=== PATIENT | female | born 1950 | race Caucasian/White ===

== ENCOUNTER 2019-02-25 07:30 | Outpatient (RCR) | payer MEDICARE, OTHER, SELFPAY ==
--- NOTE | 2019-01-25 11:11 | PT.OIE ---
Current Diagnoses Pain in right hip (01/25/19) Pain in left hip (01/25/19) Stiffness of right hip, not elsewhere classified (01/25/19) Stiffness of left hip, not elsewhere classified (01/25/19) Other intervertebral disc degeneration, lumbar region (01/25/19) Muscle weakness (generalized) (01/25/19) Repeated falls (01/25/19) Provider Visit Care Team Role Provider Type Mila Elizabeth MD Attending Provider Non-Staff Primary Care Provider Specialty: [facility] Address: [address] [place] [address], [id number] Email: Physical Therapy Initial Evaluation PT-OP-A Visit Information Start: 01/25/19 10:39 Freq: Status: Active Protocol: Document 01/25/19 09:45 DCW (Rec: 01/25/19 11:11 DCW [id number]) Out-Patient Physical Therapy Visit Information Visit Information Visit Type Initial Evaluation Visit Start Time 09:45 Visit Stop Time 10:30 Total Visit Minutes 45 Visit Number 1 Number of GARAGE WORKER Visits 0 Evaluation Information Evaluation Date 01/25/19 PT-OP-B Current Condition Start: 01/25/19 10:39 Freq: Status: Active Protocol: Document 01/25/19 09:45 DCW (Rec: 01/25/19 11:11 DCW [id number]) Current Condition History of Current Condition Onset Date Six months Current Complaints bilateral hip and groin pain, multiple falls History of Current Condition Pt reports a long-standing history of hip pain, which was worsened by a fall in her garage in July. Pt's normal pain is a constant pain in her bilateral hips and groin, which makes it difficulty to do anything. Pt has difficulty describing if anything causes her pain to increase, and is a somewhat tangential historian. Pt also reports that 4-6 x/day, she gets terrible pain down the front of her right thigh, but this seems to happen randomly and makes her scream loudly. Pt reports she is generally able to do dishes and laundry without any difficulty, but also admits her pain is worse standing longer than one minute. Pt reports difficulty tying her shoes. Pt notes that prior falls have caused a patella fracture and broken ribs, so she is also worried about her balance Prior Treatments and Tests x-ray showed moderate DJD bilaterally, per chart notes from her 12/02/18 visit with Mila Elizabeth MD Treatment Goals Patient/Caregiver Goals Pt wants her constant pain to stop Prior Functional Status Baseline Function- ADL's Independent Baseline Function- Mobility Independent Current Functional Impairments (Reported) Functional Limitations- ADL's Difficulty/pain tying shoes, standing >1 minute causes increased pain Functional Limitations- Mobility/Gait Relies on her to assist her getting around PT-OP-C Subjective Start: 01/25/19 10:39 Freq: Status: Active Protocol: Document 01/25/19 09:45 DCW (Rec: 01/25/19 11:11 DCW [id number]) Patient Questionnaires Lower Extremity Functional Scale LEFS Score 25/80 = 31.25% OP-PT Pain Assessment Pain Assessment Grid Paper Pain Assessment Grid Completed Yes: Multiple sites, see paper chart PT-OP-D Balance Start: 01/25/19 10:39 Freq: Status: Active Protocol: Document 01/25/19 09:45 DCW (Rec: 01/25/19 11:11 DCW [id number]) Balance Tests Frank Balance Test Frank Balance Test Score 36/56 Frank Impairment Rating 20 to 39% Impaired (Score 34- 44) Frank Balance Assessment Evaluation Sitting to Standing Ability Independent w/Hands Unsupported Stance Safely- 2 minutes Sitting Unsupported, Feet on Floor Safely- 2 minutes Standing to Sitting Ability Assist, Control w/Hands Transfer Ability Supervision, Verbal Cues Unsupported Stance- Eyes Closed Supervision, 10 seconds Unsupported Stance- Eyes Open Supervision to maintain Reaching Forward Standing Safely, 2 inches Pick- Up Object From Floor Supervision Look Behind Shoulder - Standing Turns Sideways Only Turning 360 Degrees Turns slowly, but safely Unsupported Stance, Alternating Feet on 4 Steps w/Supervision Stair Unsupported Tandem Stance Small Step- 30 seconds Unilateral Leg Stance Lifts Leg/Unable to Hold Total Score Frank Total Score (out of 56 points) 36 Frank Impairment Rating 20 to 39% Impaired (Score 34- 44) PT-OP-F Manual Assessment Start: 01/25/19 10:39 Freq: Status: Active Protocol: Document 01/25/19 09:45 DCW (Rec: 01/25/19 11:11 DCW [id number]) Manual Assessments Joint Mobility Assessment Joint Mobility Assessment Pain and crepitus with passive circumduction bilaterally, causing pt protective posturing . Pt tolerates only minimal movement of bilateral hip due to pain. PT-OP-G Mobility & Gait Start: 01/25/19 10:39 Freq: Status: Active Protocol: Document 01/25/19 09:45 DCW (Rec: 01/25/19 11:11 DCW [id number]) OP Gait Assessment Gait Gait Assistance Required: Contact Guard Assist Able to Maintain Weight Bearing Status Yes During Gait Assistive Devices Assistive Device None Orthotic/Prosthetic Devices or Brace: No Gait Deviations General Gait Pattern Antalgic Flexed Trunk Lateral Trunk Lean Comments Gait Comments Pt holds onto for stability with walking further than 5 feet PT-OP-K Range of Motion Start: 01/25/19 10:39 Freq: Status: Active Protocol: Document 01/25/19 09:45 DCW (Rec: 01/25/19 11:11 DCW [id number]) Hip Goniometric Range of Motion Hip Right Passive Hip ROM WFL No Testing Position Supine Flexion w/Knee Flexed 87 Abduction 20 Internal Rotation 2 External Rotation 32 Left Passive Hip ROM WFL No Testing Position Supine Flexion w/Knee Flexed 70 Abduction 8 Internal Rotation 4 External Rotation 28 Hip ROM Limitations Hip ROM Limitations Bony Restriction Pain PT-OP-L Special Tests Start: 01/25/19 10:39 Freq: Status: Active Protocol: Document 01/25/19 09:45 DCW (Rec: 01/25/19 11:11 DCW [id number]) Special Tests Hip Special Tests Scour Test Test Results Positive bilaterally De Jesus's Compression Test Results Positive bilaterally PHILLIP Test Results Anterior hip pain bilaterally PT-OP-M Strength Start: 01/25/19 10:39 Freq: Status: Active Protocol: Document 01/25/19 09:45 DCW (Rec: 01/25/19 11:11 DCW [id number]) Hip Strength Hip Manual Muscle Testing Right Flexion (L2) 4 Good Abduction 4 Good Adduction 4+ Good+ External Rotation 4 Good Internal Rotation 4 Good Comments c/o pain with resisted R hip abduction Left Flexion (L2) 3+ Fair+ Abduction 4 Good Adduction 4+ Good+ External Rotation 4- Good- Internal Rotation 4- Good- Comments c/o pain with resisted L hip flexion Knee Strength Knee Manual Muscle Testing Right Flexion (S2) 4+ Good+ Extension (L3) 4+ Good+ Left Flexion (S2) 4+ Good+ Extension (L3) 4+ Good+ PT-OP-T Assessment and Plan Start: 01/25/19 10:39 Freq: Status: Active Protocol: Document 01/25/19 09:45 DCW (Rec: 01/25/19 11:11 DCW [id number]) Physical Therapy Assessment Rehab Potential Rehabilitation Potential Good Evaluation Complexity Number of Personal Factors/Comorbidities 1-2 Number of Body Systems Impaired 3 Clinical Presentation at Evaluation Stable Impairments Impairments Activity Tolerance Balance Gait Pain ROM Soft Tissue Mobility Strength Goals Four Impairment Limited hip ROM bilaterally Patternmaker Hand Goal (LTG) Pt to display 100? hip flexion and 15? 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 Pt's score of 36/ 56 shows increased falls risk, and pt relies on holding onto her for stability, with likely indicates she would benefit from an assistive device. Pt's LE MMT show weakness, especially right hip flexion, and pt's hip ROM measurements demonstrate limitations, particularly in flexion (87? R , 70? L), and IR ( 2? R, 4? L) . Pt should benefit from generalized LE strengthening, balance training to help prevent future falls, and TherEx to improve bilateral hip ROM. If pt does not progress with skilled PT, pt may require return to specialist for further evaluation for potential surgical intervention, however pt will likely benefit from PT either way. Physical Therapy Plan Frequency and Duration Frequency of Treatment 2x/Week Duration of Treatment 10 weeks Plan of Care Start Date 01/25/19 Plan of Care End Date 04/05/19 Therapeutic Interventions Therapeutic Interventions Aquatic Therapy Balance Training Gait Training Home Exercise Program Joint Mobilizations Manual Therapy Neuromuscular Re-education Patient/Caregiver Education Self-Care/Home Management Soft Tissue Mobilization Therapeutic Activities Therapeutic Exercises Modalities Cold Pack/Ice Massage Electric Stimulation Hot Packs Ultrasound Next Visit Focus/Plan Next Note Type Treatment Note Next Visit Plan Strengthening, ROM, Balance training
--- NOTE | 2019-01-25 11:11 | PT.OPPOC ---
Current Diagnoses Pain in right hip (01/25/19) Pain in left hip (01/25/19) Stiffness of right hip, not elsewhere classified (01/25/19) Stiffness of left hip, not elsewhere classified (01/25/19) Other intervertebral disc degeneration, lumbar region (01/25/19) Muscle weakness (generalized) (01/25/19) Repeated falls (01/25/19) Provider Visit Care Team Role Provider Type Mila Elizabeth MD Attending Provider Non-Staff Primary Care Provider Specialty: [facility] Address: [address] [place] [address], [id number] Email: Plan Of Care PT-OP-T Assessment and Plan Start: 01/25/19 10:39 Freq: Status: Active Protocol: Document 01/25/19 09:45 DCW (Rec: 01/25/19 11:11 DCW [id number]) Physical Therapy Assessment Rehab Potential Rehabilitation Potential Good Evaluation Complexity Number of Personal Factors/Comorbidities 1-2 Number of Body Systems Impaired 3 Clinical Presentation at Evaluation Stable Impairments Impairments Activity Tolerance Balance Gait Pain ROM Soft Tissue Mobility Strength Goals Four Impairment Limited hip ROM bilaterally Long-Term Goal (LTG) Pt to display 100? hip flexion and 15? hip internal rotation bilaterally LTG Duration 03/27/19 Three Impairment Pt demonstrates increased falls risk per 36/56 on Frank Long-Term Goal (LTG) Pt to score 44/56 on Frank Balance Scale to demonstrate decreased falls risk LTG Duration 03/27/19 Two Impairment Pt unable to stand more than one minute without increasing pain Long-Term Goal (LTG) Pt to stand ten minutes without increased pain to improve ability to perform sports doctor LTG Duration 03/27/19 One Impairment Pt does not have an appropriate home exercise program Short Term Goal (STG) Pt to be independent and compliant with an appropriate HEP STG Duration 02/24/19 Assessment Summary Assessment Pt presents with signs and symptoms consistent with bilateral hip DJD and declining balance/increased falls risk. Pt's score of 36/ 56 shows increased falls risk, and pt relies on holding onto her for stability, with likely indicates she would benefit from an assistive device. Pt's LE MMT show weakness, especially right hip flexion, and pt's hip ROM measurements demonstrate limitations, particularly in flexion (87? R , 70? L), and IR ( 2? R, 4? L) . Pt should benefit from generalized LE strengthening, balance training to help prevent future falls, and TherEx to improve bilateral hip ROM. If pt does not progress with skilled PT, pt may require return to specialist for further evaluation for potential surgical intervention, however pt will likely benefit from PT either way. Physical Therapy Plan Frequency and Duration Frequency of Treatment 2x/Week Duration of Treatment 10 weeks Plan of Care Start Date 01/25/19 Plan of Care End Date 04/05/19 Therapeutic Interventions Therapeutic Interventions Aquatic Therapy Balance Training Gait Training Home Exercise Program Joint Mobilizations Manual Therapy Neuromuscular Re-education Patient/Caregiver Education Self-Care/Home Management Soft Tissue Mobilization Therapeutic Activities Therapeutic Exercises Modalities Cold Pack/Ice Massage Electric Stimulation Hot Packs Ultrasound Next Visit Focus/Plan Next Note Type Treatment Note Next Visit Plan Strengthening, ROM, Balance training Plan of Care Dates Plan of Care Start Date 01/25/19 Plan of Care End Date 04/05/19 Please Sign and Return: I have reviewed this Plan of Care and certify that the skilled therapy services above are required to meet the patient?s needs. Physician Signature Date Printed Name and Credentials Clinical Instructor Signature Printed Name and Credentials
--- NOTE | 2019-01-28 10:33 | PT.OTN ---
Current Diagnoses Pain in right hip (01/28/19) Pain in left hip (01/28/19) Stiffness of right hip, not elsewhere classified (01/28/19) Stiffness of left hip, not elsewhere classified (01/28/19) Other intervertebral disc degeneration, lumbar region (01/28/19) Muscle weakness (generalized) (01/28/19) Repeated falls (01/28/19) Physical Therapy Treatment Note PT-OP-A Visit Information Start: 01/25/19 10:39 Freq: Status: Active Protocol: Document 01/28/19 09:45 DCW (Rec: 01/28/19 10:33 DCW [id number]) Out-Patient Physical Therapy Visit Information Visit Information Visit Type Treatment Note Visit Start Time 09:45 Visit Stop Time 10:30 Total Visit Minutes 45 Visit Number 2 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 Pt's normal pain is a constant pain in her bilateral hips and groin, which makes it difficulty to do anything. Pt has difficulty describing if anything causes her pain to increase, and is a somewhat tangential historian. Pt also reports that 4-6 x/day, she gets terrible pain down the front of her right thigh, but this seems to happen randomly and makes her scream loudly. Pt reports she is generally able to do dishes and laundry without any difficulty, but also admits her pain is worse standing longer than one minute. Pt reports difficulty tying her shoes. Pt notes that prior falls have caused a patella fracture and broken ribs, so she is also worried about her balance Prior Treatments and Tests x-ray showed moderate DJD bilaterally, per chart notes from her 12/02/18 visit with Mila Elizabeth MD Treatment Goals Patient/Caregiver Goals Pt wants her constant pain to stop Prior Functional Status Baseline Function- ADL's Independent Baseline Function- Mobility Independent Current Functional Impairments (Reported) Functional Limitations- ADL's Difficulty/pain tying shoes, standing >1 minute causes increased pain Functional Limitations- Mobility/Gait Relies on her to assist her getting around PT-OP-C Subjective Start: 01/25/19 10:39 Freq: Status: Active Protocol: Document 01/28/19 09:45 DCW (Rec: 01/28/19 10:33 DCW [id number]) OP-PT Subjective Patient Comments Patient Comments Pt reports she is very sore, and would like therapy to help her with her pain. PT-OP-D Balance Start: 01/25/19 10:39 Freq: Status: Active Protocol: Document 01/25/19 09:45 DCW (Rec: 01/25/19 11:11 DCW [id number]) Balance Tests Frank Balance Test Frank Balance Test Score 36/56 Frank Impairment Rating 20 to 39% Impaired (Score 34- 44) Frank Balance Assessment Evaluation Sitting to Standing Ability Independent w/Hands Unsupported Stance Safely- 2 minutes Sitting Unsupported, Feet on Floor Safely- 2 minutes Standing to Sitting Ability Assist, Control w/Hands Transfer Ability Supervision, Verbal Cues Unsupported Stance- Eyes Closed Supervision, 10 seconds Unsupported Stance- Eyes Open Supervision to maintain Reaching Forward Standing Safely, 2 inches Pick- Up Object From Floor Supervision Look Behind Shoulder - Standing Turns Sideways Only Turning 360 Degrees Turns slowly, but safely Unsupported Stance, Alternating Feet on 4 Steps w/Supervision Stair Unsupported Tandem Stance Small Step- 30 seconds Unilateral Leg Stance Lifts Leg/Unable to Hold Total Score Frank Total Score (out of 56 points) 36 Frank Impairment Rating 20 to 39% Impaired (Score 34- 44) PT-OP-F Manual Assessment Start: 01/25/19 10:39 Freq: Status: Active Protocol: Document 01/25/19 09:45 DCW (Rec: 01/25/19 11:11 DCW [id number]) Manual Assessments Joint Mobility Assessment Joint Mobility Assessment Pain and crepitus with passive circumduction bilaterally, causing pt protetive posturing . Pt tolerates only minimal movement of bilateral hip due to pain. PT-OP-G Mobility & Gait Start: 01/25/19 10:39 Freq: Status: Active Protocol: Document 01/25/19 09:45 DCW (Rec: 01/25/19 11:11 DCW [id number]) OP Gait Assessment Gait Gait Assistance Required: Contact Guard Assist Able to Maintain Weight Bearing Status Yes During Gait Assistive Devices Assistive Device None Orthotic/Prosthetic Devices or Brace: No Gait Deviations General Gait Pattern Antalgic Flexed Trunk Lateral Trunk Lean Comments Gait Comments Pt holds onto for stability with walking further than 5 feet PT-OP-K Range of Motion Start: 01/25/19 10:39 Freq: Status: Active Protocol: Document 01/25/19 09:45 DCW (Rec: 01/25/19 11:11 DCW [id number]) Hip Goniometric Range of Motion Hip Right Passive Hip ROM WFL No Testing Position Supine Flexion w/Knee Flexed 87 Abduction 20 Internal Rotation 2 External Rotation 32 Left Passive Hip ROM WFL No Testing Position Supine Flexion w/Knee Flexed 70 Abduction 8 Internal Rotation 4 External Rotation 28 Hip ROM Limitations Hip ROM Limitations Bony Restriction Pain PT-OP-L Special Tests Start: 01/25/19 10:39 Freq: Status: Active Protocol: Document 01/25/19 09:45 DCW (Rec: 01/25/19 11:11 DCW [id number]) Special Tests Hip Special Tests Scour Test Test Results Positive bilaterally De Jesus's Compression Test Results Positive bilaterally PHILLIP Test Results Anterior hip pain bilaterally PT-OP-M Strength Start: 01/25/19 10:39 Freq: Status: Active Protocol: Document 01/25/19 09:45 DCW (Rec: 01/25/19 11:11 DCW [id number]) Hip Strength Hip Manual Muscle Testing Right Flexion (L2) 4 Good Abduction 4 Good Adduction 4+ Good+ External Rotation 4 Good Internal Rotation 4 Good Comments c/o pain with resisted R hip abduction Left Flexion (L2) 3+ Fair+ Abduction 4 Good Adduction 4+ Good+ External Rotation 4- Good- Internal Rotation 4- Good- Comments c/o pain with resisted L hip flexion Knee Strength Knee Manual Muscle Testing Right Flexion (S2) 4+ Good+ Extension (L3) 4+ Good+ Left Flexion (S2) 4+ Good+ Extension (L3) 4+ Good+ PT-OP-Q Treatments Start: 01/25/19 10:39 Freq: Status: Active Protocol: Document 01/28/19 09:45 DCW (Rec: 01/28/19 10:33 DCW [id number]) Cardio Equipment Recumbent Elliptical (Biodex) Duration (Minutes) 5 Resistance 1 Seat Position 10 Gym Equipment Shuttle Recovery Unilateral Squats Resistance 37# Shuttle Recovery Platform Stable Bilateral Squats Resistance 75# Shuttle Recovery Platform Stable Therapeutic Exercises Supine Exercises Bridging Supine Exercise Name Bridging Comments stopped secondary to pain Sidelying Exercises Reverse Clamshell Sidelying Exercise Name Reverse Clamshell Side bilateral Clamshell Sidelying Exercise Name Clamshell Side bilateral Standing Exercises Hip Extension Standing Exercise Name Extension Side bilateral Resistance none Equipment Used rail Hip Abduction Standing Exercise Name Abduction Side bilateral Resistance none Equipment Used rail Gait Training Gait Activity 1 Description Gait training /c FWW Device Used FWW Level of Assistance SBA Treatment Focus Safety /c walker PT-OP-R Modalities Start: 01/25/19 10:39 Freq: Status: Active Protocol: Document 01/28/19 09:45 DCW (Rec: 01/28/19 10:33 DCW [id number]) Electric Stimulation Electric Stimulation Interferential Current (IFC) Body Location Right hip Duration (Minutes) 15 Intensity 23 Patient Position Hooklying PT-OP-T Assessment and Plan Start: 01/25/19 10:39 Freq: Status: Active Protocol: Document 01/28/19 09:45 DCW (Rec: 01/28/19 10:33 DCW [id number]) Physical Therapy Assessment Impairments Impairments Activity Tolerance Balance Gait Pain ROM Soft Tissue Mobility Strength Goals Four Impairment Limited hip ROM bilaterally Machine Lead Burner Goal (LTG) Pt to display 100? hip flexion and 15? 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 Pt reports they have a FWW available, and she is agreeable to using it. Pt reported some increased pain with TherEx, but wants to work hard at home, and is excited about her HEP. Physical Therapy Plan Frequency and Duration Frequency of Treatment 2x/Week Duration of Treatment 10 weeks Plan of Care Start Date 01/25/19 Plan of Care End Date 04/05/19 Therapeutic Interventions Therapeutic Interventions Aquatic Therapy Balance Training Gait Training Home Exercise Program Joint Mobilizations Manual Therapy Neuromuscular Re-education Patient/Caregiver Education Self-Care/Home Management Soft Tissue Mobilization Therapeutic Activities Therapeutic Exercises Modalities Cold Pack/Ice Massage Electric Stimulation Hot Packs Ultrasound Next Visit Focus/Plan Next Note Type Treatment Note Next Visit Plan Strengthening, ROM, Balance training
--- NOTE | 2019-02-02 13:48 | PT.OTN ---
Current Diagnoses Pain in right hip (02/02/19) Pain in left hip (02/02/19) Stiffness of right hip, not elsewhere classified (02/02/19) Stiffness of left hip, not elsewhere classified (02/02/19) Other intervertebral disc degeneration, lumbar region (02/02/19) Muscle weakness (generalized) (02/02/19) Repeated falls (02/02/19) Physical Therapy Treatment Note PT-OP-A Visit Information Start: 01/25/19 10:39 Freq: Status: Active Protocol: Document 02/02/19 08:21 EA (Rec: 02/02/19 08:28 EA [id number]) Out-Patient Physical Therapy Visit Information Visit Information Visit Type Treatment Note Visit Start Time 07:30 Visit Stop Time 08:25 Total Visit Minutes 55 Visit Number 3 PT-OP-B Current Condition Start: 01/25/19 10:39 Freq: Status: Active Protocol: Document 01/25/19 09:45 DCW (Rec: 01/25/19 11:11 DCW [id number]) Current Condition History of Current Condition Onset Date Six months Current Complaints bilateral hip and groin pain, multiple falls History of Current Condition Pt reports a long-standing history of hip pain, which was worsened by a fall in her garage in July. Pt's normal pain is a constant pain in her bilateral hips and groin, which makes it difficulty to do anything. Pt has difficulty describing if anything causes her pain to increase, and is a somewhat tangential historian. Pt also reports that 4-6 x/day, she gets terrible pain down the front of her right thigh, but this seems to happen randomly and makes her scream loudly. Pt reports she is generally able to do dishes and laundry without any difficulty, but also admits her pain is worse standing longer than one minute. Pt reports difficulty tying her shoes. Pt notes that prior falls have caused a patella fracture and broken ribs, so she is also worried about her balance Prior Treatments and Tests x-ray showed moderate DJD bilaterally, per chart notes from her 12/02/18 visit with Mila Elizabeth MD Treatment Goals Patient/Caregiver Goals Pt wants her constant pain to stop Prior Functional Status Baseline Function- ADL's Independent Baseline Function- Mobility Independent Current Functional Impairments (Reported) Functional Limitations- ADL's Difficulty/pain tying shoes, standing >1 minute causes increased pain Functional Limitations- Mobility/Gait Relies on her to assist her getting around PT-OP-C Subjective Start: 01/25/19 10:39 Freq: Status: Active Protocol: Document 02/02/19 08:21 EA (Rec: 02/02/19 08:28 EA [id number]) OP-PT Subjective Patient Comments Patient Comments Pt reports pain during HEP; states last session with electrical stimulation helps a bit. She reports might still looking for her mothers 4WW to use for mobility. PT-OP-D Balance Start: 01/25/19 10:39 Freq: Status: Active Protocol: Document 01/25/19 09:45 DCW (Rec: 01/25/19 11:11 DCW [id number]) Balance Tests Frank Balance Test Frank Balance Test Score 36/56 Frank Impairment Rating 20 to 39% Impaired (Score 34- 44) Frank Balance Assessment Evaluation Sitting to Standing Ability Independent w/Hands Unsupported Stance Safely- 2 minutes Sitting Unsupported, Feet on Floor Safely- 2 minutes Standing to Sitting Ability Assist, Control w/Hands Transfer Ability Supervision, Verbal Cues Unsupported Stance- Eyes Closed Supervision, 10 seconds Unsupported Stance- Eyes Open Supervision to maintain Reaching Forward Standing Safely, 2 inches Pick- Up Object From Floor Supervision Look Behind Shoulder - Standing Turns Sideways Only Turning 360 Degrees Turns slowly, but safely Unsupported Stance, Alternating Feet on 4 Steps w/Supervision Stair Unsupported Tandem Stance Small Step- 30 seconds Unilateral Leg Stance Lifts Leg/Unable to Hold Total Score Frank Total Score (out of 56 points) 36 Frank Impairment Rating 20 to 39% Impaired (Score 34- 44) PT-OP-F Manual Assessment Start: 01/25/19 10:39 Freq: Status: Active Protocol: Document 01/25/19 09:45 DCW (Rec: 01/25/19 11:11 DCW [id number]) Manual Assessments Joint Mobility Assessment Joint Mobility Assessment Pain and crepitus with passive circumduction bilaterally, causing pt protetive posturing . Pt tolerates only minimal movement of bilateral hip due to pain. PT-OP-G Mobility & Gait Start: 01/25/19 10:39 Freq: Status: Active Protocol: Document 01/25/19 09:45 DCW (Rec: 01/25/19 11:11 DCW [id number]) OP Gait Assessment Gait Gait Assistance Required: Contact Guard Assist Able to Maintain Weight Bearing Status Yes During Gait Assistive Devices Assistive Device None Orthotic/Prosthetic Devices or Brace: No Gait Deviations General Gait Pattern Antalgic Flexed Trunk Lateral Trunk Lean Comments Gait Comments Pt holds onto for stability with walking further than 5 feet PT-OP-K Range of Motion Start: 01/25/19 10:39 Freq: Status: Active Protocol: Document 01/25/19 09:45 DCW (Rec: 01/25/19 11:11 DCW [id number]) Hip Goniometric Range of Motion Hip Right Passive Hip ROM WFL No Testing Position Supine Flexion w/Knee Flexed 87 Abduction 20 Internal Rotation 2 External Rotation 32 Left Passive Hip ROM WFL No Testing Position Supine Flexion w/Knee Flexed 70 Abduction 8 Internal Rotation 4 External Rotation 28 Hip ROM Limitations Hip ROM Limitations Bony Restriction Pain PT-OP-L Special Tests Start: 01/25/19 10:39 Freq: Status: Active Protocol: Document 01/25/19 09:45 DCW (Rec: 01/25/19 11:11 DCW [id number]) Special Tests Hip Special Tests Scour Test Test Results Positive bilaterally De Jesus's Compression Test Results Positive bilaterally PHILLIP Test Results Anterior hip pain bilaterally PT-OP-M Strength Start: 01/25/19 10:39 Freq: Status: Active Protocol: Document 01/25/19 09:45 DCW (Rec: 01/25/19 11:11 DCW [id number]) Hip Strength Hip Manual Muscle Testing Right Flexion (L2) 4 Good Abduction 4 Good Adduction 4+ Good+ External Rotation 4 Good Internal Rotation 4 Good Comments c/o pain with resisted R hip abduction Left Flexion (L2) 3+ Fair+ Abduction 4 Good Adduction 4+ Good+ External Rotation 4- Good- Internal Rotation 4- Good- Comments c/o pain with resisted L hip flexion Knee Strength Knee Manual Muscle Testing Right Flexion (S2) 4+ Good+ Extension (L3) 4+ Good+ Left Flexion (S2) 4+ Good+ Extension (L3) 4+ Good+ PT-OP-Q Treatments Start: 01/25/19 10:39 Freq: Status: Active Protocol: Document 02/02/19 08:21 EA (Rec: 02/02/19 08:28 EA [id number]) Cardio Equipment Recumbent Elliptical (Biodex) Duration (Minutes) 6 Resistance 1 Seat Position 10 Gym Equipment Shuttle Recovery Unilateral Squats Resistance 37# Shuttle Recovery Platform Stable Bilateral Squats Resistance 75# Shuttle Recovery Platform Stable Therapeutic Exercises Supine Exercises Bridging Supine Exercise Name Bridging to bridging with isometric hip abduction Side bilateral Resistance BTB Sidelying Exercises Reverse Clamshell Sidelying Exercise Name Reverse Clamshell Side bilateral Resistance BTB Clamshell Sidelying Exercise Name Clamshell Side bilateral Standing Exercises Hip Extension Standing Exercise Name Extension Side bilateral Resistance none Equipment Used rail Hip Abduction Standing Exercise Name Abduction Side bilateral Resistance none Equipment Used rail Manual Therapy Treatment Soft Tissue Mobilization 1 Body Location R ant groin, upper postero lat gluetals Intensity/Depth Moderate Body Position Hooklying PT-OP-R Modalities Start: 01/25/19 10:39 Freq: Status: Active Protocol: Document 02/02/19 08:21 EA (Rec: 02/02/19 08:28 EA [id number]) Electric Stimulation Electric Stimulation Interferential Current (IFC) Body Location Right hip Duration (Minutes) 15 Intensity 23 Patient Position Hooklying PT-OP-T Assessment and Plan Start: 01/25/19 10:39 Freq: Status: Active Protocol: Document 02/02/19 08:21 EA (Rec: 02/02/19 08:28 EA [id number]) Physical Therapy Assessment Assessment Summary Assessment Pt exhibited no pain complaint with life story conversation during therEx. I recommended to cont. HEP. Physical Therapy Plan Next Visit Focus/Plan Next Note Type Treatment Note Next Visit Plan Strengthening, ROM, Balance training
--- NOTE | 2019-02-04 13:06 | PT.OTN ---
Current Diagnoses Pain in right hip (02/04/19) Pain in left hip (02/04/19) Stiffness of right hip, not elsewhere classified (02/04/19) Stiffness of left hip, not elsewhere classified (02/04/19) Other intervertebral disc degeneration, lumbar region (02/04/19) Muscle weakness (generalized) (02/04/19) Repeated falls (02/04/19) Physical Therapy Treatment Note PT-OP-A Visit Information Start: 01/25/19 10:39 Freq: Status: Active Protocol: Document 02/04/19 13:02 EA (Rec: 02/04/19 13:06 EA [id number]) Out-Patient Physical Therapy Visit Information Visit Information Visit Type Treatment Note Visit Start Time 07:30 Visit Stop Time 08:25 Total Visit Minutes 55 Visit Number 4 PT-OP-B Current Condition Start: 01/25/19 10:39 Freq: Status: Active Protocol: Document 01/25/19 09:45 DCW (Rec: 01/25/19 11:11 DCW [id number]) Current Condition History of Current Condition Onset Date Six months Current Complaints bilateral hip and groin pain, multiple falls History of Current Condition Pt reports a long-standing history of hip pain, which was worsened by a fall in her garage in July. Pt's normal pain is a constant pain in her bilateral hips and groin, which makes it difficulty to do anything. Pt has difficulty describing if anything causes her pain to increase, and is a somewhat tangential historian. Pt also reports that 4-6 x/day, she gets terrible pain down the front of her right thigh, but this seems to happen randomly and makes her scream loudly. Pt reports she is generally able to do dishes and laundry without any difficulty, but also admits her pain is worse standing longer than one minute. Pt reports difficulty tying her shoes. Pt notes that prior falls have caused a patella fracture and broken ribs, so she is also worried about her balance Prior Treatments and Tests x-ray showed moderate DJD bilaterally, per chart notes from her 12/02/18 visit with Mila Elizabeth MD Treatment Goals Patient/Caregiver Goals Pt wants her constant pain to stop Prior Functional Status Baseline Function- ADL's Independent Baseline Function- Mobility Independent Current Functional Impairments (Reported) Functional Limitations- ADL's Difficulty/pain tying shoes, standing >1 minute causes increased pain Functional Limitations- Mobility/Gait Relies on her to assist her getting around PT-OP-C Subjective Start: 01/25/19 10:39 Freq: Status: Active Protocol: Document 02/04/19 13:02 EA (Rec: 02/04/19 13:06 EA [id number]) OP-PT Subjective Patient Comments Patient Comments Pt reports right hip feels a bit better; left hip botherher much today. PT-OP-D Balance Start: 01/25/19 10:39 Freq: Status: Active Protocol: Document 01/25/19 09:45 DCW (Rec: 01/25/19 11:11 DCW [id number]) Balance Tests Frank Balance Test Frank Balance Test Score 36/56 Frank Impairment Rating 20 to 39% Impaired (Score 34- 44) Frank Balance Assessment Evaluation Sitting to Standing Ability Independent w/Hands Unsupported Stance Safely- 2 minutes Sitting Unsupported, Feet on Floor Safely- 2 minutes Standing to Sitting Ability Assist, Control w/Hands Transfer Ability Supervision, Verbal Cues Unsupported Stance- Eyes Closed Supervision, 10 seconds Unsupported Stance- Eyes Open Supervision to maintain Reaching Forward Standing Safely, 2 inches Pick- Up Object From Floor Supervision Look Behind Shoulder - Standing Turns Sideways Only Turning 360 Degrees Turns slowly, but safely Unsupported Stance, Alternating Feet on 4 Steps w/Supervision Stair Unsupported Tandem Stance Small Step- 30 seconds Unilateral Leg Stance Lifts Leg/Unable to Hold Total Score Frank Total Score (out of 56 points) 36 Frank Impairment Rating 20 to 39% Impaired (Score 34- 44) PT-OP-F Manual Assessment Start: 01/25/19 10:39 Freq: Status: Active Protocol: Document 01/25/19 09:45 DCW (Rec: 01/25/19 11:11 DCW [id number]) Manual Assessments Joint Mobility Assessment Joint Mobility Assessment Pain and crepitus with passive circumduction bilaterally, causing pt protetive posturing . Pt tolerates only minimal movement of bilateral hip due to pain. PT-OP-G Mobility & Gait Start: 01/25/19 10:39 Freq: Status: Active Protocol: Document 01/25/19 09:45 DCW (Rec: 01/25/19 11:11 DCW [id number]) OP Gait Assessment Gait Gait Assistance Required: Contact Guard Assist Able to Maintain Weight Bearing Status Yes During Gait Assistive Devices Assistive Device None Orthotic/Prosthetic Devices or Brace: No Gait Deviations General Gait Pattern Antalgic Flexed Trunk Lateral Trunk Lean Comments Gait Comments Pt holds onto for stability with walking further than 5 feet PT-OP-K Range of Motion Start: 01/25/19 10:39 Freq: Status: Active Protocol: Document 01/25/19 09:45 DCW (Rec: 01/25/19 11:11 DCW [id number]) Hip Goniometric Range of Motion Hip Right Passive Hip ROM WFL No Testing Position Supine Flexion w/Knee Flexed 87 Abduction 20 Internal Rotation 2 External Rotation 32 Left Passive Hip ROM WFL No Testing Position Supine Flexion w/Knee Flexed 70 Abduction 8 Internal Rotation 4 External Rotation 28 Hip ROM Limitations Hip ROM Limitations Bony Restriction Pain PT-OP-L Special Tests Start: 01/25/19 10:39 Freq: Status: Active Protocol: Document 01/25/19 09:45 DCW (Rec: 01/25/19 11:11 DCW [id number]) Special Tests Hip Special Tests Scour Test Test Results Positive bilaterally De Jesus's Compression Test Results Positive bilaterally PHILLIP Test Results Anterior hip pain bilaterally PT-OP-M Strength Start: 01/25/19 10:39 Freq: Status: Active Protocol: Document 01/25/19 09:45 DCW (Rec: 01/25/19 11:11 DCW [id number]) Hip Strength Hip Manual Muscle Testing Right Flexion (L2) 4 Good Abduction 4 Good Adduction 4+ Good+ External Rotation 4 Good Internal Rotation 4 Good Comments c/o pain with resisted R hip abduction Left Flexion (L2) 3+ Fair+ Abduction 4 Good Adduction 4+ Good+ External Rotation 4- Good- Internal Rotation 4- Good- Comments c/o pain with resisted L hip flexion Knee Strength Knee Manual Muscle Testing Right Flexion (S2) 4+ Good+ Extension (L3) 4+ Good+ Left Flexion (S2) 4+ Good+ Extension (L3) 4+ Good+ PT-OP-Q Treatments Start: 01/25/19 10:39 Freq: Status: Active Protocol: Document 02/04/19 13:02 EA (Rec: 02/04/19 13:06 EA [id number]) Cardio Equipment Recumbent Elliptical (Biodex) Duration (Minutes) 6 Resistance 1 Seat Position 10 Gym Equipment Shuttle Recovery Unilateral Squats Resistance 37# Shuttle Recovery Platform Stable Bilateral Squats Resistance 75# Shuttle Recovery Platform Stable Therapeutic Exercises Supine Exercises Bridging Supine Exercise Name Bridging to bridging with isometric hip abduction Side bilateral Resistance BTB Sidelying Exercises Reverse Clamshell Sidelying Exercise Name Reverse Clamshell Side bilateral Resistance BTB Clamshell Sidelying Exercise Name Clamshell Side bilateral Standing Exercises Hip Extension Standing Exercise Name Extension Side bilateral Resistance none Equipment Used rail Hip Abduction Standing Exercise Name Abduction Side bilateral Resistance none Equipment Used rail Manual Therapy Treatment Soft Tissue Mobilization 1 Body Location R/L ant groin, upper postero lat gluetals Intensity/Depth Moderate Body Position Hooklying PT-OP-R Modalities Start: 01/25/19 10:39 Freq: Status: Active Protocol: Document 02/04/19 13:02 EA (Rec: 02/04/19 13:06 EA [id number]) Electric Stimulation Electric Stimulation Interferential Current (IFC) Body Location Left hip and upper gluteal region Duration (Minutes) 15 Intensity 23 Patient Position Hooklying PT-OP-T Assessment and Plan Start: 01/25/19 10:39 Freq: Status: Active Protocol: Document 02/04/19 13:02 EA (Rec: 02/04/19 13:06 EA [id number]) Physical Therapy Assessment Assessment Summary Assessment Tolerated treatment well. Educated with the HEP and exhibited good understanding. Physical Therapy Plan Next Visit Focus/Plan Next Note Type Treatment Note Next Visit Plan Strengthening, ROM, Balance training
--- NOTE | 2019-02-09 11:18 | PT.OTN ---
Current Diagnoses Pain in right hip (02/09/19) Pain in left hip (02/09/19) Stiffness of right hip, not elsewhere classified (02/09/19) Stiffness of left hip, not elsewhere classified (02/09/19) Other intervertebral disc degeneration, lumbar region (02/09/19) Muscle weakness (generalized) (02/09/19) Repeated falls (02/09/19) Physical Therapy Treatment Note PT-OP-A Visit Information Start: 01/25/19 10:39 Freq: Status: Active Protocol: Document 02/09/19 11:11 SA (Rec: 02/09/19 11:18 SA [id number]) Out-Patient Physical Therapy Visit Information Visit Information Visit Type Treatment Note Visit Start Time 08:15 Visit Stop Time 09:10 Total Visit Minutes 55 Visit Number 5 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 Pt's normal pain is a constant pain in her bilateral hips and groin, which makes it difficulty to do anything. Pt has difficulty describing if anything causes her pain to increase, and is a somewhat tangential historian. Pt also reports that 4-6 x/day, she gets terrible pain down the front of her right thigh, but this seems to happen randomly and makes her scream loudly. Pt reports she is generally able to do dishes and laundry without any difficulty, but also admits her pain is worse standing longer than one minute. Pt reports difficulty tying her shoes. Pt notes that prior falls have caused a patella fracture and broken ribs, so she is also worried about her balance Prior Treatments and Tests x-ray showed moderate DJD bilaterally, per chart notes from her 12/02/18 visit with Mila Elizabeth MD Treatment Goals Patient/Caregiver Goals Pt wants her constant pain to stop Prior Functional Status Baseline Function- ADL's Independent Baseline Function- Mobility Independent Current Functional Impairments (Reported) Functional Limitations- ADL's Difficulty/pain tying shoes, standing >1 minute causes increased pain Functional Limitations- Mobility/Gait Relies on her to assist her getting around PT-OP-C Subjective Start: 01/25/19 10:39 Freq: Status: Active Protocol: Document 02/09/19 11:11 SA (Rec: 02/09/19 11:18 SA [id number]) OP-PT Subjective Patient Comments Patient Comments Pt states R hip is painful today, had releif after last session for about a day and a half. PT-OP-D Balance Start: 01/25/19 10:39 Freq: Status: Active Protocol: Document 01/25/19 09:45 DCW (Rec: 01/25/19 11:11 DCW [id number]) Balance Tests Frank Balance Test Frank Balance Test Score 36/56 Frank Impairment Rating 20 to 39% Impaired (Score 34- 44) Frank Balance Assessment Evaluation Sitting to Standing Ability Independent w/Hands Unsupported Stance Safely- 2 minutes Sitting Unsupported, Feet on Floor Safely- 2 minutes Standing to Sitting Ability Assist, Control w/Hands Transfer Ability Supervision, Verbal Cues Unsupported Stance- Eyes Closed Supervision, 10 seconds Unsupported Stance- Eyes Open Supervision to maintain Reaching Forward Standing Safely, 2 inches Pick- Up Object From Floor Supervision Look Behind Shoulder - Standing Turns Sideways Only Turning 360 Degrees Turns slowly, but safely Unsupported Stance, Alternating Feet on 4 Steps w/Supervision Stair Unsupported Tandem Stance Small Step- 30 seconds Unilateral Leg Stance Lifts Leg/Unable to Hold Total Score Frank Total Score (out of 56 points) 36 Frank Impairment Rating 20 to 39% Impaired (Score 34- 44) PT-OP-F Manual Assessment Start: 01/25/19 10:39 Freq: Status: Active Protocol: Document 01/25/19 09:45 DCW (Rec: 01/25/19 11:11 DCW [id number]) Manual Assessments Joint Mobility Assessment Joint Mobility Assessment Pain and crepitus with passive circumduction bilaterally, causing pt protetive posturing . Pt tolerates only minimal movement of bilateral hip due to pain. PT-OP-G Mobility & Gait Start: 01/25/19 10:39 Freq: Status: Active Protocol: Document 01/25/19 09:45 DCW (Rec: 01/25/19 11:11 DCW [id number]) OP Gait Assessment Gait Gait Assistance Required: Contact Guard Assist Able to Maintain Weight Bearing Status Yes During Gait Assistive Devices Assistive Device None Orthotic/Prosthetic Devices or Brace: No Gait Deviations General Gait Pattern Antalgic Flexed Trunk Lateral Trunk Lean Comments Gait Comments Pt holds onto for stability with walking further than 5 feet PT-OP-K Range of Motion Start: 01/25/19 10:39 Freq: Status: Active Protocol: Document 01/25/19 09:45 DCW (Rec: 01/25/19 11:11 DCW [id number]) Hip Goniometric Range of Motion Hip Right Passive Hip ROM WFL No Testing Position Supine Flexion w/Knee Flexed 87 Abduction 20 Internal Rotation 2 External Rotation 32 Left Passive Hip ROM WFL No Testing Position Supine Flexion w/Knee Flexed 70 Abduction 8 Internal Rotation 4 External Rotation 28 Hip ROM Limitations Hip ROM Limitations Bony Restriction Pain PT-OP-L Special Tests Start: 01/25/19 10:39 Freq: Status: Active Protocol: Document 01/25/19 09:45 DCW (Rec: 01/25/19 11:11 DCW [id number]) Special Tests Hip Special Tests Scour Test Test Results Positive bilaterally De Jesus's Compression Test Results Positive bilaterally PHILLIP Test Results Anterior hip pain bilaterally PT-OP-M Strength Start: 01/25/19 10:39 Freq: Status: Active Protocol: Document 01/25/19 09:45 DCW (Rec: 01/25/19 11:11 DCW [id number]) Hip Strength Hip Manual Muscle Testing Right Flexion (L2) 4 Good Abduction 4 Good Adduction 4+ Good+ External Rotation 4 Good Internal Rotation 4 Good Comments c/o pain with resisted R hip abduction Left Flexion (L2) 3+ Fair+ Abduction 4 Good Adduction 4+ Good+ External Rotation 4- Good- Internal Rotation 4- Good- Comments c/o pain with resisted L hip flexion Knee Strength Knee Manual Muscle Testing Right Flexion (S2) 4+ Good+ Extension (L3) 4+ Good+ Left Flexion (S2) 4+ Good+ Extension (L3) 4+ Good+ PT-OP-Q Treatments Start: 01/25/19 10:39 Freq: Status: Active Protocol: Document 02/09/19 11:11 SA (Rec: 02/09/19 11:18 SA [id number]) Cardio Equipment Recumbent Elliptical (Biodex) Duration (Minutes) 6 Resistance 2 Seat Position 10 Gym Equipment Shuttle Recovery Unilateral Squats Resistance 37# Shuttle Recovery Platform Stable Reps/Time 2 x 10 Bilateral Squats Resistance 75# Shuttle Recovery Platform Stable Reps/Time 2 x 10 Therapeutic Exercises Supine Exercises Knee fall out Side bilateral Reps/Minutes 10 x 5 each HS stretch Side bilateral Reps/Minutes 3 x 30 Bridging Supine Exercise Name Bridging to bridging with isometric hip abduction Side bilateral Resistance BTB Sidelying Exercises Reverse Clamshell Sidelying Exercise Name Reverse Clamshell Side bilateral Resistance BTB Clamshell Sidelying Exercise Name Clamshell Side bilateral Manual Therapy Treatment Soft Tissue Mobilization 1 Body Location R/L ant groin, upper postero lat gluetals Intensity/Depth Moderate Body Position Hooklying PT-OP-R Modalities Start: 01/25/19 10:39 Freq: Status: Active Protocol: Document 02/09/19 11:11 (Rec: 02/09/19 11:18 [id number]) Electric Stimulation Electric Stimulation Interferential Current (IFC) Body Location Left hip and upper gluteal region Duration (Minutes) 15 Intensity 24 Patient Position Hooklying Combined With Heat/Cold Hot Pack PT-OP-T Assessment and Plan Start: 01/25/19 10:39 Freq: Status: Active Protocol: Document 02/09/19 11:11 (Rec: 02/09/19 11:18 [id number]) Physical Therapy Assessment Assessment Summary Assessment Pt tolerated stretches and exercise well, added new stretches to HEP. Physical Therapy Plan Next Visit Focus/Plan Next Note Type Treatment Note Next Visit Plan Strengthening, ROM, Balance training
--- NOTE | 2019-02-16 09:39 | PT.OTN ---
Current Diagnoses Pain in right hip (02/16/19) Pain in left hip (02/16/19) Stiffness of right hip, not elsewhere classified (02/16/19) Stiffness of left hip, not elsewhere classified (02/16/19) Other intervertebral disc degeneration, lumbar region (02/16/19) Muscle weakness (generalized) (02/16/19) Repeated falls (02/16/19) Physical Therapy Treatment Note PT-OP-A Visit Information Start: 01/25/19 10:39 Freq: Status: Active Protocol: Document 02/16/19 08:57 EA (Rec: 02/16/19 09:01 EA [id number]) Out-Patient Physical Therapy Visit Information Visit Information Visit Type Treatment Note Visit Start Time 08:15 Visit Stop Time 09:07 Total Visit Minutes 53 Visit Number 6 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 Pt's normal pain is a constant pain in her bilateral hips and groin, which makes it difficulty to do anything. Pt has difficulty describing if anything causes her pain to increase, and is a somewhat tangential historian. Pt also reports that 4-6 x/day, she gets terrible pain down the front of her right thigh, but this seems to happen randomly and makes her scream loudly. Pt reports she is generally able to do dishes and laundry without any difficulty, but also admits her pain is worse standing longer than one minute. Pt reports difficulty tying her shoes. Pt notes that prior falls have caused a patella fracture and broken ribs, so she is also worried about her balance Prior Treatments and Tests x-ray showed moderate DJD bilaterally, per chart notes from her 12/02/18 visit with Mila Elizabeth MD Treatment Goals Patient/Caregiver Goals Pt wants her constant pain to stop Prior Functional Status Baseline Function- ADL's Independent Baseline Function- Mobility Independent Current Functional Impairments (Reported) Functional Limitations- ADL's Difficulty/pain tying shoes, standing >1 minute causes increased pain Functional Limitations- Mobility/Gait Relies on her to assist her getting around PT-OP-C Subjective Start: 01/25/19 10:39 Freq: Status: Active Protocol: Document 02/16/19 08:57 EA (Rec: 02/16/19 09:01 EA [id number]) OP-PT Subjective Patient Comments Patient Comments Pt reports it's not a good day today states will be having check up for pain clinic. PT-OP-D Balance Start: 01/25/19 10:39 Freq: Status: Active Protocol: Document 01/25/19 09:45 DCW (Rec: 01/25/19 11:11 DCW [id number]) Balance Tests Frank Balance Test Frank Balance Test Score 36/56 Frank Impairment Rating 20 to 39% Impaired (Score 34- 44) Frank Balance Assessment Evaluation Sitting to Standing Ability Independent w/Hands Unsupported Stance Safely- 2 minutes Sitting Unsupported, Feet on Floor Safely- 2 minutes Standing to Sitting Ability Assist, Control w/Hands Transfer Ability Supervision, Verbal Cues Unsupported Stance- Eyes Closed Supervision, 10 seconds Unsupported Stance- Eyes Open Supervision to maintain Reaching Forward Standing Safely, 2 inches Pick- Up Object From Floor Supervision Look Behind Shoulder - Standing Turns Sideways Only Turning 360 Degrees Turns slowly, but safely Unsupported Stance, Alternating Feet on 4 Steps w/Supervision Stair Unsupported Tandem Stance Small Step- 30 seconds Unilateral Leg Stance Lifts Leg/Unable to Hold Total Score Frank Total Score (out of 56 points) 36 Frank Impairment Rating 20 to 39% Impaired (Score 34- 44) PT-OP-F Manual Assessment Start: 01/25/19 10:39 Freq: Status: Active Protocol: Document 01/25/19 09:45 DCW (Rec: 01/25/19 11:11 DCW [id number]) Manual Assessments Joint Mobility Assessment Joint Mobility Assessment Pain and crepitus with passive circumduction bilaterally, causing pt protetive posturing . Pt tolerates only minimal movement of bilateral hip due to pain. PT-OP-G Mobility & Gait Start: 01/25/19 10:39 Freq: Status: Active Protocol: Document 01/25/19 09:45 DCW (Rec: 01/25/19 11:11 DCW [id number]) OP Gait Assessment Gait Gait Assistance Required: Contact Guard Assist Able to Maintain Weight Bearing Status Yes During Gait Assistive Devices Assistive Device None Orthotic/Prosthetic Devices or Brace: No Gait Deviations General Gait Pattern Antalgic Flexed Trunk Lateral Trunk Lean Comments Gait Comments Pt holds onto for stability with walking further than 5 feet PT-OP-K Range of Motion Start: 01/25/19 10:39 Freq: Status: Active Protocol: Document 01/25/19 09:45 DCW (Rec: 01/25/19 11:11 DCW [id number]) Hip Goniometric Range of Motion Hip Right Passive Hip ROM WFL No Testing Position Supine Flexion w/Knee Flexed 87 Abduction 20 Internal Rotation 2 External Rotation 32 Left Passive Hip ROM WFL No Testing Position Supine Flexion w/Knee Flexed 70 Abduction 8 Internal Rotation 4 External Rotation 28 Hip ROM Limitations Hip ROM Limitations Bony Restriction Pain PT-OP-L Special Tests Start: 01/25/19 10:39 Freq: Status: Active Protocol: Document 01/25/19 09:45 DCW (Rec: 01/25/19 11:11 DCW [id number]) Special Tests Hip Special Tests Scour Test Test Results Positive bilaterally De Jesus's Compression Test Results Positive bilaterally PHILLIP Test Results Anterior hip pain bilaterally PT-OP-M Strength Start: 01/25/19 10:39 Freq: Status: Active Protocol: Document 01/25/19 09:45 DCW (Rec: 01/25/19 11:11 DCW [id number]) Hip Strength Hip Manual Muscle Testing Right Flexion (L2) 4 Good Abduction 4 Good Adduction 4+ Good+ External Rotation 4 Good Internal Rotation 4 Good Comments c/o pain with resisted R hip abduction Left Flexion (L2) 3+ Fair+ Abduction 4 Good Adduction 4+ Good+ External Rotation 4- Good- Internal Rotation 4- Good- Comments c/o pain with resisted L hip flexion Knee Strength Knee Manual Muscle Testing Right Flexion (S2) 4+ Good+ Extension (L3) 4+ Good+ Left Flexion (S2) 4+ Good+ Extension (L3) 4+ Good+ PT-OP-Q Treatments Start: 01/25/19 10:39 Freq: Status: Active Protocol: Document 02/16/19 08:57 EA (Rec: 02/16/19 09:01 EA [id number]) Cardio Equipment Recumbent Elliptical (Biodex) Duration (Minutes) 6 Resistance 2 Seat Position 10 Gym Equipment Shuttle Recovery Unilateral Squats Resistance 37# Shuttle Recovery Platform Stable Reps/Time 2 x 10 Bilateral Squats Resistance 87# Shuttle Recovery Platform Stable Reps/Time 2 x 10 Therapeutic Exercises Supine Exercises Knee fall out Side bilateral Reps/Minutes 10 x 5 each HS stretch Side bilateral Reps/Minutes 3 x 30 Bridging Supine Exercise Name Bridging to bridging with isometric hip abduction Side bilateral Resistance BTB Sidelying Exercises Reverse Clamshell Sidelying Exercise Name Reverse Clamshell Side bilateral Resistance BTB Clamshell Sidelying Exercise Name Clamshell Side bilateral Standing Exercises Hip Extension Standing Exercise Name Extension Side bilateral Resistance none Equipment Used rail Hip Abduction Standing Exercise Name Abduction Side bilateral Resistance none Equipment Used rail Manual Therapy Treatment Soft Tissue Mobilization 1 Body Location R/L ant groin, upper postero lat gluetals Intensity/Depth Moderate Body Position Hooklying PT-OP-R Modalities Start: 01/25/19 10:39 Freq: Status: Active Protocol: Document 02/16/19 08:57 EA (Rec: 02/16/19 09:01 EA [id number]) Electric Stimulation Electric Stimulation Interferential Current (IFC) Body Location Left hip and upper gluteal region Duration (Minutes) 15 Intensity 24 Patient Position Hooklying Combined With Heat/Cold Hot Pack PT-OP-T Assessment and Plan Start: 01/25/19 10:39 Freq: Status: Active Protocol: Document 02/16/19 08:57 EA (Rec: 02/16/19 09:01 EA [id number]) Physical Therapy Assessment Assessment Summary Assessment Decreased pin symptoms after manual PT. Patient will cont to benefit with posture and hip flexors stretching. Physical Therapy Plan Next Visit Focus/Plan Next Note Type Treatment Note Next Visit Plan Strengthening, ROM, Balance training
--- NOTE | 2019-02-18 08:19 | PT.OTN ---
Current Diagnoses Pain in right hip (02/18/19) Pain in left hip (02/18/19) Stiffness of right hip, not elsewhere classified (02/18/19) Stiffness of left hip, not elsewhere classified (02/18/19) Other intervertebral disc degeneration, lumbar region (02/18/19) Muscle weakness (generalized) (02/18/19) Repeated falls (02/18/19) Physical Therapy Treatment Note PT-OP-A Visit Information Start: 01/25/19 10:39 Freq: Status: Active Protocol: Document 02/18/19 07:38 EA (Rec: 02/18/19 07:42 EA [id number]) Out-Patient Physical Therapy Visit Information Visit Information Visit Type Treatment Note Visit Start Time 07:30 Visit Stop Time 08:25 Total Visit Minutes 55 Visit Number 7 PT-OP-B Current Condition Start: 01/25/19 10:39 Freq: Status: Active Protocol: Document 01/25/19 09:45 DCW (Rec: 01/25/19 11:11 DCW [id number]) Current Condition History of Current Condition Onset Date Six months Current Complaints bilateral hip and groin pain, multiple falls History of Current Condition Pt reports a long-standing history of hip pain, which was worsened by a fall in her garage in July. Pt's normal pain is a constant pain in her bilateral hips and groin, which makes it difficulty to do anything. Pt has difficulty describing if anything causes her pain to increase, and is a somewhat tangential historian. Pt also reports that 4-6 x/day, she gets terrible pain down the front of her right thigh, but this seems to happen randomly and makes her scream loudly. Pt reports she is generally able to do dishes and laundry without any difficulty, but also admits her pain is worse standing longer than one minute. Pt reports difficulty tying her shoes. Pt notes that prior falls have caused a patella fracture and broken ribs, so she is also worried about her balance Prior Treatments and Tests x-ray showed moderate DJD bilaterally, per chart notes from her 12/02/18 visit with Mila Elizabeth MD Treatment Goals Patient/Caregiver Goals Pt wants her constant pain to stop Prior Functional Status Baseline Function- ADL's Independent Baseline Function- Mobility Independent Current Functional Impairments (Reported) Functional Limitations- ADL's Difficulty/pain tying shoes, standing >1 minute causes increased pain Functional Limitations- Mobility/Gait Relies on her to assist her getting around PT-OP-C Subjective Start: 01/25/19 10:39 Freq: Status: Active Protocol: Document 02/18/19 07:38 EA (Rec: 02/18/19 07:42 EA [id number]) OP-PT Subjective Patient Comments Patient Comments Pt reports unable to perform regular HEP due to increased hip pain; states she is now using a walker due to balance issue. PT-OP-D Balance Start: 01/25/19 10:39 Freq: Status: Active Protocol: Document 01/25/19 09:45 DCW (Rec: 01/25/19 11:11 DCW [id number]) Balance Tests Frank Balance Test Frank Balance Test Score 36/56 Frank Impairment Rating 20 to 39% Impaired (Score 34- 44) Frank Balance Assessment Evaluation Sitting to Standing Ability Independent w/Hands Unsupported Stance Safely- 2 minutes Sitting Unsupported, Feet on Floor Safely- 2 minutes Standing to Sitting Ability Assist, Control w/Hands Transfer Ability Supervision, Verbal Cues Unsupported Stance- Eyes Closed Supervision, 10 seconds Unsupported Stance- Eyes Open Supervision to maintain Reaching Forward Standing Safely, 2 inches Pick- Up Object From Floor Supervision Look Behind Shoulder - Standing Turns Sideways Only Turning 360 Degrees Turns slowly, but safely Unsupported Stance, Alternating Feet on 4 Steps w/Supervision Stair Unsupported Tandem Stance Small Step- 30 seconds Unilateral Leg Stance Lifts Leg/Unable to Hold Total Score Frank Total Score (out of 56 points) 36 Frank Impairment Rating 20 to 39% Impaired (Score 34- 44) PT-OP-F Manual Assessment Start: 01/25/19 10:39 Freq: Status: Active Protocol: Document 01/25/19 09:45 DCW (Rec: 01/25/19 11:11 DCW [id number]) Manual Assessments Joint Mobility Assessment Joint Mobility Assessment Pain and crepitus with passive circumduction bilaterally, causing pt protetive posturing . Pt tolerates only minimal movement of bilateral hip due to pain. PT-OP-G Mobility & Gait Start: 01/25/19 10:39 Freq: Status: Active Protocol: Document 01/25/19 09:45 DCW (Rec: 01/25/19 11:11 DCW [id number]) OP Gait Assessment Gait Gait Assistance Required: Contact Guard Assist Able to Maintain Weight Bearing Status Yes During Gait Assistive Devices Assistive Device None Orthotic/Prosthetic Devices or Brace: No Gait Deviations General Gait Pattern Antalgic Flexed Trunk Lateral Trunk Lean Comments Gait Comments Pt holds onto for stability with walking further than 5 feet PT-OP-K Range of Motion Start: 01/25/19 10:39 Freq: Status: Active Protocol: Document 01/25/19 09:45 DCW (Rec: 01/25/19 11:11 DCW [id number]) Hip Goniometric Range of Motion Hip Right Passive Hip ROM WFL No Testing Position Supine Flexion w/Knee Flexed 87 Abduction 20 Internal Rotation 2 External Rotation 32 Left Passive Hip ROM WFL No Testing Position Supine Flexion w/Knee Flexed 70 Abduction 8 Internal Rotation 4 External Rotation 28 Hip ROM Limitations Hip ROM Limitations Bony Restriction Pain PT-OP-L Special Tests Start: 01/25/19 10:39 Freq: Status: Active Protocol: Document 01/25/19 09:45 DCW (Rec: 01/25/19 11:11 DCW [id number]) Special Tests Hip Special Tests Scour Test Test Results Positive bilaterally De Jesus's Compression Test Results Positive bilaterally PHILLIP Test Results Anterior hip pain bilaterally PT-OP-M Strength Start: 01/25/19 10:39 Freq: Status: Active Protocol: Document 01/25/19 09:45 DCW (Rec: 01/25/19 11:11 DCW [id number]) Hip Strength Hip Manual Muscle Testing Right Flexion (L2) 4 Good Abduction 4 Good Adduction 4+ Good+ External Rotation 4 Good Internal Rotation 4 Good Comments c/o pain with resisted R hip abduction Left Flexion (L2) 3+ Fair+ Abduction 4 Good Adduction 4+ Good+ External Rotation 4- Good- Internal Rotation 4- Good- Comments c/o pain with resisted L hip flexion Knee Strength Knee Manual Muscle Testing Right Flexion (S2) 4+ Good+ Extension (L3) 4+ Good+ Left Flexion (S2) 4+ Good+ Extension (L3) 4+ Good+ PT-OP-Q Treatments Start: 01/25/19 10:39 Freq: Status: Active Protocol: Document 02/18/19 07:38 EA (Rec: 02/18/19 07:42 EA [id number]) Cardio Equipment Recumbent Elliptical (Biodex) Duration (Minutes) 9 Resistance 3 Seat Position 10 Gym Equipment Shuttle Recovery Unilateral Squats Resistance 87# Shuttle Recovery Platform Stable Reps/Time 2 x 15 Bilateral Squats Resistance 100# Shuttle Recovery Platform Stable Reps/Time 2 x 15 Therapeutic Exercises Supine Exercises HS stretch Side bilateral Reps/Minutes 3 x 30 Bridging Supine Exercise Name Bridging to bridging with isometric hip abduction Side bilateral Resistance BTB Sidelying Exercises 1 Sidelying Exercise Name hip flexot passive stretch Side bilateral Reps/Minutes x30SH Reverse Clamshell Sidelying Exercise Name ABD Side bilateral Reps/Minutes x 15 reps Clamshell Sidelying Exercise Name 15 reps Side bilateral Resistance BTB Standing Exercises Hip Extension Standing Exercise Name Extension Side bilateral Resistance none Equipment Used rail Hip Abduction Standing Exercise Name Abduction Side bilateral Resistance none Equipment Used rail Manual Therapy Treatment Soft Tissue Mobilization 1 Body Location Upper gluteals, TFL,ITB, hip fleoxrs Mobilization Type Myofascial Release Rolling Trigger Point Release Manual Techniques 1 Type Long axis bilat hip traction: caudal glide Body Position Supine PT-OP-R Modalities Start: 01/25/19 10:39 Freq: Status: Active Protocol: Document 02/16/19 08:57 EA (Rec: 02/16/19 09:01 EA [id number]) Electric Stimulation Electric Stimulation Interferential Current (IFC) Body Location Left hip and upper gluteal region Duration (Minutes) 15 Intensity 24 Patient Position Hooklying Combined With Heat/Cold Hot Pack PT-OP-T Assessment and Plan Start: 01/25/19 10:39 Freq: Status: Active Protocol: Document 02/18/19 08:17 EA (Rec: 02/18/19 08:18 EA [id number]) Physical Therapy Assessment Assessment Summary Assessment Patient response well with lying supine and SL exercises. Requires constant cues with standing posture. Physical Therapy Plan Next Visit Focus/Plan Next Note Type Treatment Note
--- NOTE | 2019-02-23 09:01 | PT.OTN ---
Current Diagnoses Pain in right hip (02/23/19) Pain in left hip (02/23/19) Stiffness of right hip, not elsewhere classified (02/23/19) Stiffness of left hip, not elsewhere classified (02/23/19) Other intervertebral disc degeneration, lumbar region (02/23/19) Muscle weakness (generalized) (02/23/19) Repeated falls (02/23/19) Physical Therapy Treatment Note PT-OP-A Visit Information Start: 01/25/19 10:39 Freq: Status: Active Protocol: Document 02/23/19 08:56 EA (Rec: 02/23/19 09:01 EA [id number]) Out-Patient Physical Therapy Visit Information Visit Information Visit Type Treatment Note Visit Start Time 08:15 Visit Stop Time 09:00 Total Visit Minutes 43 Visit Number 8 Number of LINE BUILDER Visits 1 PT-OP-B Current Condition Start: 01/25/19 10:39 Freq: Status: Active Protocol: Document 01/25/19 09:45 DCW (Rec: 01/25/19 11:11 DCW [id number]) Current Condition History of Current Condition Onset Date Six months Current Complaints bilateral hip and groin pain, multiple falls History of Current Condition Pt reports a long-standing history of hip pain, which was worsened by a fall in her garage in July. Pt's normal pain is a constant pain in her bilateral hips and groin, which makes it difficulty to do anything. Pt has difficulty describing if anything causes her pain to increase, and is a somewhat tangential historian. Pt also reports that 4-6 x/day, she gets terrible pain down the front of her right thigh, but this seems to happen randomly and makes her scream loudly. Pt reports she is generally able to do dishes and laundry without any difficulty, but also admits her pain is worse standing longer than one minute. Pt reports difficulty tying her shoes. Pt notes that prior falls have caused a patella fracture and broken ribs, so she is also worried about her balance Prior Treatments and Tests x-ray showed moderate DJD bilaterally, per chart notes from her 12/02/18 visit with Mila Elizabeth MD Treatment Goals Patient/Caregiver Goals Pt wants her constant pain to stop Prior Functional Status Baseline Function- ADL's Independent Baseline Function- Mobility Independent Current Functional Impairments (Reported) Functional Limitations- ADL's Difficulty/pain tying shoes, standing >1 minute causes increased pain Functional Limitations- Mobility/Gait Relies on her to assist her getting around PT-OP-C Subjective Start: 01/25/19 10:39 Freq: Status: Active Protocol: Document 02/23/19 08:56 EA (Rec: 02/23/19 09:01 EA [id number]) OP-PT Subjective Patient Comments Patient Comments Pt repoprts unable to comply on HEP; states she forgets it. PT-OP-D Balance Start: 01/25/19 10:39 Freq: Status: Active Protocol: Document 01/25/19 09:45 DCW (Rec: 01/25/19 11:11 DCW [id number]) Balance Tests Frank Balance Test Frank Balance Test Score 36/56 Frank Impairment Rating 20 to 39% Impaired (Score 34- 44) Frank Balance Assessment Evaluation Sitting to Standing Ability Independent w/Hands Unsupported Stance Safely- 2 minutes Sitting Unsupported, Feet on Floor Safely- 2 minutes Standing to Sitting Ability Assist, Control w/Hands Transfer Ability Supervision, Verbal Cues Unsupported Stance- Eyes Closed Supervision, 10 seconds Unsupported Stance- Eyes Open Supervision to maintain Reaching Forward Standing Safely, 2 inches Pick- Up Object From Floor Supervision Look Behind Shoulder - Standing Turns Sideways Only Turning 360 Degrees Turns slowly, but safely Unsupported Stance, Alternating Feet on 4 Steps w/Supervision Stair Unsupported Tandem Stance Small Step- 30 seconds Unilateral Leg Stance Lifts Leg/Unable to Hold Total Score Frank Total Score (out of 56 points) 36 Frank Impairment Rating 20 to 39% Impaired (Score 34- 44) PT-OP-F Manual Assessment Start: 01/25/19 10:39 Freq: Status: Active Protocol: Document 01/25/19 09:45 DCW (Rec: 01/25/19 11:11 DCW [id number]) Manual Assessments Joint Mobility Assessment Joint Mobility Assessment Pain and crepitus with passive circumduction bilaterally, causing pt protetive posturing . Pt tolerates only minimal movement of bilateral hip due to pain. PT-OP-G Mobility & Gait Start: 01/25/19 10:39 Freq: Status: Active Protocol: Document 01/25/19 09:45 DCW (Rec: 01/25/19 11:11 DCW [id number]) OP Gait Assessment Gait Gait Assistance Required: Contact Guard Assist Able to Maintain Weight Bearing Status Yes During Gait Assistive Devices Assistive Device None Orthotic/Prosthetic Devices or Brace: No Gait Deviations General Gait Pattern Antalgic Flexed Trunk Lateral Trunk Lean Comments Gait Comments Pt holds onto for stability with walking further than 5 feet PT-OP-K Range of Motion Start: 01/25/19 10:39 Freq: Status: Active Protocol: Document 01/25/19 09:45 DCW (Rec: 01/25/19 11:11 DCW [id number]) Hip Goniometric Range of Motion Hip Right Passive Hip ROM WFL No Testing Position Supine Flexion w/Knee Flexed 87 Abduction 20 Internal Rotation 2 External Rotation 32 Left Passive Hip ROM WFL No Testing Position Supine Flexion w/Knee Flexed 70 Abduction 8 Internal Rotation 4 External Rotation 28 Hip ROM Limitations Hip ROM Limitations Bony Restriction Pain PT-OP-L Special Tests Start: 01/25/19 10:39 Freq: Status: Active Protocol: Document 01/25/19 09:45 DCW (Rec: 01/25/19 11:11 DCW [id number]) Special Tests Hip Special Tests Scour Test Test Results Positive bilaterally De Jesus's Compression Test Results Positive bilaterally PHILLIP Test Results Anterior hip pain bilaterally PT-OP-M Strength Start: 01/25/19 10:39 Freq: Status: Active Protocol: Document 01/25/19 09:45 DCW (Rec: 01/25/19 11:11 DCW [id number]) Hip Strength Hip Manual Muscle Testing Right Flexion (L2) 4 Good Abduction 4 Good Adduction 4+ Good+ External Rotation 4 Good Internal Rotation 4 Good Comments c/o pain with resisted R hip abduction Left Flexion (L2) 3+ Fair+ Abduction 4 Good Adduction 4+ Good+ External Rotation 4- Good- Internal Rotation 4- Good- Comments c/o pain with resisted L hip flexion Knee Strength Knee Manual Muscle Testing Right Flexion (S2) 4+ Good+ Extension (L3) 4+ Good+ Left Flexion (S2) 4+ Good+ Extension (L3) 4+ Good+ PT-OP-Q Treatments Start: 01/25/19 10:39 Freq: Status: Active Protocol: Document 02/23/19 08:56 EA (Rec: 02/23/19 09:01 EA [id number]) Cardio Equipment Recumbent Elliptical (Biodex) Duration (Minutes) 6 Resistance 2 Seat Position 10 Gym Equipment Cable Column (Body Solid) Hip Abduction Resistance 20# Reps/Time x 12 reps Shuttle Recovery Unilateral Squats Resistance 87# Shuttle Recovery Platform Stable Reps/Time 2 x 15 Bilateral Squats Resistance 100# Shuttle Recovery Platform Stable Reps/Time 2 x 15 Therapeutic Exercises Supine Exercises 1 Supine Exercise Name Hip circles Side bilateral Reps/Minutes 10 reps x 3sets HS stretch Side bilateral Reps/Minutes 3 x 30 Bridging Supine Exercise Name Bridging to bridging with isometric hip abduction Side bilateral Resistance GTB Sidelying Exercises 1 Sidelying Exercise Name hip flexot passive stretch Side bilateral Reps/Minutes x30SH Reverse Clamshell Sidelying Exercise Name ABD Side bilateral Reps/Minutes x 15 reps Standing Exercises Hip Abduction Standing Exercise Name Abduction Side bilateral Resistance none Equipment Used rail Manual Therapy Treatment Soft Tissue Mobilization 1 Body Location Upper gluteals, TFL,ITB, hip fleoxrs Mobilization Type Myofascial Release Rolling Trigger Point Release Manual Techniques 1 Type Long axis bilat hip traction: caudal glide Body Position Supine PT-OP-R Modalities Start: 01/25/19 10:39 Freq: Status: Active Protocol: Document 02/16/19 08:57 EA (Rec: 02/16/19 09:01 EA [id number]) Electric Stimulation Electric Stimulation Interferential Current (IFC) Body Location Left hip and upper gluteal region Duration (Minutes) 15 Intensity 24 Patient Position Hooklying Combined With Heat/Cold Hot Pack PT-OP-T Assessment and Plan Start: 01/25/19 10:39 Freq: Status: Active Protocol: Document 02/23/19 08:56 EA (Rec: 02/23/19 09:01 EA [id number]) Physical Therapy Assessment Assessment Summary Assessment Pt tolerated treatment had performed hip circles with no pain complaint. Physical Therapy Plan Next Visit Focus/Plan Next Note Type Treatment Note Next Visit Plan advance as tolerated; standing exercises with cues to form
--- NOTE | 2019-02-25 08:59 | PT.OTN ---
Current Diagnoses Pain in right hip (02/25/19) Pain in left hip (02/25/19) Stiffness of right hip, not elsewhere classified (02/25/19) Stiffness of left hip, not elsewhere classified (02/25/19) Other intervertebral disc degeneration, lumbar region (02/25/19) Muscle weakness (generalized) (02/25/19) Repeated falls (02/25/19) Physical Therapy Treatment Note PT-OP-A Visit Information Start: 01/25/19 10:39 Freq: Status: Active Protocol: Document 02/25/19 08:15 EA (Rec: 02/25/19 08:59 EA [id number]) Out-Patient Physical Therapy Visit Information Visit Information Visit Type Treatment Note Visit Start Time 07:30 Visit Stop Time 08:15 Total Visit Minutes 45 Visit Number 9 PT-OP-B Current Condition Start: 01/25/19 10:39 Freq: Status: Active Protocol: Document 01/25/19 09:45 DCW (Rec: 01/25/19 11:11 DCW [id number]) Current Condition History of Current Condition Onset Date Six months Current Complaints bilateral hip and groin pain, multiple falls History of Current Condition Pt reports a long-standing history of hip pain, which was worsened by a fall in her garage in July. Pt's normal pain is a constant pain in her bilateral hips and groin, which makes it difficulty to do anything. Pt has difficulty describing if anything causes her pain to increase, and is a somewhat tangential historian. Pt also reports that 4-6 x/day, she gets terrible pain down the front of her right thigh, but this seems to happen randomly and makes her scream loudly. Pt reports she is generally able to do dishes and laundry without any difficulty, but also admits her pain is worse standing longer than one minute. Pt reports difficulty tying her shoes. Pt notes that prior falls have caused a patella fracture and broken ribs, so she is also worried about her balance Prior Treatments and Tests x-ray showed moderate DJD bilaterally, per chart notes from her 12/02/18 visit with Mila Elizabeth MD Treatment Goals Patient/Caregiver Goals Pt wants her constant pain to stop Prior Functional Status Baseline Function- ADL's Independent Baseline Function- Mobility Independent Current Functional Impairments (Reported) Functional Limitations- ADL's Difficulty/pain tying shoes, standing >1 minute causes increased pain Functional Limitations- Mobility/Gait Relies on her to assist her getting around PT-OP-C Subjective Start: 01/25/19 10:39 Freq: Status: Active Protocol: Document 02/25/19 08:15 EA (Rec: 02/25/19 08:59 EA [id number]) OP-PT Subjective Patient Comments Patient Comments Feel my hip is painful in themorning but pain is less after coming in here PT-OP-D Balance Start: 01/25/19 10:39 Freq: Status: Active Protocol: Document 01/25/19 09:45 DCW (Rec: 01/25/19 11:11 DCW [id number]) Balance Tests Frank Balance Test Frank Balance Test Score 36/56 Frank Impairment Rating 20 to 39% Impaired (Score 34- 44) Frank Balance Assessment Evaluation Sitting to Standing Ability Independent w/Hands Unsupported Stance Safely- 2 minutes Sitting Unsupported, Feet on Floor Safely- 2 minutes Standing to Sitting Ability Assist, Control w/Hands Transfer Ability Supervision, Verbal Cues Unsupported Stance- Eyes Closed Supervision, 10 seconds Unsupported Stance- Eyes Open Supervision to maintain Reaching Forward Standing Safely, 2 inches Pick- Up Object From Floor Supervision Look Behind Shoulder - Standing Turns Sideways Only Turning 360 Degrees Turns slowly, but safely Unsupported Stance, Alternating Feet on 4 Steps w/Supervision Stair Unsupported Tandem Stance Small Step- 30 seconds Unilateral Leg Stance Lifts Leg/Unable to Hold Total Score Frank Total Score (out of 56 points) 36 Frank Impairment Rating 20 to 39% Impaired (Score 34- 44) PT-OP-F Manual Assessment Start: 01/25/19 10:39 Freq: Status: Active Protocol: Document 01/25/19 09:45 DCW (Rec: 01/25/19 11:11 DCW [id number]) Manual Assessments Joint Mobility Assessment Joint Mobility Assessment Pain and crepitus with passive circumduction bilaterally, causing pt protetive posturing . Pt tolerates only minimal movement of bilateral hip due to pain. PT-OP-G Mobility & Gait Start: 01/25/19 10:39 Freq: Status: Active Protocol: Document 01/25/19 09:45 DCW (Rec: 01/25/19 11:11 DCW [id number]) OP Gait Assessment Gait Gait Assistance Required: Contact Guard Assist Able to Maintain Weight Bearing Status Yes During Gait Assistive Devices Assistive Device None Orthotic/Prosthetic Devices or Brace: No Gait Deviations General Gait Pattern Antalgic Flexed Trunk Lateral Trunk Lean Comments Gait Comments Pt holds onto for stability with walking further than 5 feet PT-OP-K Range of Motion Start: 01/25/19 10:39 Freq: Status: Active Protocol: Document 01/25/19 09:45 DCW (Rec: 01/25/19 11:11 DCW [id number]) Hip Goniometric Range of Motion Hip Right Passive Hip ROM WFL No Testing Position Supine Flexion w/Knee Flexed 87 Abduction 20 Internal Rotation 2 External Rotation 32 Left Passive Hip ROM WFL No Testing Position Supine Flexion w/Knee Flexed 70 Abduction 8 Internal Rotation 4 External Rotation 28 Hip ROM Limitations Hip ROM Limitations Bony Restriction Pain PT-OP-L Special Tests Start: 01/25/19 10:39 Freq: Status: Active Protocol: Document 01/25/19 09:45 DCW (Rec: 01/25/19 11:11 DCW [id number]) Special Tests Hip Special Tests Scour Test Test Results Positive bilaterally De Jesus's Compression Test Results Positive bilaterally PHILLIP Test Results Anterior hip pain bilaterally PT-OP-M Strength Start: 01/25/19 10:39 Freq: Status: Active Protocol: Document 01/25/19 09:45 DCW (Rec: 01/25/19 11:11 DCW [id number]) Hip Strength Hip Manual Muscle Testing Right Flexion (L2) 4 Good Abduction 4 Good Adduction 4+ Good+ External Rotation 4 Good Internal Rotation 4 Good Comments c/o pain with resisted R hip abduction Left Flexion (L2) 3+ Fair+ Abduction 4 Good Adduction 4+ Good+ External Rotation 4- Good- Internal Rotation 4- Good- Comments c/o pain with resisted L hip flexion Knee Strength Knee Manual Muscle Testing Right Flexion (S2) 4+ Good+ Extension (L3) 4+ Good+ Left Flexion (S2) 4+ Good+ Extension (L3) 4+ Good+ PT-OP-Q Treatments Start: 01/25/19 10:39 Freq: Status: Active Protocol: Document 02/25/19 08:15 EA (Rec: 02/25/19 08:59 EA [id number]) Gym Equipment Shuttle Recovery Unilateral Squats Resistance 87# Shuttle Recovery Platform Stable Reps/Time 2 x 15 Bilateral Squats Resistance 100-125# Shuttle Recovery Platform Stable Reps/Time 3x 20 reps Therapeutic Exercises Supine Exercises 1 Supine Exercise Name Hip circles Side bilateral Reps/Minutes 10 reps x 3sets HS stretch Side bilateral Reps/Minutes 3 x 30 Bridging Supine Exercise Name Bridging to bridging with isometric hip abduction Side bilateral Resistance GTB Reps/Minutes x 15 reps x2 sets Sidelying Exercises 1 Sidelying Exercise Name hip flexot passive stretch Side bilateral Reps/Minutes x30SH Standing Exercises 2 Standing Exercise Name side steps: rails Resistance YTB Comments pocus on posture 1 Standing Exercise Name Walking backward Reps/Minutes x 3 laps Comments Rails support with emphasis to psoture Hip Abduction Standing Exercise Name Abduction Side bilateral Resistance none Equipment Used rail Manual Therapy Treatment Soft Tissue Mobilization 1 Body Location Upper gluteals, TFL,ITB, hip fleoxrs Mobilization Type Myofascial Release Rolling Trigger Point Release PT-OP-R Modalities Start: 01/25/19 10:39 Freq: Status: Active Protocol: Document 02/16/19 08:57 EA (Rec: 02/16/19 09:01 EA [id number]) Electric Stimulation Electric Stimulation Interferential Current (IFC) Body Location Left hip and upper gluteal region Duration (Minutes) 15 Intensity 24 Patient Position Hooklying Combined With Heat/Cold Hot Pack PT-OP-T Assessment and Plan Start: 01/25/19 10:39 Freq: Status: Active Protocol: Document 02/25/19 08:15 EA (Rec: 02/25/19 08:59 EA [id number]) Physical Therapy Assessment Assessment Summary Assessment Improve tolerance to standing exercises.
--- NOTE | 2019-03-31 14:28 | PT.OPDS ---
Current Diagnoses Pain in right hip (02/25/19) Pain in left hip (02/25/19) Stiffness of right hip, not elsewhere classified (02/25/19) Stiffness of left hip, not elsewhere classified (02/25/19) Other intervertebral disc degeneration, lumbar region (02/25/19) Muscle weakness (generalized) (02/25/19) Repeated falls (02/25/19) Provider Visit Care Team Role Provider Type Mila Elizabeth MD Attending Provider Non-Staff Primary Care Provider Specialty: [facility] Address: [address] [place] [address], [id number] Email: Visit Number Visit Number 9 Discharge Summary PT-OP-B Current Condition Start: 01/25/19 10:39 Freq: Status: Active Protocol: Document 01/25/19 09:45 DCW (Rec: 01/25/19 11:11 DCW [id number]) Current Condition History of Current Condition Onset Date Six months Current Complaints bilateral hip and groin pain, multiple falls History of Current Condition Pt reports a long-standing history of hip pain, which was worsened by a fall in her garage in July. Pt's normal pain is a constant pain in her bilateral hips and groin, which makes it difficulty to do anything. Pt has difficulty describing if anything causes her pain to increase, and is a somewhat tangential historian. Pt also reports that 4-6 x/day, she gets terrible pain down the front of her right thigh, but this seems to happen randomly and makes her scream loudly. Pt reports she is generally able to do dishes and laundry without any difficulty, but also admits her pain is worse standing longer than one minute. Pt reports difficulty tying her shoes. Pt notes that prior falls have caused a patella fracture and broken ribs, so she is also worried about her balance Prior Treatments and Tests x-ray showed moderate DJD bilaterally, per chart notes from her 12/02/18 visit with Mila Elizabeth MD Treatment Goals Patient/Caregiver Goals Pt wants her constant pain to stop Prior Functional Status Baseline Function- ADL's Independent Baseline Function- Mobility Independent Current Functional Impairments (Reported) Functional Limitations- ADL's Difficulty/pain tying shoes, standing >1 minute causes increased pain Functional Limitations- Mobility/Gait Relies on her to assist her getting around PT-OP-C Subjective Start: 01/25/19 10:39 Freq: Status: Active Protocol: Document 02/25/19 08:15 EA (Rec: 02/25/19 08:59 EA [id number]) OP-PT Subjective Patient Comments Patient Comments Feel my hip is painful in themorning but pain is less after coming in here PT-OP-D Balance Start: 01/25/19 10:39 Freq: Status: Active Protocol: Document 01/25/19 09:45 DCW (Rec: 01/25/19 11:11 DCW [id number]) Balance Tests Frank Balance Test Frank Balance Test Score 36/56 Frank Impairment Rating 20 to 39% Impaired (Score 34- 44) Frank Balance Assessment Evaluation Sitting to Standing Ability Independent w/Hands Unsupported Stance Safely- 2 minutes Sitting Unsupported, Feet on Floor Safely- 2 minutes Standing to Sitting Ability Assist, Control w/Hands Transfer Ability Supervision, Verbal Cues Unsupported Stance- Eyes Closed Supervision, 10 seconds Unsupported Stance- Eyes Open Supervision to maintain Reaching Forward Standing Safely, 2 inches Pick- Up Object From Floor Supervision Look Behind Shoulder - Standing Turns Sideways Only Turning 360 Degrees Turns slowly, but safely Unsupported Stance, Alternating Feet on 4 Steps w/Supervision Stair Unsupported Tandem Stance Small Step- 30 seconds Unilateral Leg Stance Lifts Leg/Unable to Hold Total Score Frank Total Score (out of 56 points) 36 Frank Impairment Rating 20 to 39% Impaired (Score 34- 44) PT-OP-F Manual Assessment Start: 01/25/19 10:39 Freq: Status: Active Protocol: Document 01/25/19 09:45 DCW (Rec: 01/25/19 11:11 DCW [id number]) Manual Assessments Joint Mobility Assessment Joint Mobility Assessment Pain and crepitus with passive circumduction bilaterally, causing pt protetive posturing . Pt tolerates only minimal movement of bilateral hip due to pain. PT-OP-G Mobility & Gait Start: 01/25/19 10:39 Freq: Status: Active Protocol: Document 01/25/19 09:45 DCW (Rec: 01/25/19 11:11 DCW [id number]) OP Gait Assessment Gait Gait Assistance Required: Contact Guard Assist Able to Maintain Weight Bearing Status Yes During Gait Assistive Devices Assistive Device None Orthotic/Prosthetic Devices or Brace: No Gait Deviations General Gait Pattern Antalgic Flexed Trunk Lateral Trunk Lean Comments Gait Comments Pt holds onto for stability with walking further than 5 feet PT-OP-K Range of Motion Start: 01/25/19 10:39 Freq: Status: Active Protocol: Document 01/25/19 09:45 DCW (Rec: 01/25/19 11:11 DCW [id number]) Hip Goniometric Range of Motion Hip Right Passive Hip ROM WFL No Testing Position Supine Flexion w/Knee Flexed 87 Abduction 20 Internal Rotation 2 External Rotation 32 Left Passive Hip ROM WFL No Testing Position Supine Flexion w/Knee Flexed 70 Abduction 8 Internal Rotation 4 External Rotation 28 Hip ROM Limitations Hip ROM Limitations Bony Restriction Pain PT-OP-L Special Tests Start: 01/25/19 10:39 Freq: Status: Active Protocol: Document 01/25/19 09:45 DCW (Rec: 01/25/19 11:11 DCW [id number]) Special Tests Hip Special Tests Scour Test Test Results Positive bilaterally De Jesus's Compression Test Results Positive bilaterally PHILLIP Test Results Anterior hip pain bilaterally PT-OP-M Strength Start: 01/25/19 10:39 Freq: Status: Active Protocol: Document 01/25/19 09:45 DCW (Rec: 01/25/19 11:11 DCW [id number]) Hip Strength Hip Manual Muscle Testing Right Flexion (L2) 4 Good Abduction 4 Good Adduction 4+ Good+ External Rotation 4 Good Internal Rotation 4 Good Comments c/o pain with resisted R hip abduction Left Flexion (L2) 3+ Fair+ Abduction 4 Good Adduction 4+ Good+ External Rotation 4- Good- Internal Rotation 4- Good- Comments c/o pain with resisted L hip flexion Knee Strength Knee Manual Muscle Testing Right Flexion (S2) 4+ Good+ Extension (L3) 4+ Good+ Left Flexion (S2) 4+ Good+ Extension (L3) 4+ Good+ PT-OP-T Assessment and Plan Start: 01/25/19 10:39 Freq: Status: Active Protocol: Document 03/31/19 14:26 DCW (Rec: 03/31/19 14:27 DCW [id number]) Physical Therapy Assessment Goals Four Impairment Limited hip ROM bilaterally Detention Goal (LTG) Pt to display 100? hip flexion and 15? 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 Physical Therapy Plan Discharge Physical Therapy Discharge Reasons Patient Request Next Visit Focus/Plan Next Note Type Discharge Summary
== END 2019-04-02 10:10 | disposition home or self-care (01) ==
LOC: PHYS 07:30
PROVIDERS: PCP Family Medicine; Visit Provider Family Medicine
DX: M25.551 Pain in right hip (principal); M25.552 Pain in left hip; M51.36 Other intervertebral disc degeneration, lumbar region; R29.6 Repeated falls; M62.81 Muscle weakness (generalized); M25.652 Stiffness of left hip, not elsewhere classified; M25.651 Stiffness of right hip, not elsewhere classified
CPT/HCPCS: 97014; 97110; 97116; 97140; 97161; G0283

== ENCOUNTER → 2019-04-23 06:00 | Outpatient (CLI) | payer MEDICARE, OTHER, SELFPAY ==
--- NOTE | 2019-04-23 | DI.MRI.S_ITS ---
PROCEDURE: MR CERVICAL SPINE WO CON INDICATIONS: LOW BACK PAIN TECHNIQUE: Noncontrast sagittal T1 spin echo and T2 fast spin echo, sagittal STIR, foraminal oblique sagittal T2 fast spin echo, and axial gradient echo or T2 fast spin echo through the cervical spine. COMPARISON: [facility], MR, MR CERVICAL SPINE WITHOUT CONTRAST, 09/28/2017, 12:44. [facility], MR, C-SPINE WITHOUT CONTRAST, 06/26/2011, 14:13. FINDINGS: Image quality: Excellent. Alignment and Curvature: There is straightening of normal cervical curvature. There is trace anterolisthesis of C4 on C5, trace retrolisthesis of C5 on C6, C6 on C7. Bone Marrow: Marrow demonstrates normal overall signal. Spinal Cord: Visualized spinal cord has normal size and signal. No cerebellar tonsillar herniation. Paraspinous Soft Tissues: No paravertebral masses. Prevertebral soft tissues are normal in thickness. Discs: Moderate desiccation is present throughout the cervical spine. C2-C3: Mild disc bulge with minimal to mild canal narrowing, slightly progressive. Severe bilateral foraminal narrowing, minimally progressive compared to prior exam. Uncovertebral hypertrophy is present. C3-C4: Mild disc bulge with mild to moderate spinal stenosis. Severe bilateral foraminal narrowing, unchanged with uncovertebral arthropathy. C4-C5: Mild disc bulge with mild to moderate spinal stenosis. Severe bilateral foraminal narrowing with uncovertebral arthropathy. No interval change. C5-C6: Mild disc bulge with moderate to severe spinal stenosis. Severe bilateral foraminal narrowing with uncovertebral hypertrophy. No interval change. C6-C7: Mild disc bulge with moderate spinal stenosis, minimally progressive compared to prior exam. Severe bilateral foraminal narrowing with minimal interval compression on the left as above. C7-T1: Minimal disc bulge without spinal stenosis. Severe right and moderate left foraminal narrowing. No interval change. IMPRESSION: 1. Multilevel degenerative changes with areas of interval progression as above. 2. Multilevel spinal stenosis most severe at C5-6 secondary to disc bulge, uncovertebral arthropathy and retrolisthesis. 3. Multilevel severe foraminal narrowing from C2-3 through C7-T1 predominantly secondary to significant uncovertebral arthropathy. Dictated by: Echo Beck M.D. on 04/23/2019 at 9:00 Approved by: Echo Beck M.D. on 04/23/2019 at 9:23
--- NOTE | 2019-04-23 | DI.MRI.S_ITS ---
PROCEDURE: MR THORACIC SPINE WO CON INDICATIONS: LOW BACK PAIN TECHNIQUE: Noncontrast sagittal T1 spine echo and T2 fast spin echo, sagittal STIR, axial T1 and T2 fast spin echo through the thoracic spine. COMPARISON: None. FINDINGS: Image quality: Excellent. Alignment and Curvature: There is normal bony alignment. Bone Marrow: Marrow is of normal overall signal. No acute vertebral body compression fractures. Spinal Cord: Visualized spinal cord is normal in size and signal. Paraspinous Soft Tissues: No paravertebral masses. Miscellaneous: On axial images, foramina appear widely patent at all scanned levels. Trace disc bulge is present at T3-4, T4-5, T6-7, T8-9, left posterior paracentral bulge at T9-10, trace bulge at T11-12. There is minimal effacement of the anterior thecal sac at T9-10 secondary to bulge. IMPRESSION: 1. Multilevel disc bulges most prominent at T9-10. Dictated by: Echo Beck M.D. on 04/23/2019 at 10:40 Approved by: Echo Beck M.D. on 04/23/2019 at 11:19
--- NOTE | 2019-04-23 | DI.MRI.S_ITS ---
PROCEDURE: MR LUMBAR SPINE WO CON INDICATIONS: LOW BACK PAIN TECHNIQUE: Noncontrast sagittal T1 spin echo and T2 fast echo, sagittal STIR, axial T1 and T2 fast spin echo through the lumbar spine. In cases with scoliosis, additional coronal T2 fast spin echo may be performed. COMPARISON: None. FINDINGS: Image quality: Excellent. Alignment and Curvature: There is trace retrolisthesis of L1 on L2, L2 on L3. Bone Marrow: Marrow is of normal overall signal. No acute vertebral body compression fractures. Spinal Cord: Conus medullaris terminates at the L2 level. Visualized cord demonstrates normal signal and size. Paraspinous Soft Tissues: No paravertebral masses. Discs: Mild to moderate desiccation is present throughout the lumbar spine. T12-L1: Minimal disc bulge without spinal stenosis or foraminal narrowing. L1-L2: Mild disc bulge without spinal stenosis. Minimal left foraminal narrowing. Prominent ligamentum flavum and mild facet hypertrophy. L2-L3: Mild disc bulge without spinal stenosis. Mild left foraminal narrowing with facet and ligamentum flavum hypertrophy. L3-L4: Mild disc bulge without spinal stenosis. Mild to moderate left and minimal to mild right foraminal narrowing with facet and ligamentum flavum hypertrophy. L4-L5: Mild disc bulge without spinal stenosis. Mild to moderate bilateral foraminal narrowing, left greater than right with facet and ligamentum flavum hypertrophy. L5-S1: Mild disc bulge without spinal stenosis. Minimal to mild bilateral foraminal narrowing with facet and ligamentum flavum hypertrophy. IMPRESSION: 1. Multilevel disc bulges. 2. No spinal stenosis. 3. Overall mild to moderate foraminal narrowing most notable at L3-4 and L4-5 secondary to facet and ligament of arthropathy. Dictated by: Echo Beck M.D. on 04/23/2019 at 9:23 Approved by: Echo Beck M.D. on 04/23/2019 at 10:23
== END ==
PROVIDERS: PCP Family Medicine; Visit Provider Nurse Practitioner
DX: M47.812 Spondylosis without myelopathy or radiculopathy, cervical region (principal); M47.816 Spondylosis without myelopathy or radiculopathy, lumbar region; M48.02 Spinal stenosis, cervical region; M48.061 Spinal stenosis, lumbar region without neurogenic claudication; M50.21 Other cervical disc displacement, high cervical region; M51.26 Other intervertebral disc displacement, lumbar region; M51.24 Other intervertebral disc displacement, thoracic region
CPT/HCPCS: 72141; 72146; 72148

== ENCOUNTER → 2019-07-28 07:28 | Outpatient (CLI) | payer MEDICARE, OTHER, SELFPAY ==
--- NOTE | 2019-07-28 | DI.MRI.S_ITS ---
PROCEDURE: MR HIP LT W CON INDICATIONS: Chronic left hip pain TECHNIQUE: After the administration of 10 mL of dilute intra-articular Gadolinium contrast, coronal STIR of the bony pelvis; coronal and oblique axial T1 spin echo with fat saturation, axial T2 fast spin echo with fat saturation, sagittal T1 spin echo with and without fat saturation of the involved hip. COMPARISON: None. FINDINGS: Image quality: Excellent. Bones and joints: Severe osteoarthritic changes involving left hip joint is seen with complete loss of joint space, extensive subchondral sclerosis and cyst formation and marrow edema in left acetabulum and left femoral head extending to the neck region. No intraosseous lesions or fractures. Geographic area of heterogeneous T1 hypointense signal in T2 hyperintense signal is seen in weight-bearing portion of femoral head concerning for early avascular necrosis. This area measures 9 x 5 mm in size. The visualized lower lumbar spine appears normally aligned. The ligamental, neck, and labral plicae appear normal where visualized. There is no intra-articular loose body. Tendons and ligaments: The gluteus medius and minimus tendons mild tendinosis and low-grade partial-thickness tearing near their femoral insertion is seen, without associated muscle atrophy. The nearby proximal iliotibial band also appears intact. The iliopsoas tendon appears intact, without adjacent bursal fluid collections or evidence for impingement syndrome. The origin of the hamstring tendon is intact at the ischial tuberosity, as well as the associated sacrotuberous ligament. The straight and reflected heads of the rectus femoris muscle origin appear intact, as well as the conjoint tendon. The ligamentum teres appears intact where visualized. Labrum and cartilage: There is loss of articulating cartilage along femoral heads. There is suggestion of extensive left hip labral tear. No paralabral cysts. Soft tissues: Visualized muscles demonstrate normal bulk and internal signal. Quadratus femoris muscle demonstrates no internal edema to suggest ischiofemoral impingement. The proximal sciatic neurovascular bundle appears normal adjacent to the hamstring tendons. No free pelvic fluid. Bladder wall thickness is normal. Genitourinary structures and bowel loops appear normal where visualized. IMPRESSION: 1. Severe left hip joint osteoarthritis. Geographic area of T2 hyperintensity and T1 hypointensity is seen in weight-bearing portion of left femoral head concerning for developing avascular necrosis in this area. 2. Suggestion of extensive left hip labral tear. 3. Mild tendinosis and low-grade partial-thickness tear involving the left gluteus medius and minimus tendons at their insertion on greater trochanter. Dictated by: Willam Davidson M.D. on 07/28/2019 at 10:21 Approved by: Willam Davidson M.D. on 07/28/2019 at 10:29
--- NOTE | 2019-07-28 | DI.RAD.S_ITS ---
PROCEDURE: FL HIP INJECTION MR/CT LT INDICATIONS: Chronic left hip pain TECHNIQUE: The indications, alternatives, benefits, risks, and complications of the procedure were explained to the patient. Written informed consent was obtained and placed in the chart. The hip was examined fluoroscopically with the legs fixed in slight internal rotation, and a site for needle placement chosen for entry into the hip joint from an anterior approach. Care was taken to locate the common femoral artery and vein beforehand. The skin was prepped and draped in a sterile fashion, and 1% Lidocaine infiltrated from skin down to joint capsule. A spinal needle was inserted into the joint, and a small amount of iodinated contrast media injected to confirm intra-articular placement of the needle tip. This was followed by approximately 1-2 mL dilute solution of a gadolinium containing MR contrast agent, however only minimal gadolinium contrast agent could be administered before the patient's baseline hip pain aggravated by positioning for the procedure prematurely terminated the injection. The needle was removed and a dressing was applied. The patient was given postprocedural instructions and sent to the MR suite for imaging. FINDINGS: A single fluoroscopic spot image demonstrates intra-articular location of injected iodinated contrast. There is severe left hip osteoarthritis. IMPRESSION: Successful fluoroscopically guided administration of dilute Gadolinium solution into the hip joint for MR arthrogram, however only minimal intra-articular volume was able to be administered, before the patient's baseline hip pain prematurely terminated the procedure, as discussed above. Dictated by: Fabrizio Harris M.D. on 07/28/2019 at 10:58 Approved by: Fabriizo Harris M.D. on 07/28/2019 at 11:01
== END ==
PROVIDERS: PCP Family Medicine; Visit Provider Pain Medicine Pain Medicine
DX: M25.552 Pain in left hip (principal); M16.12 Unilateral primary osteoarthritis, left hip; S76.012A Strain of muscle, fascia and tendon of left hip, initial encounter; M47.812 Spondylosis without myelopathy or radiculopathy, cervical region; M54.5 Low back pain; M87.059 Idiopathic aseptic necrosis of unspecified femur; G89.29 Other chronic pain
CPT/HCPCS: 27093; 73722; 77002; 99213

== ENCOUNTER 2019-09-23 14:00 | Observation (INO) | payer MEDICARE, OTHER, SELFPAY ==
[2019-09-22] VITALS (13 sets, daily range): BP systolic 106–172; BP diastolic 66–85; PULSE 71–90; RESP 8–17; TEMP 36.2–36.9; O2SAT 96–100; BMI 44.9; BMI 20.3
--- NOTE | 2019-09-22 06:00 | DI.RAD.S_ITS ---
PROCEDURE: XR PELVIS 1-2V INDICATIONS: post op left DEVORAH TECHNIQUE: 1 view of the lower pelvis acquired. COMPARISON: None. FINDINGS: Bones: Patient is status post left hip arthroplasty, with hardware components in expected positions. The hip joint appears congruent. The visualized bony structures appear intact. Mild right hip joint degeneration. Lower lumbar spondylosis and facet disease. Soft tissues: Overlying postoperative changes are noted. No suspicious soft tissue densities. IMPRESSION: Expected postoperative appearance Dictated by: Fabrizio Harris M.D. on 09/22/2019 at 18:08 Approved by: Fabrizio Harris M.D. on 09/22/2019 at 18:09
[2019-09-22] MEDS: ACETAMINOPHEN 325 MG TABLET 975 MG PO (08:25)
[2019-09-22] MEDS: CELECOXIB 200 MG CAPSULE PO (08:26)
[2019-09-22] MEDS: PREGABALIN 75 MG CAPSULE PO (08:26)
--- NOTE | 2019-09-22 09:49 | PM.PREOP ---
Pre-operative Note Interval Note History & Physical reviewed/Exam performed by Physician: Yes Changes to H&P: No
[2019-09-22] MEDS: CEFAZOLIN 1 GM/50 ML FROZ.PIGGY IV (10:27)
[2019-09-22] MEDS: TRANEXAMIC ACID 1,000 MG VIAL 2000 MG INJ ×2 (10:50→11:41)
--- NOTE | 2019-09-22 11:03 | SUR.OPER ---
Lateral on padded OR bed. Gel axillary roll. Arms secured on padded armboard with pillow supporting top arm. Padded hip positioner braces x4 - anterior and posterior chest and pelvis. Additional gel pad used anterior pelvis. Gel pad under bottom leg from knee to foot and secured with tape over sheet.
[2019-09-22] MEDS: KETOROLAC 30 MG/ML VIAL IV (11:10)
[2019-09-22] MEDS: MORPHINE 4 MG/ML INJ INJ (11:10)
[2019-09-22] MEDS: ROPIVACAINE 0.5% PF 5 MG/ML 20ML VIAL 60 ML INJ (11:10)
[2019-09-22] MEDS: LACTATED RINGERS 1,000 ML 42 ML IV ×2 (11:15→11:37)
--- NOTE | 2019-09-22 11:56 | P.OP_ITS ---
Operative Date/Time/Diagnoses Date of procedure: 09/22/19 Time of procedure: 11:57 Pre-op diagnosis: Left hip degenerative joint disease Post-op diagnosis: same Procedure & Clinicians Procedure: Left total hip arthroplasty (CPT code 47024 with restaurant assistant) Same procedure as scheduled: Yes Indications: Patient is an 69-year-old female with severe left hip DJD. The patient has pain with activities and at rest, limited ambulation and activity tolerance, difficulties with ADLs, and failure of conservative treatment. We have discussed the nature of condition, treatment options, risks and benefits, and patient elects to proceed with total hip arthroplasty and gives informed consent. Surgeon: Manav Jones Vehicle Controls Engineer: Piyush Sanchez Anesthesia Type: General and Spinal Operative Notes Closure Type: primary Specimen(s): none sent Prosthetic devices, grafts, tissues, transplants, or devices: Acetabulum: Flores [employer] Nephew R3 acetabular component size 48 mm Femoral component: Flores [employer] Nephew Anthology stem size 7 with standard offset Femoral head: 32 mm + 0 cobalt chrome Estimated Blood Loss (mL): 150 Blood products transfused: none Procedure in detail: After satisfaction induction of anesthetic, and administration of IV antibiotics, the patient was positioned in the lateral decubitus position with all bony prominences well padded and pelvic position secured using a hip shearing shed hand positioning device. Left hip and lower extremity prepped and draped in the usual sterile fashion, 1st dose of intravenous tranexamic acid was administered, then a longitudinal incision was created centered over the greater trochanter and carried sharply through the skin and subcutaneous tissues down to the fascia chris which was divided longitudinally and retracted with a Charnley retractor. External rotators visualize, cut, tagged, and retracted posteriorly, then the capsule was cut in a T-type fashion with the corners tagged and retracted. Hip was dislocated and femoral neck cut made according to preoperative templating. Acetabular retractors then placed, and the acetabular labrum and osteophytes were excised. The acetabulum was then sequentially reamed to 47 mm with an excellent circumferential ream and fit with the trial. The trial component was removed and a permanent size 48 mm Flores and Nephew R3 acetabular component was selected, positioned, and impacted with satisfactory position and fixation achieved. Permanent liner was then inserted with the elevated lip directed posteriorly. Soft tissue then removed off the lateral femoral neck in the lateral neck was entered using a box osteotome. T- handled reamers placed down the canal followed by sequential broaching to 7 with the final broach left in place for trial reduction which demonstrated excellent leg length, range of motion, and stability characteristics with a 32 mm +4 trial ball. The trial and broach were removed, and a permanent size 7 Flores and Nephew Anthology stem was selected and inserted with excellent position and fixation achieved. Another trial reduction yielded the above characteristics so the trial ball was exchanged for a permanent 32 mm +4 cobalt chrome ball. The hip was irrigated and reduced and excellent leg length range of motion and stability characteristics were achieved and maintained. Periarticular tissues were infiltrated with ropivacaine, morphine, and Toradol. The hip was copiously irrigated, and the capsule repaired with #2 Ethibond, and the piriformis was repaired back to the greater trochanter with the same. Fascia chris closed with interrupted #1 Ethibond sutures, and the subcutaneous tissues were closed in 2 layers of 0 Vicryl and 2 0 Vicryl. Skin was closed with epi and sterile dressings applied. Second dose of tranexamic acid was administered intravenously, and the anesthetic was terminated. Complications: none Post-operative Condition: stable Disposition: PACU Plan for aftercare: Patient will be admitted to the acute care [facility], and anticipate discharge on postop day 1-2 with follow-up in office in 10-14 days. Outpatient physical therapy will be arranged and patient will continue to observe posterior hip precautions. Patient will continue use of postoperative Lovenox for 10 days postop. Patient is under chronic pain management and on a pain contract, therefore we will manage postoperative pain through week 2 and then she will resume medical and pain management care with the pain clinic.
[2019-09-22] MEDS: LACTATED RINGERS 1,000 ML 125 ML IV ×2 (13:30→22:10)
--- NOTE | 2019-09-22 13:54 | SUR.PHASEI ---
Late entry: Report was given to ÁNGEL Harden on AC. Pt was then transported via bed to room 213. Monitoring started, vital signs stable, beverage provided. No change pt condition since original report. Transfer completed with pt in stable condition upon my departure.
--- NOTE | 2019-09-22 13:58 | PC.NURSE ---
Patient received from PACU 1252, VSS, denies pain, starting to wiggle toes but still feels numbness to bilateral lower legs. Oriented to room and call light, her is at bedside. Dressing to left hip CDI. Call light placed within reach, bed alarm active.
[2019-09-22] MEDS: OXYCODONE IR 5 MG TABLET PO ×2 (14:56→21:42)
[2019-09-22] MEDS: ONDANSETRON 4 MG/2 ML INJ IV (16:29)
--- NOTE | 2019-09-22 16:56 | PT-IP ANOTE ---
Attempted PT eval but pt is confused and anxious; unable to focus on questions regarding home set up and unable to comprehend hip precautions. pt c/o headache and pain on abdomen and is more focused on pain despite attempts to distract pt. nurse already gave pt pain meds but pt wants to have her morphine. nurse is aware. Pt is not ready for PT eval at this time and will check to tomorrow.
[2019-09-22] MEDS: MORPHINE ER 30 MG TABLET PO (17:34)
[2019-09-22] MEDS: CEFAZOLIN 2 GM/100 ML FROZ.PIGGY IV (18:43)
[2019-09-22] MEDS: hydrOXYzine pamoate 25 MG CAPSULE PO (19:09)
[2019-09-22] MEDS: SIMVASTATIN 10 MG TABLET PO (20:18)
[2019-09-22] MEDS: NORTRIPTYLINE HCL 25 MG CAPSULE 75 MG PO (20:18)
[2019-09-22] MEDS: MIRTAZAPINE 15 MG TABLET 45 MG PO (20:18)
[2019-09-22] MEDS: QUETIAPINE 100 MG TABLET 300 MG PO (20:18)
[2019-09-22] MEDS: MORPHINE ER 15 MG TABLET PO (20:23)
[2019-09-22] MEDS: LORazepam 0.5 MG TABLET PO (21:43)
--- NOTE | 2019-09-22 22:37 | PC.NURSE ---
Shift summary: The patient is alert and oriented, and uses her call light appropriately. The patient expressed anxiety regarding pain management post operatively and for her chronic neck and back pain. PT saw her today, but at the time they came she was unable to focus on their instructions due to her anxiety, so she did not get up with them. She was ordered morphine 30mg and morphine 15mg which is consistent with her daily at home regimen to help her chronic pain, and getting these orders in helped lower her anxiety level. She was up out of bed today post-operatively at 1999 with the RN, student nurse, and RETAIL DEPARTMENT SUPERVISOR. She pivot transferred to the bedside commode and pivoted back to bed. She received education on proper post op body mechanics and positioning and she verbalized understanding. She has urinary urgency and frequency and she uses the bedpan. She has a brief on and has been continent. Her bed is low and locked, and she has the call light in reach.
[2019-09-23] VITALS (8 sets, daily range): BP systolic 132–183; BP diastolic 61–88; PULSE 94–111; RESP 14–19; TEMP 36.9–37.9; O2SAT 93–100; BMI 20.3
[2019-09-23] MEDS: hydrOXYzine pamoate 25 MG CAPSULE PO ×2 (00:12→18:26)
[2019-09-23] MEDS: CEFAZOLIN 2 GM/100 ML FROZ.PIGGY IV (01:40)
[2019-09-23] MEDS: OXYCODONE IR 5 MG TABLET PO ×4 (01:42→15:16)
[2019-09-23] MEDS: LORazepam 0.5 MG TABLET PO ×2 (06:22→18:26)
[2019-09-23 06:25] LABS: Hematocrit 32.4 % (36-46); Hemoglobin 10.9 g/dL (12.0-16.0)
--- NOTE | 2019-09-23 06:50 | PC.NURSE ---
Pt frequently complains of pain, she does not have her specific home medication pain med available. Giving oxycodone 5mg PRN for now. Voiding in a bed pain; strains to pee which she says is normal for her. IVF d/c'ed this morning. No nausea Ativan given to pt this morning as she requested
[2019-09-23] MEDS: ENOXAPARIN 40 MG/0.4 ML SYRINGE SUBCUT (09:19)
[2019-09-23] MEDS: MORPHINE ER 30 MG TABLET PO ×2 (09:20→20:19)
[2019-09-23] MEDS: MORPHINE ER 15 MG TABLET PO ×2 (09:20→20:20)
--- NOTE | 2019-09-23 09:26 | PM.PNPO.1 ---
Subjective Subjective Date Patient Seen: 09/23/19 Time Patient Seen: 09:26 Interval history: Pain is severe. Denies fever chills. No nausea vomiting. Patient was not ready for PT eval yesterday as she was focused on pain despite attempts to distract. Exam Vital Signs (past 8 hours): - 09/23/19 03:27 Temperature 99.6 F Pulse Rate 95 H Respiratory Rate 19 Blood Pressure 148/72 H Pulse Oximetry 97 Oxygen Delivery Method Room Air Oxygen Flow Rate 0 Narrative Exam Narrative: 69-year-old female resting comfortably in bed in no apparent distress. is present this morning. Left hip dressing is clean, dry and intact. Left leg is warm and dry. Motor functions intact distally. Sensation grossly intact to light touch. Objective Labs Result Diagrams: 09/23/19 06:07 Labs: Laboratory Results - last 24 hr 09/23/19 06:07 Hgb 10.9 L Hct 32.4 L Assessment & Plan Post-op Postoperative Procedures: Procedures Operation Date: 09/22/19 09:45 Actual Procedures Side Surgeon p Total Hip Arthroplasty Left Manav Jones MD Mobilize with physical therapy. Continue work on pain control. Discharge home in 1-2 days. Posterior hip precautions.
--- NOTE | 2019-09-23 10:29 | PT.IIE ---
Current Diagnoses Unilateral primary osteoarthritis, left hip (09/22/19) Surgery Performed Operation Date: 09/22/19 09:45 Actual Procedures p Total Hip Arthroplasty(Left) - Manav Jones MD Surgical History (Last Updated 08/27/19 @ 09:58 by Renetta Campbell, RN) H/O shoulder surgery (Acute) History of appendectomy (Acute) History of hysterectomy (Acute) History of right knee surgery (Acute) History of tonsillectomy (Acute) Medical History (Last Updated 08/27/19 @ 10:07 by Renetta Campbell RN) Avascular necrosis of bone of hip (Acute) Cervical spondylosis (Acute) Chronic low back pain (Acute) Depression (Acute) Fibromyalgia (Acute) Seasonal allergies (Acute) Spinal stenosis in cervical region (Acute) Physical Therapy Inpatient Evaluation/Re-Eval M1 PT/OT-IP Prior Functional Status Start: 09/23/19 08:20 Freq: NEEDED Status: Active Protocol: Document 09/23/19 10:29 DLM (Rec: 09/23/19 13:47 DLM [email or web address]) Medical Review Prior Functional Status Medical History Reviewed Yes Diet/Fluid Consistency Regular Communication WFL, decreased memory reported , Spouse helps her Mobility and Gait Independent with FWW, Spouse helps her up and down steps in /out of house to garage due to hip pain before surgery Activities of Daily Living and IADL's Independent with basic ADL's, Spouse manages advanced ADL's Prior Functional Level (Other details) attended PT prior to surgery to learn her exercises and precautions Social History Household Members spouse Living Arrangements House Number of Floors (Floors) One Floor Number of Stairs To Enter/Railing? 2 no rails from garage to house, shelf is close Home Environment Built-In Shower Seat Home Equipment Front Wheel Walker,Quad Cane, Straight Cane,Raised Toilet Seat Without Armrests Employment Status Retired Additional Social History Comment she reports history of not doing well with canes due to poor balance M2 PT-IP Current Condition Start: 09/23/19 08:20 Freq: NEEDED Status: Active Protocol: Document 09/23/19 10:29 DLM (Rec: 09/23/19 13:47 DLM [email or web address]) Physical Therapy Current Condition Current Condition Evaluation Date 09/23/19 Treatment Diagnosis left DEVORAH, impaired gait and mobility Onset Date 09/22/19 Precautions Posterior Hip Precautions No Hip Flexion > 90 degrees,No Hip Internal Rotation,No Hip Adduction Other Precautions Pt has decreased memory Weight Bearing Status Weight Bearing Status Weight Bear as Tolerated M3 PT-IP Subjective Start: 09/23/19 08:20 Freq: NEEDED Status: Active Protocol: Document 09/23/19 10:29 DLM (Rec: 09/23/19 13:47 DLM [email or web address]) Subjective Physical Therapy Visit Type Type Initial Evaluation Visit Start Time 09:45 Visit Stop Time 10:29 Total Visit Minutes 44 Number of VIDEO SYSTEM REPAIRER Visits 0 Physical Therapy Visit Comments Patient Comments She reports her hip hurts a lot. She does not feel the medication helps very much. Patient Goals Go home with her to assist her Therapy Pain Assessment Pain When Pain Assessed At Rest Pain Present Pain Present Pain Reported Location Left Hip Intensity 7 Scale Used Numeric (1 - 10) Description Aching Pain Behaviors Facial Grimacing,Moaning Pain Management Techniques Apply Cold,Re-positioning M4 PT-IP Mobility and Gait Start: 09/23/19 08:20 Freq: NEEDED Status: Active Protocol: Document 09/23/19 10:29 DLM (Rec: 09/23/19 13:47 DLM [email or web address]) PT-Bed Mobility Assessment Supine to Sit Supine to Sit Moderate Assistance Sit to Supine Sit to Supine Minimal Assistance Scooting Scooting to Edge of Bed Standby Assistance Scooting Up and Down in Bed Standby Assistance PT-Transfer Assessment Sit to and From Stand Sit to and from Stand Minimal Assistance,Use of Upper Extremities Equipment Transfer Assistive Device Gait Belt,Front Wheeled Walker Transfers Transfer Destination Bedside Commode Transfer Technique Stand Step Pivot Transfer Ability Level of Assist Contact Guard Assistance, Minimal Assistance Comments Mobility Comments Pt able to urinate and have small BM on bedside commode this visit. Pt c/o chest pain that goes into left breast area when up intermittently. Symptoms resolved when back in bed. Symptoms reported to her nurse. Gait Assessment Gait Gait Assistance Required: Contact Guard Assist,Minimum Assistance Distance (Feet) 2 Able to Maintain Weight Bearing Status Yes During Gait Assistive Devices Assistive Device Gait Belt,Front Wheeled Walker Gait Deviations General Gait Pattern Antalgic,Decreased Stride Length Factors Limiting Gait Function Factors Limiting Gait Function Decreased Activity Tolerance, Decreased Strength,Pain Comments Gait Comments She c/o pain with weight bearing on left LE for gait, trained pt to use UE support to better manage her left hip pain. Her Spouse is present this visit and is very supportive. Pt unable to verbalize her hip precautions but Spouse verbalizes awareness. Posted hip precautions in her room. PT-Balance Assessment Sitting Balance and Reactions Static Sitting Balance Ability Good Dynamic Sitting Balance Ability Good Standing Balance and Reactions Static Standing Balance Ability Good Dynamic Standing Balance Ability Fair Device Used FWW M5 PT-IP Objective Assessments Start: 09/23/19 08:20 Freq: NEEDED Status: Active Protocol: Document 09/23/19 10:29 DLM (Rec: 09/23/19 13:47 DLM [email or web address]) Orientation Orientation/Cognition Level of Alertness Alert Orientation Name,Age,Birthday,Month,Date, Year,Day of Week,Place, Situation Language Function Ability No Deficits Noted Safety Awareness Decreased Safety Awareness Memory Description Short Term Impaired Comments pt reports her memory is not good Gross Range of Motion Upper Extremity ROM Assessment Within Functional Limits Lower Extremity ROM Assessment Left Impaired Impairments pain with all movement of left hip this visit, knee and ankle moving functionally Strength Upper Extremity Strength Assessment Within Functional Limits Lower Extremity Strength Assessment Left Impaired Hip flexion 2+/5 Knee ext 3+/5, flex 3+/5 Ankle DF 4-/5 Comments Strength Comments pain limits use left LE Coordination Assessment Gross Coordination Gross Coordination WNL Sensation Assessment Sensation Gross Sensation WNL Muscle Tone Muscle Tone WNL Yes M6 PT-IP Treatment Start: 09/23/19 08:20 Freq: NEEDED Status: Active Protocol: Document 09/23/19 10:29 DLM (Rec: 09/23/19 13:47 DLM [email or web address]) Physical Therapy Treatment Exercises Exercises Ankle Pumps,Gluteal Sets,Quad Sets Education Education Provided Precautions,Weight Bearing Status,Post-Op Packet,Safety M7 PT-IP Assessment and Plan Start: 09/23/19 08:20 Freq: NEEDED Status: Active Protocol: Document 09/23/19 10:29 DLM (Rec: 09/23/19 13:47 DLM [email or web address]) PT Summary Assessment and Plan Potential Rehabilitation Potential Good Status of Condition at Evaluation Evolving Summary Impairments Pain,ROM,Strength,Balance, Cognition,Bed Mobility, Transfers,Gait,Activity Tolerance Assessment Summary Lennie is alert and willing to work with physical therapy. She mobilizes slowly this visit but was able to stand edge of bed and use bedside commode with fWW and one person assist. She has frequent c/o pain in left hip with mobility but could manage it by moving slowing and cuing her. Due to her decreased memory she needs a lot of safety cues and repeated information. She has a very supportive Spouse who is prepared to assist her at home at discharge. Pt experienced mild chest pain during this visit with unclear source and her symptoms were reported to her nurse. Pt left resting in bed at the end of this therapy session. I anticipate she will be able to discharge home with her Spouse but that her progress will be slow paced over-all. Goals Bed Mobility Goal Standby Assistance Transfer Goal Standby Assistance,Front Wheeled Walker Gait Goal Standby Assistance,Front Wheel Walker Gait Distance 100 feet Other Goals Up and down 2 steps with min assist and UE support on one side Days to Meet Goals 3 Frequency of Treatment Frequency Of Treatment Twice a Day Treatment Plan Physical Therapy Treatment Plan Bed Mobility Training,Transfer Training,Gait Training, Therapeutic Exercise,Balance Retraining,Post Op Education, Discharge Planning,Hot or Cold Pack Recommendations To Nursing Amount of Assist Needed 1 Person Assist Discharge Recommendations PT Discharge Recommendations Home with Assistance Transportation Needs at Discharge Private Vehicle
--- NOTE | 2019-09-23 11:52 | PC.NURSE ---
Addendum entered by Anat Farias R.N. 09/23/19 15:39: Patient just medicated with oxyodone, this has been helpful for discomfort. Patient was just ambulating in halls with physical therapy. Addendum entered by Anat Farias R.N. 09/23/19 14:40: Pt voided x1 on the bed side commode. She is getting up with the leaf tinner's to use the bathroom now. Given oxycodone earlier and has not complained of discomfort since then. in room and supportive. Original Note: Patient has chronic pain issues to her upper neck. Complained of sternal pain, more muscle pain but this resolved. She was not have heart pains, or back pain and no pain radiating down her back. Given long acting morphine for her fibromyalgia and oxycodone for her l.hip pain. Dressing to l.hip is cdi and pt just used the bedpan.. Up with physical therapy to commode and back to bed.
--- NOTE | 2019-09-23 12:47 | DIET.PN ---
Dietary Progress Note Assessment: 69y F admitted s/p planned L hip surgery referred to nutrition for MNA of 11-at risk for malnutrition. Pt and endorse pt is at [facility], pt eats like a bird. Pt ordered beef and barley soup c ham sandwich for lunch. HT: 170.1cm WT: 58.9kg BMI: 20.4 Labs: hgb 10.9 L MNA: 11 Tenzin: 19 Nutrition Diagnosis: none at this time Interventions: 1. Educated pt on importance of consuming adequate calories and protein during healing process. Diet Order: general EER: 1600kcal, 60g Pro (1g/kg, elder), 1.8L fl
--- NOTE | 2019-09-23 15:49 | PT.IPTN ---
Current Diagnoses Unilateral primary osteoarthritis, left hip (09/22/19) Surgery Performed Operation Date: 09/22/19 09:45 Actual Procedures p Total Hip Arthroplasty(Left) - Manav Jones MD Physical Therapy Treatment Note M2 PT-IP Current Condition Start: 09/23/19 08:20 Freq: NEEDED Status: Active Protocol: Document 09/23/19 10:29 DLM (Rec: 09/23/19 13:47 DLM [email or web address]) Physical Therapy Current Condition Current Condition Evaluation Date 09/23/19 Treatment Diagnosis left DEVORAH, impaired gait and mobility Onset Date 09/22/19 Precautions Posterior Hip Precautions No Hip Flexion > 90 degrees,No Hip Internal Rotation,No Hip Adduction Other Precautions Pt has decreased memory Weight Bearing Status Weight Bearing Status Weight Bear as Tolerated M3 PT-IP Subjective Start: 09/23/19 08:20 Freq: NEEDED Status: Active Protocol: Document 09/23/19 15:49 DLM (Rec: 09/23/19 19:26 DLM [id number]) Subjective Physical Therapy Visit Type Type Treatment Note Visit Start Time 15:20 Visit Stop Time 15:49 Total Visit Minutes 29 Number of TECHNICAL TRAINER Visits 0 Physical Therapy Visit Comments Patient Comments She reports her hip is very sore. Patient Goals Go home with her to assist her Therapy Pain Assessment Pain When Pain Assessed At Rest Pain Present Pain Present Pain Reported Location Left Hip Intensity 9 Scale Used Numeric (1 - 10) Description Aching Pain Behaviors Facial Grimacing,Moaning Pain Management Techniques Apply Cold,Re-positioning M4 PT-IP Mobility and Gait Start: 09/23/19 08:20 Freq: NEEDED Status: Active Protocol: Document 09/23/19 15:49 DLM (Rec: 09/23/19 19:26 DLM [id number]) PT-Bed Mobility Assessment Supine to Sit Supine to Sit Minimal Assistance Sit to Supine Sit to Supine Standby Assistance Scooting Scooting to Edge of Bed Standby Assistance Scooting Up and Down in Bed Standby Assistance PT-Transfer Assessment Sit to and From Stand Sit to and from Stand Contact Guard Assistance,Use of Upper Extremities Equipment Transfer Assistive Device Gait Belt,Front Wheeled Walker Transfers Transfer Destination Bed,Toilet Transfer Technique Stand Step Pivot Transfer Ability Level of Assist Contact Guard Assistance Comments Mobility Comments Pt up to toilet to urinate. She stood at the sink to wash her hands. She was fatigued at the end of this visit and returned to bed. She needs reminders to avoid excessive flexion while seated on the toilet. She strains to urinate and tends to flex forward when doing this. Gait Assessment Gait Gait Assistance Required: Contact Guard Assist Distance (Feet) 15 Able to Maintain Weight Bearing Status Yes During Gait Assistive Devices Assistive Device Gait Belt,Front Wheeled Walker Gait Deviations General Gait Pattern Antalgic,Decreased Stride Length Factors Limiting Gait Function Factors Limiting Gait Function Decreased Activity Tolerance, Decreased Strength,Pain Comments Gait Comments verbal cues to use UE support on FWW to manage left LE pain with weight bearing, reminders to keep both hands on the fWW PT-Balance Assessment Sitting Balance and Reactions Static Sitting Balance Ability Good Dynamic Sitting Balance Ability Good Standing Balance and Reactions Static Standing Balance Ability Good Dynamic Standing Balance Ability Fair Device Used FWW M5 PT-IP Objective Assessments Start: 09/23/19 08:20 Freq: NEEDED Status: Active Protocol: Document 09/23/19 10:29 DLM (Rec: 09/23/19 13:47 DLM [email or web address]) Orientation Orientation/Cognition Level of Alertness Alert Orientation Name,Age,Birthday,Month,Date, Year,Day of Week,Place, Situation Language Function Ability No Deficits Noted Safety Awareness Decreased Safety Awareness Memory Description Short Term Impaired Comments pt reports her memory is not good Gross Range of Motion Upper Extremity ROM Assessment Within Functional Limits Lower Extremity ROM Assessment Left Impaired Impairments pain with all movement of left hip this visit, knee and ankle moving functionally Strength Upper Extremity Strength Assessment Within Functional Limits Lower Extremity Strength Assessment Left Impaired Hip flexion 2+/5 Knee ext 3+/5, flex 3+/5 Ankle DF 4-/5 Comments Strength Comments pain limits use left LE Coordination Assessment Gross Coordination Gross Coordination WNL Sensation Assessment Sensation Gross Sensation WNL Muscle Tone Muscle Tone WNL Yes M6 PT-IP Treatment Start: 09/23/19 08:20 Freq: NEEDED Status: Active Protocol: Document 09/23/19 15:49 DLM (Rec: 09/23/19 19:26 DLM [id number]) Physical Therapy Treatment Exercises Exercises Ankle Pumps,Gluteal Sets,Quad Sets Education Education Provided Precautions,Weight Bearing Status,Post-Op Packet,Safety Other Treatments Other Treatment Performed pt anxious this visit but responds well to encouragement and reassurance M7 PT-IP Assessment and Plan Start: 09/23/19 08:20 Freq: NEEDED Status: Active Protocol: Document 09/23/19 15:49 DLM (Rec: 09/23/19 19:26 DLM [id number]) PT Summary Assessment and Plan Summary Impairments Pain,ROM,Strength,Balance, Cognition,Bed Mobility, Transfers,Gait,Activity Tolerance Progress Towards Goals Progressing Toward Goals Assessment Summary Lennie is alert and willing to ambulate with encouragement. She tolerated up to the toilet well. Her gait pattern with the fWW is improving. Her Spouse was present during part of this visit. Pt needs verbal reminders for her hip precautions during mobility. Her Spouse verbalizes good understanding of the post hip precautions. Pt continues to slowly progress. I anticipate she will need 1-2 more days of therapy to be ready to discharge home with her Spouse . Goals Bed Mobility Goal Standby Assistance Transfer Goal Standby Assistance,Front Wheeled Walker Gait Goal Standby Assistance,Front Wheel Walker Gait Distance 100 feet Other Goals Up and down 2 steps with min assist and UE support on one side Days to Meet Goals 3 Frequency of Treatment Frequency Of Treatment Twice a Day Treatment Plan Physical Therapy Treatment Plan Bed Mobility Training,Transfer Training,Gait Training, Therapeutic Exercise,Balance Retraining,Post Op Education, Discharge Planning,Hot or Cold Pack Recommendations To Nursing Amount of Assist Needed 1 Person Assist Discharge Recommendations PT Discharge Recommendations Home with Assistance Transportation Needs at Discharge Private Vehicle
--- NOTE | 2019-09-23 15:56 | CM.IDA ---
Discharge Planning/Care Management Advanced directive, confirm from FAMILY Start: 09/22/19 13:08 Freq: Q24H Status: Active Protocol: Document 09/23/19 14:34 CLL (Rec: 09/23/19 14:35 CLL [id number]) Advance Directive, confirm on record Time 14:35 Person contacted patient Copy received No CM Discharge Assessment Start: 09/23/19 15:40 Freq: Status: Active Protocol: Document 09/23/19 15:40 NEVILLE (Rec: 09/23/19 15:55 NEVILLE [id number]) Discharge Planning Assessment Assigned Steward/Stewardess Night DONNIE Ugalde DPOA/Assigned Designee Name Ashlee Murray,. spouse Contact Information cell [phone] home Advance Directives? Yes Advance Directives on File No History Provided By Patient,Family Member,Medical Record Prior Living Arrangements House Household Members spouse Type of transporation used prior to Relies on Others admit Independent with ADL's Yes Is patient alert and oriented? No: Decreased memory, short term memory loss Needs Assistance With Bathing,Meal Prep,Managing Medications,Home Chores / Shopping Barriers to Discharge No Comment Pt is POD#1 from hip surgery w / Dr Jones. Therapy has cleared pt for return home w/ spouse, as of session this AM PCP: Mila Elizabeth Payer: [employer] Attempted to meet w/pt, and Nickie, Electric Organ Assembler [employer] Checker, had attempted to review the JIMENEZ form w/her and stated she was somewhat disoriented so spouse was contacted. According to review of chart notes, pt/family plan for DC home w/outpt f/u and there are no indications so far that this plan will not work. LEAF COVERER following closely and will plan to connect w/spouse to review DCP further DONNIE Corona Discharge Plan Home Transportation Arrangement Family Referrals Initiated None needed
[2019-09-23] MEDS: MIRTAZAPINE 15 MG TABLET 45 MG PO (20:19)
[2019-09-23] MEDS: SIMVASTATIN 10 MG TABLET PO (20:19)
[2019-09-23] MEDS: QUETIAPINE 100 MG TABLET 300 MG PO (20:20)
[2019-09-23] MEDS: NORTRIPTYLINE HCL 25 MG CAPSULE 75 MG PO (20:20)
[2019-09-24 00:51] VITALS: BP 120/63; PULSE 99; RESP 14; TEMP 37.1; O2SAT 94
[2019-09-24 03:49] VITALS: BP 127/65; PULSE 92; RESP 16; TEMP 36.6; O2SAT 96
[2019-09-24] MEDS: OXYCODONE IR 5 MG TABLET PO ×2 (05:00→10:19)
[2019-09-24] MEDS: LORazepam 0.5 MG TABLET PO (05:00)
[2019-09-24] MEDS: hydrOXYzine pamoate 25 MG CAPSULE PO (05:00)
[2019-09-24] MEDS: MORPHINE ER 30 MG TABLET PO (08:16)
[2019-09-24] MEDS: ENOXAPARIN 40 MG/0.4 ML SYRINGE SUBCUT (08:16)
[2019-09-24] MEDS: MORPHINE ER 15 MG TABLET PO (08:16)
[2019-09-24] MEDS: VIT C/E/ZN/COPPR/LUTEIN/ZEAXAN CAPSULE 1 CAP PO (08:17)
--- NOTE | 2019-09-24 12:34 | PC.NURSE ---
Patient is anxious but calms easily. Given oxycodone for discomfort to hip. Patient moving well around when getting up to the chair and the commode. Dressing will be changed before she goes home and plans are for her to leave to home later today. Eating well at meals.
--- NOTE | 2019-09-24 13:17 | PT.IPTN ---
Current Diagnoses Unilateral primary osteoarthritis, left hip (09/22/19) Surgery Performed Operation Date: 09/22/19 09:45 Actual Procedures p Total Hip Arthroplasty(Left) - Manav Jones MD Physical Therapy Treatment Note M2 PT-IP Current Condition Start: 09/23/19 08:20 Freq: NEEDED Status: Active Protocol: Document 09/23/19 10:29 DLM (Rec: 09/23/19 13:47 DLM [id number]) Physical Therapy Current Condition Current Condition Evaluation Date 09/23/19 Treatment Diagnosis left DEVORAH, impaired gait and mobility Onset Date 09/22/19 Precautions Posterior Hip Precautions No Hip Flexion > 90 degrees,No Hip Internal Rotation,No Hip Adduction Other Precautions Pt has decreased memory Weight Bearing Status Weight Bearing Status Weight Bear as Tolerated M3 PT-IP Subjective Start: 09/23/19 08:20 Freq: NEEDED Status: Active Protocol: Document 09/24/19 12:37 KS (Rec: 09/24/19 15:18 KS [id number]) Subjective Physical Therapy Visit Type Type Treatment Note Visit Start Time 12:37 Visit Stop Time 13:17 Total Visit Minutes 40 Notes present for caregiver training. Number of AWNING ASSEMBLER Visits 1 Physical Therapy Visit Comments Patient Comments Pt reports her hip is sore. Patient Goals Go home with her to assist her Therapy Pain Assessment Pain When Pain Assessed At Rest Pain Present Pain Present Pain Reported Location Left Hip Scale Used no number given Description Aching Pain Behaviors Facial Grimacing,Holding Area Pain Management Techniques Re-positioning M4 PT-IP Mobility and Gait Start: 09/23/19 08:20 Freq: NEEDED Status: Active Protocol: Document 09/24/19 12:37 KS (Rec: 09/24/19 15:18 KS [id number]) PT-Bed Mobility Assessment Sit to Supine Sit to Supine Contact Guard Assistance Scooting Scooting to Edge of Bed Standby Assistance Scooting Up and Down in Bed Standby Assistance PT-Transfer Assessment Sit to and From Stand Sit to and from Stand Contact Guard Assistance,Use of Upper Extremities Equipment Transfer Assistive Device Gait Belt,Front Wheeled Walker Transfers Transfer Destination Bed Transfer Technique Pt ambulated w/ FWW. Transfer Ability Level of Assist Contact Guard Assistance Comments Mobility Comments Pt was in chair upon arrival from therapy w/ in room for caregiver training. Pt able to recall 2/3 precautions (no flexion past 90).Pt was SBA for scooting to edge of chair, and CGA for sit<>stand from chair w/ FWW and cues to push up from chair . Pt then ambulated to w/c to be taken to stairs, CGA and cues for sit<>stand<>sit in w/ c, completed stair training, and returned to room. CGA for stand<>sit on bed and for sit< >supine in bed. Pt left in bed w/ in room and all needs in reach. Gait Assessment Gait Gait Assistance Required: Contact Guard Assist Distance (Feet) 50 Able to Maintain Weight Bearing Status Yes During Gait Assistive Devices Assistive Device Gait Belt,Front Wheeled Walker Gait Deviations General Gait Pattern Antalgic,Decreased Stride Length Factors Limiting Gait Function Factors Limiting Gait Function Decreased Activity Tolerance, Decreased Strength,Pain Comments Gait Comments Pt ambulated ~50 ft w/ FWW from chair to hallway, then took w/c to stairs, completed stair training, then ambulated some of the way back to room before needing to sit due to fatigue and wanting to save energy for d/c. Pt has decreased stride length and antalgic gait due to pain and weakness. Requires cues for staying inside FWW and FWW management when approaching sitting surfaces. Stair Climbing Assessment Evaluation Level of Assist On Stairs Contact Guard Assistance, Minimal Assistance,1 Person Assistance Devices Stair Climbing Assistive Devices Right Railing Technique/Endurance Stair Climbing Direction Ascend and Descend Stair Climbing Technique Step to Step Number of Steps Climbed 3 Stair Climbing Set # Repetitions (reps) 2 Comments Stair Climbing Comments Pt was able to ascend/ descend 3 steps w/ step to gait pattern and cues for sequencing w/ CGA to Min A for hand hold assist and L rail. Pt completed 1 set of steps and caregiver/ successfully completed second round of steps w/ pt and gave appropriate cues and assist throughout. Pt and / caregiver state that they both feel safe and comfortable to perform stairs at home. PT-Balance Assessment Sitting Balance and Reactions Static Sitting Balance Ability Good Dynamic Sitting Balance Ability Good Standing Balance and Reactions Static Standing Balance Ability Good Dynamic Standing Balance Ability Fair Device Used FWW M5 PT-IP Objective Assessments Start: 09/23/19 08:20 Freq: NEEDED Status: Active Protocol: Document 09/23/19 10:29 DLM (Rec: 09/23/19 13:47 DLM [id number]) Orientation Orientation/Cognition Level of Alertness Alert Orientation Name,Age,Birthday,Month,Date, Year,Day of Week,Place, Situation Language Function Ability No Deficits Noted Safety Awareness Decreased Safety Awareness Memory Description Short Term Impaired Comments pt reports her memory is not good Gross Range of Motion Upper Extremity ROM Assessment Within Functional Limits Lower Extremity ROM Assessment Left Impaired Impairments pain with all movement of left hip this visit, knee and ankle moving functionally Strength Upper Extremity Strength Assessment Within Functional Limits Lower Extremity Strength Assessment Left Impaired Hip flexion 2+/5 Knee ext 3+/5, flex 3+/5 Ankle DF 4-/5 Comments Strength Comments pain limits use left LE Coordination Assessment Gross Coordination Gross Coordination WNL Sensation Assessment Sensation Gross Sensation WNL Muscle Tone Muscle Tone WNL Yes M6 PT-IP Treatment Start: 09/23/19 08:20 Freq: NEEDED Status: Active Protocol: Document 09/24/19 12:37 KS (Rec: 09/24/19 15:18 KS [id number]) Physical Therapy Treatment Education Education Provided Precautions,Weight Bearing Status,Post-Op Packet,Safety Other Treatments Other Treatment Performed Pt seemed anxious prior to stair training, but responded well to encouragment from . M7 PT-IP Assessment and Plan Start: 09/23/19 08:20 Freq: NEEDED Status: Active Protocol: Document 09/24/19 12:37 KS (Rec: 09/24/19 15:18 KS [id number]) PT Summary Assessment and Plan Summary Impairments Pain,ROM,Strength,Balance, Cognition,Bed Mobility, Transfers,Gait,Activity Tolerance Progress Towards Goals Progressing Toward Goals Assessment Summary Pt was willing to ambulate and complete stair training and caregiver training today. Pt needs min cues for hand placement, FWW management, and sequencing on stairs which was able to appropriately provide. Pt is CGA for mobility and transfers and ambulation, CGA to Min A for stairs due to one sided railing and need for hand hold assist for other UE. Pt and caregiver successfully and safely completed caregiver/ stair training and stated that they feel safe to go home. Goals Bed Mobility Goal Standby Assistance Transfer Goal Standby Assistance,Front Wheeled Walker Gait Goal Standby Assistance,Front Wheel Walker Gait Distance 100 feet Other Goals Up and down 2 steps with min assist and UE support on one side Days to Meet Goals 3 Frequency of Treatment Frequency Of Treatment Twice a Day Treatment Plan Physical Therapy Treatment Plan Bed Mobility Training,Transfer Training,Gait Training, Therapeutic Exercise,Balance Retraining,Post Op Education, Discharge Planning,Hot or Cold Pack Recommendations To Nursing Amount of Assist Needed 1 Person Assist Discharge Recommendations PT Discharge Recommendations Home with Assistance Transportation Needs at Discharge Private Vehicle
--- NOTE | 2019-09-24 16:27 | CM.DPC ---
DC Note DC home w/spouse as expected. No barriers identified to this plan today; no SW needs JW
== END 2019-09-24 14:30 | disposition home or self-care (01) ==
LOC: AC 09-24 13:50 → OR 09-24 15:44 → AC 09-24 15:46
PROVIDERS: Admitting Provider Orthopaedic Surgery; Family Provider Family Medicine; PCP Family Medicine; Referring Provider Orthopaedic Surgery; Visit Provider Orthopaedic Surgery
PROC: 0SRB0JZ Replacement of Left Hip Joint with Synthetic Substitute, Open Approach (ICD-10-PCS; CPT 27130; principal; 2019-09-22 09:45)
DX: M16.12 Unilateral primary osteoarthritis, left hip (principal); G89.4 Chronic pain syndrome; M79.7 Fibromyalgia
CPT/HCPCS: 27130; 36415; 72170; 85014; 85018; 94760; 97116; 97162; 97530; C1776; G0378; J0690; J1650; J1885; J2250; J2270; J2405; J2704; J3010

== ENCOUNTER → 2019-12-27 12:15 | Outpatient (CLI) | payer MEDICARE, OTHER, SELFPAY ==
[2019-09-22 12:59] VITALS: BMI 20.3
--- NOTE | 2019-12-27 | DI.RAD.S_ITS ---
PROCEDURE: FL HIP INJECTION MR/CT RT INDICATIONS: RIGHT HIP PAIN TECHNIQUE: The indications, alternatives, benefits, risks, and complications of the procedure were explained to the patient. Written informed consent was obtained and placed in the chart. The hip was examined fluoroscopically with the legs fixed in slight internal rotation, and a site for needle placement chosen for entry into the hip joint from an anterior approach. Care was taken to locate the common femoral artery and vein beforehand. The skin was prepped and draped in a sterile fashion, and 1% Lidocaine infiltrated from skin down to joint capsule. A spinal needle was inserted into the joint, and a small amount of iodinated contrast media injected to confirm intra-articular placement of the needle tip. This was followed by approximately 10 mL dilute solution of a gadolinium containing MR contrast agent. The needle was removed and a dressing was applied. The patient was given postprocedural instructions and sent to the MR suite for imaging. FINDINGS: A single fluoroscopic spot image demonstrates intra-articular location of injected iodinated contrast. IMPRESSION: Successful fluoroscopically guided administration of dilute Gadolinium solution into the hip joint for MR arthrogram. Dictated by: Shen Hogan M.D. on 12/27/2019 at 17:34 Approved by: Shen Hogan M.D. on 12/27/2019 at 17:35
--- NOTE | 2019-12-27 | DI.MRI.S_ITS ---
PROCEDURE: MR HIP RT W CON INDICATIONS: RIGHT HIP PAIN TECHNIQUE: After the administration of 10 mL of dilute intra-articular Gadolinium contrast, coronal STIR of the bony pelvis; coronal and oblique axial T1 spin echo with fat saturation, axial T2 fast spin echo with fat saturation, sagittal T1 spin echo with and without fat saturation of the involved hip. COMPARISON: [facility] [place], CR, XR PELVIS WITH LATERAL HIP LEFT, 10/04/2019, 10:27. [facility], MR, MR HIP LT W CON, 07/28/2019, 9:16. FINDINGS: Image quality: Excellent. Bones and joints: Patient is status post interval left hip arthroplasty with significant susceptibility artifact seen in left hip region. Mild to moderate right hip joint osteoarthritic changes are noted with joint space narrowing, subchondral sclerosis and small marginal osteophyte formation. No intraosseous lesions or fractures. No avascular necrosis of the femoral head. The visualized lower lumbar spine appears normally aligned. The ligamental, neck, and labral plicae appear normal where visualized. Tendons and ligaments: The gluteus medius and minimus tendons appear intact, without associated muscle atrophy. The nearby proximal iliotibial band also appears intact. The iliopsoas tendon appears intact, without adjacent bursal fluid collections or evidence for impingement syndrome. The origin of the hamstring tendon is intact at the ischial tuberosity, as well as the associated sacrotuberous ligament. The straight and reflected heads of the rectus femoris muscle origin appear intact, as well as the conjoint tendon. The ligamentum teres appears intact where visualized. Labrum and cartilage: Thinning of articulating cartilage is in superior right femoral head is seen. There is focal area of contour irregularity and abnormal contrast extension involving superior anterior right hip labrum consistent with right hip labral tear. No paralabral cysts. The alpha angle of the femur is within normal limits at less than 55 degrees. Soft tissues: Visualized muscles demonstrate normal bulk and internal signal. Quadratus femoris muscle demonstrates no internal edema to suggest ischiofemoral impingement. The proximal sciatic neurovascular bundle appears normal adjacent to the hamstring tendons. No free pelvic fluid. Bladder wall thickness is normal. Genitourinary structures and bowel loops appear normal where visualized. IMPRESSION: 1. Moderate right hip joint osteoarthritic changes. No marrow edema. No fracture or dislocation. No evidence of avascular necrosis. 2. Focal superior anterior right hip labral tear. 3. No gross muscle or tendon abnormality. 4. Prior left total hip arthroplasty. Dictated by: Willam Davidson M.D. on 12/27/2019 at 15:19 Approved by: Willam Davidson M.D. on 12/27/2019 at 15:22
== END ==
PROVIDERS: Family Provider Family Medicine; PCP Family Medicine; Referring Provider Pain Medicine Pain Medicine; Visit Provider Pain Medicine Pain Medicine
DX: M25.551 Pain in right hip (principal); S73.191A Other sprain of right hip, initial encounter; Z96.642 Presence of left artificial hip joint
CPT/HCPCS: 27093; 73722; 77002

== ENCOUNTER → 2020-04-30 08:27 | Outpatient (CLI) | payer MEDICARE, OTHER, SELFPAY ==
[2020-01-31 09:14] VITALS: BMI 20.3
[2020-05-01 14:22] LABS: COVID19 Sendout Not Detected (Not Detect)
== END ==
PROVIDERS: Family Provider Family Medicine; PCP Family Medicine; Visit Provider Physician Assistant
DX: Z11.59 Encounter for screening for other viral diseases (principal)
CPT/HCPCS: 87635

== ENCOUNTER 2020-05-03 06:03 | Inpatient (IN) | payer MEDICARE, OTHER, SELFPAY ==
[2020-01-31 09:14] VITALS: BMI 20.3
[2020-04-19 08:53] VITALS: BMI 21.9
[2020-05-03] VITALS (13 sets, daily range): BP systolic 116–156; BP diastolic 64–87; PULSE 66–94; RESP 10–20; TEMP 35.9–36.7; O2SAT 96–100; BMI 21.6
[2020-05-03] MEDS: ACETAMINOPHEN 325 MG TABLET 975 MG PO (06:53)
[2020-05-03] MEDS: CELECOXIB 200 MG CAPSULE 400 MG PO (06:53)
[2020-05-03] MEDS: LACTATED RINGERS 1,000 ML 42 ML IV ×2 (07:02→08:45)
--- NOTE | 2020-05-03 07:27 | PM.PREOP ---
Pre-operative Note COVID-19 COVID-19 status: Negative Result date/Date tested (Pos, Neg/Pending): 05/01/20 Interval Note History & Physical reviewed/Exam performed by Physician: Yes Changes to H&P: No
[2020-05-03] MEDS: CEFAZOLIN 2 GM/100 ML FROZ.PIGGY IV ×2 (07:49→16:36)
[2020-05-03] MEDS: TRANEXAMIC ACID 1,000 MG VIAL 1000 MG IV ×2 (08:32→09:00)
[2020-05-03] MEDS: ROPIVACAINE 0.5% PF 20ML 60 ML, MORPHINE 4 MG, KETOROLAC 30 MG INJ (08:35)
--- NOTE | 2020-05-03 09:18 | DI.RAD.S_ITS ---
PROCEDURE: XR PELVIS 1-2V INDICATIONS: POST OPERATIVE TOTAL RIGHT HIP TECHNIQUE: 1 view(s) of the pelvis acquired. COMPARISON: [facility], CR, XR PELVIS WITH LATERAL HIP RIGHT, 03/29/2020, 14:13. [facility], CR, XR PELVIS 1-2V, 09/22/2019, 12:05. FINDINGS: Bones: Interval right hip total arthroplasty. Arthroplasty is in the expected position. Stable appearance of the left total hip arthroplasty. No fractures or dislocations. No suspicious bony lesions. Soft tissues: Expected postoperative change overlying the right hip. Visualized bowel gas pattern is normal. No suspicious soft tissue calcifications. Surgical clips in the right pelvis. IMPRESSION: Satisfactory immediate postoperative appearance of the right hip total arthroplasty. Dictated by: Homer Martinez M.D. on 05/03/2020 at 9:36 Approved by: Homer Martinez M.D. on 05/03/2020 at 9:38
--- NOTE | 2020-05-03 09:20 | P.OP_ITS ---
Operative Date/Time/Diagnoses Date of procedure: 05/03/20 Time of procedure: 09:20 Pre-op diagnosis: Right hip degenerative joint disease Post-op diagnosis: same Procedure & Clinicians Procedure: Right total hip arthroplasty (CPT code 46245 with television production assistant) Same procedure as scheduled: Yes Indications: Patient is an 69-year-old female with severe right hip DJD. The patient has pain with activities and at rest, limited ambulation and activity tolerance, difficulties with ADLs, and failure of conservative treatment. We have discussed the nature of condition, treatment options, risks and benefits, and patient elects to proceed with total hip arthroplasty and gives informed consent. Surgeon: Manav Jones Locomotive Repairer Diesel: Constance Talbot Anesthesia Type: General and Spinal Operative Notes Closure Type: primary Specimen(s): none sent Prosthetic devices, grafts, tissues, transplants, or devices: Acetabulum: Flores and Nephew R3 acetabular component size 50 mm Femoral component: Flores [employer] Nephew Anthology stem size 7 with standard offset Femoral head: 32 mm + 0 cobalt chrome Estimated Blood Loss (mL): 100 Procedure in detail: After satisfaction induction of anesthetic, and administration of IV antibiotics, the patient was positioned in the lateral decubitus position with all bony prominences well padded and pelvic position secured using a hip dinkey engine mechanic positioning device. Right hip and lower extremity prepped and draped in the usual sterile fashion, 1st dose of intravenous tranexamic acid was administered, then a longitudinal incision was created centered over the greater trochanter and carried sharply through the skin and subcutaneous tissues down to the fascia chris which was divided longitudinally and retracted with a Charnley retractor. External rotators visualize, cut, tagged, and retracted posteriorly, then the capsule was cut in a T-type fashion with the corners tagged and retracted. Hip was dislocated and femoral neck cut made according to preoperative templating. Acetabular retractors then placed, and the acetabular labrum and osteophytes were excised. The acetabulum was then sequentially reamed to 49 mm with an excellent circumferential ream and fit with the trial. The trial component was removed and a permanent size 50 mm Flores and Nephew R3 acetabular component was selected, positioned, and impacted with satisfactory position and fixation achieved. Permanent liner was then inserted with the elevated lip directed posteriorly. Soft tissue then removed off the lateral femoral neck in the lateral neck was entered using a box osteotome. T- handled reamers placed down the canal followed by sequential broaching to a 7 with the final broach left in place for trial reduction which demonstrated excellent leg length, range of motion, and stability characteristics with a 32 mm +0 trial ball. The trial and broach were removed, and a permanent size 7 Flores and Nephew Anthology stem was selected and inserted with excellent position and fixation achieved. Another trial reduction yielded the above characteristics so the trial ball was exchanged for a permanent 32 mm +0 cobalt chrome ball. The hip was irrigated and reduced and excellent leg length range of motion and stability characteristics were achieved and maintained. Periarticular tissues were infiltrated with ropivacaine, morphine, and Toradol. The hip was copiously irrigated, and the capsule repaired with #2 Ethibond, and the piriformis was repaired back to the greater trochanter with the same. Fascia chris closed with interrupted #1 Ethibond sutures, and the subcutaneous tissues were closed in 2 layers of 0 Vicryl and 2 0 Vicryl. Skin was closed with epi and sterile dressings applied. Second dose of tranexamic acid was administered intravenously, and the anesthetic was terminated. Complications: none Post-operative Condition: stable Disposition: PACU Plan for aftercare: Patient will be admitted to the acute care [facility], and anticipate discharge on postop day 1 or 2 with follow-up in office in 10-14 days. Outpatient physical therapy will be arranged and patient will continue to observe posterior hip precautions. Patient will continue use of postoperative aspirin for DVT prophylaxis.
[2020-05-03] MEDS: OXYCODONE IR 5 MG TABLET PO ×3 (09:34→23:26)
[2020-05-03] MEDS: LACTATED RINGERS 1,000 ML 125 ML IV ×2 (10:37→19:04)
[2020-05-03] MEDS: TIZANIDINE 4 MG TABLET 2 MG PO (13:01)
--- NOTE | 2020-05-03 13:30 | PT.IIE ---
Current Diagnoses Unilateral primary osteoarthritis, right hip (05/03/20) Surgery Performed Operation Date: 05/03/20 07:45 Actual Procedures p Total Hip Arthroplasty(Right) - Manav Jones MD Surgical History (Last Updated 04/19/20 @ 09:00 by Elena Mendez RN) H/O shoulder surgery (Acute) History of appendectomy (Acute) History of hysterectomy (Acute) History of right knee surgery (Acute) History of tonsillectomy (Acute) History of total left hip arthroplasty (Acute 09/22/19) Medical History (Last Updated 04/19/20 @ 09:00 by Elena Mendez RN) Avascular necrosis of bone of hip (Acute) Cervical neck pain with evidence of disc disease (Acute) Cervical spondylosis (Acute) Chronic low back pain (Acute) Degenerative joint disease of right hip (Acute) Depression (Acute) Fibromyalgia (Acute) HLD (hyperlipidemia) (Acute) Seasonal allergies (Acute) Spinal stenosis in cervical region (Acute) Thoracic kyphosis (Acute) Physical Therapy Inpatient Evaluation/Re-Eval M1 PT/OT-IP Prior Functional Status Start: 05/03/20 14:10 Freq: NEEDED Status: Active Protocol: Document 05/03/20 13:30 AB (Rec: 05/03/20 14:27 AB [id number]) Medical Review Prior Functional Status Medical History Reviewed Yes Communication able to make needs known Mobility and Gait spouse stated that pt was modified independent with all mobilities and ambulation without AD Prior Functional Level (Other details) spouse has been assisting pt after DEVORAH last sep 2019 but pt got to the point wherein she is independent and does not need assistance. Social History Household Members spouse Living Arrangements House Number of Floors (Floors) Two Floors Number of Stairs To Enter/Railing? pt stays on main level of the house has 2 steps without rails to enter Home Environment Standard Height Toilet,Walk in Shower,Built-In Shower Seat Home Equipment Front Wheel Walker,Quad Cane, Straight Cane,Bedside Commode, Raised Toilet Seat Without Armrests,Hand Held Shower M2 PT-IP Current Condition Start: 05/03/20 14:10 Freq: NEEDED Status: Active Protocol: Document 05/03/20 13:30 AB (Rec: 05/03/20 14:27 AB [id number]) Physical Therapy Current Condition Current Condition Evaluation Date 05/03/20 Treatment Diagnosis s/p R DEVORAH posterior approach; difficulty in walking Onset Date 05/03/20 Precautions Posterior Hip Precautions No Hip Flexion > 90 degrees,No Hip Internal Rotation,No Hip Adduction Weight Bearing Status Weight Bearing Status Weight Bear as Tolerated Allowed Weight Bearing Amount (enter % RLE WBAT or #) (%) M3 PT-IP Subjective Start: 05/03/20 14:10 Freq: NEEDED Status: Active Protocol: Document 05/03/20 13:30 AB (Rec: 05/03/20 14:27 AB [id number]) Subjective Physical Therapy Visit Type Type Initial Evaluation Visit Start Time 13:30 Visit Stop Time 13:54 Total Visit Minutes 24 Number of KNIFE SETTER GRINDER MACHINE Visits 0 Physical Therapy Visit Comments Patient Comments requested to use the toilet Therapy Pain Assessment Pain When Pain Assessed During Mobility Pain Present Pain Present Pain Reported Location Head Scale Used pain scale not stated Left Hip Scale Used pain scale not stated Pain Management Techniques Distraction,Modification of Treatment,Re-positioning, Timing of Activity with Medications M4 PT-IP Mobility and Gait Start: 05/03/20 14:10 Freq: NEEDED Status: Active Protocol: Document 05/03/20 13:30 AB (Rec: 05/03/20 14:27 AB [id number]) PT-Bed Mobility Assessment Supine to Sit Supine to Sit Maximum Assistance,1 Person Assistance Sit to Supine Sit to Supine Maximum Assistance PT-Transfer Assessment Sit to and From Stand Sit to and from Stand Maximum Assistance,1 Person Assistance,2 Person Assistance ,Use of Upper Extremities Equipment Transfer Assistive Device Gait Belt,Front Wheeled Walker Orthotic/Prosthetic Devices or Brace: No Transfers Transfer Destination Bedside Commode Transfer Technique Stand Step Pivot Transfer Ability Level of Assist Maximum Assistance,2 Person Assistance,Use of Upper Extremities Comments Mobility Comments reviewed hip precautions as pt had DEVORAH on L last sep of this year but pt does not remember any of her precautions. educated pt on hip precautions and spouse in room with pt. pt completed supine to sit max A and max cues. educated pt and spouse regarding safety and informed regarding getting in/out of the bed on the R side of the bed. spouse understood. pt was able to sit on EOB min A. completed sit to stand max A x 1-2 and was able to stand max A using FWW for support. (+) R knee buckling and required max A for PT to stabilize knee. completed step transfer using FWW to bedside commode max A x 2 and max cues. Pt completed sit to stand from bedside commode max A and cues. was able to maintain standing max A while NAC assisted with hygiene are and brief management. completed stand step transfer using FWW max A x 2 and max cues to bed. completed sit to supine max A and max cues. postioned pt on bed. call light and table placed within reach. Gait Assessment Comments Gait Comments unable at this time PT-Balance Assessment Sitting Balance and Reactions Static Sitting Balance Ability Good Dynamic Sitting Balance Ability Fair Standing Balance and Reactions Static Standing Balance Ability Poor Dynamic Standing Balance Ability Poor Device Used FWW M5 PT-IP Objective Assessments Start: 05/03/20 14:10 Freq: NEEDED Status: Active Protocol: Document 05/03/20 13:30 AB (Rec: 05/03/20 14:27 AB [id number]) Orientation Orientation/Cognition Level of Alertness Alert Orientation Name Language Function Ability No Deficits Noted Safety Awareness Decreased Safety Awareness Memory Description Short Term Impaired,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 Turbine 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 Impaired Gross Range of Motion Lower Extremity ROM Assessment Within Functional Limits Strength Lower Extremity Strength Assessment Right Impaired Hip 3-/5 Knee 3-/5 M6 PT-IP Treatment Start: 05/03/20 14:10 Freq: NEEDED Status: Active Protocol: Document 05/03/20 13:30 AB (Rec: 05/03/20 14:27 AB [id number]) Physical Therapy Treatment Education Education Provided Precautions,Weight Bearing Status,Post-Op Packet,Safety M7 PT-IP Assessment and Plan Start: 05/03/20 14:10 Freq: NEEDED Status: Active Protocol: Document 05/03/20 13:30 AB (Rec: 05/03/20 14:27 AB [id number]) PT Summary Assessment and Plan Potential Rehabilitation Potential Fair Status of Condition at Evaluation Evolving Summary Impairments Pain,ROM,Strength,Balance, Coordination,Sensation,Tone, Cognition,Bed Mobility, Transfers,Gait,Activity Tolerance Assessment Summary pt s/p R DEVORAH posterior approach and just had surgery this morning. pt requiring max A x 2 with mobility at this time with (+) R knee buckling. pt's spouse will assist pt at home and caregiver training will be conducted when appropriate but at this time, pt may require SNF rehab. pt and spouse aware of recommendation and is agreeable. will continue to assess pt's progress to determine safe d/c. Goals Bed Mobility Goal Standby Assistance Transfer Goal Standby Assistance,Front Wheeled Walker Gait Goal Standby Assistance,Front Wheel Walker Gait Distance 100 Other Goals up/down 2 steps SPC/CAMPUS MONITOR min A Days to Meet Goals 5 Frequency of Treatment Frequency Of Treatment Twice a Day Treatment Plan Physical Therapy Treatment Plan Bed Mobility Training,Transfer Training,Gait Training, Therapeutic Exercise,Balance Retraining,Post Op Education, Discharge Planning,Hot or Cold Pack,Neuromuscular Re-ed, Coordination Retraining,Manual Therapy Other Recommendations and Next Treatment ambulation, transfers, Focus caregiver training when appropriate Recommendations To Nursing Amount of Assist Needed PT/OT Assist Only Discharge Recommendations PT Discharge Recommendations SNF Rehab Transportation Needs at Discharge Wheelchair/Cabulance
--- NOTE | 2020-05-03 14:04 | CM.DANOTE ---
Patient is a 69 year old female who was admitted on 05/03/20 today for RTHA. Pt has [facility] and [employer] for insurance and her PCP is Dr. Mila Elizabeth. EMR was reviewed. Per Ortho , pt tolerated hip surgery well today and was off the floor for most of the day. Per RN, pt back to the floor from surgery now this afternoon. PT ordered and pending. SW met bedside with pt and spouse briefly as pt feeling quite nauseous and spouse leaving to go home to welcome visitors at their house. Pt confirms that she recently had successful LTHA in Sep 2019 and was able to d/c home with outpt PT and spouse assist. Pt mostly independent with ADL's and both pt and spouse quite active and spouse assists when needed. Spouse mostly drives. Pt denies any recent hx of HH or SNF and DPOA is spouse. Preference is home with outpt PT when stable. Plan: SW to follow for PT initial eval and recommendations to confirm if pt safe for d/c home with spouse assist and outpt PT and any further identified discharge planning needs. DONINE Lreoy Discharge Planning/Care Management Advanced directive, confirm from FAMILY Start: 05/03/20 11:02 Freq: Q24H Status: Active Protocol: Document 05/03/20 11:02 CM (Rec: 05/03/20 11:06 CM [id number]) Advance Directive, confirm on record Time 11:05 Person contacted Pt Copy received No CM Discharge Assessment Start: 05/03/20 14:02 Freq: Status: Active Protocol: Document 05/03/20 14:02 BF (Rec: 05/03/20 14:04 BF [id number]) Discharge Planning Assessment Assigned Stripper Cutter Machine DONNIE Freeman DPOA/Assigned Designee Name spouse Beto Contact Information [phone] Advance Directives? Yes Advance Directives on File No History Provided By Patient,Family Member,Medical Record Has Patient been admitted in last 30 No days? Prior Living Arrangements House Household Members spouse Type of transporation used prior to Relies on Others admit Independent with ADL's Yes Is patient alert and oriented? Yes Needs Assistance With Home Chores / Shopping Caregiver for Another No Comment Pending PT/OT eval and recommendations Barriers to Discharge No Discharge Plan Home Community Services Physical Therapy Transportation Arrangement Family Referrals Initiated None needed Additional Comment Pending PT/OT eval and recommendations Review Status In Process Please Provide Date Initial DC 05/03/20 Assessment Was Performed Next Review Type Continued Stay Review Pre-Anesthesia Assessment Start: 04/19/20 08:53 Freq: Status: Complete Protocol: Document 04/19/20 08:53 [facility] (Rec: 04/19/20 09:19 [facility] [id number]) Pre-Anesthesia Assessment Preferred Name Lennie Patient Information Reviewed Via Phone Assessment Assessment Completed With Patient Comment Pt to do labs/EKG w/PCP , COVID screen @ 04/30/20 Primary Care Provider Mila Elizabeth Seen Specialist in Last 12 Months Yes Specialist Seen Orthopedist,Other Comment Psycholology Primary Language Senegalese Preferred Language Senegalese Height 170.18 cm Weight 63.503 kg Body Mass Index (BMI) 21.9 Hearing Ability Normal Visual Assist Glasses Dentition Type Teeth, Natural Present Barriers to Learning Memory,Visual Other Aids Yes: metal wire, lower jaw to hold teeth in place Hx Anesthesia Reactions No Hx Family Anesthesia Reaction No Hx Malignant Hyperthermia No Hx Blood Transfusions No Hx Blood Transfusion Reaction No Anesthesia Review Requested No Tie Maker No alcohol intake former Alcohol Intake Frequency Other: None since 1992 Smoking Status Never smoker Substance Use Type does not use Pain Present Pain Reported Musculoskeletal Symptoms Abnormal Gait,Arthralgias, Difficulty Walking,Joint Pain, Joint Stiffness,Limited Range of Motion,Muscle Cramps,Muscle Spasms,Muscle Weakness, Myalgias,Neck Pain History of Falling (Recent or History of Yes ) Patient is completely paralyzed or No completely immobile Prosthesis or Orthotic Device Cane,Front Wheel Walker Mental Status Oriented to own ability Is patient on oxygen? No Does patient have RED/SOB No Hx Sleep Apnea No CPAP/BIPAP use not prescribed Suspected Sleep Apnea No Currently Taking a Beta Tevin No Can You Climb a Flight of Stairs Without Yes SOB Hx Chest Pain No Hx SOB No Hx Syncope or Dizziness No Anti-Coagulant Therapy No Has a Research Technician No Cardiac Testing No Hx Pacemaker/ICD No Pacemaker Rep Required? No Cardiac Clearance Received Not Applicable Diet Type At Home Regular dysphagia No Gastrointestinal Symptoms Reflux Urinary Catheter Present No Hx Urinary Self Catheterization No Diabetes No Patient No Lactating No Hx Drug Resistant Organism No Presence of External or Internal Medical No Devices Have you had any close contact with No someone diagnosed with COVID-19? Marital Status Lives With spouse Prior Living Arrangements House Number of Floors (Floors) Two Floors Support System Spouse Does the Patient Have Assistance After Yes Surgery Patient Discharge Plan Description Return Home Comment Pt advised overnight length of stay per surgeon Feels Safe in Current Environment Yes Been Physically Hurt or Threatened By a No Person in Current Environment Do you have thoughts of harming yourself None or others? Are you currently considering suicide? No Do you have a plan to hurt yourself or No Plan others? Do You Have Any Spiritual Beliefs That No May Affect Your HC Choices? Do You Have Any Cultural Practices That No May Affect Your HC Choices? Who Can We Speak to About Patient's Care Family, friends Identifying Code for Release of Patient Declines to issue Information Health Care Proxy/Next of Kin Van Murray Jr. Health Care Proxy Emergency Contact Name Van Murray Jr. Emergency Contact Advance Directives? Yes Advance Directives on File No Requested Patient Bring Advanced Yes Directives DOS Power of Mortar Worker Yes Power of Mortar Worker Name Van Murray Jr. Power of Mortar Worker PAC Instructions Do not shave/clip surgical site,Durable medical equipment ,Medications to take/avoid, Nasal antibiotic,No ETOH/ petroleum product on skin DOS, NPO,Post-op transportation,Pre -surgical wash,Sturdy shoes/ comfortable clothes,Do not bring valuables and remove jewelry
[2020-05-03] MEDS: ONDANSETRON 4 MG/2 ML INJ IV (14:13)
[2020-05-03] MEDS: HYDROCODONE/ACET 5/325 TABLET 2 TAB PO (16:36)
[2020-05-03] MEDS: ASPIRIN EC 81 MG TABLET PO (20:41)
[2020-05-03] MEDS: LORazepam 0.5 MG TABLET PO (20:41)
[2020-05-03] MEDS: NORTRIPTYLINE HCL 25 MG CAPSULE 75 MG PO (20:41)
[2020-05-03] MEDS: DOCUSATE 100 MG CAPSULE PO (20:41)
[2020-05-03] MEDS: MORPHINE IR 15 MG TABLET 30 MG PO (20:41)
[2020-05-03] MEDS: MIRTAZAPINE 15 MG TABLET 45 MG PO (20:42)
[2020-05-03] MEDS: SIMVASTATIN 10 MG TABLET PO (20:42)
[2020-05-03] MEDS: PANTOPRAZOLE 20 MG TABLET PO (20:42)
[2020-05-03] MEDS: QUETIAPINE 100 MG TABLET 300 MG PO (21:47)
[2020-05-04] VITALS (8 sets, daily range): BP systolic 127–158; BP diastolic 63–75; PULSE 90–96; RESP 18–19; TEMP 36.3–37.1; O2SAT 94–99
[2020-05-04] MEDS: CEFAZOLIN 2 GM/100 ML FROZ.PIGGY IV (00:33)
[2020-05-04] MEDS: hydrOXYzine pamoate 25 MG CAPSULE PO ×2 (02:06→18:10)
[2020-05-04] MEDS: OXYCODONE IR 5 MG TABLET PO (02:06)
[2020-05-04] MEDS: LORazepam 0.5 MG TABLET PO (03:50)
[2020-05-04 05:47] LABS: Hematocrit 31.7 % (36-46); Hemoglobin 10.8 g/dL (12.0-16.0)
[2020-05-04] MEDS: HYDROCODONE/ACET 5/325 TABLET 2 TAB PO ×2 (07:01→18:10)
[2020-05-04] MEDS: MORPHINE IR 15 MG TABLET 30 MG PO ×2 (09:30→21:07)
[2020-05-04] MEDS: CELECOXIB 200 MG CAPSULE PO (09:30)
[2020-05-04] MEDS: ASPIRIN EC 81 MG TABLET PO ×2 (09:31→21:06)
[2020-05-04] MEDS: VIT C/E/ZN/COPPR/LUTEIN/ZEAXAN CAPSULE 2 CAP PO (09:31)
[2020-05-04] MEDS: MULTIVITAMIN 1 TABLET 1 TAB PO (09:31)
[2020-05-04] MEDS: PANTOPRAZOLE 20 MG TABLET PO ×2 (09:31→21:07)
[2020-05-04] MEDS: DOCUSATE 100 MG CAPSULE PO ×2 (09:31→21:07)
--- NOTE | 2020-05-04 10:13 | PM.PN.1 ---
Subjective Subjective Date Patient Seen: 05/04/20 Time Patient Seen: 10:13 Interval history: Patient is POD# 1 s/p right DEVORAH with Dr. Jones. She has had issues with pain control. She is not opioid naive, takes morphine ER and oxymorphone for chronic pain. She was up to the chair yesterday but is reporting that is contributing to her worsening pain overnight. She is voiding appropiately. No nausea or vomiting. Exam Vital Signs (past 8 hours): - 05/04/20 03:40 05/04/20 07:18 05/04/20 10:01 Temperature 98.8 F 98.4 F Pulse Rate 92 H 92 H 96 H Respiratory Rate 18 19 18 Blood Pressure 140/75 158/74 H Pulse Oximetry 98 96 94 Oxygen Delivery Method Room Air Oxygen Flow Rate 0 Narrative Exam Narrative: 69 year old female resting in bed. Alert and oriented. Bulky dressing over the right hip is CDI. Neuravascularly intact in distal extremity. Calves are soft, nontender bilaterally. Objective Labs Result Diagrams: 05/04/20 05:24 Labs: Laboratory Results - last 24 hr 05/04/20 05:24 Hgb 10.8 L Hct 31.7 L Assessment & Plan Assessment & Plan narrative: Patient will work with PT today, WBAT and encouraged mobilization. ASA for DVT prophylaxis. Will continue to work on pain control, discussed with patient appropriate expectations for this since she does have a history of chronic pain and opioid use. She required a 2 night inpatient stay for her previous hip replacement, expect a similar timeframe for this.
--- NOTE | 2020-05-04 11:09 | PT.IPTN ---
Current Diagnoses Unilateral primary osteoarthritis, right hip (05/03/20) Surgery Performed Operation Date: 05/03/20 07:45 Actual Procedures p Total Hip Arthroplasty(Right) - Manav Jones MD Physical Therapy Treatment Note M2 PT-IP Current Condition Start: 05/03/20 14:10 Freq: NEEDED Status: Active Protocol: Document 05/03/20 13:30 AB (Rec: 05/03/20 14:27 AB [id number]) Physical Therapy Current Condition Current Condition Evaluation Date 05/03/20 Treatment Diagnosis s/p R DEVORAH posterior approach; difficulty in walking Onset Date 05/03/20 Precautions Posterior Hip Precautions No Hip Flexion > 90 degrees,No Hip Internal Rotation,No Hip Adduction Weight Bearing Status Weight Bearing Status Weight Bear as Tolerated Allowed Weight Bearing Amount (enter % RLE WBAT or #) (%) M3 PT-IP Subjective Start: 05/03/20 14:10 Freq: NEEDED Status: Active Protocol: Document 05/04/20 10:55 KS (Rec: 05/04/20 13:09 KS [email or web address]) Subjective Physical Therapy Visit Type Type Treatment Note Visit Start Time 10:55 Visit Stop Time 11:28 Total Visit Minutes 33 Number of GEAR STRAIGHTENER Visits 1 Physical Therapy Visit Comments Patient Comments Pt agreeable to work w/ therapy. Therapy Pain Assessment Pain When Pain Assessed During Mobility Pain Present Pain Present Pain Reported Location Right Hip Scale Used no number given Description Sharp,Tender,With Movement Pain Behaviors Calling Out,Guarding,Holding Area,Moaning Pain Management Techniques Apply Cold,Re-positioning, Timing of Activity with Medications M4 PT-IP Mobility and Gait Start: 05/03/20 14:10 Freq: NEEDED Status: Active Protocol: Document 05/04/20 10:55 KS (Rec: 05/04/20 13:09 KS [email or web address]) PT-Bed Mobility Assessment Supine to Sit Supine to Sit Moderate Assistance,2 Person Assistance Sit to Supine Sit to Supine Moderate Assistance,1 Person Assistance,Bedrails Scooting Scooting to Edge of Bed Moderate Assistance PT-Transfer Assessment Sit to and From Stand Sit to and from Stand Moderate Assistance,Maximum Assistance,1 Person Assistance ,2 Person Assistance,Use of Upper Extremities Equipment Transfer Assistive Device Gait Belt,Front Wheeled Walker Orthotic/Prosthetic Devices or Brace: No Transfers Transfer Destination Bedside Commode Transfer Technique Stand Step Pivot Transfer Ability Level of Assist Moderate Assistance,Maximum Assistance,1 Person Assistance ,2 Person Assistance Comments Mobility Comments Pt needed cues to recall hip precautions. Mod A x 2 for sup <>sit for trunk support and LE assist OOB. Pt states she is unable to left R leg d/t pain in hip. Mod A for scooting EOB . Max x1 for sit<>stand w/ cues for R leg positioning, sequencing and hand placement. Pt ambulated to bathroom Min A w/ frequent verbal and tactile cues to remain balanced. Pt Max A x1 for stand<>sit on toilet, pt cried out in pain when sitting and was unable to use L leg for support, requring Max A for slow descent. After voiding, pt Max A x1 for stand<>sit, Min A for ambulating to sink to wash hands and ambulation back to bed. Pt Mod A x2 for stand<>sit in bed and Mod A for sit<>sup for LE assistance back into bed. Pt left in bed w/ SCDs on and pillow between legs. Gait Assessment Gait Gait Assistance Required: Minimum Assistance,1 Person Assist Distance (Feet) 20 Able to Maintain Weight Bearing Status Yes During Gait Assistive Devices Assistive Device Gait Belt,Front Wheeled Walker Orthotic/Prosthetic Devices or Brace: No Gait Deviations General Gait Pattern Antalgic,Decreased Stride Length,Decreased Feet Clearance,Flexed Trunk,Step-to Gait Factors Limiting Gait Function Factors Limiting Gait Function Decreased Activity Tolerance, Decreased Sensation,Decreased Strength,Difficulty Following Directions,Incoordination, Limited Range of Motion,Pain, Poor Balance,Poor Safety Awareness Comments Gait Comments Pt ambulated ~20 ft total w/ FWW and Min A. Pt needed frequent verbal and tactile cues for FWW management and is limited by pain. Pt has difficulty following cues and is unsteady even w/ FWW. Stair Climbing Assessment Comments Stair Climbing Comments Unsafe to assess at this time d/t pts weakness and pain and poor balance. PT-Balance Assessment Sitting Balance and Reactions Static Sitting Balance Ability Good Dynamic Sitting Balance Ability Fair Standing Balance and Reactions Static Standing Balance Ability Poor Dynamic Standing Balance Ability Poor Device Used FWW M5 PT-IP Objective Assessments Start: 05/03/20 14:10 Freq: NEEDED Status: Active Protocol: Document 05/03/20 13:30 AB (Rec: 05/03/20 14:27 AB [id number]) Orientation Orientation/Cognition Level of Alertness Alert Orientation Name Language Function Ability No Deficits Noted Safety Awareness Decreased Safety Awareness Memory Description Short Term Impaired,Care Home Impaired Gross Range of Motion Lower Extremity ROM Assessment Within Functional Limits Strength Lower Extremity Strength Assessment Right Impaired Hip 3-/5 Knee 3-/5 M6 PT-IP Treatment Start: 05/03/20 14:10 Freq: NEEDED Status: Active Protocol: Document 05/04/20 10:55 KS (Rec: 05/04/20 13:09 KS [email or web address]) Physical Therapy Treatment Exercises Exercises Ankle Pumps,Gluteal Sets,Quad Sets,Heel Slides Education Education Provided Precautions,Weight Bearing Status,Post-Op Packet,Safety Other Treatments Other Treatment Performed reveiwed LE strengthening exercises M7 PT-IP Assessment and Plan Start: 05/03/20 14:10 Freq: NEEDED Status: Active Protocol: Document 05/04/20 10:55 KS (Rec: 05/04/20 13:09 KS [email or web address]) PT Summary Assessment and Plan Potential Rehabilitation Potential Fair Status of Condition at Evaluation Evolving Summary Impairments Pain,ROM,Strength,Balance, Coordination,Sensation,Tone, Cognition,Bed Mobility, Transfers,Gait,Activity Tolerance Assessment Summary Pt continues to require high level fo assist for bed mobility and transfers, Mod A x1-2 for bed mobility, Max A x1 or Mod A x2 for sit<>stand, Min A for ambulation w/ FWW. Pt needs constant cues and reminders to adhere to precautions as well as cues for proper use of FWW and sequencing and hand placement when transferring. Pts unable to provide enough assist on his own at this time d/t back pain and pts frequent need for 2PA and inability to follow instruction. Pt is not safe to return home d/t pain, weakness, poor safety awareness, poor balance, and inability to adhere to precautions and will require SNF to improve strength and functional independence. Goals Bed Mobility Goal Standby Assistance Transfer Goal Standby Assistance,Front Wheeled Walker Gait Goal Standby Assistance,Front Wheel Walker Gait Distance 100 Other Goals up/down 2 steps SPC/PRODUCT MGMT DEV MANAGER min A Days to Meet Goals 5 Frequency of Treatment Frequency Of Treatment Twice a Day Treatment Plan Physical Therapy Treatment Plan Bed Mobility Training,Transfer Training,Gait Training, Therapeutic Exercise,Balance Retraining,Post Op Education, Discharge Planning,Hot or Cold Pack,Neuromuscular Re-ed, Coordination Retraining,Manual Therapy Other Recommendations and Next Treatment ambulation, transfers Focus Recommendations To Nursing Amount of Assist Needed 2 Person Assist Discharge Recommendations PT Discharge Recommendations SNF Rehab Transportation Needs at Discharge Wheelchair/Cabulance
[2020-05-04] MEDS: MORPHINE IR 15 MG TABLET PO (12:29)
--- NOTE | 2020-05-04 15:21 | PT.IPTN ---
Current Diagnoses Unilateral primary osteoarthritis, right hip (05/03/20) Surgery Performed Operation Date: 05/03/20 07:45 Actual Procedures p Total Hip Arthroplasty(Right) - Manav Jones MD Physical Therapy Treatment Note M2 PT-IP Current Condition Start: 05/03/20 14:10 Freq: NEEDED Status: Active Protocol: Document 05/03/20 13:30 AB (Rec: 05/03/20 14:27 AB [id number]) Physical Therapy Current Condition Current Condition Evaluation Date 05/03/20 Treatment Diagnosis s/p R DEVORAH posterior approach; difficulty in walking Onset Date 05/03/20 Precautions Posterior Hip Precautions No Hip Flexion > 90 degrees,No Hip Internal Rotation,No Hip Adduction Weight Bearing Status Weight Bearing Status Weight Bear as Tolerated Allowed Weight Bearing Amount (enter % RLE WBAT or #) (%) M3 PT-IP Subjective Start: 05/03/20 14:10 Freq: NEEDED Status: Active Protocol: Document 05/04/20 14:51 KS (Rec: 05/04/20 17:41 KS [email or web address]) Subjective Physical Therapy Visit Type Type Treatment Note Visit Start Time 14:51 Visit Stop Time 15:21 Total Visit Minutes 30 Number of HONING MACHINE SET UP OPERATOR Visits 2 Physical Therapy Visit Comments Patient Comments Pts present during treatment. Therapy Pain Assessment Pain When Pain Assessed During Mobility Pain Present Pain Present Pain Reported Location Right Hip Scale Used no number given Description Sharp,Tender,With Movement Pain Behaviors Calling Out,Guarding,Holding Area,Moaning Pain Management Techniques Apply Cold,Re-positioning, Timing of Activity with Medications M4 PT-IP Mobility and Gait Start: 05/03/20 14:10 Freq: NEEDED Status: Active Protocol: Document 05/04/20 14:51 KS (Rec: 05/04/20 17:41 KS [email or web address]) PT-Bed Mobility Assessment Supine to Sit Supine to Sit Moderate Assistance,1 Person Assistance Sit to Supine Sit to Supine Moderate Assistance,1 Person Assistance,Bedrails Scooting Scooting to Edge of Bed Minimal Assistance PT-Transfer Assessment Sit to and From Stand Sit to and from Stand Moderate Assistance,1 Person Assistance,2 Person Assistance ,Use of Upper Extremities Equipment Transfer Assistive Device Gait Belt,Front Wheeled Walker Orthotic/Prosthetic Devices or Brace: No Transfers Transfer Destination Bed,Toilet Transfer Technique pt ambulated w/ FWW Transfer Ability Level of Assist Moderate Assistance,Maximum Assistance,1 Person Assistance ,2 Person Assistance Comments Mobility Comments Pt in bed upon arrival from therapy w/ in room. Mod A for sup<>sit and Min A for scooting to EOB. Pt then sit<>stand w/ Mod A x2 and ambulated to toilet Min A and cues for FWW management. Pt Max x1 for stand<>sit on toilet. Pt then sit<>Stand from toilet Max x1 w/ cues for sequencing. Pt then ambulated additional ~15 ft to sink and back to bed and stand<>sit Mod A, Mod A x1 for sit<>sup in bed. Pt left in bed w/ all needs in reach. Gait Assessment Gait Gait Assistance Required: Minimum Assistance,1 Person Assist Distance (Feet) 30 Able to Maintain Weight Bearing Status Yes During Gait Assistive Devices Assistive Device Gait Belt,Front Wheeled Walker Orthotic/Prosthetic Devices or Brace: No Gait Deviations General Gait Pattern Antalgic,Decreased Stride Length,Decreased Feet Clearance,Flexed Trunk,Step-to Gait Factors Limiting Gait Function Factors Limiting Gait Function Decreased Activity Tolerance, Decreased Sensation,Decreased Strength,Difficulty Following Directions,Incoordination, Limited Range of Motion,Pain, Poor Balance,Poor Safety Awareness Comments Gait Comments Pt ambulated ~30 ft total w/ FWW and Min A. Pt has poor safety awareness and poor balance and needs frequent cues for FWW management. Pt is not safe to ambulate on her own at this time. Stair Climbing Assessment Comments Stair Climbing Comments Unsafe to assess at this time d/t pts weakness and pain and poor balance. PT-Balance Assessment Sitting Balance and Reactions Static Sitting Balance Ability Good Dynamic Sitting Balance Ability Fair Standing Balance and Reactions Static Standing Balance Ability Poor Dynamic Standing Balance Ability Poor Device Used FWW M5 PT-IP Objective Assessments Start: 05/03/20 14:10 Freq: NEEDED Status: Active Protocol: Document 05/03/20 13:30 AB (Rec: 05/03/20 14:27 AB [id number]) Orientation Orientation/Cognition Level of Alertness Alert Orientation Name Language Function Ability No Deficits Noted Safety Awareness Decreased Safety Awareness Memory Description Short Term Impaired,Tin Cutter Impaired Gross Range of Motion Lower Extremity ROM Assessment Within Functional Limits Strength Lower Extremity Strength Assessment Right Impaired Hip 3-/5 Knee 3-/5 M6 PT-IP Treatment Start: 05/03/20 14:10 Freq: NEEDED Status: Active Protocol: Document 05/04/20 14:51 KS (Rec: 05/04/20 17:41 KS [email or web address]) Physical Therapy Treatment Education Education Provided Precautions,Weight Bearing Status,Post-Op Packet,Safety M7 PT-IP Assessment and Plan Start: 05/03/20 14:10 Freq: NEEDED Status: Active Protocol: Document 05/04/20 14:51 KS (Rec: 05/04/20 17:41 KS [email or web address]) PT Summary Assessment and Plan Potential Rehabilitation Potential Fair Status of Condition at Evaluation Evolving Summary Impairments Pain,ROM,Strength,Balance, Coordination,Sensation,Tone, Cognition,Bed Mobility, Transfers,Gait,Activity Tolerance Assessment Summary Pt continues to require Mod to Max A for bed mobility and transfers and Min A and max cues for ambulation w/ FWW. Pt needs cues to adhere to precautions and for sequencing and hand placement when sit<> stand. Pts unable to safely provide adequate assist at this time. Pt is limited by pain, poor safety awareness , poor balance, and weakness and would benefit from SNF to improve strength and functional mobility. Goals Bed Mobility Goal Standby Assistance Transfer Goal Standby Assistance,Front Wheeled Walker Gait Goal Standby Assistance,Front Wheel Walker Gait Distance 100 Other Goals up/down 2 steps SPC/CANE PILER min A Days to Meet Goals 5 Frequency of Treatment Frequency Of Treatment Twice a Day Treatment Plan Physical Therapy Treatment Plan Bed Mobility Training,Transfer Training,Gait Training, Therapeutic Exercise,Balance Retraining,Post Op Education, Discharge Planning,Hot or Cold Pack,Neuromuscular Re-ed, Coordination Retraining,Manual Therapy Recommendations To Nursing Amount of Assist Needed 2 Person Assist Discharge Recommendations PT Discharge Recommendations SNF Rehab Transportation Needs at Discharge Wheelchair/Cabulance
[2020-05-04] MEDS: QUETIAPINE 100 MG TABLET 300 MG PO (21:06)
[2020-05-04] MEDS: MIRTAZAPINE 15 MG TABLET 45 MG PO (21:07)
[2020-05-04] MEDS: SIMVASTATIN 10 MG TABLET PO (21:07)
[2020-05-04] MEDS: NORTRIPTYLINE HCL 25 MG CAPSULE 75 MG PO (21:08)
[2020-05-04] MEDS: SODIUM CHLORIDE 0.9% FLUSH 10 ML IV (21:12)
[2020-05-04] MEDS: ASPIRIN ACETAMINOPHEN CAFFEINE 1 EACH PO (21:57)
[2020-05-05 02:26] VITALS: BP 105/59; PULSE 84; RESP 16; TEMP 36.1; O2SAT 97
[2020-05-05 06:00] VITALS: BP 125/67; PULSE 77; RESP 16; TEMP 35.3; O2SAT 99
[2020-05-05] MEDS: HYDROCODONE/ACET 5/325 TABLET 2 TAB PO ×2 (06:09→16:22)
[2020-05-05] MEDS: ASPIRIN ACETAMINOPHEN CAFFEINE 1 EACH PO ×2 (06:59→19:34)
--- NOTE | 2020-05-05 07:47 | P.PN_ITS ---
Subjective Subjective Date Patient Seen: 05/05/20 Time Patient Seen: 07:47 Interval history: Patient is POD#2 s/p right DEVORAH with Dr. Jones. Continues to struggle with pain control, though she does note some improvement. Did progress somewhat with PT yesterday but progress has been slow. No complaints. Exam Vital Signs (past 8 hours): - 05/05/20 02:26 05/05/20 06:00 Temperature 97.0 F L 95.6 F L Pulse Rate 84 77 Respiratory Rate 16 16 Blood Pressure 105/59 L 125/67 Pulse Oximetry 97 99 Oxygen Delivery Method Room Air Oxygen Flow Rate 0 Narrative Exam Narrative: 69 year old female, AAOx3. Dressing in place over right hip is CDI. Nurovascularly intact in distal extre mity. Calves soft, nontender bilaterally. Objective Labs Result Diagrams: 05/04/20 05:24 Assessment & Plan Assessment & Plan narrative: Will continue present pain control. ASA 81mg BID for DVT prophylaxis. Patient continues to progress slowly with PT, would benefit from another day inpatient to continue to work with PT. PT continues to recommend discharge to SNF. Will revisit this tomorrow.
[2020-05-05 08:35] VITALS: BP 116/68; PULSE 84; RESP 18; TEMP 36.9; O2SAT 99
--- NOTE | 2020-05-05 09:28 | CM.DPC ---
Addendum entered by Deandra Leahy LPN 05/05/20 10:44: SNF choice list discussed with pt and Beto. Pt has never been in a snf herself but Beto has visited people at [facility] and that would be choice IF needed. Valentine/reviewing now. Says their team is concerned as pt is on high dose of Seroquel and no indication in the H&P or notes as to why. They will review again in the morning. OT has been ordered and will work with pt and Beto today to see if home plan is doable. INSPECTOR MULTIFOCAL LENS Angelica now gives update that pt did much better this morning, still having trouble with the 2 steps to her home but she says Beto feels confident this can be managed. Angelica will see pt again tomorrow but says she anticipates she will continue to improve and home will be a reasonable option. P: plan A: home. OUTPT PT is scheduled for 05/10. Backup plan B: [facility], pending acceptance, another COVID-19 negative test (most recent: 04/30 827) and [facility], making sure to address the Seroquel Will check in tomorrow and follow accordingly. Original Note: DCP: continued: Met with pt and her Beto in followup to her d/c plan options. Beto confirms that he is well able to care for his at home. I hurt my back in 1949. I am fine and we did fine last time she had this in Sep. Pt admits she does not remember much about the Sep. surgery and recovery as my memory is not good. She was able to get up and go into the bathroom this morning with MAIL CLERK BILLS assist. PT to see pt again today. Discussed snf option as plan B as anticipate that pt will be ready to d/c to some setting tomorrow.
--- NOTE | 2020-05-05 09:42 | PT.IPTN ---
Current Diagnoses Unilateral primary osteoarthritis, right hip (05/03/20) Surgery Performed Operation Date: 05/03/20 07:45 Actual Procedures p Total Hip Arthroplasty(Right) - Manav Jones MD Physical Therapy Treatment Note M2 PT-IP Current Condition Start: 05/03/20 14:10 Freq: NEEDED Status: Active Protocol: Document 05/03/20 13:30 AB (Rec: 05/03/20 14:27 AB [id number]) Physical Therapy Current Condition Current Condition Evaluation Date 05/03/20 Treatment Diagnosis s/p R DEVORAH posterior approach; difficulty in walking Onset Date 05/03/20 Precautions Posterior Hip Precautions No Hip Flexion > 90 degrees,No Hip Internal Rotation,No Hip Adduction Weight Bearing Status Weight Bearing Status Weight Bear as Tolerated Allowed Weight Bearing Amount (enter % RLE WBAT or #) (%) M3 PT-IP Subjective Start: 05/03/20 14:10 Freq: NEEDED Status: Active Protocol: Document 05/05/20 09:17 KS (Rec: 05/05/20 12:34 KS [id number]) Subjective Physical Therapy Visit Type Type Treatment Note Visit Start Time 09:17 Visit Stop Time 09:42 Total Visit Minutes 25 Number of CUSTOMER RELATIONS SPECIALIST Visits 3 Physical Therapy Visit Comments Patient Comments Pts present during treatment. M4 PT-IP Mobility and Gait Start: 05/03/20 14:10 Freq: NEEDED Status: Active Protocol: Document 05/05/20 09:17 KS (Rec: 05/05/20 12:34 KS [id number]) PT-Bed Mobility Assessment Supine to Sit Supine to Sit Minimal Assistance,1 Person Assistance,Bedrails Sit to Supine Sit to Supine Contact Guard Assistance,1 Person Assistance,Bedrails Scooting Scooting to Edge of Bed Contact Guard Assistance PT-Transfer Assessment Sit to and From Stand Sit to and from Stand Minimal Assistance,1 Person Assistance,Use of Upper Extremities Equipment Transfer Assistive Device Gait Belt,Front Wheeled Walker Orthotic/Prosthetic Devices or Brace: No Transfers Transfer Destination Bed Transfer Technique pt ambulated w/ FWW Transfer Ability Level of Assist Minimal Assistance,Moderate Assistance,1 Person Assistance ,Use of Upper Extremities Comments Mobility Comments Pt in bed upon arrival from therapy w/ present. Pt stating she is feeling stronger this morning. Min A provided by pts for sup<>sit w/ bed rails and cues for sequencing. Pt then scooted to EOB CGA w/ cues. Pts provided appropriate cues and Min A to pt for sit<>stand. Pt then ambulated ~20 ft around room w / FWW and CGA provided by her . Pt then performed 2x sit<>stand from bed Min A by and 1x sit<>stand from chair w/ Min A and cues from . Pts is able to give appropriate cues and assist, however pt is unable to fully adhere to or recall precautions and sequencing w/o cues and must rely on . Pt then ambulated additional 20 ft around room w/ FWW and CGA by . Pt got back into bed CGA for sit<>sup, Min A for repositioning. Pt is still having trouble w/ RLE elevation, but is slowly making progress. Pt left in bed w/ SCDs on. Gait Assessment Gait Gait Assistance Required: Contact Guard Assist,1 Person Assist Distance (Feet) 40 Able to Maintain Weight Bearing Status Yes During Gait Assistive Devices Assistive Device Gait Belt,Front Wheeled Walker Orthotic/Prosthetic Devices or Brace: No Gait Deviations General Gait Pattern Antalgic,Decreased Stride Length,Decreased Feet Clearance,Flexed Trunk,Step-to Gait Factors Limiting Gait Function Factors Limiting Gait Function Decreased Activity Tolerance, Decreased Sensation,Decreased Strength,Difficulty Following Directions,Incoordination, Limited Range of Motion,Pain, Poor Balance,Poor Safety Awareness Comments Gait Comments Pt able to ambulate ~40 ft total w/ seated rest break and 3x sit<>stands after ~20 ft. Pt ambulated CGA w/ FWW, assist and cues appropriately given by pts . Pt has step to gait pattern d/t pain. Stair Climbing Assessment Comments Stair Climbing Comments Unable to assess, will attempt in PM. PT-Balance Assessment Sitting Balance and Reactions Static Sitting Balance Ability Good Dynamic Sitting Balance Ability Fair Standing Balance and Reactions Static Standing Balance Ability Poor Dynamic Standing Balance Ability Poor Device Used FWW M5 PT-IP Objective Assessments Start: 05/03/20 14:10 Freq: NEEDED Status: Active Protocol: Document 05/03/20 13:30 AB (Rec: 05/03/20 14:27 AB [id number]) Orientation Orientation/Cognition Level of Alertness Alert Orientation Name Language Function Ability No Deficits Noted Safety Awareness Decreased Safety Awareness Memory Description Short Term Impaired,Usp Impaired Gross Range of Motion Lower Extremity ROM Assessment Within Functional Limits Strength Lower Extremity Strength Assessment Right Impaired Hip 3-/5 Knee 3-/5 M6 PT-IP Treatment Start: 05/03/20 14:10 Freq: NEEDED Status: Active Protocol: Document 05/05/20 09:17 KS (Rec: 05/05/20 12:34 KS [id number]) Physical Therapy Treatment Education Education Provided Precautions,Weight Bearing Status,Post-Op Packet,Safety M7 PT-IP Assessment and Plan Start: 05/03/20 14:10 Freq: NEEDED Status: Active Protocol: Document 05/05/20 09:17 KS (Rec: 05/05/20 12:34 KS [id number]) PT Summary Assessment and Plan Potential Rehabilitation Potential Fair Status of Condition at Evaluation Evolving Summary Impairments Pain,ROM,Strength,Balance, Coordination,Sensation,Tone, Cognition,Bed Mobility, Transfers,Gait,Activity Tolerance Progress Towards Goals Progressing Toward Goals,Slow Progress due to Pain,Slow Progress due to Activity Tolerance Assessment Summary Pt showed improvements w/ bed mobility. transfers and ambulation this treatment and is requiring less assist. Pt CGA to Min A for bed mobility, Min A for sit<>stand, CGA for ambulation w/ FWW. Pt is still requiring Max cues for sequencing and adhering to precautions, but pts is able to provide her w/ correct cues. Pt will need to complete 2 steps w/o rails prior to d/c if going home. Depending on pts progress w/ ambulation and stair training, pt may be able to return home w/ spouse, however may need SNF to improve strength and functional mobility. Goals Bed Mobility Goal Standby Assistance Transfer Goal Standby Assistance,Front Wheeled Walker Gait Goal Standby Assistance,Front Wheel Walker Gait Distance 100 Other Goals up/down 2 steps SPC/SHOE LINING FITTER min A Days to Meet Goals 5 Frequency of Treatment Frequency Of Treatment Twice a Day Treatment Plan Physical Therapy Treatment Plan Bed Mobility Training,Transfer Training,Gait Training, Therapeutic Exercise,Balance Retraining,Post Op Education, Discharge Planning,Hot or Cold Pack,Neuromuscular Re-ed, Coordination Retraining,Manual Therapy Recommendations To Nursing Amount of Assist Needed 1 Person Assist Discharge Recommendations PT Discharge Recommendations Home with 03/03 Assist,SNF Rehab Transportation Needs at Discharge Private Vehicle,Wheelchair/ Cabulance
--- NOTE | 2020-05-05 09:46 | PM.PNPO.1 ---
Subjective Subjective Date Patient Seen: 05/05/20 Time Patient Seen: 09:46 Interval history: She is doing very well. A little uncomfortable swallowing but getting solid foods down without any trouble. Pain on the left lower neck posteriorly. Arms feel great. Exam Vital Signs (past 8 hours): - 05/05/20 02:26 05/05/20 06:00 05/05/20 08:35 Temperature 97.0 F L 95.6 F L 98.4 F Pulse Rate 84 77 84 Respiratory Rate 16 16 18 Blood Pressure 105/59 L 125/67 116/68 Pulse Oximetry 97 99 99 Oxygen Delivery Method Room Air Oxygen Flow Rate 0 Const Orientation: alert and oriented x3 Back/Spine/Pelvis Other: CDI. 5/5 motor both lower extremities. Objective Labs Result Diagrams: 05/04/20 05:24 Assessment & Plan Post-op Postoperative Procedures: Procedures Operation Date: 05/03/20 07:45 Actual Procedures Side Surgeon p Total Hip Arthroplasty Right Manav Jones MD She is doing great. Discharge home after physical therapy.
[2020-05-05] MEDS: ASPIRIN EC 81 MG TABLET PO ×2 (09:49→19:35)
[2020-05-05] MEDS: CELECOXIB 200 MG CAPSULE PO (09:50)
[2020-05-05] MEDS: DOCUSATE 100 MG CAPSULE PO ×2 (09:50→19:37)
[2020-05-05] MEDS: MORPHINE IR 15 MG TABLET 30 MG PO ×2 (09:50→19:37)
[2020-05-05] MEDS: TIZANIDINE 4 MG TABLET 2 MG PO (09:50)
[2020-05-05] MEDS: MULTIVITAMIN 1 TABLET 1 TAB PO (09:51)
[2020-05-05] MEDS: OXYCODONE IR 5 MG TABLET PO (09:51)
[2020-05-05] MEDS: LORazepam 0.5 MG TABLET PO (09:51)
[2020-05-05] MEDS: VIT C/E/ZN/COPPR/LUTEIN/ZEAXAN CAPSULE 2 CAP PO (09:52)
[2020-05-05] MEDS: PANTOPRAZOLE 20 MG TABLET PO ×2 (09:52→19:38)
[2020-05-05] MEDS: SODIUM CHLORIDE 0.9% FLUSH 10 ML IV ×2 (09:52→19:42)
[2020-05-05] MEDS: ONDANSETRON 4 MG/2 ML INJ IV (09:54)
[2020-05-05] MEDS: MORPHINE IR 15 MG TABLET PO (11:53)
--- NOTE | 2020-05-05 11:58 | PC.NURSE ---
Patient having 6-8/10 pain in R hip. The medication regime seems to be helping her rest comfortably.
[2020-05-05 12:00] VITALS: BP 110/58; PULSE 86; RESP 18; TEMP 36.3; O2SAT 98
--- NOTE | 2020-05-05 14:24 | PT.IPTN ---
Current Diagnoses Unilateral primary osteoarthritis, right hip (05/03/20) Surgery Performed Operation Date: 05/03/20 07:45 Actual Procedures p Total Hip Arthroplasty(Right) - Manav Jones MD Physical Therapy Treatment Note M2 PT-IP Current Condition Start: 05/03/20 14:10 Freq: NEEDED Status: Active Protocol: Document 05/03/20 13:30 AB (Rec: 05/03/20 14:27 AB [id number]) Physical Therapy Current Condition Current Condition Evaluation Date 05/03/20 Treatment Diagnosis s/p R DEVORAH posterior approach; difficulty in walking Onset Date 05/03/20 Precautions Posterior Hip Precautions No Hip Flexion > 90 degrees,No Hip Internal Rotation,No Hip Adduction Weight Bearing Status Weight Bearing Status Weight Bear as Tolerated Allowed Weight Bearing Amount (enter % RLE WBAT or #) (%) M3 PT-IP Subjective Start: 05/03/20 14:10 Freq: NEEDED Status: Active Protocol: Document 05/05/20 14:03 KS (Rec: 05/05/20 14:43 KS [id number]) Subjective Physical Therapy Visit Type Type Treatment Note Visit Start Time 14:03 Visit Stop Time 14:24 Total Visit Minutes 21 Number of SUPERVISOR BRAIDING Visits 4 M4 PT-IP Mobility and Gait Start: 05/03/20 14:10 Freq: NEEDED Status: Active Protocol: Document 05/05/20 14:03 KS (Rec: 05/05/20 14:43 KS [id number]) PT-Bed Mobility Assessment Supine to Sit Supine to Sit Contact Guard Assistance,Head of Bed Elevated Sit to Supine Sit to Supine Contact Guard Assistance,1 Person Assistance,Bedrails Scooting Scooting to Edge of Bed Contact Guard Assistance PT-Transfer Assessment Sit to and From Stand Sit to and from Stand Minimal Assistance,1 Person Assistance,Use of Upper Extremities Equipment Transfer Assistive Device Gait Belt,Front Wheeled Walker Orthotic/Prosthetic Devices or Brace: No Transfers Transfer Destination Bed Transfer Ability Level of Assist Contact Guard Assistance, Minimal Assistance,1 Person Assistance,Use of Upper Extremities Comments Mobility Comments Pt in bed upon arrival from therapy and stated she has been completing LE strengthening exercises. Pt CGA for sup<>sit w/ HOB slightly elevated and CGA for scooting to EOB. Pt Min A for sit<>stand w/ cues for sequencing. Pt then ambulated ~50 ft around room and completed 3x step stool w/ FWW and CGA to Min A w/ cues for sequencing. Pt then requested to get into bed. CGA for sit<> sup and repositioning. Pt left in bed w/ all needs in reach. Gait Assessment Gait Gait Assistance Required: Contact Guard Assist,1 Person Assist Distance (Feet) 50 Able to Maintain Weight Bearing Status Yes During Gait Assistive Devices Assistive Device Gait Belt,Front Wheeled Walker Orthotic/Prosthetic Devices or Brace: No Gait Deviations General Gait Pattern Antalgic,Decreased Stride Length,Decreased Feet Clearance,Flexed Trunk,Step-to Gait Factors Limiting Gait Function Factors Limiting Gait Function Decreased Activity Tolerance, Decreased Sensation,Decreased Strength,Difficulty Following Directions,Incoordination, Limited Range of Motion,Pain, Poor Balance,Poor Safety Awareness Comments Gait Comments Pt ambulated ~50 total ft w/ FWW and CGA and cues for FWW management. Pt continues to ambulate w/ step to gait. Stair Climbing Assessment Evaluation Level of Assist On Stairs Contact Guard Assistance, Minimal Assistance,1 Person Assistance Devices Stair Climbing Assistive Devices Front Wheel Walker Technique/Endurance Stair Climbing Direction Ascend and Descend Stair Climbing Technique Step to Step Number of Steps Climbed 1 Stair Climbing Set # Repetitions (reps) 3 Comments Stair Climbing Comments Pt ascended/descended 1 step stool x3 w/ FWW and CGA to Min A w/ cues for sequencing and FWW management. Will assess stairs tomorrow. PT-Balance Assessment Sitting Balance and Reactions Static Sitting Balance Ability Good Dynamic Sitting Balance Ability Fair Standing Balance and Reactions Static Standing Balance Ability Poor Dynamic Standing Balance Ability Poor Device Used FWW M5 PT-IP Objective Assessments Start: 05/03/20 14:10 Freq: NEEDED Status: Active Protocol: Document 05/03/20 13:30 AB (Rec: 05/03/20 14:27 AB [id number]) Orientation Orientation/Cognition Level of Alertness Alert Orientation Name Language Function Ability No Deficits Noted Safety Awareness Decreased Safety Awareness Memory Description Short Term Impaired,Jail Impaired Gross Range of Motion Lower Extremity ROM Assessment Within Functional Limits Strength Lower Extremity Strength Assessment Right Impaired Hip 3-/5 Knee 3-/5 M6 PT-IP Treatment Start: 05/03/20 14:10 Freq: NEEDED Status: Active Protocol: Document 05/05/20 14:03 KS (Rec: 05/05/20 14:43 KS [id number]) Physical Therapy Treatment Education Education Provided Precautions,Weight Bearing Status,Post-Op Packet,Safety M7 PT-IP Assessment and Plan Start: 05/03/20 14:10 Freq: NEEDED Status: Active Protocol: Document 05/05/20 14:03 GA (Rec: 05/05/20 14:43 GA [id number]) PT Summary Assessment and Plan Potential Rehabilitation Potential Fair Status of Condition at Evaluation Evolving Summary Impairments Pain,ROM,Strength,Balance, Coordination,Sensation,Tone, Cognition,Bed Mobility, Transfers,Gait,Activity Tolerance Progress Towards Goals Progressing Toward Goals,Slow Progress due to Pain,Slow Progress due to Activity Tolerance Assessment Summary Pt CGA for sup<>sit, scooting and Min A for sit<>stand w/ FWW and cues for sequencing. Pt then able to tolerate ~50 ft ambulation w/ FWW and 3x step stool w/ CGA to Min A and cues for FWW management and sequencing. Pt is progressing w/ strength and mobility and dpeendin on stair training and further ambulation tomorrow w / caregiver training, may be appropriate to go home w/ spouse to assist. Goals Bed Mobility Goal Standby Assistance Transfer Goal Standby Assistance,Front Wheeled Walker Gait Goal Standby Assistance,Front Wheel Walker Gait Distance 100 Other Goals up/down 2 steps SPC/THERMAL CUTTING MACHINE OPERATOR min A Days to Meet Goals 5 Frequency of Treatment Frequency Of Treatment Twice a Day Treatment Plan Physical Therapy Treatment Plan Bed Mobility Training,Transfer Training,Gait Training, Therapeutic Exercise,Balance Retraining,Post Op Education, Discharge Planning,Hot or Cold Pack,Neuromuscular Re-ed, Coordination Retraining,Manual Therapy Recommendations To Nursing Amount of Assist Needed 1 Person Assist Discharge Recommendations PT Discharge Recommendations Home with 03/03 Assist,SNF Rehab Transportation Needs at Discharge Private Vehicle,Wheelchair/ Cabulance
[2020-05-05 15:45] VITALS: BP 119/72; PULSE 84; RESP 18; TEMP 37.1; O2SAT 98
--- NOTE | 2020-05-05 15:58 | OT.IP.EVAL ---
Current Diagnoses Unilateral primary osteoarthritis, right hip (05/03/20) Surgery Performed Operation Date: 05/03/20 07:45 Actual Procedures p Total Hip Arthroplasty(Right) - Manav Jones MD Past Medical History (Last Updated 04/19/20 @ 09:00 by Elena Mendez RN) Avascular necrosis of bone of hip (Acute) Cervical neck pain with evidence of disc disease (Acute) Cervical spondylosis (Acute) Chronic low back pain (Acute) Degenerative joint disease of right hip (Acute) Depression (Acute) Fibromyalgia (Acute) HLD (hyperlipidemia) (Acute) Seasonal allergies (Acute) Spinal stenosis in cervical region (Acute) Thoracic kyphosis (Acute) Surgical History (Last Updated 04/19/20 @ 09:00 by Elena Mendez RN) H/O shoulder surgery (Acute) History of appendectomy (Acute) History of hysterectomy (Acute) History of right knee surgery (Acute) History of tonsillectomy (Acute) History of total left hip arthroplasty (Acute 09/22/19) Occupational Therapy Inpatient Evaluation/Re-Eval M1 PT/OT-IP Prior Functional Status Start: 05/03/20 14:10 Freq: NEEDED Status: Active Protocol: Document 05/05/20 16:04 CGR (Rec: 05/05/20 16:25 CGR [email or web address]) Medical Review Prior Functional Status Medical History Reviewed Yes Communication able to make needs known Mobility and Gait spouse stated that pt was modified independent with all mobilities and ambulation without AD Activities of Daily Living and IADL's Pt needed assist for some ADLs but wasn't able to clearly state what her assisted with. Prior Functional Level (Other details) spouse has been assisting pt after DEVORAH last sep 2019 but pt got to the point wherein she is independent and does not need assistance. Social History Household Members spouse Living Arrangements House Number of Floors (Floors) Two Floors Number of Stairs To Enter/Railing? 2 steps without rails to enter . Pt stays on the entery level . Home Environment Standard Height Toilet,Walk in Shower,Built-In Shower Seat Home Equipment Front Wheel Walker,Bedside Commode,Raised Toilet Seat Without Armrests,Hand Held Shower Employment Status Retired M2 OT-IP Current Condition Start: 05/05/20 16:03 Freq: Status: Active Protocol: Document 05/05/20 16:04 CGR (Rec: 05/05/20 16:25 CGR [email or web address]) Occupational Therapy Current Condition Current Condition Evaluation Date 05/05/20 Treatment Diagnosis R DEVORAH posterior Diagnosis Onset Date 05/03/20 Post Operative Precautions Posterior Hip Precautions No Hip Flexion > 90 degrees,No Hip Internal Rotation,No Hip Adduction M3 OT- IP Subjective and Pain Start: 05/05/20 16:03 Freq: Status: Active Protocol: Document 05/05/20 16:04 CGR (Rec: 05/05/20 16:25 CGR [email or web address]) OT- Subjective Occupational Therapy Visit Type Type Initial Evaluation Visit Start Time 15:47 Visit Stop Time 15:58 Total Visit Minutes 11 Occupational Therapy Visit Comments Patient Comments I would like to get up to the chair. OT Pain Assessment Pain When Pain Assessed During Mobility Pain Present Pain Present Pain Reported Location Right Hip Scale Used did not rate Management Techniques Distraction,Modification of Treatment,Re-positioning M4 OT- IP ADL's Start: 05/05/20 16:03 Freq: Status: Active Protocol: Document 05/05/20 16:04 CGR (Rec: 05/05/20 16:25 CGR [email or web address]) OT [id number] General Evaluation Self-Feeding Ability Independent Comments OT Self-Feeding Comments Pt eating pudding and ice cream with IND for opening containers and getting spoon to mouth. OT ADL-Grooming General Evaluation Grooming Ability Standby Assistance Areas Needing Assistance Face Washing Comments OT Grooming Comments seated in chair OT ADL-Oral Care Comments Oral Care Comments pt declined, states she will perform later in PM. OT ADL-Dressing Comments OT Dressing Comments not performed OT ADL-Toileting Comments OT Toileting Comments Pt declined, states she just performed. OT ADL-Bathing Comments OT Bathing Comments not performed M5 OT- IP IADL's Start: 05/05/20 16:03 Freq: Status: Active Protocol: Document 05/05/20 16:04 CGR (Rec: 05/05/20 16:25 CGR [email or web address]) OT-Instrumental Activities of Daily Living Deficits IADL Deficits Identified Deficits Home Safety Awareness Awareness of Need for Assistance at Home Decreased Awareness Ability to Problem Solve Emergency Unable to Problem Solve Situations Medication Management Medication Management Caregiver Administers Money Management Money Management Caregiver Provides Assistance Meal Preparation Meal Preparation Caregiver Provides Assist International Relations Professor International Relations Professor Caregiver Provides Assist Driving Driving Comments 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 OT- IP Functional Cognition Start: 05/05/20 16:03 Freq: Status: Active Protocol: Document 05/05/20 16:04 CGR (Rec: 05/05/20 16:25 CGR [email or web address]) Cognitive Factors Limiting Selfcare Function Cognitive Ability Level of Alertness Alert Patient Orientation Name,Age,Birthday,Month,Date, Year,Day of Week,Place, Situation Attention Span Ability Capable of Focused Attention, Capable of Sustained Attention Ability to Follow Commands Able to Follow One Step Commands with Increased Time, Able to Follow One Step Commands with Repetition Memory Description Immediate Impaired,Short Term Impaired Safety Awareness Decreased Recall of Precautions,Underestimates Need for Assistance OT- Vision and Hearing OT- Hearing Assessment OT- Hearing Assessment WFL OT- Vision Assessment Visual Acuity WFL Visual Attentiveness WFL Occular Pursuits WFL Visual Convergence WFL M7 OT- IP Mobility and Balance Start: 05/05/20 16:03 Freq: Status: Active Protocol: Document 05/05/20 16:04 CGR (Rec: 05/05/20 16:25 CGR [email or web address]) OT- Bed Mobility Assessment Supine to Sit Supine to Sit Assist Contact Guard Assistance Scooting Scooting to Edge of Bed Contact Guard Assistance OT-Transfer Assessment Sit to and From Stand Sit to and from Stand Contact Guard Assistance, Minimal Assistance Transfers Transfer Ability Contact Guard Assistance, Minimal Assistance Technique Transfer Destination Bed,Chair Transfer Technique Stand Step Pivot Devices Transfer Assistive Devices Gait Belt,Front Wheeled Walker OT- Balance Assessment Sitting Balance and Reactions Static Sitting Balance Ability Normal Dynamic Sitting Balance Ability Good M8 OT- IP Objective Assessments Start: 05/05/20 16:03 Freq: Status: Active Protocol: Document 05/05/20 16:04 CGR (Rec: 05/05/20 16:25 CGR [email or web address]) OT Gross Range of Motion Upper Extremity Range of Motion Assessment Within Functional Limits OT Strength Upper Extremity Strength Assessment Within Functional Limits OT- Coordination Assessment Upper Extremity Finger to Nose Test Within Functional Limits Finger Tapping Test Within Functional Limits OT-Muscle Tone Assessment Muscle Tone WNL Yes OT Sensation Assessment Edema Edema Absent M9 OT- IP Assessment and Plan Start: 05/05/20 16:03 Freq: Status: Active Protocol: Document 05/05/20 16:04 CGR (Rec: 05/05/20 16:25 CGR [email or web address]) OT Summary Assessment and Plan Potential Rehabilitation Potential Good Analytic Complexity at Evaluation Moderate Summary OT Impairments Pain,Balance,Functional Cognition,Functional Mobility, Grooming,Dressing,Toileting, Bathing,Toilet Transfers, Shower Transfers,Activity Tolerance Progress Towards Goals Slow Progress due to Pain,Slow Progress due to Cognition Assessment Summary Pt presents as a moderate complexity evaluation s/p R DEVORAH. Pt has cognitive deficits at baseline. Pt presents as min to CGA for mobility and transfers and assist needed for ADLs. Pt will benefit from OT services. Recommendation is for d/c to home with vs SNF. If wants to take pt home then he will need to undergo caregiver training. Goals Grooming Goal Independent Dressing Goal Independent Toileting Goal Independent Bathing Goal Independent Toilet Transfer Goal Independent Shower Transfer Goal Independent Days to Meet Goals 10 Frequency of Treatment Frequency Of Treatment Once a Day Treatment Plan OT Treatment Plan ADL Training,Functional Cognition Training,Functional Mobility,Patient/Family Education,Discharge Planning Other Treatment Recommendations and Next ADLs standing, LB dressing, Treatment Focus review hip precautions. Discharge Recommendations OT Discharge Recommendations Home with 03/03 Assist,SNF Rehab Home Equipment Needs TBD Transportation Needs at Discharge Private Vehicle
[2020-05-05] MEDS: hydrOXYzine pamoate 25 MG CAPSULE PO (16:23)
[2020-05-05] MEDS: NORTRIPTYLINE HCL 25 MG CAPSULE 75 MG PO (19:34)
[2020-05-05] MEDS: QUETIAPINE 100 MG TABLET 300 MG PO (19:35)
[2020-05-05] MEDS: MIRTAZAPINE 15 MG TABLET 45 MG PO (19:36)
[2020-05-05] MEDS: SIMVASTATIN 10 MG TABLET PO (19:37)
[2020-05-05 20:10] VITALS: BP 120/55; PULSE 85; RESP 18; TEMP 36.4; O2SAT 99
--- NOTE | 2020-05-05 21:46 | PC.NURSE ---
Pt is A and O x 4, VSS. She rates her pain 7/10 but gets good relief from several medications and is able to sleep. She advises she has had chronic pain since childhood. Her L hip dressing is c/d/i. She is using her IS and is up to 1999. She is doing foot waves and worked with both PT and OT today. SCDs in place. Pt able to eat and drink and voiding qs in BR. HR reg and LS clear.
--- NOTE | 2020-05-06 00:46 | PC.NURSE ---
0020 Checked pt. she's sound asleep will monitor & assess her whe she wakes up.
[2020-05-06 01:00] VITALS: BP 132/70; PULSE 83; RESP 16; TEMP 36.1; O2SAT 98
[2020-05-06] MEDS: OXYCODONE IR 5 MG TABLET PO ×2 (01:17→06:23)
[2020-05-06] MEDS: ASPIRIN ACETAMINOPHEN CAFFEINE 1 EACH PO ×2 (01:33→08:49)
[2020-05-06 05:30] VITALS: BP 124/72; PULSE 77; RESP 16; TEMP 36.1; O2SAT 98
[2020-05-06] MEDS: hydrOXYzine pamoate 25 MG CAPSULE PO (06:23)
[2020-05-06] MEDS: MORPHINE IR 15 MG TABLET 30 MG PO (08:45)
[2020-05-06] MEDS: DOCUSATE 100 MG CAPSULE PO (08:45)
[2020-05-06] MEDS: MULTIVITAMIN 1 TABLET 1 TAB PO (08:45)
[2020-05-06] MEDS: PANTOPRAZOLE 20 MG TABLET PO (08:45)
[2020-05-06] MEDS: CELECOXIB 200 MG CAPSULE PO (08:45)
[2020-05-06] MEDS: ASPIRIN EC 81 MG TABLET PO (08:45)
[2020-05-06] MEDS: VIT C/E/ZN/COPPR/LUTEIN/ZEAXAN CAPSULE 2 CAP PO (08:46)
[2020-05-06] MEDS: SODIUM CHLORIDE 0.9% FLUSH 10 ML IV (08:50)
[2020-05-06 08:57] VITALS: BP 132/70; PULSE 87; RESP 15; TEMP 36.4; O2SAT 98
--- NOTE | 2020-05-06 09:07 | OT.IP.TRT ---
Current Diagnoses Unilateral primary osteoarthritis, right hip (05/03/20) Surgery Performed Operation Date: 05/03/20 07:45 Actual Procedures p Total Hip Arthroplasty(Right) - Manav Jones MD Occupational Therapy Treatment Note M2 OT-IP Current Condition Start: 05/05/20 16:03 Freq: Status: Active Protocol: Document 05/05/20 16:04 CGR (Rec: 05/05/20 16:25 CGR [email or web address]) Occupational Therapy Current Condition Current Condition Evaluation Date 05/05/20 Treatment Diagnosis R DEVORAH posterior Diagnosis Onset Date 05/03/20 Post Operative Precautions Posterior Hip Precautions No Hip Flexion > 90 degrees,No Hip Internal Rotation,No Hip Adduction M3 OT- IP Subjective and Pain Start: 05/05/20 16:03 Freq: Status: Active Protocol: Document 05/06/20 15:58 CGR (Rec: 05/06/20 16:06 CGR [email or web address]) OT- Subjective Occupational Therapy Visit Type Type Progress Note Visit Start Time 08:41 Visit Stop Time 09:07 Total Visit Minutes 25 Occupational Therapy Visit Comments Patient Comments I need to use the bathroom OT Pain Assessment Pain When Pain Assessed During Mobility Pain Present Pain Present Pain Reported Location Right Hip Scale Used did not rate but reports it hurts with standing. Management Techniques Distraction,Modification of Treatment,Re-positioning, Timing of Activity with Medications M4 OT- IP ADL's Start: 05/05/20 16:03 Freq: Status: Active Protocol: Document 05/06/20 15:58 CGR (Rec: 05/06/20 16:06 CGR [email or web address]) OT [id number] General Evaluation Self-Feeding Ability Independent Comments OT Self-Feeding Comments breakfast OT ADL-Grooming General Evaluation Grooming Ability Standby Assistance Areas Needing Assistance Retrieving/Set-up of Grooming Items,Face Washing Comments OT Grooming Comments standing at sink OT ADL-Oral Care General Eval Oral Care Ability Standby Assistance Areas of Assistance Brushing Teeth,Retrieving/Set- Up of Items Comments Oral Care Comments standing at sink OT ADL-Dressing Comments OT Dressing Comments not performed, checked with pt and pt's spouse and they are not interested in LB dressing training as pt's plans to perform for pt. OT ADL-Toileting General Evaluation Toileting Ability Standby Assistance Devices Toileting Assistive Devices Grab Bars Comments OT Toileting Comments urinated seated on toilet OT ADL-Bathing Comments OT Bathing Comments not performed M5 OT- IP IADL's Start: 05/05/20 16:03 Freq: Status: Active Protocol: Document 05/05/20 16:04 CGR (Rec: 05/05/20 16:25 CGR [email or web address]) OT-Instrumental Activities of Daily Living Deficits IADL Deficits Identified Deficits Home Safety Awareness Awareness of Need for Assistance at Home Decreased Awareness Ability to Problem Solve Emergency Unable to Problem Solve Situations Medication Management Medication Management Caregiver Administers Money Management Money Management Caregiver Provides Assistance Meal Preparation Meal Preparation Caregiver Provides Assist Drafter Civil Drafter Civil Caregiver Provides Assist Driving Driving Comments 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 OT- IP Functional Cognition Start: 05/05/20 16:03 Freq: Status: Active Protocol: Document 05/06/20 15:58 CGR (Rec: 05/06/20 16:06 CGR [email or web address]) Cognitive Factors Limiting Selfcare Function Cognitive Ability Level of Alertness Alert,Confusional State Patient Orientation Name,Year,Place,Situation Attention Span Ability Capable of Focused Attention, Capable of Sustained Attention Ability to Follow Commands Able to Follow One Step Commands with Increased Time, Able to Follow One Step Commands with Repetition Cognitive Comments Cognitive Assessment Comments Pt appears slightly confused but has a hx of memory deficit per chart. OT- Vision and Hearing OT- Hearing Assessment OT- Hearing Assessment WFL OT- Vision Assessment Visual Acuity WFL Visual Attentiveness WFL Occular Pursuits WFL Visual Convergence WFL M7 OT- IP Mobility and Balance Start: 05/05/20 16:03 Freq: Status: Active Protocol: Document 05/06/20 15:58 CGR (Rec: 05/06/20 16:06 CGR [email or web address]) OT- Bed Mobility Assessment Rolling Type of Rolling Roll to Left Level of Assistance Standby Assistance Supine to Sit Supine to Sit Assist Standby Assistance Scooting Scooting to Edge of Bed Standby Assistance OT-Transfer Assessment Sit to and From Stand Sit to and from Stand Standby Assistance Transfers Transfer Ability Standby Assistance Technique Transfer Destination Bed,Chair,Toilet Transfer Technique Stand Step Pivot Devices Transfer Assistive Devices Gait Belt,Front Wheeled Walker Comments Mobility Comments for mobility around the room and standing at sink OT- Balance Assessment Sitting Balance and Reactions Static Sitting Balance Ability Normal Dynamic Sitting Balance Ability Good M8 OT- IP Objective Assessments Start: 05/05/20 16:03 Freq: Status: Active Protocol: Document 05/05/20 16:04 CGR (Rec: 05/05/20 16:25 CGR [email or web address]) OT Gross Range of Motion Upper Extremity Range of Motion Assessment Within Functional Limits OT Strength Upper Extremity Strength Assessment Within Functional Limits OT- Coordination Assessment Upper Extremity Finger to Nose Test Within Functional Limits Finger Tapping Test Within Functional Limits OT-Muscle Tone Assessment Muscle Tone WNL Yes OT Sensation Assessment Edema Edema Absent M9 OT- IP Assessment and Plan Start: 05/05/20 16:03 Freq: Status: Active Protocol: Document 05/06/20 15:58 CGR (Rec: 05/06/20 16:06 CGR [email or web address]) OT Summary Assessment and Plan Potential Rehabilitation Potential Good Analytic Complexity at Evaluation Moderate Summary OT Impairments Pain,Balance,Functional Cognition,Functional Mobility, Grooming,Dressing,Toileting, Bathing,Toilet Transfers, Shower Transfers,Activity Tolerance Progress Towards Goals Slow Progress due to Pain,Slow Progress due to Cognition Assessment Summary Pt is progressing with therapy services and likely safe for discharge home with husbands assist. Pt mobilizing this am with SBA using the gait belt and walker. Md with plans to d /c today. Goals Grooming Goal Independent Dressing Goal Independent Toileting Goal Independent Bathing Goal Independent Toilet Transfer Goal Independent Shower Transfer Goal Independent Days to Meet Goals 2 Frequency of Treatment Frequency Of Treatment Once a Day Treatment Plan OT Treatment Plan ADL Training,Functional Cognition Training,Functional Mobility,Patient/Family Education,Discharge Planning Other Treatment Recommendations and Next ADLs standing, LB dressing, Treatment Focus review hip precautions. Discharge Recommendations OT Discharge Recommendations Home with / Assist,SNF Rehab Home Equipment Needs TBD Transportation Needs at Discharge Private Vehicle
--- NOTE | 2020-05-06 09:19 | P.DS_ITS ---
History of Present Illness History of Present Illness Date Patient Seen: 05/06/20 Time Patient Seen: :20 Chief complaint: RT DEVORAH *OPB* Narrative: Please see HPI previously recorded in the chart. Discharge Providers Provider Date of admission: 05/03/20 06:03 Discharge Date: 05/06/20 Primary care physician: Mila Elizabeth MD Consults: 05/03/20 10:20 Consult to Discharge Planning Routine Comment: Consult to Physical Therapy Evaluate & Treat Comment: Physician Instructions: post op DEVORAH protocol Consult to Respiratory Therapy Evaluate & Treat Comment: Physician Instructions: Evaluate and treat 05/05/20 09:53 Consult to Occupational Therapy Evaluate & Treat Comment: Physician Instructions: Evaluate and treat Discharge provider: Constance Talbot PA-C Summary Hospital Course Discharge Diagnosis: s/p right hip arthroplasty Hospital Course: Patient is an 69-year-old female with severe right hip DJD. The patient has pain with activities and at rest, limited ambulation and activity tolerance, difficulties with ADLs, and failure of conservative treatment. We have discussed the nature of condition, treatment options, risks and benefits, and patient elects to proceed with total hip arthroplasty and give s informed consent. She underwent a right total hip arthroplasty with Dr. Jones which she tolerated well. She was transferred to the acute care floor where she has been gradually improving and progressing. She has a history of chronic pain and takes opioids for this. Has struggled with pain control throughout admission but has slowly progressed despite this. Her is available as caregiver at home. She has been tolerating a diet and voiding appropriately. She is stable for discharge to home on POD#3. Status at Discharge Cognitive/behavioral status at discharge: oriented Functional status at discharge: uses cane/walker Overall status at discharge: patient is progressing back to baseline Exam Vital Signs (past 8 hours): - 05/06/20 05:30 05/06/20 08:57 Temperature 96.9 F L 97.6 F Pulse Rate 77 87 Respiratory Rate 16 15 Blood Pressure 124/72 132/70 Pulse Oximetry 98 98 Oxygen Delivery Method Room Air Oxygen Flow Rate 0 Narrative Exam Narrative: 69 year old female resting in the chair. Alert and oriented in no acute distress. Bulky dressing to the right hip is CDI. Patient is neuravascularly intact in BLE. Calves soft, nontender. Objective Labs Result Diagrams: 05/04/20 05:24 Discharge Plan Discharge Plan Patient Disposition: Home Discharge comment: Home this afternoon after PT Discharge orders & Medications Prescriptions: New aspirin 81 mg Tablet,Delayed Release (Dr/Ec) 81 mg PO BID Qty: 40 RF: 0 docusate sodium [DOK] 100 mg Capsule 100 mg PO BID Qty: 40 RF: 0 oxycodone 5 mg Tablet 5 mg PO Q3HR PRN (Reason: Pain, Moderate (4-6)) Qty: 60 RF: 0 hydroxyzine pamoate 25 mg Capsule 25 mg PO Q6HR PRN (Reason: Spasms) Qty: 40 RF: 0 Continued quetiapine 300 mg Tablet 300 mg PO DAILY RF: 0 celecoxib [Celebrex] 200 mg Capsule 200 mg PO DAILY RF: 0 multivitamin Tablet 1 tab PO DAILY RF: 0 lorazepam 0.5 mg Tablet 0.5 mg PO TID PRN (Reason: Anxiety) RF: 0 nortriptyline 75 mg Capsule 75 mg PO BEDTIME RF: 0 ergocalciferol (vitamin D2) [Vitamin D2] 50,000 unit Capsule 50,000 unit PO WEEKLY RF: 0 morphine 15 mg Tablet 15 mg PO DAILY RF: 0 lutein 20 mg Tablet 25 mg PO DAILY RF: 0 Ocuvite Eye Health 50 mg-15 unit- 4.5 mg-2.5 mg Tablet,Chewable 2 tab PO DAILY RF: 0 tizanidine 2 mg Tablet 1 - 2 mg PO BID-TID PRN (Reason: Muscle Relaxer) RF: 0 simvastatin 10 mg Tablet 10 mg PO BEDTIME RF: 0 morphine 30 mg Tablet 30 mg PO BID RF: 0 mirtazapine 45 mg Tablet 45 mg PO BEDTIME RF: 0 oxymorphone 5 mg tablet 5 mg PO SEEINSTR PRN (Reason: pain) RF: 0 Excedrin Migraine 250-250-65 mg tablet 1 tab PO Q4-6H PRN (Reason: pain) RF: 0 Follow up/Referrals: Manav Jones MD [Physician] - Diet/Activity/Treatments Diet: Diet as Tolerated Activity: Frequent short walks. Use a front wheel walker for support. Cold/Heat Therapy: Ice packs as needed. Skin/Wound/Dressing Care Report to your healthcare provider any signs of infection, such as:: chills, fever, night sweats, unusual drainage and unusual redness Dressing: Dressing should remain in place until 2 week follow up. Call the office if it becomes saturated. Visit Report/Discharge Packet Instructions: DI for Hip Replacement, DI for Prescription Opioid Use Discharge Data Primary Care Provider: Mila Elizabeth
--- NOTE | 2020-05-06 09:59 | CM.DPC ---
Addendum entered by Deandra Leahy LPN 05/06/20 11:03: Alicia/Martin is updated and will release the referral. Original Note: DCP: continued: Ortho KAYE Nolasco is here and has d/c'd pt to home setting with spouse as caregiver support and OUTPT PT as already set up. RIC Dominguez will see them for stairs this morning before they go home. Checked in with pt and spouse Beto. Beto confirms they are very comfortable with the home plan and pt echos same. Home later today.
--- NOTE | 2020-05-06 10:35 | PT.IPTN ---
Current Diagnoses Unilateral primary osteoarthritis, right hip (05/03/20) Surgery Performed Operation Date: 05/03/20 07:45 Actual Procedures p Total Hip Arthroplasty(Right) - Manav Jones MD Physical Therapy Treatment Note M2 PT-IP Current Condition Start: 05/03/20 14:10 Freq: NEEDED Status: Active Protocol: Document 05/03/20 13:30 AB (Rec: 05/03/20 14:27 AB [id number]) Physical Therapy Current Condition Current Condition Evaluation Date 05/03/20 Treatment Diagnosis s/p R DEVORAH posterior approach; difficulty in walking Onset Date 05/03/20 Precautions Posterior Hip Precautions No Hip Flexion > 90 degrees,No Hip Internal Rotation,No Hip Adduction Weight Bearing Status Weight Bearing Status Weight Bear as Tolerated Allowed Weight Bearing Amount (enter % RLE WBAT or #) (%) M3 PT-IP Subjective Start: 05/03/20 14:10 Freq: NEEDED Status: Active Protocol: Document 05/06/20 09:52 KS (Rec: 05/06/20 12:20 KS [id number]) Subjective Physical Therapy Visit Type Type Treatment Note Visit Start Time 09:52 Visit Stop Time 10:35 Total Visit Minutes 43 Number of MINE PATROL Visits 5 Physical Therapy Visit Comments Patient Comments Pts present during treatment for caregiver training. M4 PT-IP Mobility and Gait Start: 05/03/20 14:10 Freq: NEEDED Status: Active Protocol: Document 05/06/20 09:52 KS (Rec: 05/06/20 12:20 KS [id number]) PT-Bed Mobility Assessment Scooting Scooting to Edge of Bed Standby Assistance PT-Transfer Assessment Sit to and From Stand Sit to and from Stand Contact Guard Assistance,1 Person Assistance,Use of Upper Extremities Equipment Transfer Assistive Device Gait Belt,Front Wheeled Walker Orthotic/Prosthetic Devices or Brace: No Transfers Transfer Destination Chair Transfer Ability Level of Assist Contact Guard Assistance, Minimal Assistance,1 Person Assistance,Use of Upper Extremities Comments Mobility Comments Pt in chair upon arrival from therapy w/ present for caregiver training. Pts correctly applied gaitbelt and provided CGA and cues for pt sit<>stand. Pt then ambulated to hallway w/ FWW step to pattern and CGA by . Pt transported to stairs in w/c for energy conservation. Pt completed 3 steps x2 w/ R rail ascending L rail descending and KNIFE GLAZER provided by . Pts was able to provide correct cues and safe assist during stair training and installed rail for pt to use on stairs at home. Pt and state they feel safe to complete the 2 steps they have to enter their home. Pt then ambulated ~200 ft back to room w/ FWW and CGA by . Pts gait improved to step thru from step to and also improved stride length. Pt returned to room and got into chair CGA w/ cues by for sequencing. Reveiwed LE exercises w/ pt and to promote blood flow and strengthening. Pt has OPPT scheduled to begin next Friday. Gait Assessment Gait Gait Assistance Required: Contact Guard Assist,1 Person Assist Distance (Feet) 210 Able to Maintain Weight Bearing Status Yes During Gait Assistive Devices Assistive Device Gait Belt,Front Wheeled Walker Orthotic/Prosthetic Devices or Brace: No Gait Deviations General Gait Pattern Antalgic,Decreased Feet Clearance,Flexed Trunk Factors Limiting Gait Function Factors Limiting Gait Function Decreased Activity Tolerance, Decreased Sensation,Decreased Strength,Difficulty Following Directions,Incoordination, Limited Range of Motion,Pain, Poor Balance,Poor Safety Awareness Comments Gait Comments Please refer to mobility section for details. Stair Climbing Assessment Evaluation Level of Assist On Stairs Contact Guard Assistance, Minimal Assistance,1 Person Assistance Devices Stair Climbing Assistive Devices Right Railing Technique/Endurance Stair Climbing Direction Ascend and Descend Stair Climbing Technique Step to Step Number of Steps Climbed 3 Stair Climbing Set # Repetitions (reps) 2 Comments Stair Climbing Comments Pt ascended/descended 3 steps w/ step to pattern and R rail ascending/L rail decending and KNIFE GLAZER provided by . Pts was able to safely give appropriate assist and cues during stair training. Pts reported that he installed a hand rail at home for pt to use when completing stairs. Pt and state they feel safe to perform stairs at home. PT-Balance Assessment Sitting Balance and Reactions Static Sitting Balance Ability Good Dynamic Sitting Balance Ability Fair Standing Balance and Reactions Static Standing Balance Ability Fair Dynamic Standing Balance Ability Fair Device Used FWW M5 PT-IP Objective Assessments Start: 05/03/20 14:10 Freq: NEEDED Status: Active Protocol: Document 05/03/20 13:30 AB (Rec: 05/03/20 14:27 AB [id number]) Orientation Orientation/Cognition Level of Alertness Alert Orientation Name Language Function Ability No Deficits Noted Safety Awareness Decreased Safety Awareness Memory Description Short Term Impaired,Nursing Home Impaired Gross Range of Motion Lower Extremity ROM Assessment Within Functional Limits Strength Lower Extremity Strength Assessment Right Impaired Hip 3-/5 Knee 3-/5 M6 PT-IP Treatment Start: 05/03/20 14:10 Freq: NEEDED Status: Active Protocol: Document 05/06/20 09:52 KS (Rec: 05/06/20 12:20 KS [id number]) Physical Therapy Treatment Exercises Exercises Ankle Pumps,Gluteal Sets,Quad Sets,Heel Slides Education Education Provided Precautions,Weight Bearing Status,Post-Op Packet,Safety Other Treatments Other Treatment Performed Completed caregiver training w / pts . M7 PT-IP Assessment and Plan Start: 05/03/20 14:10 Freq: NEEDED Status: Active Protocol: Document 05/06/20 09:52 KS (Rec: 05/06/20 12:20 KS [id number]) PT Summary Assessment and Plan Potential Rehabilitation Potential Fair Status of Condition at Evaluation Evolving Summary Impairments Pain,ROM,Strength,Balance, Coordination,Sensation,Tone, Cognition,Bed Mobility, Transfers,Gait,Activity Tolerance Progress Towards Goals Progressing Toward Goals Assessment Summary Pt showed improvementw/ mobility, transfers, ambulation, and stairs today. Completed caregiver training w / pts who was able to provide pt w/ CGA for transfers and ambulation, and CGA/Min A w/ KNIFE GLAZER for stairs as well as cues for sequencing throughout treatent. Pt ambulated ~210 ft toal today w / FWW and CGA, her gait improved from step to to step through. Pt and state they feel safe to return home and pt agreed to complete LE exercises and has outpatient rehab scheduled for Friday. Goals Bed Mobility Goal Standby Assistance Transfer Goal Standby Assistance,Front Wheeled Walker Gait Goal Standby Assistance,Front Wheel Walker Gait Distance 100 Other Goals up/down 2 steps SPC/KNIFE GLAZER min A Days to Meet Goals 5 Frequency of Treatment Frequency Of Treatment Twice a Day Treatment Plan Physical Therapy Treatment Plan Bed Mobility Training,Transfer Training,Gait Training, Therapeutic Exercise,Balance Retraining,Post Op Education, Discharge Planning,Hot or Cold Pack,Neuromuscular Re-ed, Coordination Retraining,Manual Therapy Recommendations To Nursing Amount of Assist Needed 1 Person Assist Discharge Recommendations PT Discharge Recommendations Home with 24/7 Assist,SNF Rehab Transportation Needs at Discharge Private Vehicle,Wheelchair/ Cabulance
[2020-05-06] MEDS: MORPHINE IR 15 MG TABLET PO (12:21)
--- NOTE | 2020-05-06 13:37 | PC.NURSE ---
Went over dc meds and instructions with patient and patients spouse, questions answered. Rx for meds given. Patient taken via wc to vehicle driven by spouse. Patient had all belongings.
== END 2020-05-06 13:39 | disposition home or self-care (01) | DRG 470 ==
LOC: OR 06:05 → AC 06:06
PROVIDERS: Admitting Provider Orthopaedic Surgery; Family Provider Family Medicine; PCP Family Medicine; Referring Provider Physical Medicine & Rehabilitation; Visit Provider Orthopaedic Surgery
PROC: 0SR90JZ Replacement of Right Hip Joint with Synthetic Substitute, Open Approach (ICD-10-PCS; CPT 27130; principal; 2020-05-03 07:45)
DX: M16.11 Unilateral primary osteoarthritis, right hip (principal); K21.9 Gastro-esophageal reflux disease without esophagitis; F32.9 Major depressive disorder, single episode, unspecified; M79.7 Fibromyalgia; Z96.642 Presence of left artificial hip joint; G89.29 Other chronic pain; Z79.891 Long term (current) use of opiate analgesic; Z11.59 Encounter for screening for other viral diseases
CPT/HCPCS: 36415; 36592; 72170; 85014; 85018; 87635; 94762; 97110; 97116; 97162; 97166; 97530; 97535; C1776; J0690; J1885; J2270; J2274; J2405; J2704; J2795

== ENCOUNTER → 2021-05-24 12:01 | Outpatient (CLI) | payer MEDICARE, OTHER, SELFPAY ==
[2020-05-03 10:55] VITALS: BMI 21.6
--- NOTE | 2021-05-24 12:03 | DI.RAD.S_ITS ---
PROCEDURE: XR CERVICAL SPINE 4V OR 5V INDICATIONS: NECK PAIN TECHNIQUE: 5 views of the cervical spine acquired. COMPARISON: Reference is made to the MRI cervical spine dated April 23, 2019. FINDINGS: Bones: Straightening, which may be due to spasm or positioning. No fractures or dislocations to the C7 level. Endplate osteophytosis. Uncovertebral/facet arthrosis, most prominent at C2 -6. Soft tissues: No prevertebral soft tissue swelling. IMPRESSION: Multilevel degenerative changes. Dictated by: Cong Bay M.D. on 05/24/2021 at 13:51 Approved by: Cong Bay M.D. on 05/24/2021 at 13:54
== END ==
PROVIDERS: Family Provider Family Medicine; PCP Family Medicine; Referring Provider Physical Medicine & Rehabilitation; Visit Provider Physical Medicine & Rehabilitation
DX: M47.812 Spondylosis without myelopathy or radiculopathy, cervical region (principal); M50.30 Other cervical disc degeneration, unspecified cervical region
CPT/HCPCS: 72050

== ENCOUNTER → 2021-06-19 10:24 | Outpatient (CLI) | payer MEDICARE, OTHER, SELFPAY ==
[2020-05-03 10:55] VITALS: BMI 21.6
[2021-06-19 11:54] LABS: COVID19 -Nasal RAPID Negative (Negative)
== END ==
PROVIDERS: Family Provider Family Medicine; PCP Family Medicine; Referring Provider Physical Medicine & Rehabilitation; Visit Provider Physical Medicine & Rehabilitation
DX: Z20.822 Contact with and (suspected) exposure to COVID-19 (principal)
CPT/HCPCS: 87635; C9803

== ENCOUNTER 2021-06-21 08:25 | Outpatient (CLI) | payer MEDICARE, OTHER, SELFPAY ==
[2020-05-03 10:55] VITALS: BMI 21.6
[2021-06-21] VITALS (7 sets, daily range): BP systolic 136–204; BP diastolic 67–93; PULSE 78–81; RESP 10–21; TEMP 37.1; O2SAT 96–100
--- NOTE | 2021-06-21 08:26 | DI.RAD.S_ITS ---
PROCEDURE: PAIN C/T FACET INJ/BLK 1ST L INDICATIONS: SPINAL STENSOSIS COMPARISON: [facility], CR, XR CERVICAL SPINE 4V OR 5V, 05/24/2021, 12:01. FINDINGS: Fluoroscopic spot filming was performed to verify placement of spinal needles on the left at the C4-C5, C5-C6, and C6-C7 levels, as labeled on the films. Appropriate location(s) of the needle tip(s) was confirmed by injection of iodinated contrast. IMPRESSION: Intraprocedural examination within normal limits. Dictated by: Bassam Franco M.D. on 06/21/2021 at 11:35 Approved by: Bassam Franco M.D. on 06/21/2021 at 11:36
[2021-06-21] MEDS: BUPIVACAINE 0.5% (PF) VIAL 2 ML INJ (09:45)
[2021-06-21] MEDS: DEXAMETHASONE 10 MG/ML VIAL 30 MG INJ (09:45)
[2021-06-21] MEDS: MIDAZOLAM 5 MG/5 ML VIAL IV (09:45)
[2021-06-21] MEDS: IOPAMIDOL 15 ML VIAL 3 ML INJ (09:45)
--- NOTE | 2021-06-21 10:08 | P.PCN_ITS ---
Date/Time/Diagnoses Date of procedure: 06/21/21 Time of procedure: 10:08 Pre-procedure diagnosis: 1. FACET ARTHROPATHY 2. AXIAL NECK PAIN Post-procedure diagnosis: same Procedure Notes Procedure: 1. FLUOROSCOPICALLY GUIDED, CONTRAST-CONTROLLED LEFT C5/6 AND C6/7 FACET JOINT INJECTIONS WITH CONSCIOUS SEDATION. Indications: Laurie is referred by Dr. Elizabeth for treatment of Axial Neck Pain Physician: Osman Hernández Total Fluoroscopy time (seconds): 6 Total sedation minutes: 15 Complications: none Procedure in detail & Post-procedure care: DESCRIPTION OF PROCEDURE Fluoroscopically guided, contrast-controlled left C4/5, C5/6 and C6/7 facet joint injections with conscious sedation. Following review of allergy and review of potential side effects and complications, including, but not necessarily limited to, infection, allergic reaction, local tissue breakdown, stroke, temporary or permanent nerve injury and paralysis, the patient indicated that the patient understood and agreed to proceed. An informed consent document was signed by the patient, witnessed by a nurse, and placed in the patient's chart. Additionally, other treatment options including medications, modalities, and physical therapy were reviewed with the patient. After review of previous anaesthesic history and IV conscious sedation the patient was deemed safe to proceed with today?s procedure with IV conscious sedation as ASA class II designation. Safety time-out was performed to confirm patient ID, procedure to be performed and site of procedure. IV sedation was accomplished with a combination of 2mg of Versed was administered by the RN after DO order, titrated to patient comfort during the course of the procedure while the patient remained responsive to all verbal commands In the prone position, following sterile prep and drape of the cervical spine region, the posterior aspect of the left C4/5, C5/6 and C6/7 facet joints were identified fluoroscopically. The skin was anesthetized via a 25-gauge 1.5-inch needle with 1% lidocaine solution into the corresponding facet joints. At this point, a 25-gauge 2.5-inch spinal needle was atraumatically introduced and advanced under fluoroscopic guidance into the corresponding facet joints. Following negative aspiration, injections of approximately 0.2cc of Isovue 200 confirmed interarticular placement without vascular uptake. At this point, a total of 1cc including 0.5cc or 5mg of dexamethasone combined with 0.5cc of 1% lidocaine solution was injected without complication into each of the corresponding facet joints. The procedure tolerated the procedure well without signs or symptoms of complications prior to transfer to the recovery area continued monitoring without incident. The patient was then transferred to the recovery area where they were observed for an appropriate period of time after the injection. The patient reported a VAS score of 7 prior to the procedure and a post- procedure VAS of 0. POST OP INSTRUCTIONS They were provided a Pain Log to continue to record their response to the target-specific procedure prior to their follow-up visit with their referring physician. Additionally, specific post-injection care instructions and a contact number to our office were provided if concerns arise regarding possible complications associated with the procedure are suspected.
== END 2021-06-21 10:32 | disposition home or self-care (01) ==
PROVIDERS: Family Provider Family Medicine; PCP Family Medicine; Referring Provider Physical Medicine & Rehabilitation; Visit Provider Physical Medicine & Rehabilitation
DX: M47.812 Spondylosis without myelopathy or radiculopathy, cervical region (principal)
CPT/HCPCS: 64490; 64491; 64492; 99152; J1100; J2250; J3010

== ENCOUNTER → 2021-08-09 13:34 | Outpatient (CLI) | payer MEDICARE, OTHER, SELFPAY ==
[2020-05-03 10:55] VITALS: BMI 21.6
--- NOTE | 2021-08-09 13:39 | DI.RAD.S_ITS ---
PROCEDURE: XR HIP W PEL IF DONE BILAT 2V INDICATIONS: right knee pain, hip pain, hx of hip replacement TECHNIQUE: AP pelvis and lateral view of the bilateral hips acquired. COMPARISON: [facility] [place], CR, XR PELVIS WITH LATERAL HIP RIGHT, 06/06/2020, 10:39. FINDINGS: Bones: Patient is status post bilateral hip arthroplasties, with hardware components in expected positions. The hip joints appear congruent. Close approximation of the right acetabular component to the cortex on the AP view. The visualized bony structures appear intact. Soft tissues: Overlying postoperative changes are noted. No suspicious soft tissue densities. IMPRESSION: Close approximation of the right acetabular component to the cortex. Dictated by: Cong Bay M.D. on 08/09/2021 at 14:07 Approved by: Cong Bay M.D. on 08/09/2021 at 14:11
--- NOTE | 2021-08-09 13:39 | DI.RAD.S_ITS ---
PROCEDURE: XR KNEE RT 3V INDICATIONS: right knee pain, hip pain, hx of hip replacement TECHNIQUE: 3 views of the knee were acquired. COMPARISON: [facility], , KNEE 3V RIGHT, 02/12/2014, 14:34. FINDINGS: Bones: Postsurgical changes are seen from patellar fracture fixation with metallic screws and wires. The metallic hardware is intact. Mild osseous irregularity is seen along the posterior patellar margin on lateral view. Small ossification lateral to the patella on sunrise view may be the sequela of prior trauma or possibly congenital variation. Soft tissues: Small joint effusion. No suspicious soft tissue calcifications. IMPRESSION: 1. Chronic postsurgical changes from patellar fracture fixation with intact hardware. 2. No acute osseous abnormality is seen. 3. Small joint effusion. Dictated by: Ghassan Gray M.D. on 08/09/2021 at 14:06 Approved by: Ghassan Gray M.D. on 08/09/2021 at 14:10
== END ==
PROVIDERS: Family Provider Family Medicine; PCP Family Medicine; Referring Provider Pain Medicine Pain Medicine; Visit Provider Pain Medicine Pain Medicine
DX: M25.561 Pain in right knee (principal); M25.461 Effusion, right knee; M25.551 Pain in right hip; Z96.643 Presence of artificial hip joint, bilateral
CPT/HCPCS: 73521; 73562

== ENCOUNTER 2021-11-27 07:04 | Emergency (ER) | payer MEDICARE, OTHER, SELFPAY ==
[2020-05-03 10:55] VITALS: BMI 21.6
--- NOTE | 2021-11-27 07:12 | ED.UPPEXIN ---
HPI - Extremity Injury (Upper) General Chief Complaint: Extremity Injury, Upper Stated Complaint: slammed hand in door rt hand Time Seen by Provider: 11/27/21 07:11 Source: patient Mode of arrival: Ambulatory Limitations: no limitations History of Present Illness HPI narrative: This is a 71-year-old female who accidentally slammed her 5th digit on her left hand in the car door. Patient states it was stuck there for a few minutes until her heard her yelling and could release her from the car. Patient does have some sensation to light touch. She denies injury to any of her other fingers. She takes an aspirin daily but no other blood thinners. States that she takes quetiapine, mirtazapine and 1 additional daily medication. Patient does believe her tetanus is up-to-date. She is allergic to gabapentin. Related Data Home Medications Medication Instructions Recorded Confirmed knozinz-vpkbvyqiduawp-[id number] 250 1 tab PO Q4-6H PRN 07/28/19 05/30/21 mg-250 mg-65 mg tablet (Excedrin Migraine) oxymorphone 5 mg tablet 5 mg PO SEEINSTR PRN 07/28/19 05/30/21 ergocalciferol (vitamin D2) 1,250 50,000 unit PO WEEKLY 08/27/19 05/30/21 mcg (50,000 unit) capsule (Vitamin D2) lorazepam 0.5 mg tablet 0.5 mg PO TID PRN 08/27/19 05/30/21 lutein 20 mg tablet 25 mg PO DAILY 08/27/19 05/30/21 mirtazapine 45 mg tablet 45 mg PO BEDTIME 08/27/19 05/30/21 morphine 30 mg immediate release 30 mg PO BID 08/27/19 05/30/21 tablet multivitamin 1 tab PO DAILY 08/27/19 05/30/21 nortriptyline 75 mg capsule 75 mg PO BEDTIME 08/27/19 05/30/21 simvastatin 10 mg tablet 10 mg PO BEDTIME 08/27/19 05/30/21 tizanidine 2 mg tablet 1 - 2 mg PO BID-TID PRN 08/27/19 05/30/21 vit C 50 mg-E 15 unit-zinc cit 4.5 2 tab PO DAILY 08/27/19 05/30/21 mg-lutein 2.5 mg-zeaxan chew tablet (Ocuvite [facility]) quetiapine 300 mg tablet 300 mg PO DAILY 04/19/20 05/30/21 morphine 30 mg tablet,extended tab PO 05/30/21 05/30/21 release Previous Rx's Medication Instructions Recorded docusate sodium 100 mg capsule 100 mg PO BID #40 cap 05/06/20 (DOK) cephalexin 500 mg capsule 500 mg PO QID 5 Days #20 cap 11/27/21 Allergies Allergy/AdvReac Type Severity Reaction Status Date / Time gabapentin AdvReac Severe Lethargy Verified 05/30/21 13:05 Review of Systems Review of Systems ROS Unobtainable: All systems reviewed & are unremarkable except as noted in HPI and below Patient History Medical History Avascular necrosis of bone of hip Cervical facet joint syndrome Cervical neck pain with evidence of disc disease Cervical spondylosis Chronic low back pain Degenerative joint disease of right hip Depression Fibromyalgia HLD (hyperlipidemia) Seasonal allergies Spinal stenosis in cervical region Thoracic kyphosis Surgical History H/O shoulder surgery History of appendectomy History of hysterectomy History of right knee surgery History of tonsillectomy History of total left hip arthroplasty (09/22/19) Family History Mother Stroke Sister Cancer Diabetes mellitus Gout Social History marital status: household members: spouse Smoking Status: Never smoker alcohol intake: former Smoking Status: Never smoker Substance Use Type: does not use Exam Narrative Exam Narrative: GENERAL: Alert and oriented, elderly female in mild distress. HEENT: Head normocephalic, atraumatic, EOMI, pupils reactive, face symmetric, moist mucous membranes NECK: Supple, full range of motion CARDIOVASCULAR: Regular rate and rhythm without murmurs, rubs or gallops. RESPIRATORY: Breath sounds equal bilaterally, no wheezes rales or rhonchi. ABDOMEN: Soft, nontender. Normoactive bowel sounds all 4 quadrants. No guarding or rebound, rigidity, no mass EXTREMITIES: Normal range of motion, no clubbing or edema. Neurovascularly intact. Patient has a laceration just proximal to the nail with the proximal edge of the nail protruding thru the skin. The nail actually appears intact itself and well attached to the rest of the tissue. It does appear deep and is gapped. Patient has quite a bit of swelling, there is ecchymosis. No subungual hematoma is appreciated. Patient is able to flex as well as extend the finger. She has sensation to light touch. Cap refill is present. No other lacerations, bruising or bony tenderness throughout the finger or hand. 2+ radial pulse. NEUROLOGICAL: Cranial nerves II through XII grossly intact. Moving all extremities SKIN: Warm, dry, no petechiae, no rashes or lesions other than noted above. Initial Vital Signs Initial Vital Signs: Vital Signs Temperature 98.0 F 11/27/21 07:16 Pulse Rate 83 11/27/21 07:16 Respiratory Rate 18 11/27/21 07:16 Blood Pressure 158/73 H 11/27/21 07:16 Pulse Oximetry 98 11/27/21 07:16 Procedures Laceration Repair Laceration 1: Time of procedure: 09:01 Site: hand (5th finger) Side (If applicable): left Size (cm): 1.5 Description: flap, irregular and clean Depth: simple, single layer Local Anesthetic: lidocaine 1% (digital block) Amount of anesthesia used (mL): 3 Pre-repair: wound explored and irrigated extensively Skin layer closed with: nylon Skin layer suture size: 4-0 Number of sutures: 4 Technique: simple, interrupted (nail sutured to skin) Nerve Block Nerve Block 1: Time of procedure: 09:01 Time out performed: Yes Local Anesthetic: lidocaine 1% and with bicarb Amount of anesthesia used (mL): 3 Side: left Nerve Blocks: digital Procedure Successful: Yes Patient Tolerated Procedure: Well Complications: none Course Orders Ordered: Discontinued Medications Cephalexin HCl (Cephalexin 250 Mg Capsule) 500 mg PO NOW ONE Stop: 11/27/21 08:13 Last Admin: 11/27/21 08:16 Dose: 500 mg Documented by: CAREYONER Lidocaine/Sodium Bicarbonate (Lido 1%/Sod Bicarb 8.4% (10ml) 10 Ml Syringe) 10 ml INJ NOW ONE Stop: 11/27/21 07:29 Last Admin: 11/27/21 08:16 Dose: 10 ml Documented by: BTONER Vital Signs Vital signs: Vital Signs - 8 hr 04/19/22 07:16 Temperature 98.0 F Pulse Rate 83 Respiratory Rate 18 Blood Pressure 158/73 H Pulse Oximetry 98 [facility] - Extremity Injury (Upper) Imaging Data Extremity x-ray #1: Radiologist's Impression: [address] [address] XRay Report Signed Patient: Laurie Murray MR#: [id number] : 1950 Acct:[id number] Age/Sex: 71 / F Date of Service: 11/27/21 Loc: ED Accession Number: [id number] ?? Procedure: XR finger LT min 2V Ordering Provider: Regina Reis D.O. PROCEDURE:? XR FINGER LT MIN 2V ? INDICATIONS:? distal 5th finger closed in car door. ? TECHNIQUE:? AP hand, 2 views of the right 5th finger(s) acquired.? ? COMPARISON:? None. ? FINDINGS:? ? Bones:? Nondisplaced fracture of the 5th distal phalange. ? Soft tissues:? No suspicious soft tissue calcifications.? ? IMPRESSION:? Nondisplaced 5th distal phalange fracture. ? ? Dictated by: Sharon Vargas MD, PhD on 11/27/2021 at 7:52 ? ? Approved by: Sharon Vargas MD, PhD on 11/27/2021 at 7:53?? [facility] Narrative Medical decision making narrative: This is a 71-year-old female who comes emergency department after slamming her hand at the door. She has a laceration just proximal to the nail with the very edge of the nail protruding. The nail itself otherwise appears intact. Discussed with patient she may very well lose the nail but at this time and is well attached to the underlying tissue and would leave it in place. She does have a tangela fracture. Patient is neurologically intact. Technically this is an open fracture so started on oral Keflex with 1st dose given here. Verbal consent was obtained digital block was performed and the nail was sutured to the soft tissue in order to approximate the edge with 4 sutures. Wound care directions were discussed as well as given to patient. She has multiple options for pain medication at home and tolerated the procedure well. Discharge Plan Departure Patient Disposition: Home Clinical Impression: Open fracture of tuft of distal phalanx of finger Instructions: DI for Laceration Repair -- Finger Activity Restrictions/Additional Instructions: Follow-up with your physician or orthopedic surgery for recheck this week. Follow-up in the next 7-10 days to have your sutures removed. You may take Tylenol up to a 1000 mg every 6 hours as needed in addition to your regular pain medicine. Take antibiotics until completely gone. Prescription sent to [facility] in [place] Elevated affected body part to decrease swelling. Wound Care: Keep wound(s) clean and dry. Wash daily with soap and water only. Do not use over the counter products (alcohol or peroxide)on the wounds unless instructed by a physician, you can use a triple antibiotic ointment over the laceration. If wound condition worsens (increased/expanding redness, developing fluid blisters, or worsening pain), either contact your doctor for an urgent re-assessment , or return to the Emergency Department. Return to the Emergency Department for any new or worsening symptoms. Return to the ED, urgent care, or visit a primary care doctor for removal or suture in 7-10 days. Return if fever greater than 100.4 Fahrenheit, increased swelling, increasing pain or worsening symptoms such as increased discharge or spreading redness. If you develop worsening pain, numbness, tingling, discoloration of the affected body part, loosen the splint by loosening the KAY wrap, and either see your doctor for an urgent re-assessment, or return to the Emergency Department. Return to the Emergency Department for any new or worsening symptoms. Prescriptions: New cephalexin 500 mg capsule 500 mg PO QID 5 Days Qty: 20 0RF No Action quetiapine 300 mg Tablet 300 mg PO DAILY 0RF docusate sodium [DOK] 100 mg Capsule 100 mg PO BID Qty: 40 0RF multivitamin Tablet 1 tab PO DAILY 0RF lorazepam 0.5 mg Tablet 0.5 mg PO TID PRN (Reason: Anxiety) 0RF nortriptyline 75 mg Capsule 75 mg PO BEDTIME 0RF ergocalciferol (vitamin D2) [Vitamin D2] 50,000 unit Capsule 50,000 unit PO WEEKLY 0RF Label Comments: takes on Friday lutein 20 mg Tablet 25 mg PO DAILY 0RF Oc[facility] 50 mg-15 unit- 4.5 mg-2.5 mg Tablet,Chewable 2 tab PO DAILY 0RF tizanidine 2 mg Tablet 1 - 2 mg PO BID-TID PRN (Reason: Muscle Relaxer) 0RF simvastatin 10 mg Tablet 10 mg PO BEDTIME 0RF morphine 30 mg Tablet 30 mg PO BID 0RF mirtazapine 45 mg Tablet 45 mg PO BEDTIME 0RF oxymorphone 5 mg tablet 5 mg PO SEEINSTR PRN (Reason: pain) 0RF Rx Instructions: 4-5 x/day as needed for pain Excedrin Migraine 250-250-65 mg tablet 1 tab PO Q4-6H PRN (Reason: pain) 0RF morphine 30 mg tablet extended release PO 0RF Referrals: Mila Elizabeth MD [Primary Care Provider] - Osmin Isabel MD [Physician] -
--- NOTE | 2021-11-27 07:15 | DI.RAD.S_ITS ---
PROCEDURE: XR FINGER LT MIN 2V INDICATIONS: distal 5th finger closed in car door. TECHNIQUE: AP hand, 2 views of the right 5th finger(s) acquired. COMPARISON: None. FINDINGS: Bones: Nondisplaced fracture of the 5th distal phalange. Soft tissues: No suspicious soft tissue calcifications. IMPRESSION: Nondisplaced 5th distal phalange fracture. Dictated by: Sharon Vargas MD, PhD on 11/27/2021 at 7:52 Approved by: Sharon Vargas MD, PhD on 11/27/2021 at 7:53
[2021-11-27 07:16] VITALS: BP 158/73; PULSE 83; RESP 18; TEMP 36.7; O2SAT 98; BMI 21.9
[2021-11-27] MEDS: LIDO 1%/SOD BICARB 8.4% (10ML) 10 ML SYRINGE INJ (08:16)
[2021-11-27] MEDS: cephALEXin 250 MG CAPSULE 500 MG PO (08:16)
[2021-11-27 09:18] VITALS: BP 138/66; PULSE 73; RESP 18; O2SAT 97
== END 2021-11-27 09:18 | disposition home or self-care (01) ==
PROVIDERS: Emergency Provider Emergency Medicine; Family Provider Family Medicine; PCP Family Medicine
DX: S62.637B Displaced fracture of distal phalanx of left little finger, initial encounter for open fracture (principal); W23.0XXA Caught, crushed, jammed, or pinched between moving objects, initial encounter
CPT/HCPCS: 12001; 64450; 73140; 99283

== ENCOUNTER 2022-04-10 16:11 | Emergency (ER) | payer MEDICARE, OTHER, SELFPAY ==
[2020-05-03 10:55] VITALS: BMI 21.6
[2022-04-10] VITALS (17 sets, daily range): BP systolic 105–145; BP diastolic 55–73; PULSE 95–120; RESP 11–28; TEMP 36.9; O2SAT 87–100; BMI 21.9
--- NOTE | 2022-04-10 16:17 | DI.RAD.S_ITS ---
PROCEDURE: XR CHEST 1V INDICATIONS: chest pain TECHNIQUE: One view of the chest was acquired. COMPARISON: [facility], CR, XR CHEST 2 VIEWS, 11/12/2021, 12:37. FINDINGS: Surgical changes and devices: None. Lungs and pleura: No suspicious focal airspace opacity. No pleural effusions or pneumothorax. Mediastinum: Mediastinal contours appear normal. Heart size is normal. Bones and chest wall: No suspicious bony lesions. Overlying soft tissues appear unremarkable. IMPRESSION: No acute cardiopulmonary abnormality. Dictated by: Ghassan Lara M.D. on 04/10/2022 at 16:43 Approved by: Ghassan Lara M.D. on 04/10/2022 at 16:47
[2022-04-10] MEDS: PANTOPRAZOLE 40 MG VIAL IV (16:23)
[2022-04-10] MEDS: METOCLOPRAMIDE 10 MG/2 ML INJ IV (16:23)
--- NOTE | 2022-04-10 16:55 | ED_ITS ---
HPI - GI Bleed <Caroline Ella, DO - Last Filed: 04/11/22 19:28> General Chief complaint: GI Bleed Stated complaint: gi bleed Time Seen by Provider: 04/10/22 16:15 Source: patient and EMS Mode of arrival: EMS History of Present Illness HPI Narrative: The patient is a 71-year-old female who presents with nausea vomiting history of peptic ulcer and bleed. She is a historian but thinks she started throwing up today. She is unsure how many times she has thrown up. She appears pale. EMS reports coffee-ground like emesis. She has some mild wall rib left upper quadrant pain. Denies shortness of breath dizziness or lightheadedness. EMS also reports positive orthostatics in the field of elevated heart rate. She she is not on any anti-platelet or anticoagulation medication. She says that she was taking Excedrin for pain. who was a much better historian states that she has been vomiting for 3 days however today is the worst day and he saw black emesis. Related Data Home Medications Medication Instructions Recorded Confirmed [id number] 250 1 tab PO Q4-6H PRN pain 07/28/19 03/28/22 mg-250 mg-65 mg tablet (Excedrin Migraine) oxymorphone 5 mg tablet 5 mg PO SEEINSTR PRN pain 07/28/19 03/28/22 ergocalciferol (vitamin D2) 1,250 50,000 unit PO WEEKLY 08/27/19 03/28/22 mcg (50,000 unit) capsule (Vitamin D2) lutein 20 mg tablet 25 mg PO DAILY 08/27/19 03/28/22 mirtazapine 45 mg tablet 45 mg PO BEDTIME 08/27/19 03/28/22 morphine 30 mg immediate release 30 mg PO BID 08/27/19 03/28/22 tablet multivitamin 1 tab PO DAILY 08/27/19 03/28/22 nortriptyline 75 mg capsule 75 mg PO BEDTIME 08/27/19 03/28/22 simvastatin 10 mg tablet 10 mg PO BEDTIME 08/27/19 03/28/22 tizanidine 2 mg tablet 1 - 2 mg PO BID-TID PRN Muscle 08/27/19 03/28/22 Relaxer vit C 50 mg-E 15 unit-zinc cit 4.5 2 tab PO DAILY 08/27/19 03/28/22 mg-lutein 2.5 mg-zeaxan chew tablet (make[facility].ws) quetiapine 300 mg tablet 300 mg PO DAILY Depression 04/19/20 03/28/22 hydroxyzine pamoate 25 mg capsule 25 mg PO BEDTIME 03/28/22 03/28/22 pregabalin 50 mg capsule 50 mg PO BID 03/28/22 03/28/22 Previous Rx's Medication Instructions Recorded celecoxib 200 mg capsule (Celebrex) 200 mg PO DAILY #30 caps 03/28/22 Allergies Allergy/AdvReac Type Severity Reaction Status Date / Time gabapentin AdvReac Severe Lethargy Verified 03/28/22 08:12 Review of Systems <Caroline Jaramillo DO - Last Filed: 04/11/22 19:28> Review of Systems ROS Unobtainable: All systems reviewed & are unremarkable except as noted in HPI and below Gastrointestinal Gastrointestinal: Reports as per HPI and Denies abdominal pain Patient History <Caroline Jaramillo DO - Last Filed: 04/11/22 19:28> Medical History Avascular necrosis of bone of hip Cervical facet joint syndrome Cervical neck pain with evidence of disc disease Cervical spondylosis Chronic low back pain Degenerative joint disease of right hip Depression Fibromyalgia HLD (hyperlipidemia) Seasonal allergies Spinal stenosis in cervical region Thoracic kyphosis Surgical History H/O shoulder surgery History of appendectomy History of hysterectomy History of right knee surgery History of tonsillectomy History of total left hip arthroplasty (09/22/19) Family History Mother Stroke Sister Cancer Diabetes mellitus Gout Social History marital status: household members: spouse Smoking Status: Never smoker alcohol intake: former Smoking Status: Never smoker Substance Use Type: does not use Exam <Caroline Jaramillo DO - Last Filed: 04/11/22 19:28> Initial Vital Signs Initial Vital Signs: Vital Signs Temperature 98.5 F 04/10/22 16:12 Pulse Rate 95 H 04/10/22 16:12 Respiratory Rate 26 H 04/10/22 16:12 Blood Pressure 135/73 04/10/22 16:12 Pulse Oximetry 98 04/10/22 16:12 Oxygen Delivery Method 04/10/22 16:12 GENERAL: Alert pleasant slightly pale 71-year-old female HEENT: Head atraumatic,EOMI, pupils reactive, face symmetric, moist mucous membranes CARDIOVASCULAR: Regular rate and rhythm without murmurs, rubs or gallops. RESPIRATORY: Breath sounds equal bilaterally, no wheezes rales or rhonchi. ABDOMEN: Soft, nontender. Normoactive bowel sounds all 4 quadrants. No guarding or rebound. EXTREMITIES: Normal range of motion, no clubbing or edema. Neurovascularly intact NEUROLOGICAL: Alert and oriented x2 SKIN: Warm, dry, no laceration, no petechiae, no rashes or lesions. <Jakob Le DO - Last Filed: 04/12/22 03:37> Initial Vital Signs Initial Vital Signs: Vital Signs Temperature 98.5 F 04/10/22 16:12 Pulse Rate 95 H 04/10/22 16:12 Respiratory Rate 26 H 04/10/22 16:12 Blood Pressure 135/73 04/10/22 16:12 Pulse Oximetry 98 04/10/22 16:12 Oxygen Delivery Method 04/10/22 16:12 Course <Caroline Jaramillo DO - Last Filed: 04/11/22 19:28> Orders Ordered: Discontinued Medications POTASSIUM CHLORIDE IN WATER (Potassium Cl 10 Meq/100 Ml Jodie) 10 meq in 100 mls @ 100 mls/hr IV Q1H YAHIR Stop: 04/10/22 22:44 Last Infusion: 04/11/22 00:30 Dose: 100 mls/hr Documented By: Admin: 04/10/22 22:51 Dose: 100 mls/hr Documented By: Infusion: 04/10/22 22:51 Dose: 100 mls/hr Documented By: Admin: 04/10/22 21:56 Dose: 100 mls/hr Documented By: Infusion: 04/10/22 21:54 Dose: 100 mls/hr Documented By: Admin: 04/10/22 20:54 Dose: 100 mls/hr Documented By: Infusion: 04/10/22 20:23 Dose: 100 mls/hr Documented By: Admin: 04/10/22 19:23 Dose: 100 mls/hr Documented By: STEVEN Sodium Chloride (Normal Saline 0.9%) 1,000 mls @ 150 mls/hr IV CONT YAHIR Last Infusion: 04/11/22 07:52 Dose: 0 mls/hr Documented By: Admin: 04/10/22 20:20 Dose: 150 mls/hr Documented By: STEVEN Acetaminophen (Ofirmev) 1,000 mg in 100 mls @ 400 mls/hr IV NOW ONE Stop: 04/11/22 04:53 Last Infusion: 04/11/22 05:15 Dose: 0 mls/hr Documented By: Admin: 04/11/22 04:54 Dose: 400 mls/hr Documented By: JON Lorazepam (Lorazepam 2 Mg/Ml Inj) 0.5 mg IV NOW ONE Stop: 04/11/22 07:58 Last Admin: 04/11/22 08:07 Dose: 0.5 mg Documented By: DIGNA Metoclopramide HCl (Metoclopramide 10 Mg/2 Ml Inj) 10 mg IV NOW ONE Stop: 04/10/22 16:18 Last Admin: 04/10/22 16:23 Dose: 10 mg Documented By: STEVEN Morphine Sulfate (Morphine 2 Mg/Ml Inj) 2 mg IV NOW ONE Stop: 04/10/22 20:07 Last Admin: 04/10/22 20:19 Dose: 2 mg Documented By: STEVEN Morphine Sulfate (Morphine 2 Mg/Ml Inj) 2 mg IV NOW ONE Stop: 04/11/22 07:40 Last Admin: 04/11/22 07:52 Dose: 2 mg Documented By: DIGNA Morphine Sulfate (Morphine 2 Mg/Ml Inj) 2 mg IV Q4HR PRN PRN Reason: Pain, Moderate (4-6) Last Admin: 04/11/22 14:44 Dose: 2 mg Documented By: DIGNA Ondansetron HCl (Ondansetron 4 Mg/2 Ml Inj) 4 mg IV NOW ONE Stop: 04/11/22 07:41 Last Admin: 04/11/22 07:52 Dose: 4 mg Documented By: DIGNA Pantoprazole Sodium (Pantoprazole 40 Mg Vial) 40 mg IV NOW ONE Stop: 04/10/22 16:18 Last Admin: 04/10/22 16:23 Dose: 40 mg Documented By: STEVEN Pantoprazole Sodium (Pantoprazole 40 Mg Vial) 40 mg IV NOW ONE Stop: 04/11/22 07:41 Last Admin: 04/11/22 07:51 Dose: 40 mg Documented By: DIGNA Pantoprazole Sodium (Pantoprazole 40 Mg Vial) 40 mg IV BID [facility] Last Admin: 04/11/22 09:12 Dose: 40 mg Documented By: MANOHAR Vital Signs Vital signs: Vital Signs - 8 hr 04/11/22 11:30 04/11/22 11:30 04/11/22 11:45 Pulse Rate 96 H 101 H Respiratory Rate 21 12 Blood Pressure 119/61 Pulse Oximetry 99 99 04/11/22 11:45 04/11/22 12:00 04/11/22 12:00 Pulse Rate 100 H Respiratory Rate 15 Blood Pressure 137/69 152/73 H Pulse Oximetry 99 04/11/22 12:19 04/11/22 12:19 04/11/22 12:30 Pulse Rate 105 H Respiratory Rate 29 H Blood Pressure 141/74 H 141/77 H Pulse Oximetry 100 04/11/22 12:30 04/11/22 13:00 04/11/22 13:30 Pulse Rate 105 H 102 H 99 H Respiratory Rate 30 H 32 H 17 Blood Pressure Pulse Oximetry 98 98 96 <Jakob Le, - Last Filed: 04/12/22 03:37> Orders Ordered: Discontinued Medications POTASSIUM CHLORIDE IN WATER (Potassium Cl 10 Meq/100 Ml Jodie) 10 meq in 100 mls @ 100 mls/hr IV Q1H [facility] Stop: 04/10/22 22:44 Last Infusion: 04/11/22 00:30 Dose: 100 mls/hr Documented By: Admin: 04/10/22 22:51 Dose: 100 mls/hr Documented By: Infusion: 04/10/22 22:51 Dose: 100 mls/hr Documented By: Admin: 04/10/22 21:56 Dose: 100 mls/hr Documented By: Infusion: 04/10/22 21:54 Dose: 100 mls/hr Documented By: Admin: 04/10/22 20:54 Dose: 100 mls/hr Documented By: Infusion: 04/10/22 20:23 Dose: 100 mls/hr Documented By: Admin: 04/10/22 19:23 Dose: 100 mls/hr Documented By: STEVEN Sodium Chloride (Normal Saline 0.9%) 1,000 mls @ 150 mls/hr IV CONT YAHIR Last Infusion: 04/11/22 07:52 Dose: 0 mls/hr Documented By: Admin: 04/10/22 20:20 Dose: 150 mls/hr Documented By: STEVEN Acetaminophen (Ofirmev) 1,000 mg in 100 mls @ 400 mls/hr IV NOW ONE Stop: 04/11/22 04:53 Last Infusion: 04/11/22 05:15 Dose: 0 mls/hr Documented By: Admin: 04/11/22 04:54 Dose: 400 mls/hr Documented By: JON Lorazepam (Lorazepam 2 Mg/Ml Inj) 0.5 mg IV NOW ONE Stop: 04/11/22 07:58 Last Admin: 04/11/22 08:07 Dose: 0.5 mg Documented By: DIGNA Metoclopramide HCl (Metoclopramide 10 Mg/2 Ml Inj) 10 mg IV NOW ONE Stop: 04/10/22 16:18 Last Admin: 04/10/22 16:23 Dose: 10 mg Documented By: STEVEN Morphine Sulfate (Morphine 2 Mg/Ml Inj) 2 mg IV NOW ONE Stop: 04/10/22 20:07 Last Admin: 04/10/22 20:19 Dose: 2 mg Documented By: STEVEN Morphine Sulfate (Morphine 2 Mg/Ml Inj) 2 mg IV NOW ONE Stop: 04/11/22 07:40 Last Admin: 04/11/22 07:52 Dose: 2 mg Documented By: DIGNA Morphine Sulfate (Morphine 2 Mg/Ml Inj) 2 mg IV Q4HR PRN PRN Reason: Pain, Moderate (4-6) Last Admin: 04/11/22 14:44 Dose: 2 mg Documented By: DIGNA Ondansetron HCl (Ondansetron 4 Mg/2 Ml Inj) 4 mg IV NOW ONE Stop: 04/11/22 07:41 Last Admin: 04/11/22 07:52 Dose: 4 mg Documented By: DIGNA Pantoprazole Sodium (Pantoprazole 40 Mg Vial) 40 mg IV NOW ONE Stop: 04/10/22 16:18 Last Admin: 04/10/22 16:23 Dose: 40 mg Documented By: STEVEN Pantoprazole Sodium (Pantoprazole 40 Mg Vial) 40 mg IV NOW ONE Stop: 04/11/22 07:41 Last Admin: 04/11/22 07:51 Dose: 40 mg Documented By: DIGNA Pantoprazole Sodium (Pantoprazole 40 Mg Vial) 40 mg IV BID YAHIR Last Admin: 04/11/22 09:12 Dose: 40 mg Documented By: AMU Reevaluation(s) Reevaluation #1: 0115 -patient temperature prior to transfusion was 97.4, after 10-15 minutes of transfusion a repeat temperature was noted to be 100.2. Blood pressure remained stable patient denies any chest pain, shortness of breath nor dizziness, lightheadedness or other. She is completely asymptomatic. Transfusion stopped, after a few minutes temperature repeated and found to be 99.2. Blood bank contacted. Consultations Consultation #1: Dr. Taylor ( Hospitalist) accepts patient, requests call back after blood is transfused with new H/H Consultation #2: Dr. Mcmullen (pathologist) has called back regarding her assessment of the possible transfusion reaction. There are no significant abnormalities noted on their evaluation and she suggest this is most likely afebrile non hemolytic reaction and patient may be transfused, she recommends administering an antipyretic head of time and perhaps transfusing a bit more slowly this time Vital Signs Vital signs: Vital Signs - 8 hr 04/11/22 11:30 04/11/22 11:30 04/11/22 11:45 Pulse Rate 96 H 101 H Respiratory Rate 21 12 Blood Pressure 119/61 Pulse Oximetry 99 99 04/11/22 11:45 04/11/22 12:00 04/11/22 12:00 Pulse Rate 100 H Respiratory Rate 15 Blood Pressure 137/69 152/73 H Pulse Oximetry 99 04/11/22 12:19 04/11/22 12:19 04/11/22 12:30 Pulse Rate 105 H Respiratory Rate 29 H Blood Pressure 141/74 H 141/77 H Pulse Oximetry 100 04/11/22 12:30 04/11/22 13:00 04/11/22 13:30 Pulse Rate 105 H 102 H 99 H Respiratory Rate 30 H 32 H 17 Blood Pressure Pulse Oximetry 98 98 96 MDM - GI Bleed <Caroline Jaramillo DO - Last Filed: 04/11/22 19:28> Lab Data Result diagrams: 04/11/22 11:43 04/11/22 00:12 Labs: Lab Results 04/10/22 04/10/22 04/10/22 Range/Units 16:58 16:58 16:58 WBC 10.3 (4.5-11.0) X10^3/uL RBC 3.86 L (4.0-5.2) X10^6/uL Hgb 10.0 L (12.0-16.0) g/dL Hct 30.5 L (36-46) % MCV 79.0 L (80-100) fL MCH 25.9 L (26-34) PG MCHC 32.8 (30-36) % RDW 16.6 H (11.6-14.8) % Plt Count 220 (150-400) X10^3/uL Neut % (Auto) 91.6 H (50-75) % Lymph % (Auto) 5.0 L (25-40) % [place] % (Auto) 3.3 (3-14) % Eos % (Auto) 0.0 L (2-4) % Baso % (Auto) 0.1 (0-2) % Neut # (Auto) 9400 H (9054-2877) /uL Lymph # (Auto) 500 L (8285-1974) /uL [place] # (Auto) 300 (0-900) /uL Eos # (Auto) 0 (0-450) /uL Baso # (Auto) 0 (0-100) /uL PT 12.2 (10.1-12.7) SECONDS INR 1.1 (0.9-1.3) APTT 26 (26-36) SECONDS Sodium 142 (137-145) mmol/L Potassium 2.7 L* (3.4-5.1) mmol/L Chloride 88 L (98-107) mmol/L Carbon Dioxide 46 H* (22-32) mmol/L BUN 22 H (7-17) mg/dL Creatinine 1.26 H (0.52-1.04) mg/dL Estimated GFR 45 L (>60) mL/min BUN/Creatinine Ratio 17.5 (6-22) Glucose 153 H (80-110) mg/dL Lactate (0.7-2.1) mmol/L Calcium 9.9 (8.4-10.2) mg/dL Magnesium (1.6-2.3) mg/dL Total Bilirubin 0.3 (0.2-1.3) mg/dL AST 38 H (14-36) IU/L ALT 21 (<35) IU/L Alkaline Phosphatase 71 (38-126) U/L Total Creatine Kinase 70 (30-135) U/L CK-MB (CK-2) TNP CK-MB (CK-2) Rel Index TNP Troponin I 0.026 (0.01-0.034) ng/mL Total Protein 7.0 (6.3-8.2) g/dL Albumin 4.1 (3.5-5.0) g/dL Globulin 2.9 (1.7-4.1) g/dL Albumin/Globulin Ratio 1.4 (1.0-2.8) Lipase 36 (23-300) U/L SARS-CoV-2 (PCR) (Negative) Blood Type Antibody Screen Crossmatch Transfusion React Rpt Donor Unit # Lab Clerical Err Check Pre-Trans Blood Type Pre-Trans Vis Hemolysis Pre-Trans Antibody Scrn Post-Trans Blood Type Post-Tx Visible Hemolys Post-Trans Antibody Scrn Reaction Path Interpret 04/10/22 04/10/22 04/10/22 Range/Units 16:58 17:30 17:31 WBC (4.5-11.0) X10^3/uL RBC (4.0-5.2) X10^6/uL Hgb (12.0-16.0) g/dL Hct (36-46) % MCV (80-100) fL MCH (26-34) PG MCHC (30-36) % RDW (11.6-14.8) % Plt Count (150-400) X10^3/uL Neut % (Auto) (50-75) % Lymph % (Auto) (25-40) % [place] % (Auto) (3-14) % Eos % (Auto) (2-4) % Baso % (Auto) (0-2) % Neut # (Auto) (6745-0010) /uL Lymph # (Auto) (6759-5773) /uL [place] # (Auto) (0-900) /uL Eos # (Auto) (0-450) /uL Baso # (Auto) (0-100) /uL PT (10.1-12.7) SECONDS INR (0.9-1.3) APTT (26-36) SECONDS Sodium (137-145) mmol/L Potassium (3.4-5.1) mmol/L Chloride (98-107) mmol/L Carbon Dioxide (22-32) mmol/L BUN (7-17) mg/dL Creatinine (0.52-1.04) mg/dL Estimated GFR (>60) mL/min BUN/Creatinine Ratio (6-22) Glucose (80-110) mg/dL Lactate 2.6 H (0.7-2.1) mmol/L Calcium (8.4-10.2) mg/dL Magnesium 2.1 (1.6-2.3) mg/dL Total Bilirubin (0.2-1.3) mg/dL AST (14-36) IU/L ALT (<35) IU/L Alkaline Phosphatase (38-126) U/L Total Creatine Kinase (30-135) U/L CK-MB (CK-2) CK-MB (CK-2) Rel Index Troponin I (0.01-0.034) ng/mL Total Protein (6.3-8.2) g/dL Albumin (3.5-5.0) g/dL Globulin (1.7-4.1) g/dL Albumin/Globulin Ratio (1.0-2.8) Lipase (23-300) U/L SARS-CoV-2 (PCR) (Negative) Blood Type O Positive Antibody Screen Negative Crossmatch See Detail Transfusion React Rpt Donor Unit # Lab Clerical Err Check Pre-Trans Blood Type Pre-Trans Vis Hemolysis Pre-Trans Antibody Scrn Post-Trans Blood Type Post-Tx Visible Hemolys Post-Trans Antibody Scrn Reaction Path Interpret 04/10/22 04/10/22 04/10/22 Range/Units 20:15 20:57 21:33 WBC (4.5-11.0) X10^3/uL RBC (4.0-5.2) X10^6/uL Hgb 8.1 L (12.0-16.0) g/dL Hct 24.8 L (36-46) % MCV (80-100) fL MCH (26-34) PG MCHC (30-36) % RDW (11.6-14.8) % Plt Count (150-400) X10^3/uL Neut % (Auto) (50-75) % Lymph % (Auto) (25-40) % [place] % (Auto) (3-14) % Eos % (Auto) (2-4) % Baso % (Auto) (0-2) % Neut # (Auto) (1915-1738) /uL Lymph # (Auto) (1718-0442) /uL [place] # (Auto) (0-900) /uL Eos # (Auto) (0-450) /uL Baso # (Auto) (0-100) /uL PT (10.1-12.7) SECONDS INR (0.9-1.3) APTT (26-36) SECONDS Sodium (137-145) mmol/L Potassium (3.4-5.1) mmol/L Chloride (98-107) mmol/L Carbon Dioxide (22-32) mmol/L BUN (7-17) mg/dL Creatinine (0.52-1.04) mg/dL Estimated GFR (>60) mL/min BUN/Creatinine Ratio (6-22) Glucose (80-110) mg/dL Lactate 1.6 (0.7-2.1) mmol/L Calcium (8.4-10.2) mg/dL Magnesium (1.6-2.3) mg/dL Total Bilirubin (0.2-1.3) mg/dL AST (14-36) IU/L ALT (<35) IU/L Alkaline Phosphatase (38-126) U/L Total Creatine Kinase (30-135) U/L CK-MB (CK-2) CK-MB (CK-2) Rel Index Troponin I (0.01-0.034) ng/mL Total Protein (6.3-8.2) g/dL Albumin (3.5-5.0) g/dL Globulin (1.7-4.1) g/dL Albumin/Globulin Ratio (1.0-2.8) Lipase (23-300) U/L SARS-CoV-2 (PCR) Negative (Negative) Blood Type Antibody Screen Crossmatch Transfusion React Rpt Donor Unit # Lab Clerical Err Check Pre-Trans Blood Type Pre-Trans Vis Hemolysis Pre-Trans Antibody Scrn Post-Trans Blood Type Post-Tx Visible Hemolys Post-Trans Antibody Scrn Reaction Path Interpret 0904/11/22 04/11/22 Range/Units 00:12 00:12 01:47 WBC (4.5-11.0) X10^3/uL RBC (4.0-5.2) X10^6/uL Hgb 6.7 L* (12.0-16.0) g/dL Hct 20.5 L* (36-46) % MCV (80-100) fL MCH (26-34) PG MCHC (30-36) % RDW (11.6-14.8) % Plt Count (150-400) X10^3/uL Neut % (Auto) (50-75) % Lymph % (Auto) (25-40) % [place] % (Auto) (3-14) % Eos % (Auto) (2-4) % Baso % (Auto) (0-2) % Neut # (Auto) (3624-8356) /uL Lymph # (Auto) (4631-4921) /uL [place] # (Auto) (0-900) /uL Eos # (Auto) (0-450) /uL Baso # (Auto) (0-100) /uL PT (10.1-12.7) SECONDS INR (0.9-1.3) APTT (26-36) SECONDS Sodium 141 (137-145) mmol/L Potassium 3.6 (3.4-5.1) mmol/L Chloride 96 L (98-107) mmol/L Carbon Dioxide 38 H (22-32) mmol/L BUN 42 H (7-17) mg/dL Creatinine 0.96 (0.52-1.04) mg/dL Estimated GFR > 60 (>60) mL/min BUN/Creatinine Ratio 43.8 H (6-22) Glucose 142 H (80-110) mg/dL Lactate (0.7-2.1) mmol/L Calcium 9.1 (8.4-10.2) mg/dL Magnesium (1.6-2.3) mg/dL Total Bilirubin (0.2-1.3) mg/dL AST (14-36) IU/L ALT (<35) IU/L Alkaline Phosphatase (38-126) U/L Total Creatine Kinase (30-135) U/L CK-MB (CK-2) CK-MB (CK-2) Rel Index Troponin I (0.01-0.034) ng/mL Total Protein (6.3-8.2) g/dL Albumin (3.5-5.0) g/dL Globulin (1.7-4.1) g/dL Albumin/Globulin Ratio (1.0-2.8) Lipase (23-300) U/L SARS-CoV-2 (PCR) (Negative) Blood Type Antibody Screen Crossmatch Transfusion React Rpt No discrepancies Donor Unit # [id number] Lab Clerical Err Check No error found Pre-Trans Blood Type Not Reportable Pre-Trans Vis Hemolysis No Pre-Trans Antibody Scrn Not Reportable Post-Trans Blood Type O positive Post-Tx Visible Hemolys No Post-Trans Antibody Scrn Not Reportable Reaction Path Interpret 04/11/22 Range/Units 11:43 WBC (4.5-11.0) X10^3/uL RBC (4.0-5.2) X10^6/uL Hgb 9.2 L (12.0-16.0) g/dL Hct 27.5 L (36-46) % MCV (80-100) fL MCH (26-34) PG MCHC (30-36) % RDW (11.6-14.8) % Plt Count (150-400) X10^3/uL Neut % (Auto) (50-75) % Lymph % (Auto) (25-40) % [place] % (Auto) (3-14) % Eos % (Auto) (2-4) % Baso % (Auto) (0-2) % Neut # (Auto) (6350-4656) /uL Lymph # (Auto) (9266-2334) /uL [place] # (Auto) (0-900) /uL Eos # (Auto) (0-450) /uL Baso # (Auto) (0-100) /uL PT (10.1-12.7) SECONDS INR (0.9-1.3) APTT (26-36) SECONDS Sodium (137-145) mmol/L Potassium (3.4-5.1) mmol/L Chloride (98-107) mmol/L Carbon Dioxide (22-32) mmol/L BUN (7-17) mg/dL Creatinine (0.52-1.04) mg/dL Estimated GFR (>60) mL/min BUN/Creatinine Ratio (6-22) Glucose (80-110) mg/dL Lactate (0.7-2.1) mmol/L Calcium (8.4-10.2) mg/dL Magnesium (1.6-2.3) mg/dL Total Bilirubin (0.2-1.3) mg/dL AST (14-36) IU/L ALT (<35) IU/L Alkaline Phosphatase (38-126) U/L Total Creatine Kinase (30-135) U/L CK-MB (CK-2) CK-MB (CK-2) Rel Index Troponin I (0.01-0.034) ng/mL Total Protein (6.3-8.2) g/dL Albumin (3.5-5.0) g/dL Globulin (1.7-4.1) g/dL Albumin/Globulin Ratio (1.0-2.8) Lipase (23-300) U/L SARS-CoV-2 (PCR) (Negative) Blood Type Antibody Screen Crossmatch Transfusion React Rpt Donor Unit # Lab Clerical Err Check Pre-Trans Blood Type Pre-Trans Vis Hemolysis Pre-Trans Antibody Scrn Post-Trans Blood Type Post-Tx Visible Hemolys Post-Trans Antibody Scrn Reaction Path Interpret Imaging Data CT scan - abdomen/pelvis: Radiologist's Impression: ent: Laurie Murray MR#: [id number] : 1950 Acct:[id number] Age/Sex: 71 / F Date of Service: 04/10/22 Loc: ED Accession Number: [id number] ?? Procedure: CT abdomen pelvis w con Ordering Provider: Caroline Jaramillo D.O. PROCEDURE:? CT ABDOMEN PELVIS W CON ? INDICATIONS:? vomiting ? TECHNIQUE:? After the administration of intravenous contrast, axial sections acquired from the lung bases to the pubic symphysis.? Coronal and sagittal reformats were performed.? For radiation dose reduction, the following was used:? automated exposure control, adjustment of mA and/or kV according to patient size.? ? COMPARISON:? [facility], CT, CT KUB, 09/29/2020, 0:41. ? FINDINGS:? Image quality:? Excellent.? ? Lung bases:? Decreased, 4 mm subpleural nodule within the right posterolateral lung base. Heart:? No significant findings. ? ABDOMEN: Liver:? Unremarkable.? ? Gallbladder:? Within normal limits? ? Biliary ducts:? There is mild intrahepatic biliary ductal dilatation.? Moderate extrahepatic biliary ductal dilatation.? Common hepatic duct measures 21 mm. Pancreas:? Unremarkable.? ? Spleen:? Unremarkable.? ? Adrenal Glands:? Unremarkable.? ? Kidneys and Ureters:? Unremarkable.? ? ? Stomach and Bowel:? There is a moderate hiatal hernia.? There is a 24 mm diameter mass-like density at the gastroesophageal junction.? Moderate gastric dilatation is present.? There is moderate to severe thickening of the gastric antrum.? There is moderate dilatation of the 3rd portion of the duodenum.? 4th portion of the duodenum is decompressed.? Ligament of Treitz is right-sided.? Distal small bowel is nondistended.? Colon is nondistended. Peritoneum:? No abnormal intraperitoneal fluid.? No free air.? ? Ventral Wall: ? No hernias.? Abdominal Nodes:? No retroperitoneal or mesenteric adenopathy by size criteria.? Vessels:? Aorta and inferior vena cava are normal in size.? ? PELVIS: Pelvic Organs:? Unremarkable.? ? Bladder:? Unremarkable.? ? Pelvic Nodes: No enlarged lymph nodes.? Miscellaneous: No hernias are seen. ? ? ? Bones:? Bilateral hip arthroplasty has been performed. ? ? IMPRESSION:? 1. 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 2. Thickening of the gastric antrum associated with gastric outlet obstruction. 3. Moderate distension of the duodenum associated with upper gastrointestinal bowel rotation. 4. Intrahepatic and extrahepatic biliary ductal dilatation.? ? Dictated by: Soto Tomlin M.D. on 04/10/2022 at 19:06? Chest x-ray: Radiologist's Impression: Patient: Laurie Murray MR#: [id number] : 1950 Acct:[id number] Age/Sex: 71 / F Date of Service: 04/10/22 Loc: ED Accession Number: [id number] ?? Procedure: XR chest 1V Ordering Provider: Caroline Jaramillo D.O. PROCEDURE:? XR CHEST 1V ? INDICATIONS:? chest pain ? TECHNIQUE:? One view of the chest was acquired.? ? COMPARISON:? [facility], CR, XR CHEST 2 VIEWS, 11/12/2021, 12:37. ? FINDINGS:? ? Surgical changes and devices:? None.? ? Lungs and pleura:? No suspicious focal airspace opacity.? No pleural effusions or pneumothorax.? ? Mediastinum:? Mediastinal contours appear normal.? Heart size is normal.? ? Bones and chest wall:? No suspicious bony lesions.? Overlying soft tissues appear unremarkable.? ? IMPRESSION:? No acute cardiopulmonary abnormality. ? ? Dictated by: Ghassan Lara M.D. on 04/10/2022 at 16:43 ? ? Approved by: Ghassan Lara M.D. on 04/10/2022 at 16:47 ? ECG Data Interpretation: Normal sinus rhythm rate 96 NJ interval [address] changes no priors to compare MDM Narrative Medical decision making narrative: Patient is vomiting she is found have a potassium of 2.7. Some mild epigastric pain lactic is also elevated. She is given IV fluids Protonix. She is not an emic no evidence of active bleeding. CT actually does show gastroesophageal junctional mass. 1929 Dr. Salvador updated on patient's symptoms and test results. States that if she is a to tolerate oral fluids may be discharged home with outpatient scope he does recommend Dr. Cortes at [facility] for this specific scope but he is happy to do it if needed. 1999 ([place]y) Patient received in sign out from Dr. Jaramillo. I have reviewed the clinical course and performed an independent history and physical exam. Calls to /[facility], [facility], [facility], [facility]. No beds currently. 04/11/22 Ella Patient seen and evaluated this morning. Very confused but awake and alert. Hemoglobin dropped last night received 1 unit of blood and had a blood transfusion reaction likely a febrile non hemolytic reaction. Waiting for 2nd unit of blood. Patient [facility] to [facility] but no bed is available. I spoke with Dr. Tovar this morning about best course of plan for her. He states due to the mass she will likely need an esophagectomy which cannot be done here, encourages patient to be transferred. GENERAL: Confused restless 71-year-old female CARDIOVASCULAR: peripheral pulses in tact, cap refill <2 sec RESPIRATORY: No respiratory distress, speaks in full sentences without diff iculty ABDOMEN: Mild discomfort no distention : Prescott catheter now in place EXTREMITIES: Normal range of motion, no clubbing or edema. Neurovascularly intact NEUROLOGICAL: Cranial nerves II through XII grossly intact. Normal gait and speech. SKIN: Warm, dry, no petechiae, no rashes or lesions. A/P 1. 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 Upper GI bleed -Protonix 40 b.i.d. 3. Hypokalemia secondary to vomiting has been replaced The patient requiring pain medication. H/H has stabilized after transfusion no further transfusion reaction. Dr. Fleming, in accepting position <Jakob Le, DO - Last Filed: 04/12/22 03:37> Lab Data Labs: Lab Results 04/10/22 04/10/22 04/10/22 Range/Units 16:58 16:58 16:58 WBC 10.3 (4.5-11.0) X10^3/uL RBC 3.86 L (4.0-5.2) X10^6/uL Hgb 10.0 L (12.0-16.0) g/dL Hct 30.5 L (36-46) % MCV 79.0 L (80-100) fL MCH 25.9 L (26-34) PG MCHC 32.8 (30-36) % RDW 16.6 H (11.6-14.8) % Plt Count 220 (150-400) X10^3/uL Neut % (Auto) 91.6 H (50-75) % Lymph % (Auto) 5.0 L (25-40) % [place] % (Auto) 3.3 (3-14) % Eos % (Auto) 0.0 L (2-4) % Baso % (Auto) 0.1 (0-2) % Neut # (Auto) 9400 H (8650-3347) /uL Lymph # (Auto) 500 L (1743-4003) /uL [place] # (Auto) 300 (0-900) /uL Eos # (Auto) 0 (0-450) /uL Baso # (Auto) 0 (0-100) /uL PT 12.2 (10.1-12.7) SECONDS INR 1.1 (0.9-1.3) APTT 26 (26-36) SECONDS Sodium 142 (137-145) mmol/L Potassium 2.7 L* (3.4-5.1) mmol/L Chloride 88 L (98-107) mmol/L Carbon Dioxide 46 H* (22-32) mmol/L BUN 22 H (7-17) mg/dL Creatinine 1.26 H (0.52-1.04) mg/dL Estimated GFR 45 L (>60) mL/min BUN/Creatinine Ratio 17.5 (6-22) Glucose 153 H (80-110) mg/dL Lactate (0.7-2.1) mmol/L Calcium 9.9 (8.4-10.2) mg/dL Magnesium (1.6-2.3) mg/dL Total Bilirubin 0.3 (0.2-1.3) mg/dL AST 38 H (14-36) IU/L ALT 21 (<35) IU/L Alkaline Phosphatase 71 (38-126) U/L Total Creatine Kinase 70 (30-135) U/L CK-MB (CK-2) TNP CK-MB (CK-2) Rel Index TNP Troponin I 0.026 (0.01-0.034) ng/mL Total Protein 7.0 (6.3-8.2) g/dL Albumin 4.1 (3.5-5.0) g/dL Globulin 2.9 (1.7-4.1) g/dL Albumin/Globulin Ratio 1.4 (1.0-2.8) Lipase 36 (23-300) U/L SARS-CoV-2 (PCR) (Negative) Blood Type Antibody Screen Crossmatch Transfusion React Rpt Donor Unit # Lab Clerical Err Check Pre-Trans Blood Type Pre-Trans Vis Hemolysis Pre-Trans Antibody Scrn Post-Trans Blood Type Post-Tx Visible Hemolys Post-Trans Antibody Scrn Reaction Path Interpret 04/10/22 04/10/22 04/10/22 Range/Units 16:58 17:30 17:31 WBC (4.5-11.0) X10^3/uL RBC (4.0-5.2) X10^6/uL Hgb (12.0-16.0) g/dL Hct (36-46) % MCV (80-100) fL MCH (26-34) PG MCHC (30-36) % RDW (11.6-14.8) % Plt Count (150-400) X10^3/uL Neut % (Auto) (50-75) % Lymph % (Auto) (25-40) % [place] % (Auto) (3-14) % Eos % (Auto) (2-4) % Baso % (Auto) (0-2) % Neut # (Auto) (5554-5544) /uL Lymph # (Auto) (1913-7719) /uL [place] # (Auto) (0-900) /uL Eos # (Auto) (0-450) /uL Baso # (Auto) (0-100) /uL PT (10.1-12.7) SECONDS INR (0.9-1.3) APTT (26-36) SECONDS Sodium (137-145) mmol/L Potassium (3.4-5.1) mmol/L Chloride (98-107) mmol/L Carbon Dioxide (22-32) mmol/L BUN (7-17) mg/dL Creatinine (0.52-1.04) mg/dL Estimated GFR (>60) mL/min BUN/Creatinine Ratio (6-22) Glucose (80-110) mg/dL Lactate 2.6 H (0.7-2.1) mmol/L Calcium (8.4-10.2) mg/dL Magnesium 2.1 (1.6-2.3) mg/dL Total Bilirubin (0.2-1.3) mg/dL AST (14-36) IU/L ALT (<35) IU/L Alkaline Phosphatase (38-126) U/L Total Creatine Kinase (30-135) U/L CK-MB (CK-2) CK-MB (CK-2) Rel Index Troponin I (0.01-0.034) ng/mL Total Protein (6.3-8.2) g/dL Albumin (3.5-5.0) g/dL Globulin (1.7-4.1) g/dL Albumin/Globulin Ratio (1.0-2.8) Lipase (23-300) U/L SARS-CoV-2 (PCR) (Negative) Blood Type O Positive Antibody Screen Negative Crossmatch See Detail Transfusion React Rpt Donor Unit # Lab Clerical Err Check Pre-Trans Blood Type Pre-Trans Vis Hemolysis Pre-Trans Antibody Scrn Post-Trans Blood Type Post-Tx Visible Hemolys Post-Trans Antibody Scrn Reaction Path Interpret 04/10/22 04/10/22 04/10/22 Range/Units 20:15 20:57 21:33 WBC (4.5-11.0) X10^3/uL RBC (4.0-5.2) X10^6/uL Hgb 8.1 L (12.0-16.0) g/dL Hct 24.8 L (36-46) % MCV (80-100) fL MCH (26-34) PG MCHC (30-36) % RDW (11.6-14.8) % Plt Count (150-400) X10^3/uL Neut % (Auto) (50-75) % Lymph % (Auto) (25-40) % [place] % (Auto) (3-14) % Eos % (Auto) (2-4) % Baso % (Auto) (0-2) % Neut # (Auto) (6377-0428) /uL Lymph # (Auto) (2515-0505) /uL [place] # (Auto) (0-900) /uL Eos # (Auto) (0-450) /uL Baso # (Auto) (0-100) /uL PT (10.1-12.7) SECONDS INR (0.9-1.3) APTT (26-36) SECONDS Sodium (137-145) mmol/L Potassium (3.4-5.1) mmol/L Chloride (98-107) mmol/L Carbon Dioxide (22-32) mmol/L BUN (7-17) mg/dL Creatinine (0.52-1.04) mg/dL Estimated GFR (>60) mL/min BUN/Creatinine Ratio (6-22) Glucose (80-110) mg/dL Lactate 1.6 (0.7-2.1) mmol/L Calcium (8.4-10.2) mg/dL Magnesium (1.6-2.3) mg/dL Total Bilirubin (0.2-1.3) mg/dL AST (14-36) IU/L ALT (<35) IU/L Alkaline Phosphatase (38-126) U/L Total Creatine Kinase (30-135) U/L CK-MB (CK-2) CK-MB (CK-2) Rel Index Troponin I (0.01-0.034) ng/mL Total Protein (6.3-8.2) g/dL Albumin (3.5-5.0) g/dL Globulin (1.7-4.1) g/dL Albumin/Globulin Ratio (1.0-2.8) Lipase (23-300) U/L SARS-CoV-2 (PCR) Negative (Negative) Blood Type Antibody Screen Crossmatch Transfusion React Rpt Donor Unit # Lab Clerical Err Check Pre-Trans Blood Type Pre-Trans Vis Hemolysis Pre-Trans Antibody Scrn Post-Trans Blood Type Post-Tx Visible Hemolys Post-Trans Antibody Scrn Reaction Path Interpret 04/11/22 04/11/22 04/11/22 Range/Units 00:12 00:12 01:47 WBC (4.5-11.0) X10^3/uL RBC (4.0-5.2) X10^6/uL Hgb 6.7 L* (12.0-16.0) g/dL Hct 20.5 L* (36-46) % MCV (80-100) fL MCH (26-34) PG MCHC (30-36) % RDW (11.6-14.8) % Plt Count (150-400) X10^3/uL Neut % (Auto) (50-75) % Lymph % (Auto) (25-40) % [place] % (Auto) (3-14) % Eos % (Auto) (2-4) % Baso % (Auto) (0-2) % Neut # (Auto) (2188-4392) /uL Lymph # (Auto) (2375-4623) /uL [place] # (Auto) (0-900) /uL Eos # (Auto) (0-450) /uL Baso # (Auto) (0-100) /uL PT (10.1-12.7) SECONDS INR (0.9-1.3) APTT (26-36) SECONDS Sodium 141 (137-145) mmol/L Potassium 3.6 (3.4-5.1) mmol/L Chloride 96 L (98-107) mmol/L Carbon Dioxide 38 H (22-32) mmol/L BUN 42 H (7-17) mg/dL Creatinine 0.96 (0.52-1.04) mg/dL Estimated GFR > 60 (>60) mL/min BUN/Creatinine Ratio 43.8 H (6-22) Glucose 142 H (80-110) mg/dL Lactate (0.7-2.1) mmol/L Calcium 9.1 (8.4-10.2) mg/dL Magnesium (1.6-2.3) mg/dL Total Bilirubin (0.2-1.3) mg/dL AST (14-36) IU/L ALT (<35) IU/L Alkaline Phosphatase (38-126) U/L Total Creatine Kinase (30-135) U/L CK-MB (CK-2) CK-MB (CK-2) Rel Index Troponin I (0.01-0.034) ng/mL Total Protein (6.3-8.2) g/dL Albumin (3.5-5.0) g/dL Globulin (1.7-4.1) g/dL Albumin/Globulin Ratio (1.0-2.8) Lipase (23-300) U/L SARS-CoV-2 (PCR) (Negative) Blood Type Antibody Screen Crossmatch Transfusion React Rpt No discrepancies Donor Unit # [id number] Lab Clerical Err Check No error found Pre-Trans Blood Type Not Reportable Pre-Trans Vis Hemolysis No Pre-Trans Antibody Scrn Not Reportable Post-Trans Blood Type O positive Post-Tx Visible Hemolys No Post-Trans Antibody Scrn Not Reportable Reaction Path Interpret 04/11/22 Range/Units 11:43 WBC (4.5-11.0) X10^3/uL RBC (4.0-5.2) X10^6/uL Hgb 9.2 L (12.0-16.0) g/dL Hct 27.5 L (36-46) % MCV (80-100) fL MCH (26-34) PG MCHC (30-36) % RDW (11.6-14.8) % Plt Count (150-400) X10^3/uL Neut % (Auto) (50-75) % Lymph % (Auto) (25-40) % [place] % (Auto) (3-14) % Eos % (Auto) (2-4) % Baso % (Auto) (0-2) % Neut # (Auto) (7879-9615) /uL Lymph # (Auto) (1392-7392) /uL [place] # (Auto) (0-900) /uL Eos # (Auto) (0-450) /uL Baso # (Auto) (0-100) /uL PT (10.1-12.7) SECONDS INR (0.9-1.3) APTT (26-36) SECONDS Sodium (137-145) mmol/L Potassium (3.4-5.1) mmol/L Chloride (98-107) mmol/L Carbon Dioxide (22-32) mmol/L BUN (7-17) mg/dL Creatinine (0.52-1.04) mg/dL Estimated GFR (>60) mL/min BUN/Creatinine Ratio (6-22) Glucose (80-110) mg/dL Lactate (0.7-2.1) mmol/L Calcium (8.4-10.2) mg/dL Magnesium (1.6-2.3) mg/dL Total Bilirubin (0.2-1.3) mg/dL AST (14-36) IU/L ALT (<35) IU/L Alkaline Phosphatase (38-126) U/L Total Creatine Kinase (30-135) U/L CK-MB (CK-2) CK-MB (CK-2) Rel Index Troponin I (0.01-0.034) ng/mL Total Protein (6.3-8.2) g/dL Albumin (3.5-5.0) g/dL Globulin (1.7-4.1) g/dL Albumin/Globulin Ratio (1.0-2.8) Lipase (23-300) U/L SARS-CoV-2 (PCR) (Negative) Blood Type Antibody Screen Crossmatch Transfusion React Rpt Donor Unit # Lab Clerical Err Check Pre-Trans Blood Type Pre-Trans Vis Hemolysis Pre-Trans Antibody Scrn Post-Trans Blood Type Post-Tx Visible Hemolys Post-Trans Antibody Scrn Reaction Path Interpret MDM Narrative Medical decision making narrative: Patient is vomiting she is found have a potassium of 2.7. Some mild epigastric pain lactic is also elevated. She is given IV fluids Protonix. She is not anemic no evidence of active bleeding. CT actually does show gastroesophageal junctional mass. 1930 Dr. Salvador updated on patient's symptoms and test results. States that if she is a to tolerate oral fluids may be discharged home with outpatient scope he does recommend Dr. Cortes at [facility] for this specific scope but he is happy to do it if needed. [1999] (Rey) Patient received in sign out from Dr. Novak]. I have reviewed the clinical course and performed an independent history and physical exam. Calls to /[facility], [facility], [facility], [facility]. No beds currently. Critical Care Time <Caroline Jaramillo, - Last Filed: 04/11/22 19:28> Critical Care Time Critical Care Time: Yes Total Critical Care Time: 45 Attestation: The high probability of a clinically significant, sudden or life threatening deterioration of the [cardiovascular] system(s) required my full and direct attention, intervention and personal management. The aggregate critical care time was [45] minutes. This time is in addition to time spent performing reported procedures but includes the following: [x] Data Review and interpretation [x] Patient assessment and monitoring of vital signs [x] Documentation [x] Medication orders and management Discharge Plan Departure Patient Disposition: [facility] Clinical Impression: Acute hypokalemia, Mass of gastroesophageal junction, Acute upper gastrointestinal bleeding Prescriptions: No Action quetiapine 300 mg Tablet 300 mg PO DAILY multivitamin Tablet 1 tab PO DAILY nortriptyline 75 mg Capsule 75 mg PO BEDTIME ergocalciferol (vitamin D2) [Vitamin D2] 50,000 unit Capsule 50,000 unit PO WEEKLY Label Comments: takes on Friday lutein 20 mg Tablet 25 mg PO DAILY Ocuvite Eye Health 50 mg-15 unit- 4.5 mg-2.5 mg Tablet,Chewable 2 tab PO DAILY tizanidine 2 mg Tablet 1 - 2 mg PO BID-TID PRN (Reason: Muscle Relaxer) simvastatin 10 mg Tablet 10 mg PO BEDTIME morphine 30 mg Tablet 30 mg PO BID mirtazapine 45 mg Tablet 45 mg PO BEDTIME oxymorphone 5 mg tablet 5 mg PO SEEINSTR PRN (Reason: pain) Rx Instructions: 4-5 x/day as needed for pain Excedrin Migraine 250-250-65 mg tablet 1 tab PO Q4-6H PRN (Reason: pain) pregabalin 50 mg capsule 50 mg PO BID hydroxyzine pamoate 25 mg capsule 25 mg PO BEDTIME Label Comments: TAKE UP TO 2 CAPS A DAY NEEDED celecoxib [Celebrex] 200 mg capsule 200 mg PO DAILY Qty: 30 2RF Referrals: Mila Elizabeth MD [Primary Care Provider] -
[2022-04-10 17:43] LABS: INR 1.1 (0.9-1.3); Prothrombin Time 12.2 SECONDS (10.1-12.7)
[2022-04-10 17:45] LABS: Add Manual Diff / Slide Review NO; Basophils Absolute Auto 0 /uL (0-100); Basophils Percent Auto 0.1 % (0-2); Eosinophils Absolute Auto 0 /uL (0-450); Hematocrit 30.5 % (36-46); Lymphocytes Absolute Auto 500 /uL (1100-4500); Mean Corpuscular HGB Conc 32.8 % (30-36); Mean Corpuscular Hemoglobin 25.9 PG (26-34); Monocytes Absolute Auto 300 /uL (0-900); Monocytes Percent Auto 3.3 % (3-14); Neutrophils Absolute Auto 9400 /uL (1500-7000); Neutrophils Percent Auto 91.6 % (50-75); Platelet Count 220 X10^3/uL (150-400); Red Blood Cell Count 3.86 X10^6/uL (4.0-5.2); Red Cell Distribution Width 16.6 % (11.6-14.8); White Blood Cell Count 10.3 X10^3/uL (4.5-11.0)
[2022-04-10 17:46] LABS: PTT Partial Thromboplastin Tim 26 SECONDS (26-36)
[2022-04-10 18:03] LABS: Lactate (Lactic Acid) 2.6 mmol/L (0.7-2.1)
[2022-04-10 18:04] LABS: Alanine Aminotransferase 21 IU/L (<35); Albumin 4.1 g/dL (3.5-5.0); Albumin Globulin Ratio 1.4 (1.0-2.8); Alkaline Phosphatase 71 U/L (38-126); Aspartate Aminotransferase 38 IU/L (14-36); BUN Creatinine Ratio 17.5 (6-22); Bilirubin Total 0.3 mg/dL (0.2-1.3); Blood Urea Nitrogen 22 mg/dL (7-17); Calcium 9.9 mg/dL (8.4-10.2); Chloride 88 mmol/L (98-107); Creatine Kinase 70 U/L (30-135); Estimated Glomerular Filt Rate 45 mL/min (>60); Globulin 2.9 g/dL (1.7-4.1); Glucose 153 mg/dL (80-110); HEMOLYSIS < 15 (0-50); Lipase 36 U/L (23-300); Sodium 142 mmol/L (137-145)
[2022-04-10 18:14] LABS: Troponin I 0.026 ng/mL (0.01-0.034)
[2022-04-10 18:21] LABS: Potassium 2.7 mmol/L (3.4-5.1)
[2022-04-10 18:22] LABS: Carbon Dioxide 46 mmol/L (22-32)
--- NOTE | 2022-04-10 18:34 | DI.CT.S_ITS ---
PROCEDURE: CT ABDOMEN PELVIS W CON INDICATIONS: vomiting TECHNIQUE: After the administration of intravenous contrast, axial sections acquired from the lung bases to the pubic symphysis. Coronal and sagittal reformats were performed. For radiation dose reduction, the following was used: automated exposure control, adjustment of mA and/or kV according to patient size. COMPARISON: [facility], CT, CT KUB, 09/29/2020, 0:41. FINDINGS: Image quality: Excellent. Lung bases: Decreased, 4 mm subpleural nodule within the right posterolateral lung base. Heart: No significant findings. ABDOMEN: Liver: Unremarkable. Gallbladder: Within normal limits Biliary ducts: There is mild intrahepatic biliary ductal dilatation. Moderate extrahepatic biliary ductal dilatation. Common hepatic duct measures 21 mm. Pancreas: Unremarkable. Spleen: Unremarkable. Adrenal Glands: Unremarkable. Kidneys and Ureters: Unremarkable. Stomach and Bowel: There is a moderate hiatal hernia. There is a 24 mm diameter mass-like density at the gastroesophageal junction. Moderate gastric dilatation is present. There is moderate to severe thickening of the gastric antrum. There is moderate dilatation of the 3rd portion of the duodenum. 4th portion of the duodenum is decompressed. Ligament of Treitz is right-sided. Distal small bowel is nondistended. Colon is nondistended. Peritoneum: No abnormal intraperitoneal fluid. No free air. Ventral Wall: No hernias. Abdominal Nodes: No retroperitoneal or mesenteric adenopathy by size criteria. Vessels: Aorta and inferior vena cava are normal in size. PELVIS: Pelvic Organs: Unremarkable. Bladder: Unremarkable. Pelvic Nodes: No enlarged lymph nodes. Miscellaneous: No hernias are seen. Bones: Bilateral hip arthroplasty has been performed. IMPRESSION: 1. Findings suggestive of a gastroesophageal junction mass. 2. Thickening of the gastric antrum associated with gastric outlet obstruction. 3. Moderate distension of the duodenum associated with upper gastrointestinal bowel rotation. 4. Intrahepatic and extrahepatic biliary ductal dilatation. Dictated by: Soto Tomlin M.D. on 04/10/2022 at 19:06 Approved by: Soto Tomlin M.D. on 04/10/2022 at 19:10
[2022-04-10] MEDS: POTASSIUM CHLORIDE IN WATER 10 MEQ/100 ML PIGGYBACK 100 MEQ IV ×4 (19:23→22:51)
[2022-04-10 19:25] LABS: Reflexed Lactate in 2 Hours Y
--- NOTE | 2022-04-10 19:37 | PC.NURSE ---
pt vomited approx 100ml of dark emesis
[2022-04-10] MEDS: MORPHINE 2 MG/ML INJ IV (20:19)
[2022-04-10] MEDS: SODIUM CHLORIDE 0.9% 1,000 ML 150 ML IV (20:20)
[2022-04-10 20:39] LABS: Magnesium 2.1 mg/dL (1.6-2.3)
[2022-04-10 21:00] LABS: Lactate 2HR (Lactic Acid Rflx) 1.6 mmol/L (0.7-2.1)
[2022-04-10 21:35] LABS: Hematocrit 24.8 % (36-46); Hemoglobin 8.1 g/dL (12.0-16.0)
[2022-04-10 23:06] LABS: COVID19 -Nasal RAPID Negative (Negative)
[2022-04-11] VITALS (116 sets, daily range): BP systolic 96–154; BP diastolic 51–84; PULSE 96–120; RESP 7–40; TEMP 36.3–37.9; O2SAT 92–100
[2022-04-11 00:28] LABS: Hematocrit 20.5 % (36-46); Hemoglobin 6.7 g/dL (12.0-16.0)
[2022-04-11 00:31] LABS: BUN Creatinine Ratio 43.8 (6-22); Blood Urea Nitrogen 42 mg/dL (7-17); Calcium 9.1 mg/dL (8.4-10.2); Chloride 96 mmol/L (98-107); Estimated Glomerular Filt Rate > 60 mL/min (>60); Glucose 142 mg/dL (80-110); HEMOLYSIS 19 (0-50); Potassium 3.6 mmol/L (3.4-5.1); Sodium 141 mmol/L (137-145)
[2022-04-11 00:38] LABS: Carbon Dioxide 38 mmol/L (22-32)
--- NOTE | 2022-04-11 01:53 | PC.NURSE ---
pt began blood transfusion. pt educated on informing nurse of any reactions she is feeling. Pt did not complain of any reaction during first 15min of transfusion. after 15min of blood transfusing into pt, pt vital signs taken. pt temperature read 100.2F. Transfusion stopped, informed cupola charger and MD of result. temperature taken a second time 3 minutes later. temperature was 99.7F. lab called and informed of reaction to blood. blood taken down and bagged and walked down to laboratory. urine collected, type and screen collected and TAR paperwork all sent to lab per lab request. Pt informed of reason for stopping blood, pt then complained of feeling hot. pt left on Q5 vital signs.
[2022-04-11] MEDS: ACETAMINOPHEN IV 1,000 MG/100 ML VIAL 400 MG IV (04:54)
--- NOTE | 2022-04-11 07:12 | PC.NURSE ---
Patient was C/O lower abd pain and and the need to urinate. I put the patient on a bedpan but she was unable to pee. She stated she cannot pee. A bladder scan was performed and urine estimate of 620+mL of urine. Provider aware.
[2022-04-11] MEDS: PANTOPRAZOLE 40 MG VIAL IV ×2 (07:51→09:12)
[2022-04-11] MEDS: MORPHINE 2 MG/ML INJ IV ×2 (07:52→14:44)
[2022-04-11] MEDS: ONDANSETRON 4 MG/2 ML INJ IV (07:52)
--- NOTE | 2022-04-11 07:55 | PC.NURSE ---
[facility] accepted pt however has no beds available at this time. Dr. Jaramillo aware.
[2022-04-11] MEDS: LORazepam 2 MG/ML INJ 0.5 MG IV (08:07)
[2022-04-11 11:45] LABS: Hematocrit 27.5 % (36-46); Hemoglobin 9.2 g/dL (12.0-16.0)
== END 2022-04-11 16:20 | disposition short-term general hospital (02) ==
PROVIDERS: Emergency Medicine; Emergency Provider Emergency Medicine; Family Provider Family Medicine; PCP Family Medicine
DX: E87.6 Hypokalemia (principal); K31.89 Other diseases of stomach and duodenum; K92.2 Gastrointestinal hemorrhage, unspecified; R79.89 Other specified abnormal findings of blood chemistry; R10.13 Epigastric pain; Z20.822 Contact with and (suspected) exposure to COVID-19
CPT/HCPCS: 36430; 71045; 74177; 80048; 80053; 82550; 83605; 83690; 83735; 84484; 85014; 85018; 85025; 85610; 85730; 86078; 86850; 86900; 86901; 87635; 93005; 96361; 96365; 96366; 96367; 96375; 96376; 99285; 99291; C9803; P9016; C9113; J0131; J2060; J2270; J2405; J2765; Q9967

== ENCOUNTER → 2022-04-29 10:00 | Outpatient (CLI) | payer MEDICARE, OTHER, SELFPAY ==
[2020-05-03 10:55] VITALS: BMI 21.6
[2022-04-29 13:31] LABS: COVID19 -Nasal RAPID Negative (Negative)
== END ==
PROVIDERS: Family Provider Family Medicine; PCP Family Medicine; Visit Provider Physical Medicine & Rehabilitation
DX: Z20.822 Contact with and (suspected) exposure to COVID-19 (principal)
CPT/HCPCS: 87635; C9803

== ENCOUNTER 2022-04-30 08:08 | Outpatient (CLI) | payer MEDICARE, OTHER, SELFPAY ==
[2020-05-03 10:55] VITALS: BMI 21.6
[2022-04-30 08:59] VITALS: BP 91/55; PULSE 70; RESP 18; TEMP 36.7; O2SAT 96
--- NOTE | 2022-04-30 09:02 | PC.NURSE ---
Patient appears pale and weak. 1 assist transfer from w/c to chair. Patient reports that she does not feel great today, feels weak and is having a hard time walking today. Reports that she was not like this yesterday. Called spoke with Beto as patient is forgetful and states I don't have a good memory. Reports she also feels a little light headed today. Has right leg pain that his been severe for the last week. Spoke with spouse Beto about patients medications unsure of her last dose of medications. Pat reports she did take her Morphine 30mg this am. Dr Hernández notified of findings.
--- NOTE | 2022-04-30 10:23 | PC.NURSE ---
Patient was assited into bathroom x2 reports she is having burning and difficult with steady stream. Reports she did have a UA checked a few weeks ago and was negative. Dr Hernández canceled procedure and called and spoke with Beto. Patient understands and to f/u with PCP.
== END 2022-04-30 10:15 | disposition home or self-care (01) ==
LOC: RAD 08:09
PROVIDERS: Family Provider Family Medicine; PCP Family Medicine; Referring Provider Physical Medicine & Rehabilitation; Visit Provider Physical Medicine & Rehabilitation
DX: M47.812 Spondylosis without myelopathy or radiculopathy, cervical region (principal)

== ENCOUNTER 2022-06-19 16:05 | Emergency (ER) | payer MEDICARE, OTHER, SELFPAY ==
[2020-05-03 10:55] VITALS: BMI 21.6
[2022-06-19 16:21] VITALS: BP 95/50; PULSE 82; RESP 18; TEMP 36.3; O2SAT 100
--- NOTE | 2022-06-19 16:56 | DI.RAD.S_ITS ---
PROCEDURE: XR FOOT RT MIN 3V INDICATIONS: fall TECHNIQUE: 3 views of the foot were acquired. COMPARISON: None. FINDINGS: Acute fractures of the distal 2nd, 3rd, 4th metatarsals with mild apex medial angulation. No definite involvement of the articular surface is identified but this is difficult to fully exclude. Bunion deformity and polyarticular degenerative changes present throughout the foot. Possible nondisplaced fracture base of the 5th digit proximal phalanx. IMPRESSION: Acute fractures of the distal 2nd, 3rd, 4th metatarsals. Possible nondisplaced fracture base of the 5th digit proximal phalanx. Dictated by: Ghassan Lara M.D. on 06/19/2022 at 17:22 Approved by: Ghassan Lara M.D. on 06/19/2022 at 17:25
--- NOTE | 2022-06-19 18:47 | ED_ITS ---
HPI - Extremity Injury (Lower) <Mila Dominguez, [facility] - Last Filed: 06/19/22 20:17> General Chief Complaint: Extremity Injury, Lower Stated Complaint: rt foot injury s/p fall yesterday Time Seen by Provider: 06/19/22 18:15 Source: patient Mode of arrival: Wheelchair History of Present Illness HPI Narrative: This is a 72-year-old female with history of chronic pain, presents to the emergency department today after a mechanical fall yesterday when she tripped while she was outside, complains of foot pain, ecchymosis, pain with ambulation, swelling and denies any weakness, numbness or tingling, or other symptom. She has a wound on the dorsum of her right foot from the fall, it is just distal to the ankle on the dorsum. No drainage, appears to be an abrasion approximately 2 cm x 1 cm. Patient states that she is been walking on her foot since yesterday when this happened. She states it is painful to walk on but denies that walking makes it worse. She does not remember when her last tetanus was, denies any knee pain or hip pain. Patient states that she has a walker at home. Related Data Home Medications Medication Instructions Recorded Confirmed [id number] 1 tab PO Q4-6H PRN pain 07/28/19 03/28/22 mg-250 mg-65 mg tablet (Excedrin Migraine) oxymorphone 5 mg tablet 5 mg PO SEEINSTR PRN pain 07/28/19 03/28/22 ergocalciferol (vitamin D2) 1,250 50,000 unit PO WEEKLY 08/27/19 03/28/22 mcg (50,000 unit) capsule (Vitamin D2) lutein 20 mg tablet 25 mg PO DAILY 08/27/19 03/28/22 mirtazapine 45 mg tablet 45 mg PO BEDTIME 08/27/19 03/28/22 morphine 30 mg immediate release 30 mg PO BID 08/27/19 03/28/22 tablet multivitamin 1 tab PO DAILY 08/27/19 03/28/22 nortriptyline 75 mg capsule 75 mg PO BEDTIME 08/27/19 03/28/22 simvastatin 10 mg tablet 10 mg PO BEDTIME 08/27/19 03/28/22 tizanidine 2 mg tablet 1 - 2 mg PO BID-TID PRN Muscle 08/27/19 03/28/22 Relaxer vit C 50 mg-E 15 unit-zinc cit 4.5 2 tab PO DAILY 08/27/19 03/28/22 mg-lutein 2.5 mg-zeaxan chew tablet (Fileforce) quetiapine 300 mg tablet 300 mg PO DAILY Depression 04/19/20 03/28/22 hydroxyzine pamoate 25 mg capsule 25 mg PO BEDTIME 03/28/22 03/28/22 pregabalin 50 mg capsule 50 mg PO BID 03/28/22 03/28/22 Previous Rx's Medication Instructions Recorded celecoxib 200 mg capsule (Celebrex) 200 mg PO DAILY #30 caps 03/28/22 diclofenac sodium 1 % topical gel 4 g topical QID PRN pain #100 grams 06/19/22 Allergies Allergy/AdvReac Type Severity Reaction Status Date / Time gabapentin AdvReac Severe Lethargy Verified 03/28/22 08:12 Review of Systems <REBEL Alvarado - Last Filed: 06/19/22 20:17> Review of Systems Narrative: Review of systems is negative for acute abnormalities unless otherwise noted in HPI Patient History <REBEL Alvarado - Last Filed: 06/19/22 20:17> Medical History Avascular necrosis of bone of hip Cervical facet joint syndrome Cervical neck pain with evidence of disc disease Cervical spondylosis Chronic low back pain Degenerative joint disease of right hip Depression Fibromyalgia HLD (hyperlipidemia) Seasonal allergies Spinal stenosis in cervical region Thoracic kyphosis Surgical History H/O shoulder surgery History of appendectomy History of hysterectomy History of right knee surgery History of tonsillectomy History of total left hip arthroplasty (09/22/19) Family History Mother Stroke Sister Cancer Diabetes mellitus Gout Social History marital status: household members: spouse Smoking Status: Never smoker alcohol intake: former Smoking Status: Never smoker Substance Use Type: does not use Exam <REBEL Alvarado - Last Filed: 06/19/22 20:17> Narrative Exam Narrative: Reviewed vitals signs and nursing notes. General: cooperative, comfortable, in no acute distress, well groomed HEENT: symmetrical facial expressions, moist mucous membranes MSK: moves all extremities, neurovascularly intact, no weakness, normal tone Skin: brisk capillary refill, dry skin, abrasion to the dorsum of her right foot, 2 cm x 1 cm without bleeding or drainage, abrasion to her right knee from the fall as well. No hematoma or palpable fluctuance, ecchymosis covering the dorsum of her foot, toenails are long, Without pallor or erythema, PT and DP pulses are 1+ and palpable bilaterally, skin is dry and flaking, skin is warm Neuro: normal speech and cognition, A&O x3, ambulatory, clear speech Psych: mental status is grossly normal, congruent mood, normal affect, pleasant and cooperative Initial Vital Signs Initial Vital Signs: Vital Signs Temperature 97.4 F L 06/19/22 16:21 Pulse Rate 82 06/19/22 16:21 Respiratory Rate 18 06/19/22 16:21 Blood Pressure 95/50 L 06/19/22 16:21 Pulse Oximetry 100 06/19/22 16:21 Oxygen Delivery Method 06/19/22 16:21 <Caroline Jaramillo DO - Last Filed: 06/20/22 02:42> Initial Vital Signs Initial Vital Signs: Vital Signs Temperature 97.4 F L 06/19/22 16:21 Pulse Rate 82 06/19/22 16:21 Respiratory Rate 18 06/19/22 16:21 Blood Pressure 95/50 L 06/19/22 16:21 Pulse Oximetry 100 06/19/22 16:21 Oxygen Delivery Method 06/19/22 16:21 Procedures <REBEL Alvarado - Last Filed: 06/19/22 20:17> Orthopedic Splinting/Casting Injury #1: Side: right Lower Extremity Injury Location: foot Lower Extremity Immobilizer: posterior splint Other Orthopedic Equipment: walker Post splinting neuro exam: intact and no change Post splinting vascular exam: intact Placed by: Provider Additional Comments: Applied additional padding around the distal middle tonsils and posterior heel to prevent ulcer as much as possible. Bacitracin and Xeroform applied to the abrasions/wound to the dorsum of her foot with adequate padding around it. On recheck, patient states it is fitting well, no tight spots or pressure areas Course <REBEL Alvarado - Last Filed: 06/19/22 20:17> Orders Ordered: Discontinued Medications Bacitracin (Bacitracin Oint 0.9 Gm Pckt) 1 applic TOP NOW ONE Stop: 06/19/22 19:00 Last Admin: 06/19/22 19:14 Dose: 1 applic Documented By: AP Diphtheria/Tetanus/Acell Pertussis (Tet,Diph,Pertuss(Acell),Vac/Pf 0.5 Ml Syringe) 0.5 ml IM .ONCE ONE Stop: 06/19/22 19:00 Last Admin: 06/19/22 19:14 Dose: 0.5 ml Documented By: AP Oxycodone/Acetaminophen (Oxycodone/Acetaminophen 5/325 Tablet) 1 tab PO NOW ONE Stop: 06/19/22 20:07 Last Admin: 06/19/22 20:08 Dose: 1 tab Documented By: AP Vital Signs Vital signs: Vital Signs - 8 hr 06/19/22 20:32 Pulse Rate 80 Respiratory Rate 18 Blood Pressure 108/60 Pulse Oximetry 98 Oxygen Delivery Method Room Air <Caroline Jaramillo DO - Last Filed: 06/20/22 02:42> Orders Ordered: Discontinued Medications Bacitracin (Bacitracin Oint 0.9 Gm Pckt) 1 applic TOP NOW ONE Stop: 06/19/22 19:00 Last Admin: 06/19/22 19:14 Dose: 1 applic Documented By: AP Diphtheria/Tetanus/Acell Pertussis (Tet,Diph,Pertuss(Acell),Vac/Pf 0.5 Ml Syringe) 0.5 ml IM .ONCE ONE Stop: 06/19/22 19:00 Last Admin: 06/19/22 19:14 Dose: 0.5 ml Documented By: AP Oxycodone/Acetaminophen (Oxycodone/Acetaminophen 5/325 Tablet) 1 tab PO NOW ONE Stop: 06/19/22 20:07 Last Admin: 06/19/22 20:08 Dose: 1 tab Documented By: AP Vital Signs Vital signs: Vital Signs - 8 hr 06/19/22 20:32 Pulse Rate 80 Respiratory Rate 18 Blood Pressure 108/60 Pulse Oximetry 98 Oxygen Delivery Method Room Air MDM - Extremity Injury (Lower) <Mila Johnson Jenkinsramsey, [facility] - Last Filed: 06/19/22 20:17> Imaging Data Extremity x-ray #1: Radiologist's Impression: PROCEDURE:? XR FOOT RT MIN 3V ? INDICATIONS:? fall ? TECHNIQUE:? 3 views of the foot were acquired.? ? COMPARISON:? None. ? FINDINGS:? ? Acute fractures of the distal 2nd, 3rd, 4th metatarsals with mild apex medial angulation. ?No definite involvement of the articular surface is identified but this is difficult to fully exclude.? Bunion deformity and polyarticular degenerative changes present throughout the foot.? Possible nondisplaced fracture base of the 5th digit proximal phalanx. ? IMPRESSION:? Acute fractures of the distal 2nd, 3rd, 4th metatarsals. ?Possible nondisplaced fracture base of the 5th digit proximal phalanx. ? ? Dictated by: Ghassan Lara M.D. on 06/19/2022 at 17:22 ? ? Approved by: Ghassan Lara M.D. on 06/19/2022 at 17:25 ? [facility] Narrative Medical decision making narrative: This is a 72-year-old female who presents to the emergency department after a mechanical fall yesterday when she tripped and presents today with foot pain, ecchymosis, and swelling of her right foot. She was found to have fractures of the distal 2nd 3rd and 4th metatarsals with probable distal 5th metatarsal fracture as well but was not clearly determined on x-ray. Patient has been ambulating on her foot for the last 24 hours. She had use lidocaine gel at home and states that it helped with her pain. In the emergency department she was given a Percocet, her foot was splinted in a posterior Orthoglass splint with adequate padding around her heel and metatarsals for swelling. Her foot is quite ecchymotic, there is a wound on the dorsum of her lateral midfoot without bleeding, surrounding erythema or drainage. This was covered with bacitracin and Xeroform, adequate padding was wrapped around this as well. Patient understands to follow-up at [facility] in 1 week or less, discuss at length to avoid bearing weight on her foot, she has a walker which she can use at home, she was transferring from the bed to the commode without difficulty or balance issues. She is without Numbness or tingling.Patient is appropriate and amenable to discharge home. Vital signs are stable on repeat examination is unremarkable. Patient has been informed of results. Patient has been given strict return to ER precautions for any new or worsening symptoms. Patient understands to follow up closely with outpatient providers as instructed. Patient understands plan and agrees to discharge home. All questions and concerns answered at this time. Discharge Plan Departure Patient Disposition: Home Clinical Impression: Metatarsal bone fracture Qualifiers: Encounter type: initial encounter Metatarsal bone: unspecified metatarsal Fracture type: closed Fracture alignment: displaced Laterality: right Qualified Code(s): S92.301A - Fracture of unspecified metatarsal bone(s), right foot, initial encounter for closed fracture Fall Qualifiers: Encounter type: initial encounter Qualified Code(s): W19.XXXA - Unspecified fall, initial encounter Instructions: DI for Foot Fracture Activity Restrictions/Additional Instructions: *You have been diagnosed with fractures of the 2nd, 3rd, and 4th bones in your foot with a possible fracture of the 5th as well. Please schedule an appointment at [facility] within 1 week for the soonest available follow-up about these fractures. Please do not walk on the splint, avoid bearing weight on this foot as much as possible. Please take your regular pain medications, please elevate this as much as you are able, that will help with the swelling and subsequent pain. Thank you for your patients in the emergency department, I am sorry for your long wait. Please let them know at the orthopedic office that you do have an abrasion to the top of your foot that was covered with antibacterial ointment and a nonstick dressing. Please use a walker for all transfers, avoid putting weight on this foot as much as you possibly can. *What to do: *Please continue to take your regular medications as directed. [x ] New medication prescriptions sent to your pharmacy: [ [facility]] [ ] New medication written as a paper prescription [ ] No new medications given *Please follow up with your primary care provider in 2-3 days, call for an appointment. Let them know you were seen in the Emergency Department and that we asked that you be seen for follow-up. We will electronically transmit a record of today's note if your PCP is in our system *If you do not have a primary care provider please contact [phone] to [facility] with one of the [facility] primary care providers. *Return to Emergency Department if you should have any new, worsening, or concerning symptoms, such as [fever greater than 101F, chills, worsening pain, persistent vomiting or other bothersome symptoms]. Prescriptions: New diclofenac sodium 1 % gel 4 g topical QID PRN (Reason: pain) Qty: 100 0RF Rx Instructions: apply to painful area as needed No Action quetiapine 300 mg Tablet 300 mg PO DAILY multivitamin Tablet 1 tab PO DAILY nortriptyline 75 mg Capsule 75 mg PO BEDTIME ergocalciferol (vitamin D2) [Vitamin D2] 50,000 unit Capsule 50,000 unit PO WEEKLY Label Comments: takes on Friday lutein 20 mg Tablet 25 mg PO DAILY Ocuvite Eye Health 50 mg-15 unit- 4.5 mg-2.5 mg Tablet,Chewable 2 tab PO DAILY tizanidine 2 mg Tablet 1 - 2 mg PO BID-TID PRN (Reason: Muscle Relaxer) simvastatin 10 mg Tablet 10 mg PO BEDTIME morphine 30 mg Tablet 30 mg PO BID mirtazapine 45 mg Tablet 45 mg PO BEDTIME oxymorphone 5 mg tablet 5 mg PO SEEINSTR PRN (Reason: pain) Rx Instructions: 4-5 x/day as needed for pain Excedrin Migraine 250-250-65 mg tablet 1 tab PO Q4-6H PRN (Reason: pain) pregabalin 50 mg capsule 50 mg PO BID hydroxyzine pamoate 25 mg capsule 25 mg PO BEDTIME Label Comments: TAKE UP TO 2 CAPS A DAY NEEDED celecoxib [Celebrex] 200 mg capsule 200 mg PO DAILY Qty: 30 2RF Referrals: [facility] [Provider Group] Mila Elizabeth MD [Primary Care Provider] - Visit Report Forms: Patient Portal/API <Caroline Jaramillo DO - Last Filed: 06/20/22 02:42> Cosign ED Attending Christianature Attestation: I was immediately available in the department for consultation. Documentation has been reviewed. I agree with assessment and plan.
[2022-06-19] MEDS: BACITRACIN OINT 0.9 GM PCKT 1 APPLIC TOP (19:14)
[2022-06-19] MEDS: TET,DIPH,PERTUSS(ACELL),VAC/PF 0.5 ML SYRINGE IM (19:14)
[2022-06-19] MEDS: OXYCODONE/ACETAMINOPHEN 5/325 TABLET 1 TAB PO (20:08)
[2022-06-19 20:32] VITALS: BP 108/60; PULSE 80; RESP 18; O2SAT 98
--- NOTE | 2022-06-19 20:33 | PC.NURSE ---
Elisa Dominguez applied the splint and bacitracin.
== END 2022-06-19 20:34 | disposition home or self-care (01) ==
PROVIDERS: Emergency Provider Nurse Practitioner Critical Care Medicine; Family Provider Family Medicine; PCP Family Medicine
DX: S92.301A Fracture of unspecified metatarsal bone(s), right foot, initial encounter for closed fracture (principal); W01.0XXA Fall on same level from slipping, tripping and stumbling without subsequent striking against object, initial encounter; Z23 Encounter for immunization
CPT/HCPCS: 73630; 90471; 99283; 99284; 90715

== ENCOUNTER 2022-06-21 15:53 | Emergency (ER) | payer MEDICARE, OTHER, SELFPAY ==
[2020-05-03 10:55] VITALS: BMI 21.6
[2022-06-21 16:19] VITALS: BP 139/89; PULSE 84; RESP 18; TEMP 36.9; O2SAT 98; BMI 20.3
--- NOTE | 2022-06-21 17:10 | ED_ITS ---
HPI - Recheck/Abnormal Lab/Rx <Mila Dominguez [facility] - Last Filed: 06/21/22 19:09> General Chief Complaint: Recheck/Abnormal Lab/Rx Stated Complaint: Right foot pain, broke five toes, blister Time Seen by Provider: 06/21/22 16:00 Source: patient Mode of arrival: Wheelchair History of Present Illness HPI narrative: This is a 72-year-old female presents to the emergency department with concern about blister to her heel underneath her splint which she had placed 2 days ago in the emergency department for fractured metatarsals. She states that the swelling in her foot went down and she has had some slippage of her foot in the splint, states that she forgot to elevate her foot and has been managing walking around with a walker and avoiding bearing weight as much as possible. She states that her pain is under control but due to the rubbing of the heel she feels like there might be a blister. She has follow-up with orthopedics on 06/27/22. She denies any sensation changes, denies any worsening pain, states that everything has been pretty stable other than it feels like her splint has stretched out. Related Data Home Medications Medication Instructions Recorded Confirmed [id number] 250 1 tab PO Q4-6H PRN pain 07/28/19 03/28/22 mg-250 mg-65 mg tablet (Excedrin Migraine) oxymorphone 5 mg tablet 5 mg PO SEEINSTR PRN pain 07/28/19 03/28/22 ergocalciferol (vitamin D2) 1,250 50,000 unit PO WEEKLY 08/27/19 03/28/22 mcg (50,000 unit) capsule (Vitamin D2) lutein 20 mg tablet 25 mg PO DAILY 08/27/19 03/28/22 mirtazapine 45 mg tablet 45 mg PO BEDTIME 08/27/19 03/28/22 morphine 30 mg immediate release 30 mg PO BID 08/27/19 03/28/22 tablet multivitamin 1 tab PO DAILY 08/27/19 03/28/22 nortriptyline 75 mg capsule 75 mg PO BEDTIME 08/27/19 03/28/22 simvastatin 10 mg tablet 10 mg PO BEDTIME 08/27/19 03/28/22 tizanidine 2 mg tablet 1 - 2 mg PO BID-TID PRN Muscle 08/27/19 03/28/22 Relaxer vit C 50 mg-E 15 unit-zinc cit 4.5 2 tab PO DAILY 08/27/19 03/28/22 mg-lutein 2.5 mg-zeaxan chew tablet ([employer]) quetiapine 300 mg tablet 300 mg PO DAILY Depression 04/19/20 03/28/22 hydroxyzine pamoate 25 mg capsule 25 mg PO BEDTIME 03/28/22 03/28/22 pregabalin 50 mg capsule 50 mg PO BID 03/28/22 03/28/22 Previous Rx's Medication Instructions Recorded celecoxib 200 mg capsule (Celebrex) 200 mg PO DAILY #30 caps 03/28/22 diclofenac sodium 1 % topical gel 4 g topical QID PRN pain #100 grams 06/19/22 benzonatate 200 mg capsule 200 mg PO BID PRN cough #20 caps 06/21/22 cetirizine 10 mg tablet 10 mg PO BEDTIME PRN congestion 06/21/22 #30 tabs fluticasone propionate 50 1 spray intranasal BID PRN nasal 06/21/22 mcg/actuation nasal congestion #16 grams spray,suspension guaifenesin 600 mg tablet, 600 mg PO BID PRN cough #14 tabs 06/21/22 extended release 12 hr (Mucinex) Allergies Allergy/AdvReac Type Severity Reaction Status Date / Time gabapentin AdvReac Severe Lethargy Verified 03/28/22 08:12 Review of Systems <REBEL Alvarado - Last Filed: 06/21/22 19:09> Review of Systems Narrative: Review of systems is negative for acute abnormalities unless otherwise noted in HPI Patient History <REBEL Alvarado - Last Filed: 06/21/22 19:09> Medical History Avascular necrosis of bone of hip Cervical facet joint syndrome Cervical neck pain with evidence of disc disease Cervical spondylosis Chronic low back pain Degenerative joint disease of right hip Depression Fibromyalgia HLD (hyperlipidemia) Seasonal allergies Spinal stenosis in cervical region Thoracic kyphosis Surgical History H/O shoulder surgery History of appendectomy History of hysterectomy History of right knee surgery History of tonsillectomy History of total left hip arthroplasty (09/22/19) Family History Mother Stroke Sister Cancer Diabetes mellitus Gout Social History marital status: household members: spouse Smoking Status: Never smoker alcohol intake: former Smoking Status: Never smoker Substance Use Type: does not use Exam <REBEL Alvarado - Last Filed: 06/21/22 19:09> Narrative Exam Narrative: Reviewed vitals signs and nursing notes. General: cooperative, comfortable, in no acute distress, well groomed MSK: moves all extremities, neurovascularly intact, no weakness, normal tone, splint to left foot was removed by myself, she still has Xeroform to the abrasion on the dorsum of her midfoot, no surrounding erythema, no fluctuance, or increased edema, left foot remains ecchymotic to her toes, she is able to wiggle her toes, PT and DP pulses are 2+, no sensation deficit, there is a small blister approximately 1 cm to the posterior heel, no break in the skin, no surrounding erythema, she states that she thinks it is from rubbing, splint was fully removed and a new splint was placed with extra padding around the heel and forefoot. Skin: brisk capillary refill, without pallor or erythema Neuro: normal speech and cognition, A&O x3, ambulatory, clear speech Psych: mental status is grossly normal, congruent mood, normal affect, pleasant and cooperative Initial Vital Signs Initial Vital Signs: Vital Signs Temperature 98.4 F 06/21/22 16:19 Pulse Rate 84 06/21/22 16:19 Respiratory Rate 18 06/21/22 16:19 Blood Pressure 139/89 06/21/22 16:19 Pulse Oximetry 98 06/21/22 16:19 Oxygen Delivery Method 06/21/22 16:19 <Saarh Ashraf MD - Last Filed: 06/22/22 08:21> Initial Vital Signs Initial Vital Signs: Vital Signs Temperature 98.4 F 06/21/22 16:19 Pulse Rate 84 06/21/22 16:19 Respiratory Rate 18 06/21/22 16:19 Blood Pressure 139/89 06/21/22 16:19 Pulse Oximetry 98 06/21/22 16:19 Oxygen Delivery Method 06/21/22 16:19 Procedures <REBEL Alvarado - Last Filed: 06/21/22 19:09> Orthopedic Splinting/Casting Injury #1: Side: left Lower Extremity Injury Location: foot Lower Extremity Immobilizer: posterior splint Post splinting neuro exam: intact and no change Post splinting vascular exam: intact Placed by: Provider Additional Comments: Extra padding around the heel, posterior to the heel, and under the forefoot Course <REBEL Alvarado - Last Filed: 06/21/22 19:09> Vital Signs Vital signs: Vital Signs - 8 hr 06/21/22 16:19 Temperature 98.4 F Pulse Rate 84 Respiratory Rate 18 Blood Pressure 139/89 Pulse Oximetry 98 Oxygen Delivery Method Room Air <Sarah Ashraf MD - Last Filed: 06/22/22 08:21> Vital Signs Vital signs: Vital Signs - 8 hr 06/21/22 16:19 Temperature 98.4 F Pulse Rate 84 Respiratory Rate 18 Blood Pressure 139/89 Pulse Oximetry 98 Oxygen Delivery Method Room Air MDM - Recheck/Abnormal Lab/Rx <REBEL Alvarado - Last Filed: 06/21/22 19:09> MDM Narrative Medical decision making narrative: This is a pleasant 72-year-old female who sustained multiple distal metatarsal fractures to her left foot and presented to the emergency department on 06/19/2022, I saw her in the emergency department that day, splinted her foot with extra padding around the heel and forefoot just in case she developed any sore spots. She states that the splint started to loosen and she started to have rubbing in the heel. I took the splint down and looked at the wound on the dorsum of her foot which looked great, no surrounding erythema, I recovered it with a new Xeroform, there is a small blister approximately 1 cm to the posterior heel, I wrapped her heel in a copious amount of padding to protect this, and tried to prevent any hot spots, extra padding underneath before foot and around the ankle and under the heel. Patient has scheduled follow-up on 06/27/22 at [facility]. She states that her pain is well-controlled, I encouraged her to come back to the emergency department if she has this rubbing again, if she develops any worsening pain to this blister area, and told her to elevate her foot frequently throughout the day, take her medications as she needs them for her pain, but try and stay off of this. If she has loosening of the splint I showed her how to rewrap it with Ac bandage. Patient is appropriate and amenable to discharge home. Vital signs are stable on repeat examination is unremarkable. Patient has been informed of results. Patient has been given strict return to ER precautions for any new or worsening symptoms. Patient understands to follow up closely with outpatient providers as instructed. Patient understands plan and agrees to discharge home. All questions and concerns answered at this time. Discharge Plan Departure Patient Disposition: Home Clinical Impression: Blister of left heel Qualifiers: Encounter type: initial encounter Qualified Code(s): S90.822A - Blister (nonthermal), left foot, initial encounter Metatarsal fracture Qualifiers: Encounter type: subsequent encounter Metatarsal bone: unspecified metatarsal Fracture type: closed Fracture alignment: displaced Laterality: left Fracture healing: with routine healing Qualified Code(s): S92.302D - Fracture of unspecified metatarsal bone(s), left foot, subsequent encounter for fracture with routine healing Instructions: How to Take Care of Your Splint Activity Restrictions/Additional Instructions: *You have been diagnosed with a splint that became too loose, hopefully this new 1/5 you better. If it starts to get loose with rubbing, please have your rewrap this not too snug, not too loose, and see if it is better. If you have ongoing heel pain and rubbing, please come back to the emergency department for another evaluation, I do not want you to get a pressure wound on your heel, try to elevate your foot, keep it elevated throughout the day, please stay hydrated especially with a cough, please use the medications for cold symptoms as needed, take Zyrtec at nighttime, Flonase morning and night, Mucinex for productive cough, and the cough capsules throughout the day for frequent cough. Thank you for your patients and trusting us with your care, please come back if this is worse, please follow-up with orthopedics on the as planned. It was a pleasure to see you again. *What to do: *Please continue to take your regular medications as directed. [ x] New medication prescriptions sent to your pharmacy: [ [facility]] [ ] New medication written as a paper prescription [ ] No new medications given *Please follow up with your primary care provider in 2-3 days, call for an appointment. Let them know you were seen in the Emergency Department and that we asked that you be seen for follow-up. We will electronically transmit a record of today's note if your PCP is in our system *If you do not have a primary care provider please contact [phone] to establish care with one of the [facility] primary care providers. *Return to Emergency Department if you should have any new, worsening, or concerning symptoms, such as [fever greater than 101F, chills, worsening pain, persistent vomiting or other bothersome symptoms]. Prescriptions: New cetirizine 10 mg tablet 10 mg PO BEDTIME PRN (Reason: congestion) Qty: 30 0RF fluticasone propionate 50 mcg/actuation spray,suspension 1 spray intranasal BID PRN (Reason: nasal congestion) Qty: 16 0RF Rx Instructions: administer into each nostril benzonatate 200 mg capsule 200 mg PO BID PRN (Reason: cough) Qty: 20 0RF guaifenesin [Mucinex] 600 mg tablet extended release 12hr 600 mg PO BID PRN (Reason: cough) Qty: 14 0RF No Action quetiapine 300 mg Tablet 300 mg PO DAILY diclofenac sodium 1 % gel 4 g topical QID PRN (Reason: pain) Qty: 100 0RF Rx Instructions: apply to painful area as needed multivitamin Tablet 1 tab PO DAILY nortriptyline 75 mg Capsule 75 mg PO BEDTIME ergocalciferol (vitamin D2) [Vitamin D2] 50,000 unit Capsule 50,000 unit PO WEEKLY Label Comments: takes on Friday lutein 20 mg Tablet 25 mg PO DAILY Ocuvite [employer] 50 mg-15 unit- 4.5 mg-2.5 mg Tablet,Chewable 2 tab PO DAILY tizanidine 2 mg Tablet 1 - 2 mg PO BID-TID PRN (Reason: Muscle Relaxer) simvastatin 10 mg Tablet 10 mg PO BEDTIME morphine 30 mg Tablet 30 mg PO BID mirtazapine 45 mg Tablet 45 mg PO BEDTIME oxymorphone 5 mg tablet 5 mg PO SEEINSTR PRN (Reason: pain) Rx Instructions: 4-5 x/day as needed for pain Excedrin Migraine 250-250-65 mg tablet 1 tab PO Q4-6H PRN (Reason: pain) pregabalin 50 mg capsule 50 mg PO BID hydroxyzine pamoate 25 mg capsule 25 mg PO BEDTIME Label Comments: TAKE UP TO 2 CAPS A DAY NEEDED celecoxib [Celebrex] 200 mg capsule 200 mg PO DAILY Qty: 30 2RF Referrals: [facility] [Provider Group] Mila Elizabeth MD [Primary Care Provider] - Visit Report Forms: Patient Portal/API <Sarah Ashraf MD - Last Filed: 06/22/22 08:21> Cosign ED Attending Cosignature Attestation: I was immediately available in the department for consultation throughout this patient's visit. I agree with documentation as above. Sarah Ashraf MD
== END 2022-06-21 17:49 | disposition home or self-care (01) ==
PROVIDERS: Emergency Provider Nurse Practitioner Critical Care Medicine; Family Provider Family Medicine; PCP Family Medicine
DX: S90.822A Blister (nonthermal), left foot, initial encounter (principal); S92.302D Fracture of unspecified metatarsal bone(s), left foot, subsequent encounter for fracture with routine healing
CPT/HCPCS: 99281

== ENCOUNTER 2022-09-02 03:36 | Inpatient (IN) | payer MEDICARE, OTHER, SELFPAY ==
[2020-05-03 10:55] VITALS: BMI 21.6
[2022-09-02] VITALS (10 sets, daily range): BP systolic 152–211; BP diastolic 94–115; PULSE 90–114; RESP 16–18; TEMP 36.1–36.7; O2SAT 94–97; BMI 21.2; BMI 19.0
--- NOTE | 2022-09-02 04:13 | DI.RAD.S_ITS ---
PROCEDURE: XR CHEST 1V INDICATIONS: eval for pna TECHNIQUE: One view of the chest was acquired. COMPARISON: [facility], , XR CHEST 1V, 04/10/2022, 16:29. FINDINGS: Surgical changes and devices: None. Lungs and pleura: Lungs are clear. No pleural effusions or pneumothorax. Mediastinum: Mediastinal contours appear normal. Heart size is normal. Bones and chest wall: No suspicious bony lesions. Overlying soft tissues appear unremarkable. IMPRESSION: No acute cardiopulmonary abnormality. There is no significant discrepancy when compared to the overnight preliminary report. Approved by: Ghassan Gray M.D. on 09/02/2022 at 7:51
--- NOTE | 2022-09-02 04:15 | ED.GENADULT ---
HPI - General Adult General Chief complaint: Weakness Stated complaint: no eating, feeling weak, ill Time Seen by Provider: 09/02/22 03:44 Source: patient and family Mode of arrival: Wheelchair History of Present Illness HPI narrative: Patient is a 72-year-old female who arrives the emergency department today with her for evaluation of approximately 3 days not feeling well. She is complaining of some abdominal pain. She did vomit upon arrival here to the ER. She is been feeling weak and not eating. She denies chest pain. She did endorse a headache and some sore throat. No shortness of breath. No cough. Patient is somewhat confused. Her is at bedside to provide HPI. She does have a history of chronic neck pain. states that she is had no change in medications recently. Related Data Home Medications Medication Instructions Recorded Confirmed ergocalciferol (vitamin D2) 1,250 50,000 unit PO WEEKLY 08/27/19 07/17/22 mcg (50,000 unit) capsule (Vitamin D2) lutein 20 mg tablet 25 mg PO DAILY 08/27/19 07/17/22 mirtazapine 45 mg tablet 45 mg PO BEDTIME 08/27/19 07/17/22 multivitamin 1 tab PO DAILY 08/27/19 03/28/22 nortriptyline 75 mg capsule 75 mg PO BEDTIME 08/27/19 07/17/22 simvastatin 10 mg tablet 10 mg PO BEDTIME 08/27/19 07/17/22 tizanidine 2 mg tablet 1 - 2 mg PO BID-TID PRN Muscle 08/27/19 07/17/22 Relaxer vit C 50 mg-E 15 unit-zinc cit 4.5 2 tab PO DAILY 08/27/19 07/17/22 mg-lutein 2.5 mg-zeaxan chew tablet ([facility]) quetiapine 300 mg tablet 300 mg PO DAILY Depression 04/19/20 07/17/22 hydroxyzine pamoate 25 mg capsule 25 mg PO BEDTIME 03/28/22 07/17/22 pregabalin 50 mg capsule 50 mg PO BID 03/28/22 07/17/22 morphine 15 mg tablet,extended 15 mg PO Q8H 07/17/22 07/17/22 release pantoprazole 40 mg tablet,delayed 40 mg PO BEDTIME 07/17/22 07/17/22 release Previous Rx's Medication Instructions Recorded diclofenac sodium 1 % topical gel 4 g topical QID PRN pain #100 grams 06/19/22 benzonatate 200 mg capsule 200 mg PO BID PRN cough #20 caps 06/21/22 cetirizine 10 mg tablet 10 mg PO BEDTIME PRN congestion 06/21/22 #30 tabs fluticasone propionate 50 1 spray intranasal BID PRN nasal 06/21/22 mcg/actuation nasal congestion #16 grams spray,suspension guaifenesin 600 mg tablet, 600 mg PO BID PRN cough #14 tabs 06/21/22 extended release 12 hr (Mucinex) celecoxib 200 mg capsule (Celebrex) 200 mg PO DAILY #30 caps 07/17/22 Allergies Allergy/AdvReac Type Severity Reaction Status Date / Time gabapentin AdvReac Severe Lethargy Verified 07/17/22 08:16 Review of Systems Review of Systems ROS Unobtainable: All systems reviewed & are unremarkable except as noted in HPI and below Patient History Medical History Avascular necrosis of bone of hip Cervical facet joint syndrome Cervical neck pain with evidence of disc disease Cervical spondylosis Chronic low back pain Degenerative joint disease of right hip Depression Fibromyalgia HLD (hyperlipidemia) Seasonal allergies Spinal stenosis in cervical region Thoracic kyphosis Surgical History H/O shoulder surgery History of appendectomy History of hysterectomy History of right knee surgery History of tonsillectomy History of total left hip arthroplasty (09/22/19) Family History Mother Stroke Sister Cancer Diabetes mellitus Gout Social History marital status: household members: spouse Smoking Status: Never smoker alcohol intake: former Smoking Status: Never smoker alcohol intake frequency: 0-2 drinks per day Substance Use Type: does not use Exam Initial Vital Signs Initial Vital Signs: Vital Signs Temperature 97.8 F 09/02/22 03:57 Pulse Rate 110 H 09/02/22 03:57 Respiratory Rate 18 09/02/22 03:57 Blood Pressure 185/94 H 09/02/22 03:57 Pulse Oximetry 96 09/02/22 03:57 Oxygen Delivery Method 09/02/22 03:57 Const General: cooperative, comfortable and No ill appearing HENMT Mouth: moist mucous membranes Resp Effort & Inspection: normal respiratory effort Auscultation: clear to auscultation bilaterally Cardio Rate: tachycardic Rhythm: regular rhythm GI Inspection: normal to inspection and non-distended Palpation: tender Skin General: no rashes or lesions noted Neuro General: patient alert, patient awake and moves all extremities Speech: speech normal Extrem General: No edema Psych Appearance: grossly normal and well kempt Scores GCS [place] coma scale eye opening: Spontaneous [place] coma scale verbal response: Confused [place] coma scale motor response: [place]bey commands [place] coma scale total score: 14 Course Orders Ordered: ED Orders 09/02/22 03:58 EKG-12 Lead Stat 09/02/22 04:00 Urine Culture Stat Urine Microscopic Stat 09/02/22 04:13 XR chest 1V Stat 09/02/22 04:35 Complete Blood Count AUTO DIFF Stat Comprehensive Metabolic Panel Stat Covid-19 + FLU A/B + RSV - PCR Stat Ethanol (ETOH) Stat Lactate (Lactic Acid) Stat Lipase Stat Procalcitonin Stat Troponin & CK Cardiac Panel Stat 09/02/22 05:02 CT abdomen pelvis w con Stat 09/02/22 05:30 Blood Culture Stat 09/02/22 06:23 Consult to General Surgery Stat Discontinued Medications Ceftriaxone Sodium (Ceftriaxone 2,000 Mg Vial) 1,000 mg IM NOW ONE Stop: 09/02/22 05:03 Sodium Chloride (Normal Saline 0.9%) 1,000 mls @ 1,000 mls/hr IV BOLUS ONE Stop: 09/02/22 06:16 Vital Signs Vital signs: Vital Signs - 8 hr 09/02/22 03:57 Temperature 97.8 F Pulse Rate 110 H Respiratory Rate 18 Blood Pressure 185/94 H Pulse Oximetry 96 Oxygen Delivery Method Room Air Medical Decision Making Differential Diagnosis Differential Diagnosis: Bowel obstruction, sepsis, UTI, pneumonia, gastritis, and others Chronic Condition is having:: Moderate exacerbation Condition is at treatment goal?: No Discussed with:: Dr. Tovar-General surgery Patient's PASTOR Harris-juany Medical Records Medical records reviewed: Yes I reviewed the patient's medical records. Lab Data Lab results reviewed: Yes I reviewed the patient's lab results. Result diagrams: 09/02/22 04:35 09/02/22 04:35 Labs: Lab Results 09/02/22 09/02/22 09/02/22 Range/Units 04:00 04:35 04:35 WBC 16.9 H (4.5-11.0) X10^3/uL RBC 5.67 H (4.0-5.2) X10^6/uL Hgb 12.9 (12.0-16.0) g/dL Hct 40.3 (36-46) % MCV 71.1 L (80-100) fL MCH 22.7 L (26-34) PG MCHC 32.0 (30-36) % RDW 22.8 H (11.6-14.8) % Plt Count 359 (150-400) X10^3/uL Neut % (Auto) 86.4 H (50-75) % Lymph % (Auto) 8.1 L (25-40) % [place] % (Auto) 4.9 (3-14) % Eos % (Auto) 0.3 L (2-4) % Baso % (Auto) 0.3 (0-2) % Neut # (Auto) 04120 H (3126-8987) /uL Lymph # (Auto) 1400 (4362-8998) /uL [place] # (Auto) 800 (0-900) /uL Eos # (Auto) 100 (0-450) /uL Baso # (Auto) 0 (0-100) /uL RBC Morphology See below Hypochromasia 2+ H Anisocytosis 2+ H Microcytosis 1+ H Target Cells 1+ H Sodium 135 L (137-145) mmol/L Potassium 3.1 L (3.4-5.1) mmol/L Chloride 90 L (98-107) mmol/L Carbon Dioxide 34 H (22-32) mmol/L BUN 22 H (7-17) mg/dL Creatinine 1.00 (0.52-1.04) mg/dL Estimated GFR 59 L (>60) mL/min BUN/Creatinine Ratio 22.0 (6-22) Glucose 155 H (80-110) mg/dL Lactate (0.7-2.1) mmol/L Calcium 15.3 H* (8.4-10.2) mg/dL Total Bilirubin 0.8 (0.2-1.3) mg/dL AST 95 H (14-36) IU/L ALT 47 H (<35) IU/L Alkaline Phosphatase 90 (38-126) U/L Total Creatine Kinase 487 H (30-135) U/L CK-MB (CK-2) 7.76 H (<2.37) ng/mL CK-MB (CK-2) Rel Index 1.6 (1.5-5.0) % Troponin I 0.062 H (0.01-0.034) ng/mL Total Protein 9.5 H (6.3-8.2) g/dL Albumin 5.3 H (3.5-5.0) g/dL Globulin 4.2 H (1.7-4.1) g/dL Albumin/Globulin Ratio 1.3 (1.0-2.8) Lipase 115 (23-300) U/L Procalcitonin (<0.5) ng/mL Urine RBC None seen (0-5/HPF) Urine WBC 10-30/hpf H (0-5/HPF) Ur Squamous Epith Cells 0-1 /hpf (0-5/HPF) Ur Transition Epith Cell 1-5/hpf (0-5/HPF) Urine Bacteria Many (>30) H (None) Ur Culture Indicated? Specimen cultured Ethyl Alcohol < 10 ( - 10) mg/dL SARS-CoV-2 (PCR) (Negative) Influenza A (RT-PCR) (NEGATIVE) Influenza B (RT-PCR) (NEGATIVE) RSV (PCR) (Negative) 09/02/22 09/02/22 09/02/22 Range/Units 04:35 04:35 04:35 WBC (4.5-11.0) X10^3/uL RBC (4.0-5.2) X10^6/uL Hgb (12.0-16.0) g/dL Hct (36-46) % MCV (80-100) fL MCH (26-34) PG MCHC (30-36) % RDW (11.6-14.8) % Plt Count (150-400) X10^3/uL Neut % (Auto) (50-75) % Lymph % (Auto) (25-40) % [place] % (Auto) (3-14) % Eos % (Auto) (2-4) % Baso % (Auto) (0-2) % Neut # (Auto) (7686-3488) /uL Lymph # (Auto) (8892-4562) /uL [place] # (Auto) (0-900) /uL Eos # (Auto) (0-450) /uL Baso # (Auto) (0-100) /uL RBC Morphology Hypochromasia Anisocytosis Microcytosis Target Cells Sodium (137-145) mmol/L Potassium (3.4-5.1) mmol/L Chloride (98-107) mmol/L Carbon Dioxide (22-32) mmol/L BUN (7-17) mg/dL Creatinine (0.52-1.04) mg/dL Estimated GFR (>60) mL/min BUN/Creatinine Ratio (6-22) Glucose (80-110) mg/dL Lactate 1.8 (0.7-2.1) mmol/L Calcium (8.4-10.2) mg/dL Total Bilirubin (0.2-1.3) mg/dL AST (14-36) IU/L ALT (<35) IU/L Alkaline Phosphatase (38-126) U/L Total Creatine Kinase (30-135) U/L CK-MB (CK-2) (<2.37) ng/mL CK-MB (CK-2) Rel Index (1.5-5.0) % Troponin I (0.01-0.034) ng/mL Total Protein (6.3-8.2) g/dL Albumin (3.5-5.0) g/dL Globulin (1.7-4.1) g/dL Albumin/Globulin Ratio (1.0-2.8) Lipase (23-300) U/L Procalcitonin 0.11 (<0.5) ng/mL Urine RBC (0-5/HPF) Urine WBC (0-5/HPF) Ur Squamous Epith Cells (0-5/HPF) Ur Transition Epith Cell (0-5/HPF) Urine Bacteria (None) Ur Culture Indicated? Ethyl Alcohol ( - 10) mg/dL SARS-CoV-2 (PCR) Negative (Negative) Influenza A (RT-PCR) Flu a negative (NEGATIVE) Influenza B (RT-PCR) Flu b negative (NEGATIVE) RSV (PCR) Negative (Negative) Urine Dip Bedside Urine Glucose Negative Bedside Urine Bilirubin - Negative Bedside Urine Ketone - Negative Urine Specific [place] 1.020 Bedside Urine Occult Blood +/- Bedside Urine pH 6.0 Bedside Urine Protein + 30 Bedside Urine Urobilinogen - Negative Bedside Urine Nitrite - Negative Bedside Urine Leukocytes - Negative Esterase Point of care testing: Urine Dip Bedside Urine Glucose Negative Bedside Urine Bilirubin - Negative Bedside Urine Ketone - Negative Urine Specific [place] 1.020 Bedside Urine Occult Blood +/- Bedside Urine pH 6.0 Bedside Urine Protein + 30 Bedside Urine Urobilinogen - Negative Bedside Urine Nitrite - Negative Bedside Urine Leukocytes - Negative Esterase Imaging Data Chest x-ray: Attestation: I personally reviewed and interpreted this imaging study as follows: My Impression: No acute pathology Radiologist's Impression: No acute cardiopulmonary abnormality is identified CT scan - abdomen/pelvis: Radiologist's Impression: Thickening of the gastroesophageal junction, probable mass. Recommend direct visualization for further evaluation. Diffuse circumferential wall thickening of the gastric antrum possible mass versus gastritis with distention of the stomach related to the gastric outlet obstruction. ECG Data Attestation: I personally reviewed and interpreted this ECG as follows: Interpretation: Sinus tachycardia Ventricular rate 10 Normal QRS Normal QTC No ST T wave changes MDM Narrative Medical decision making narrative: Patient did vomit here upon arrival. Was tachycardic. Has a leukocytosis. Has bacteria and white blood cells in her urine. Cultures were obtained. Fluids administered. Antibiotics administered. Given her vague symptoms in the vomiting a CT scan was ordered. It does show what appears to be a probable mass at the gastroesophageal junction. She also has a fairly distended stomach and duodenum. There was no mention of a bowel obstruction on the CT scan report. Patient was also hypercalcemic which again is concerning for malignancy. Troponin indeterminate as well. No EKG changes concerning for ischemia. Patient not hypotensive. I did discuss the case with Dr. Tovar on-call for General surgery who stated that he would happy to evaluate the patient upon admission. Discussed the case with SIEBEL ADMINISTRATOR Steven hospitalist who will admit. I did discuss the need for admission with the patient and at bedside. They both expressed understanding and agreement. Discharge Plan Departure Patient Disposition: Home Clinical Impression: Urinary tract infection, Hypercalcemia, Vomiting, Gastric distention
[2022-09-02 04:45] LABS: Add Manual Diff / Slide Review NO; Basophils Absolute Auto 0 /uL (0-100); Basophils Percent Auto 0.3 % (0-2); Eosinophils Absolute Auto 100 /uL (0-450); Eosinophils Percent Auto 0.3 % (2-4); Hematocrit 40.3 % (36-46); Hemoglobin 12.9 g/dL (12.0-16.0); Lymphocytes Absolute Auto 1400 /uL (1100-4500); Lymphocytes Percent Auto 8.1 % (25-40); Mean Corpuscular Hemoglobin 22.7 PG (26-34); Mean Corpuscular Volume 71.1 fL (80-100); Monocytes Absolute Auto 800 /uL (0-900); Monocytes Percent Auto 4.9 % (3-14); Neutrophils Absolute Auto 14600 /uL (1500-7000); Neutrophils Percent Auto 86.4 % (50-75); Platelet Count 359 X10^3/uL (150-400); Red Blood Cell Count 5.67 X10^6/uL (4.0-5.2); Red Cell Distribution Width 22.8 % (11.6-14.8); White Blood Cell Count 16.9 X10^3/uL (4.5-11.0)
[2022-09-02 04:50] LABS: Bacteria Urine Many (>30); Culture Indicated Urine Specimen Cultured; RBC Urine None Seen (0-5/HPF); Squamous Epithelial Cell Urine 0-1 /HPF (0-5/HPF); Transitional Epi Cells Urine 1-5/HPF (0-5/HPF); WBC Urine 10-30/HPF (0-5/HPF)
--- NOTE | 2022-09-02 05:02 | DI.CT.S_ITS ---
PROCEDURE: CT ABDOMEN PELVIS W CON INDICATIONS: abd pain and vomiting TECHNIQUE: After the administration of intravenous contrast, axial sections acquired from the lung bases to the pubic symphysis. Coronal and sagittal reformats were performed. For radiation dose reduction, the following was used: automated exposure control, adjustment of mA and/or kV according to patient size. COMPARISON: [facility], CT, CT ABDOMEN PELVIS W CON, 04/10/2022, 18:40. FINDINGS: Image quality: Excellent. Lung bases: Small subpleural nodule at the right lung base does not appear significantly changed given differences in inspiration. Heart: No significant findings. ABDOMEN: Liver: Unremarkable. Gallbladder: Unremarkable. Biliary ducts: Enlargement of the extrahepatic bile ducts is again seen measuring up to 13 mm in diameter and measuring 10 mm at the level of the pancreatic head. No radiopaque filling defect is seen in the common bile duct. Pancreas: Unremarkable. Spleen: Unremarkable. Adrenal Glands: Unremarkable. Kidneys and Ureters: Subcentimeter hypodensities are most likely cysts, but are too small to characterize. No hydronephrosis. Stomach and Bowel: Thickening of the gastroesophageal junction may be secondary to prior fat upper K flaherty procedure versus esophagitis or mass. The stomach and duodenum are distended and filled with fluid to the level of the 3rd portion of the duodenum where there is abrupt narrowing at the level of the superior mesenteric artery. The remainder of the bowel is nondistended. A few diverticula are seen in the colon. The transverse, descending, and sigmoid colon demonstrate mild bowel wall thickening that may be related to underdistention. Peritoneum: No abnormal intraperitoneal fluid. No free air. Ventral Wall: Tiny fat containing periumbilical hernia. Abdominal Nodes: No retroperitoneal or mesenteric adenopathy by size criteria. Vessels: Aorta and inferior vena cava are normal in size. Mild aortic atherosclerotic calcifications. PELVIS: Pelvic Organs: Status post hysterectomy. Bladder: Unremarkable. Pelvic Nodes: No enlarged lymph nodes. Miscellaneous: No hernias are seen. Bones: Bilateral hip arthroplasties are present with associated metal streak artifact. Mild degenerative changes are seen in the spine. IMPRESSION: 1. Distended fluid-filled stomach and proximal duodenum with narrowing at the level of the superior mesenteric artery, which raises the question of possible SMA syndrome resulting in partial duodenal obstruction, versus gastritis or gastric outlet obstruction. 2. Thickening of the gastroesophageal junction again seen. Differential considerations include prior surgery versus esophagitis or mass. 3. Mild bowel wall thickening within the transverse, descending, and sigmoid colon, which may be secondary to underdistention but a mild colitis is not excluded. 4. Mild intrahepatic and extrahepatic biliary ductal dilatation persists but appears slightly improved when compared to the CT from 04/10/2022. Mild discrepancy is noted when compared to the overnight preliminary report. Approved by: Ghassan Gray M.D. on 09/02/2022 at 8:12
[2022-09-02 05:05] LABS: Alanine Aminotransferase 47 IU/L (<35); Albumin 5.3 g/dL (3.5-5.0); Albumin Globulin Ratio 1.3 (1.0-2.8); Alkaline Phosphatase 90 U/L (38-126); Aspartate Aminotransferase 95 IU/L (14-36); Bilirubin Total 0.8 mg/dL (0.2-1.3); Blood Urea Nitrogen 22 mg/dL (7-17); Carbon Dioxide 34 mmol/L (22-32); Chloride 90 mmol/L (98-107); Creatine Kinase 487 U/L (30-135); Estimated Glomerular Filt Rate 59 mL/min (>60); Ethanol (ETOH) < 10 mg/dL; Globulin 4.2 g/dL (1.7-4.1); Glucose 155 mg/dL (80-110); HEMOLYSIS < 15 (0-50); Lactate (Lactic Acid) 1.8 mmol/L (0.7-2.1); Lipase 115 U/L (23-300); Potassium 3.1 mmol/L (3.4-5.1); Sodium 135 mmol/L (137-145); Total Protein 9.5 g/dL (6.3-8.2)
[2022-09-02 05:16] LABS: Troponin I 0.062 ng/mL (0.01-0.034)
[2022-09-02 05:17] LABS: Calcium 15.3 mg/dL (8.4-10.2)
[2022-09-02 05:19] LABS: CKMB % Relative Index 1.6 % (1.5-5.0); Creatine Kinase MB 7.76 ng/mL (<2.37)
[2022-09-02 05:21] LABS: Procalcitonin 0.11 ng/mL (<0.5)
[2022-09-02 05:25] LABS: Anisocytosis 2+; Hypochromasia 2+; Influenza A - CEPHEID Flu A NEGATIVE (NEGATIVE); Influenza B - CEPHEID Flu B NEGATIVE (NEGATIVE); Microcytosis 1+; Respiratory Syncytial Virus Negative (Negative)
[2022-09-02 05:26] LABS: Target Cells 1+
[2022-09-02 05:48] LABS: COVID-19 CEPHEID 4-PLEX PCR Negative (Negative)
[2022-09-02] MEDS: cefTRIAXone 2,000 MG VIAL 1000 MG IM (07:08)
[2022-09-02] MEDS: SODIUM CHLORIDE 0.9% 1,000 ML 1000 ML IV (07:10)
[2022-09-02] MEDS: ONDANSETRON 4 MG/2 ML INJ IV ×2 (07:21→14:22)
[2022-09-02 07:34] LABS: Phosphorous 4.3 mg/dL (2.8-4.1)
[2022-09-02 08:06] LABS: Thyroid Stimulating Hormone 0.551 uIU/mL (0.47-4.68)
[2022-09-02] MEDS: POTASSIUM CHLORIDE IN WATER 10 MEQ/100 ML PIGGYBACK 100 MEQ IV ×4 (08:30→12:15)
[2022-09-02] MEDS: SODIUM CHLORIDE 0.9% 1,000 ML 100 ML IV ×2 (08:30→21:08)
[2022-09-02] MEDS: ENOXAPARIN 40 MG/0.4 ML SYRINGE SUBCUT (08:32)
[2022-09-02] MEDS: ZOLEDRONIC ACID 4 MG in SODIUM CHLORIDE 0.9% 100 ML 315 MG IV (08:59)
[2022-09-02] MEDS: LABETALOL 20 MG/4 ML SYRINGE IV (09:06)
[2022-09-02] MEDS: ACETAMINOPHEN 325 MG TABLET 650 MG PO ×2 (09:48→18:53)
--- NOTE | 2022-09-02 12:33 | PC.NURSE ---
Pt arrived from ED at approximately 0800, She is A&OX1, confused on date and place. She reports feeling very ill and nauseated. She coughs very hard but spits up minimal saliva. Her BBP is extremely elevated 205/116, MD notified, she is placed on telemetry and labatelol administered per orders. Tylenol prn given for [place]. She is able to swallow pills in applesauce. Continues coughing. notified. ASSISTANT DEPARTMENT MANAGER evaluation for swallowing orders received.
--- NOTE | 2022-09-02 14:43 | P.CONS_ITS ---
History of Present Illness Consult details Date Patient Seen: 09/02/22 Time Patient Seen: 14:43 Chief complaint: no eating, feeling weak, ill Narrative: Laurie is a 72-year-old woman who presented to the emergency department early this morning with her complaining of 3 days of abdominal discomfort. A CT scan demonstrated distention of the stomach with thickening versus a mass at the GE junction as well as some thickening in the duodenum.. She has had some food today. Meds Home Medications and Allergies Home Medications Medication Instructions Recorded Confirmed Type ergocalciferol (vitamin D2) 1,250 50,000 unit PO WEEKLY 08/27/19 07/17/22 History mcg (50,000 unit) capsule (Vitamin D2) lutein 20 mg tablet 25 mg PO DAILY 08/27/19 07/17/22 History mirtazapine 45 mg tablet 45 mg PO BEDTIME 08/27/19 07/17/22 History multivitamin 1 tab PO DAILY 08/27/19 03/28/22 History nortriptyline 75 mg capsule 75 mg PO BEDTIME 08/27/19 07/17/22 History simvastatin 10 mg tablet 10 mg PO BEDTIME 08/27/19 07/17/22 History tizanidine 2 mg tablet 1 - 2 mg PO BID-TID PRN Muscle 08/27/19 07/17/22 History Relaxer vit C 50 mg-E 15 unit-zinc cit 4.5 2 tab PO DAILY 08/27/19 07/17/22 History mg-lutein 2.5 mg-zeaxan chew tablet [facility] quetiapine 300 mg tablet 300 mg PO DAILY Depression 04/19/20 07/17/22 History hydroxyzine pamoate 25 mg capsule 25 mg PO BEDTIME 03/28/22 07/17/22 History pregabalin 50 mg capsule 50 mg PO BID 03/28/22 07/17/22 History diclofenac sodium 1 % topical gel 4 g topical QID PRN pain #100 grams 06/19/22 07/17/22 Rx benzonatate 200 mg capsule 200 mg PO BID PRN cough #20 caps 06/21/22 07/17/22 Rx cetirizine 10 mg tablet 10 mg PO BEDTIME PRN congestion 06/21/22 07/17/22 Rx #30 tabs fluticasone propionate 50 1 spray intranasal BID PRN nasal 06/21/22 07/17/22 Rx mcg/actuation nasal congestion #16 grams spray,suspension guaifenesin 600 mg tablet, 600 mg PO BID PRN cough #14 tabs 06/21/22 07/17/22 Rx extended release 12 hr (Mucinex) celecoxib 200 mg capsule (Celebrex) 200 mg PO DAILY #30 caps 07/17/22 07/17/22 Rx morphine 15 mg tablet,extended 15 mg PO Q8H 07/17/22 07/17/22 History release pantoprazole 40 mg tablet,delayed 40 mg PO BEDTIME 07/17/22 07/17/22 History release Allergies Allergy/AdvReac Type Severity Reaction Status Date / Time gabapentin AdvReac Severe Lethargy Verified 07/17/22 08:16 Exam Vital Signs (past 8 hours): - 09/02/22 07:15 09/02/22 09:06 09/02/22 08:00 Temperature 97 F L Pulse Rate 108 H 100 H 114 H Respiratory Rate 16 Blood Pressure 211/95 H 206/115 H 206/115 H Pulse Oximetry 94 97 Oxygen Flow Rate 0 09/02/22 12:41 Temperature 97.4 F L Pulse Rate 93 H Respiratory Rate 16 Blood Pressure 171/106 H Pulse Oximetry 95 Oxygen Flow Rate 0 Oxygen Delivery Method Room Air Oxygen Flow Rate 0 Narrative Exam Narrative: Slightly confused Abdomen is soft, moderately distended, nontender Objective Labs 09/02/22 04:35 09/02/22 04:35 Labs: Laboratory Results - last 24 hr 09/02/22 09/02/22 09/02/22 04:00 04:35 04:35 WBC 16.9 H RBC 5.67 H Hgb 12.9 Hct 40.3 MCV 71.1 L MCH 22.7 L MCHC 32.0 RDW 22.8 H Plt Count 359 Neut % (Auto) 86.4 H Lymph % (Auto) 8.1 L [place] % (Auto) 4.9 Eos % (Auto) 0.3 L Baso % (Auto) 0.3 Neut # (Auto) 56333 H Lymph # (Auto) 1400 [place] # (Auto) 800 Eos # (Auto) 100 Baso # (Auto) 0 RBC Morphology See below Hypochromasia 2+ H Anisocytosis 2+ H Microcytosis 1+ H Target Cells 1+ H Sodium 135 L Potassium 3.1 L Chloride 90 L Carbon Dioxide 34 H BUN 22 H Creatinine 1.00 Estimated GFR 59 L BUN/Creatinine Ratio 22.0 Glucose 155 H Lactate Calcium 15.3 H* Phosphorus Total Bilirubin 0.8 AST 95 H ALT 47 H Alkaline Phosphatase 90 Total Creatine Kinase 487 H CK-MB (CK-2) 7.76 H CK-MB (CK-2) Rel Index 1.6 Troponin I 0.062 H Total Protein 9.5 H Albumin 5.3 H Globulin 4.2 H Albumin/Globulin Ratio 1.3 Lipase 115 Procalcitonin TSH Urine RBC None seen Urine WBC 10-30/hpf H Ur Squamous Epith Cells 0-1 /hpf Ur Transition Epith Cell 1-5/hpf Urine Bacteria Many (>30) H Ur Culture Indicated? Specimen cultured Ethyl Alcohol < 10 SARS-CoV-2 (PCR) Influenza A (RT-PCR) Influenza B (RT-PCR) RSV (PCR) 09/02/22 09/02/22 09/02/22 04:35 04:35 04:35 WBC RBC Hgb Hct MCV MCH MCHC RDW Plt Count Neut % (Auto) Lymph % (Auto) [place] % (Auto) Eos % (Auto) Baso % (Auto) Neut # (Auto) Lymph # (Auto) [place] # (Auto) Eos # (Auto) Baso # (Auto) RBC Morphology Hypochromasia Anisocytosis Microcytosis Target Cells Sodium Potassium Chloride Carbon Dioxide BUN Creatinine Estimated GFR BUN/Creatinine Ratio Glucose Lactate 1.8 Calcium Phosphorus Total Bilirubin AST ALT Alkaline Phosphatase Total Creatine Kinase CK-MB (CK-2) CK-MB (CK-2) Rel Index Troponin I Total Protein Albumin Globulin Albumin/Globulin Ratio Lipase Procalcitonin 0.11 TSH Urine RBC Urine WBC Ur Squamous Epith Cells Ur Transition Epith Cell Urine Bacteria Ur Culture Indicated? Ethyl Alcohol SARS-CoV-2 (PCR) Negative Influenza A (RT-PCR) Flu a negative Influenza B (RT-PCR) Flu b negative RSV (PCR) Negative 09/02/22 09/02/22 04:35 04:35 WBC RBC Hgb Hct MCV MCH MCHC RDW Plt Count Neut % (Auto) Lymph % (Auto) [place] % (Auto) Eos % (Auto) Baso % (Auto) Neut # (Auto) Lymph # (Auto) [place] # (Auto) Eos # (Auto) Baso # (Auto) RBC Morphology Hypochromasia Anisocytosis Microcytosis Target Cells Sodium Potassium Chloride Carbon Dioxide BUN Creatinine Estimated GFR BUN/Creatinine Ratio Glucose Lactate Calcium Phosphorus 4.3 H Total Bilirubin AST ALT Alkaline Phosphatase Total Creatine Kinase CK-MB (CK-2) CK-MB (CK-2) Rel Index Troponin I Total Protein Albumin Globulin Albumin/Globulin Ratio Lipase Procalcitonin TSH 0.551 Urine RBC Urine WBC Ur Squamous Epith Cells Ur Transition Epith Cell Urine Bacteria Ur Culture Indicated? Ethyl Alcohol SARS-CoV-2 (PCR) Influenza A (RT-PCR) Influenza B (RT-PCR) RSV (PCR) [facility] Medical History Avascular necrosis of bone of hip Cervical facet joint syndrome Cervical neck pain with evidence of disc disease Cervical spondylosis Chronic low back pain Degenerative joint disease of right hip Depression Fibromyalgia HLD (hyperlipidemia) Seasonal allergies Spinal stenosis in cervical region Thoracic kyphosis Surgical History H/O shoulder surgery History of appendectomy History of hysterectomy History of right knee surgery History of tonsillectomy History of total left hip arthroplasty (09/22/19) Family History Mother Stroke Sister Cancer Diabetes mellitus Gout Social History marital status: household members: spouse Tobacco & Substance Use Smoking Status: Never smoker alcohol intake: former Assessment & Plan Assessment and plan (1) Abnormal finding on GI tract imaging: Status: Acute Plan 72-year-old woman with abdominal discomfort and a CT scan suggestive of a GE junction mass and possibly also thickening in the duodenum. Plan for NPO at midnight an EGD tomorrow. This will be performed by either or Dr. Salvador tomorrow. Time Spent With Patient Critical Care time: I spent a total of [] minutes of critical care time on this patient's care today; this time is exclusive of procedural time.
--- NOTE | 2022-09-02 15:31 | SLP.IPNOTE ---
CAMP MANAGER consulted with pt's nurse at 1525 09/02/22. Nurse reports that the pt has not been eating much but this appears to be due to nausea/discomfort related to recently dx mass at GE junction. Pt will be NPO after midnight tonight for a GI scope tomorrow and is unlikely to eat tonight. Given nausea and possible obstruction, will hold off on PO trials/evaluation until tomorrow after scope is completed.
[2022-09-02] MEDS: POTASSIUM CHLORIDE 20 MEQ TAB 40 MEQ PO (15:43)
--- NOTE | 2022-09-02 16:34 | PM.HP.1 ---
History of Present Illness History of Present Illness Date Patient Seen: 09/02/22 Chief complaint: no eating, feeling weak, ill Narrative: Patient is a 72-year-old female who arrived the emergency department yesterday with her for evaluation of approximately 3 days not feeling well.? She was complaining of some abdominal pain.? She did vomit upon arrival here to the ER.? She had been feeling weak and not eating.? She denied chest pain.? She did endorse a headache and some sore throat.? No shortness of breath.? No cough.? Patient is somewhat confused.?? She does have a history of chronic neck pain.? reported that she is had no change in medications recently.? ?A CT scan demonstrated distention of the stomach with thickening versus a mass at the GE junction as well as some thickening in the duodenum. General surgery was consulted and a consultation has been completed. Plan is for endoscopy tomorrow to assess GE junction mass and possibly also thickening in the duodenum. Patient not complaining of any fever chills nausea vomiting or diaphoresis. No chest pain palpitations wheezing or no shortness of breath. Some abdominal pain but no constipation or diarrhea. Patient History Medical History Avascular necrosis of bone of hip Cervical facet joint syndrome Cervical neck pain with evidence of disc disease Cervical spondylosis Chronic low back pain Degenerative joint disease of right hip Depression Fibromyalgia HLD (hyperlipidemia) Seasonal allergies Spinal stenosis in cervical region Thoracic kyphosis Surgical History H/O shoulder surgery History of appendectomy History of hysterectomy History of right knee surgery History of tonsillectomy History of total left hip arthroplasty (09/22/19) Family & Social History Family History Mother Stroke Sister Cancer Diabetes mellitus Gout Social History: household members spouse Prior Living Arrangements House Safety & Behavioral: Feels Safe in Current Yes Environment Been Physically Hurt or No Threatened By a Person Tobacco & Substance use: Smoking Status Never smoker alcohol intake former alcohol intake frequency other Substance Use Type does not use Meds Home Medications and Allergies Home Medications Medication Instructions Recorded Confirmed Type ergocalciferol (vitamin D2) 1,250 50,000 unit PO WEEKLY 08/27/19 07/17/22 History mcg (50,000 unit) capsule (Vitamin D2) lutein 20 mg tablet 25 mg PO DAILY 08/27/19 07/17/22 History mirtazapine 45 mg tablet 45 mg PO BEDTIME 08/27/19 07/17/22 History multivitamin 1 tab PO DAILY 08/27/19 03/28/22 History nortriptyline 75 mg capsule 75 mg PO BEDTIME 08/27/19 07/17/22 History simvastatin 10 mg tablet 10 mg PO BEDTIME 08/27/19 07/17/22 History tizanidine 2 mg tablet 1 - 2 mg PO BID-TID PRN Muscle 08/27/19 07/17/22 History Relaxer vit C 50 mg-E 15 unit-zinc cit 4.5 2 tab PO DAILY 08/27/19 07/17/22 History mg-lutein 2.5 mg-zeaxan chew tablet (Viyet) quetiapine 300 mg tablet 300 mg PO DAILY Depression 04/19/20 07/17/22 History hydroxyzine pamoate 25 mg capsule 25 mg PO BEDTIME 03/28/22 07/17/22 History pregabalin 50 mg capsule 50 mg PO BID 03/28/22 07/17/22 History diclofenac sodium 1 % topical gel 4 g topical QID PRN pain #100 grams 06/19/22 07/17/22 Rx benzonatate 200 mg capsule 200 mg PO BID PRN cough #20 caps 06/21/22 07/17/22 Rx cetirizine 10 mg tablet 10 mg PO BEDTIME PRN congestion 06/21/22 07/17/22 Rx #30 tabs fluticasone propionate 50 1 spray intranasal BID PRN nasal 06/21/22 07/17/22 Rx mcg/actuation nasal congestion #16 grams spray,suspension guaifenesin 600 mg tablet, 600 mg PO BID PRN cough #14 tabs 06/21/22 07/17/22 Rx extended release 12 hr (Mucinex) celecoxib 200 mg capsule (Celebrex) 200 mg PO DAILY #30 caps 07/17/22 07/17/22 Rx morphine 15 mg tablet,extended 15 mg PO Q8H 07/17/22 07/17/22 History release pantoprazole 40 mg tablet,delayed 40 mg PO BEDTIME 07/17/22 07/17/22 History release Allergies Allergy/AdvReac Type Severity Reaction Status Date / Time gabapentin AdvReac Severe Lethargy Verified 07/17/22 08:16 Review of Systems Review of Systems Narrative: Fourteen system review was completed and pertinent findings are in the history of chief complaint. Exam Vital Signs (past 8 hours): - 09/02/22 09:06 09/02/22 12:41 Temperature 97.4 F L Pulse Rate 100 H 93 H Respiratory Rate 16 Blood Pressure 206/115 H 171/106 H Pulse Oximetry 95 Oxygen Flow Rate 0 Oxygen Delivery Method Room Air Oxygen Flow Rate 0 Objective Labs Result Diagrams: 09/02/22 04:35 09/02/22 04:35 Labs: Laboratory Results - last 24 hr 09/02/22 09/02/22 09/02/22 04:00 04:35 04:35 WBC 16.9 H RBC 5.67 H Hgb 12.9 Hct 40.3 MCV 71.1 L MCH 22.7 L MCHC 32.0 RDW 22.8 H Plt Count 359 Neut % (Auto) 86.4 H Lymph % (Auto) 8.1 L Coleman % (Auto) 4.9 Eos % (Auto) 0.3 L Baso % (Auto) 0.3 Neut # (Auto) 94165 H Lymph # (Auto) 1400 Coleman # (Auto) 800 Eos # (Auto) 100 Baso # (Auto) 0 RBC Morphology See below Hypochromasia 2+ H Anisocytosis 2+ H Microcytosis 1+ H Target Cells 1+ H Sodium 135 L Potassium 3.1 L Chloride 90 L Carbon Dioxide 34 H BUN 22 H Creatinine 1.00 Estimated GFR 59 L BUN/Creatinine Ratio 22.0 Glucose 155 H Lactate Calcium 15.3 H* Phosphorus Total Bilirubin 0.8 AST 95 H ALT 47 H Alkaline Phosphatase 90 Total Creatine Kinase 487 H CK-MB (CK-2) 7.76 H CK-MB (CK-2) Rel Index 1.6 Troponin I 0.062 H Total Protein 9.5 H Albumin 5.3 H Globulin 4.2 H Albumin/Globulin Ratio 1.3 Lipase 115 Procalcitonin TSH Urine RBC None seen Urine WBC 10-30/hpf H Ur Squamous Epith Cells 0-1 /hpf Ur Transition Epith Cell 1-5/hpf Urine Bacteria Many (>30) H Ur Culture Indicated? Specimen cultured Ethyl Alcohol < 10 SARS-CoV-2 (PCR) Influenza A (RT-PCR) Influenza B (RT-PCR) RSV (PCR) 09/02/22 09/02/22 09/02/22 04:35 04:35 04:35 WBC RBC Hgb Hct MCV MCH MCHC RDW Plt Count Neut % (Auto) Lymph % (Auto) Coleman % (Auto) Eos % (Auto) Baso % (Auto) Neut # (Auto) Lymph # (Auto) Coleman # (Auto) Eos # (Auto) Baso # (Auto) RBC Morphology Hypochromasia Anisocytosis Microcytosis Target Cells Sodium Potassium Chloride Carbon Dioxide BUN Creatinine Estimated GFR BUN/Creatinine Ratio Glucose Lactate 1.8 Calcium Phosphorus Total Bilirubin AST ALT Alkaline Phosphatase Total Creatine Kinase CK-MB (CK-2) CK-MB (CK-2) Rel Index Troponin I Total Protein Albumin Globulin Albumin/Globulin Ratio Lipase Procalcitonin 0.11 TSH Urine RBC Urine WBC Ur Squamous Epith Cells Ur Transition Epith Cell Urine Bacteria Ur Culture Indicated? Ethyl Alcohol SARS-CoV-2 (PCR) Negative Influenza A (RT-PCR) Flu a negative Influenza B (RT-PCR) Flu b negative RSV (PCR) Negative 09/02/22 09/02/22 04:35 04:35 WBC RBC Hgb Hct MCV MCH MCHC RDW Plt Count Neut % (Auto) Lymph % (Auto) Coleman % (Auto) Eos % (Auto) Baso % (Auto) Neut # (Auto) Lymph # (Auto) Coleman # (Auto) Eos # (Auto) Baso # (Auto) RBC Morphology Hypochromasia Anisocytosis Microcytosis Target Cells Sodium Potassium Chloride Carbon Dioxide BUN Creatinine Estimated GFR BUN/Creatinine Ratio Glucose Lactate Calcium Phosphorus 4.3 H Total Bilirubin AST ALT Alkaline Phosphatase Total Creatine Kinase CK-MB (CK-2) CK-MB (CK-2) Rel Index Troponin I Total Protein Albumin Globulin Albumin/Globulin Ratio Lipase Procalcitonin TSH 0.551 Urine RBC Urine WBC Ur Squamous Epith Cells Ur Transition Epith Cell Urine Bacteria Ur Culture Indicated? Ethyl Alcohol SARS-CoV-2 (PCR) Influenza A (RT-PCR) Influenza B (RT-PCR) RSV (PCR) Assessment & Plan Assessment & Plan narrative: 1. Abdominal pain. Provide pain medication as needed. Treat with PPI. 2. Concern for GE junction mass. And possible duodenal wall thickening. Endoscopy pending for tomorrow. 3. Degenerative changes of the neck with cervical facet joint syndrome, degenerative disc disease and spondylosis. Pain medication as needed. Also continue tizanidine as needed. 4. Chronic low back pain. Provide pain medication as needed. 5. Degenerative joint disease of the right hip. Provide pain medication as needed. 6. Depression. Continue patient's regular medication 7. Fibromyalgia. Continue regular medication. 8. Hyperlipidemia. Continue simvastatin 9. Seasonal allergies. Continue regular medication. 10. Thoracic kyphosis 11. GERD. Continue pantoprazole. 12. Hypercalcemia. Treated with zoledronic acid. Continue to monitor. 13. Hypokalemia. Replace. 14. Hyperphosphorous. 15. Elevated creatinine kinase 16. Elevated troponin 17. Urinalysis concerning for urinary tract infection with elevated white blood cells and noted bacteria. Has leukocytosis also. Culture and treat. Urine and blood cultures are pending. Treating with 1 g ceftriaxone 24 hours. 18. Recent right foot fracture. In the process recovering. Admit the patient to Inpatient and to evaluate the GE junction mass and duodenal thickening as well treat UTI. Continue to evaluate the patient medically. I have utilized all available immediate resources to obtain, update, or review of the patient's current medications VTE Deep Vein Thrombosis/Pulmonary Embolism Present on Admission: No DVT prophylaxis with enoxaparin 40 mg subQ daily was initiated. MIPS - Admit I confirm the patient?s Advance Care Plan is present, Code status is documented, Surrogate decision maker is in patient?s record: Yes Code status: Full code. Discussed with the patient and her . Surrogate decision maker: Beto Murray COVID status: Negative test on September 02, 2019 Time Spent With Patient Critical Care time: I spent a total of [] minutes of critical care time on this patient's care today; this time is exclusive of procedural time.
[2022-09-02] MEDS: BENZONATATE 100 MG CAPSULE 200 MG PO (18:44)
[2022-09-02] MEDS: guaiFENesin ER 600 MG TAB PO (18:44)
[2022-09-02] MEDS: TIZANIDINE 4 MG TABLET 1 MG PO (18:45)
--- NOTE | 2022-09-02 19:46 | DI.ECHO.S_ITS ---
[facility] +---------+ [facility] +---------+ : : [address] : : : : [id number] : : : : Phone: [phone]+ Echocardiogram Report + + :Name: MARY ARMENDARIZ Study Date: 09/03/2022 Height: 67 in : :[facility] ReadingLocation: Weight: 121 lb : : Gender: Female BSA: 1.6 m2 : :: 1950 Age: 72 yrs BP: 125/73 mmHg: :Reason For Study: ELEVATED TROPONIN : :Ordering Physician: Bell GASTONformed By: Btia Echeverria : :Referring: ANAMIKA GASTON : + + Interpretation Summary The ejection fraction is estimated to be 20-25%. All basal to distal and apical segments are severely hyper to akinetic most consistent with stress cardiomyopathy. Diastolic function could not be accurately assessed due to unobtainable data. The right ventricle is normal in size and function. No significant valvular abnormalities. The right ventricular systolic pressure is estimated to be at least 27 mmHg based on an estimated right atrial pressure of 3 mm Hg. Procedure: A two-dimensional transthoracic echocardiogram with color flow and Doppler was performed. The study quality was technically adequate. There is no prior echocardiogram noted for this patient. The heart rate ranged between 100-105 bpm during the study. Left Ventricle: There is normal left ventricular wall thickness. The estimated left ventricular end diastolic volume is 83 ml. The ejection fraction is estimated to be 20-25%. All basal to distal and apical segments are severely hyper to akinetic. Consider stress cardiomyopathy. Diastolic function could not be accurately assessed due to unobtainable data. Right Ventricle: The right ventricle is normal in size and function. Atria: The left atrial size is normal. Right atrial size is normal. There is no Doppler evidence for an interatrial shunt. Mitral Valve: The mitral valve is normal in structure and function. There is trace mitral regurgitation. Aortic Valve: The aortic valve opens well. The aortic valve is slightly calcified. There is no aortic valve stenosis. No aortic regurgitation is present. Tricuspid Valve: The tricuspid valve is normal in structure and function. There is mild tricuspid regurgitation. The right ventricular systolic pressure is estimated to be at least 27 mmHg based on an estimated right atrial pressure of 3 mm Hg. Pulmonic Valve: The pulmonic valve is not well visualized. There is no pulmonic valvular regurgitation. Great Vessels: The aortic root is normal size. The dimensions of the ascending aorta are normal. The IVC is of normal diameter and collapses greater than 50% with a sniff. This suggests a low right atrial pressure of 3 mm Hg. Pericardium/ Pleura There is a trivial pericardial effusion noted. There is no pleural effusion. MMode/2D Measurements & Calculations LVIDd: 4.4 cm LVOT diam: 1.8 cm LVIDs: 3.6 cm Ao root diam: 3.1 cm FS: 18.7 % asc Aorta Diam: 3.2 cm IVSd: 0.87 cm Ao Arch Diam (Prox Trans): 3.0 cm LVPWd: 0.88 cm LV yang. diameter/BSA (cm/m^2): 2.7 LV sys. diameter/BSA (cm/m^2): 2.2 LA A2 area: 18.5 cm2 RA long axis: 3.6 cm LA A4 area: 14.1 cm2 RA area: 10.8 cm2 LA length (vol): 4.1 cm RA vol: 27.7 ml LA vol: 53.7 ml RA : 17.0 ml/m2 LA vol index: 32.9 ml/m2 IVC diam: 1.3 cm RVD1 (basal): 2.8 cm RVD2 (mid): 2.4 cm TAPSE: 1.3 cm Doppler Measurements & Calculations Ao V2 max: 118.5 cm/sec LVOT Max Donte: 115.5 cm/sec Ao V2 mean: 80.7 cm/sec LV V1 max P.3 mmHg Ao max P.6 mmHg LV V1 VTI: 19.6 cm Ao mean P.9 mmHg RAMSES(I,D): 2.7 cm2 Ao V2 VTI: 18.0 cm RAMSES(V,D): 2.4 cm2 sev ratio: 1.1 RAMSES indexed to BSA (cm^2/m^2): 1.6 MV E max donte: 101.2 cm/sec TR max donte: 245.2 cm/sec MV A max donte: 1.4 cm/sec TR max P.1 mmHg MV E/A: 74.6 PA V2 max: 73.9 cm/sec Med Peak E' Donte: 8.3 cm/sec PA V2 mean: 52.0 cm/sec E/E' med: 12.1 PA mean P.2 mmHg Lat Peak E' Donte: 15.3 cm/sec E/E' lat: 6.6 E/e' average: 9.4 MV dec time: 0.10 sec SV(LVOT): 48.4 ml Reading Physician:11:54 AM
--- NOTE | 2022-09-02 19:54 | PM.EVENT ---
Event Note Date Patient Seen: 09/02/22 Time Patient Seen: 19:54 Event Note (Rapid Response, Code, or fall): Patient's troponin resulted at 1800 of 3.2. EKG ordered, she is still tachy. When asked, says her chest hurts, but points to lower pelvis. Discussed case w/Dr. Bhakta, Account Support Rep, have put in for an in-house consult w/Dr. Smith in the am. Said not likely to do a cath in the setting of a malignancy workup and did not recommend a heparin drip. Trops will be ordered q6. Unable to do a CTA due to autoinjector issue. Hemodynamically stable.
[2022-09-02 20:24] LABS: Alanine Aminotransferase 45 IU/L (<35); Albumin 4.2 g/dL (3.5-5.0); Albumin Globulin Ratio 1.4 (1.0-2.8); Alkaline Phosphatase 73 U/L (38-126); Aspartate Aminotransferase 85 IU/L (14-36); BUN Creatinine Ratio 23.3 (6-22); Bilirubin Total 0.6 mg/dL (0.2-1.3); Blood Urea Nitrogen 21 mg/dL (7-17); Calcium 12.7 mg/dL (8.4-10.2); Carbon Dioxide 28 mmol/L (22-32); Chloride 95 mmol/L (98-107); Estimated Glomerular Filt Rate > 60 mL/min (>60); Globulin 3.1 g/dL (1.7-4.1); Glucose 141 mg/dL (80-110); HEMOLYSIS < 15 (0-50); Potassium 3.9 mmol/L (3.4-5.1); Sodium 133 mmol/L (137-145); Total Protein 7.3 g/dL (6.3-8.2)
[2022-09-02] MEDS: NORTRIPTYLINE HCL 25 MG CAPSULE 75 MG PO (22:02)
[2022-09-02] MEDS: MIRTAZAPINE 15 MG TABLET 45 MG PO (22:03)
[2022-09-02] MEDS: QUETIAPINE 100 MG TABLET 300 MG PO (22:03)
[2022-09-02] MEDS: MORPHINE ER 15 MG TABLET PO (22:04)
[2022-09-02] MEDS: hydrOXYzine pamoate 25 MG CAPSULE PO (22:04)
[2022-09-02] MEDS: FLUTICASONE 120 SPRAY/16 GM SPRAY.SUSP NASAL (22:05)
[2022-09-03] VITALS (14 sets, daily range): BP systolic 97–158; BP diastolic 54–93; PULSE 91–103; RESP 16–21; TEMP 35.6–37.2; O2SAT 93–99; BMI 19.0
--- NOTE | 2022-09-03 | PATH_ITS ---
[facility] Accession Number: [id number] No. of containers..01 Tissue . 01 Material submitted: . esophagus - DISTAL ESOPHAGUS . 01 Diagnosis: Distal Esophagus, Biopsies: Ulcerated squamous mucosa. Negative for fungal organisms by PAS stain. No obvious viral cytopathic effects identified on H/E stain. Negative for HSV 1/2 antigens by immunohistochemistry. Intraepithelial eosinophils are not increased. Negative for dysplasia and malignancy. MRV 09/09/2022 1640 Local . 01 Electronically signed: . Mila Mcmullen MD, Pathologist NPI- [id number] . 01 Gross description: . DISTAL ESOPHAGUS: Received in formalin are multiple fragment(s) of banks, soft tissue measuring 1.2 x 0.4 x 0.1 cm in aggregate submitted entirely in 1 cassette(s) /CPE 09/04/2022 0645 Local . 01 Microscopic: . A PAS stain was performed to evaluate for fungal organisms and is negative. The control stain showed appropriate reactivity. . An immunohistochemical stain was performed to evaluate for HSV1/2 antigens and is negative. The control stain showed appropriate reactivity. . * This test was developed and its performance characteristics determined by [facility]. It has not been cleared or approved by the U.S. Food and Drug Administration. The FDA has determined that such clearance or approval is not necessary. This test is used for clinical purposes. It should not be regarded as investigational or for research. . 01 Pathologist provided ICD-10: R13.10 . 01 CPT . 167055, 275416, P74605 Specimen Comment: A courtesy copy of this report has been sent to [facility] Pathology Performed at: 01 [facility] [address] [place] [address] [address], [place], [place] [id number] MD Russel Garcia MD Phone: [phone]
[2022-09-03 01:03] LABS: Creatine Kinase 193 U/L (30-135)
[2022-09-03 01:19] LABS: CKMB % Relative Index 4.4 % (1.5-5.0); Creatine Kinase MB 8.57 ng/mL (<2.37)
[2022-09-03] MEDS: SODIUM CHLORIDE 0.9% 1,000 ML 150 ML IV ×2 (03:53→09:48)
[2022-09-03] MEDS: cefTRIAXone 1,000 MG in SODIUM CHLORIDE 0.9% 100 ML 200 MG IV (04:22)
[2022-09-03 05:34] LABS: Add Manual Diff / Slide Review NO; Basophils Absolute Auto 0 /uL (0-100); Basophils Percent Auto 0.2 % (0-2); Eosinophils Absolute Auto 0 /uL (0-450); Eosinophils Percent Auto 0.1 % (2-4); Hematocrit 33.2 % (36-46); Hemoglobin 10.5 g/dL (12.0-16.0); Lymphocytes Absolute Auto 1100 /uL (1100-4500); Lymphocytes Percent Auto 6.8 % (25-40); Mean Corpuscular HGB Conc 31.7 % (30-36); Mean Corpuscular Volume 72.5 fL (80-100); Monocytes Absolute Auto 1000 /uL (0-900); Monocytes Percent Auto 6.1 % (3-14); Neutrophils Absolute Auto 14400 /uL (1500-7000); Neutrophils Percent Auto 86.8 % (50-75); Platelet Count 258 X10^3/uL (150-400); Red Blood Cell Count 4.57 X10^6/uL (4.0-5.2); Red Cell Distribution Width 22.5 % (11.6-14.8); White Blood Cell Count 16.6 X10^3/uL (4.5-11.0)
[2022-09-03 05:42] LABS: Creatine Kinase 145 U/L (30-135)
[2022-09-03 05:44] LABS: Magnesium 1.6 mg/dL (1.6-2.3)
[2022-09-03 05:45] LABS: Alanine Aminotransferase 38 IU/L (<35); Albumin 3.8 g/dL (3.5-5.0); Albumin Globulin Ratio 1.3 (1.0-2.8); Alkaline Phosphatase 62 U/L (38-126); Aspartate Aminotransferase 60 IU/L (14-36); BUN Creatinine Ratio 23.5 (6-22); Bilirubin Total 0.4 mg/dL (0.2-1.3); Blood Urea Nitrogen 19 mg/dL (7-17); Calcium 10.5 mg/dL (8.4-10.2); Carbon Dioxide 25 mmol/L (22-32); Chloride 102 mmol/L (98-107); Estimated Glomerular Filt Rate > 60 mL/min (>60); Glucose 105 mg/dL (80-110); HEMOLYSIS 21 (0-50); Potassium 3.9 mmol/L (3.4-5.1); Sodium 134 mmol/L (137-145); Total Protein 6.8 g/dL (6.3-8.2)
[2022-09-03 05:57] LABS: CKMB % Relative Index 5.2 % (1.5-5.0); Creatine Kinase MB 7.52 ng/mL (<2.37)
--- NOTE | 2022-09-03 06:08 | PC.NURSE ---
Pt confused all night, alert to self only. Pt has been sleeping most of the night except when she needs to urinate which she normally gets out of bed without using call light. Pt has been having a hard time taking her medications and rather chews on then even when given with apple sauce. Bed alarm in place for safety.
[2022-09-03 06:19] LABS: Anisocytosis 2+; Hypochromasia 2+; Microcytosis 2+; Poikilocytosis 1+
--- NOTE | 2022-09-03 09:33 | CM.DANOTE ---
DCP: Case received, EMR reviewed and met with patient. Introduced self and role. Was able to obtain information regarding patient's baseline activity status at home prior to hospitalization. DCP assessment completed with information currently available. Patient is a 72 year old female who admitted yesterday morning to the care of the hospitalist team. PCP: Dr. Elizabeth. Payer: confirmed: Medicare/[employer]. Patient came to the hospital via private vehicle secondary to having 3 days of not feeling well. Notes indicate axel patient had complained of some abdominal pain, she had vomited while here. Patient had noted some confusion. Patient had some testing that noted probable mass at gastroesophageal junction, distended stomach and duodenum. Patient had surgery consult, and is having an EGD today. Met with patient in her room. She was sitting up in bed, not hungry. Confirmed that she resides here in [place] with spouse, Beto. She does not drive, uses a walker at baseline. P: DCP to continue to follow for needs. She will have her test today, and will work with speech. Patient may benefit with home health. At this time, plan is home when medically stable. Cat Araya RN/Drilling Machine Operator Discharge Planning/Care Management CM Discharge Assessment Start: 09/03/22 09:29 Freq: Status: Active Protocol: Document 09/03/22 09:30 (Rec: 09/03/22 09:33 [id number]) Discharge Planning Assessment Assigned Emergency Response Technician Cat Araya RN/Drilling Machine Operator Advance Directives? Yes Advance Directives on File No History Provided By Patient,Family Member,Medical Record Prior Living Arrangements House Household Members spouse Type of transporation used prior to Drives own vehicle admit Independent with ADL's Yes Is patient alert and oriented? Yes Needs Assistance With Meal Prep,Home Chores / Shopping Caregiver for Another No DME Already Rented / Owned FWW / Walker Barriers to Discharge No Comment Has supportive spouse at home. 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 Whiteboard Updated in Patient Room with Yes name and ext. # of Emergency Response Technician Review Status In Process Next Review Type Continued Stay Review
[2022-09-03] MEDS: MORPHINE ER 15 MG TABLET PO ×2 (09:40→21:32)
[2022-09-03] MEDS: HYDROMORPHONE 0.5 MG INJ IV ×2 (09:48→13:12)
--- NOTE | 2022-09-03 10:19 | SLP.IPNOTE ---
Pt is NPO for endoscopy at 15:45 today. Swallow evaluation on hold until completion of endoscopy and review of results.
--- NOTE | 2022-09-03 11:47 | P.PN_ITS ---
Subjective Subjective Date Patient Seen: 09/03/22 Interval history: 72-year-old female with history of chronic pain, bleeding ulcer, admitted with complaints of abdominal pain. CT scan noted distention of stomach with thickening versus mass at GE junction and some thickening in the duodenum. Patient complaining of abdominal pain. Scheduled for EGD today. Her troponin had been elevated and trending down and she has not had acute changes on EKG. This is likely demand related ischemia and should not preclude her getting the EGD. Exam Vital Signs (past 8 hours): - 09/03/22 08:39 Pulse Rate 96 H Pulse Oximetry 96 Oxygen Flow Rate 0 Oxygen Delivery Method Room Air Oxygen Flow Rate 0 Narrative Exam Narrative: General: Patient appears moderately uncomfortable Lungs: Clear Heart: Regular rhythm Abdomen: Tender in epigastric area Extremities: No pretibial edema Neurological: Diminished affect Objective Labs 09/03/22 05:06 09/03/22 05:06 Labs: Laboratory Results - last 24 hr 09/02/22 09/02/22 09/03/22 18:06 18:06 00:40 WBC RBC Hgb Hct MCV MCH MCHC RDW Plt Count Neut % (Auto) Lymph % (Auto) [place] % (Auto) Eos % (Auto) Baso % (Auto) Neut # (Auto) Lymph # (Auto) [place] # (Auto) Eos # (Auto) Baso # (Auto) RBC Morphology Hypochromasia Poikilocytosis Anisocytosis Microcytosis Sodium 133 L Potassium 3.9 Chloride 95 L Carbon Dioxide 28 BUN 21 H Creatinine 0.90 Estimated GFR > 60 BUN/Creatinine Ratio 23.3 H Glucose 141 H Calcium 12.7 H Magnesium Total Bilirubin 0.6 AST 85 H ALT 45 H Alkaline Phosphatase 73 Total Creatine Kinase 193 H D CK-MB (CK-2) 8.57 H CK-MB (CK-2) Rel Index 4.4 Troponin I 3.210 H* 2.470 H* Total Protein 7.3 Albumin 4.2 Globulin 3.1 Albumin/Globulin Ratio 1.4 09/03/22 09/03/22 09/03/22 05:06 05:06 05:06 WBC 16.6 H RBC 4.57 Hgb 10.5 L Hct 33.2 L MCV 72.5 L MCH 23.0 L MCHC 31.7 RDW 22.5 H Plt Count 258 Neut % (Auto) 86.8 H Lymph % (Auto) 6.8 L [place] % (Auto) 6.1 Eos % (Auto) 0.1 L Baso % (Auto) 0.2 Neut # (Auto) 95389 H Lymph # (Auto) 1100 [place] # (Auto) 1000 H Eos # (Auto) 0 Baso # (Auto) 0 RBC Morphology See below Hypochromasia 2+ H Poikilocytosis 1+ H Anisocytosis 2+ H Microcytosis 2+ H Sodium Potassium Chloride Carbon Dioxide BUN Creatinine Estimated GFR BUN/Creatinine Ratio Glucose Calcium Magnesium 1.6 Total Bilirubin AST ALT Alkaline Phosphatase Total Creatine Kinase 145 H CK-MB (CK-2) 7.52 H CK-MB (CK-2) Rel Index 5.2 H Troponin I 1.850 H* Total Protein Albumin Globulin Albumin/Globulin Ratio 09/03/22 05:06 WBC RBC Hgb Hct MCV MCH MCHC RDW Plt Count Neut % (Auto) Lymph % (Auto) [place] % (Auto) Eos % (Auto) Baso % (Auto) Neut # (Auto) Lymph # (Auto) [place] # (Auto) Eos # (Auto) Baso # (Auto) RBC Morphology Hypochromasia Poikilocytosis Anisocytosis Microcytosis Sodium 134 L Potassium 3.9 Chloride 102 Carbon Dioxide 25 BUN 19 H Creatinine 0.81 Estimated GFR > 60 BUN/Creatinine Ratio 23.5 H Glucose 105 Calcium 10.5 H Magnesium Total Bilirubin 0.4 AST 60 H ALT 38 H Alkaline Phosphatase 62 Total Creatine Kinase CK-MB (CK-2) CK-MB (CK-2) Rel Index Troponin I Total Protein 6.8 Albumin 3.8 Globulin 3.0 Albumin/Globulin Ratio 1.3 [facility] Medical History Avascular necrosis of bone of hip Cervical facet joint syndrome Cervical neck pain with evidence of disc disease Cervical spondylosis Chronic low back pain Degenerative joint disease of right hip Depression Fibromyalgia HLD (hyperlipidemia) Seasonal allergies Spinal stenosis in cervical region Thoracic kyphosis Surgical History H/O shoulder surgery History of appendectomy History of hysterectomy History of right knee surgery History of tonsillectomy History of total left hip arthroplasty (09/22/19) Family History Mother Stroke Sister Cancer Diabetes mellitus Gout Social History marital status: household members: spouse Smoking Status: Never smoker alcohol intake: former Assessment & Plan Assessment & Plan narrative: 1. Acute abdominal pain -patient reports history of bleeding ulcers, has been on PPI at home, also takes Celebrex -CT scan with GE junction thickening/mass and duodenal thickening -patient is anemic after hydration -scheduled for EGD 2. Acute hypercalcemia -likely was dehydrated, also possibly from excessive antacids -improving with IV hydration -PTH pending 3. Urinary tract infection -urine culture growing GNR -continue Rocephin 4. Acute leukocytosis -unclear infection or stress related -continue to trend 5. Chronic joint and back pain, fibromyalgia -patient continued on her Celebrex, morphine, nortriptyline, pregabalin, tizanidine 6. Depression -mood is dysthymic -continued on her mirtazapine, nortriptyline, pregabalin 7. Demand related ischemia -elevated troponin on admit, trending down -EKG showed sinus rhythm, no acute ST or T-wave changes -telemetry 8. Hypokalemia -replace as needed Time Spent With Patient Critical Care time: I spent a total of [] minutes of critical care time on this patient's care today; this time is exclusive of procedural time.
[2022-09-03 12:59] LABS: Creatine Kinase 92 U/L (30-135)
[2022-09-03] MEDS: MAGNESIUM SULFATE 2 GM/50 ML PIGGYBACK IV (13:13)
--- NOTE | 2022-09-03 13:54 | PM.PN.1 ---
Subjective Subjective Date Patient Seen: 09/03/22 Interval history: Patient feeling better and has not had have any new symptoms. Informed her that her urine is positive for bacteria but is not been identified as to the appropriate oral antibiotic. Also informed her that her sodium level is increasing and that is something that still needs to be followed. Exam Vital Signs (past 8 hours): - 09/03/22 08:39 09/03/22 11:47 Temperature 97.6 F Pulse Rate 96 H 103 H Respiratory Rate 18 Blood Pressure 158/84 H Pulse Oximetry 96 96 Oxygen Flow Rate 0 0 Oxygen Delivery Method Room Air Oxygen Flow Rate 0 Objective Labs 09/03/22 05:06 09/03/22 05:06 Labs: Laboratory Results - last 24 hr 09/02/22 09/02/22 09/03/22 18:06 18:06 00:40 WBC RBC Hgb Hct MCV MCH MCHC RDW Plt Count Neut % (Auto) Lymph % (Auto) [place] % (Auto) Eos % (Auto) Baso % (Auto) Neut # (Auto) Lymph # (Auto) [place] # (Auto) Eos # (Auto) Baso # (Auto) RBC Morphology Hypochromasia Poikilocytosis Anisocytosis Microcytosis Sodium 133 L Potassium 3.9 Chloride 95 L Carbon Dioxide 28 BUN 21 H Creatinine 0.90 Estimated GFR > 60 BUN/Creatinine Ratio 23.3 H Glucose 141 H Calcium 12.7 H Magnesium Total Bilirubin 0.6 AST 85 H ALT 45 H Alkaline Phosphatase 73 Total Creatine Kinase 193 H D CK-MB (CK-2) 8.57 H CK-MB (CK-2) Rel Index 4.4 Troponin I 3.210 H* 2.470 H* Total Protein 7.3 Albumin 4.2 Globulin 3.1 Albumin/Globulin Ratio 1.4 09/03/22 09/03/22 09/03/22 05:06 05:06 05:06 WBC 16.6 H RBC 4.57 Hgb 10.5 L Hct 33.2 L MCV 72.5 L MCH 23.0 L MCHC 31.7 RDW 22.5 H Plt Count 258 Neut % (Auto) 86.8 H Lymph % (Auto) 6.8 L [place] % (Auto) 6.1 Eos % (Auto) 0.1 L Baso % (Auto) 0.2 Neut # (Auto) 89499 H Lymph # (Auto) 1100 [place] # (Auto) 1000 H Eos # (Auto) 0 Baso # (Auto) 0 RBC Morphology See below Hypochromasia 2+ H Poikilocytosis 1+ H Anisocytosis 2+ H Microcytosis 2+ H Sodium Potassium Chloride Carbon Dioxide BUN Creatinine Estimated GFR BUN/Creatinine Ratio Glucose Calcium Magnesium 1.6 Total Bilirubin AST ALT Alkaline Phosphatase Total Creatine Kinase 145 H CK-MB (CK-2) 7.52 H CK-MB (CK-2) Rel Index 5.2 H Troponin I 1.850 H* Total Protein Albumin Globulin Albumin/Globulin Ratio 09/03/22 09/03/22 05:06 12:32 WBC RBC Hgb Hct MCV MCH MCHC RDW Plt Count Neut % (Auto) Lymph % (Auto) [place] % (Auto) Eos % (Auto) Baso % (Auto) Neut # (Auto) Lymph # (Auto) [place] # (Auto) Eos # (Auto) Baso # (Auto) RBC Morphology Hypochromasia Poikilocytosis Anisocytosis Microcytosis Sodium 134 L Potassium 3.9 Chloride 102 Carbon Dioxide 25 BUN 19 H Creatinine 0.81 Estimated GFR > 60 BUN/Creatinine Ratio 23.5 H Glucose 105 Calcium 10.5 H Magnesium Total Bilirubin 0.4 AST 60 H ALT 38 H Alkaline Phosphatase 62 Total Creatine Kinase 92 CK-MB (CK-2) TNP CK-MB (CK-2) Rel Index TNP Troponin I 1.100 H* Total Protein 6.8 Albumin 3.8 Globulin 3.0 Albumin/Globulin Ratio 1.3 PFSH Medical History Avascular necrosis of bone of hip Cervical facet joint syndrome Cervical neck pain with evidence of disc disease Cervical spondylosis Chronic low back pain Degenerative joint disease of right hip Depression Fibromyalgia HLD (hyperlipidemia) Seasonal allergies Spinal stenosis in cervical region Thoracic kyphosis Surgical History H/O shoulder surgery History of appendectomy History of hysterectomy History of right knee surgery History of tonsillectomy History of total left hip arthroplasty (09/22/19) Family History Mother Stroke Sister Cancer Diabetes mellitus Gout Social History marital status: household members: spouse Smoking Status: Never smoker alcohol intake: former Assessment & Plan Time Spent With Patient Critical Care time: I spent a total of [] minutes of critical care time on this patient's care today; this time is exclusive of procedural time.
[2022-09-03] MEDS: LACTATED RINGERS 1,000 ML 42 ML IV (16:23)
--- NOTE | 2022-09-03 16:50 | P.OP.EGD_ITS ---
Operative Date/Time/Diagnoses Date of procedure: 09/03/22 Time of procedure: 16:50 Pre-op diagnosis: GE junction mass Post-op diagnosis: other (Esophagitis) Procedure & Clinicians Study performed: Esophagoduodenoscopy Same procedure as scheduled: Yes Indications: 72-year-old woman admitted to the hospital for abdominal pain imaging demonstra rosendo a possible GE junction here for diagnostic EGD Surgeon: Douglas Salvador Procedure Notes Procedure in detail: Patient placed in left lateral decubitus position. Time out was performed. Sedation was administered by anesthesia.. A bite block was placed. the scope was inserted into the mouth and the esophagus was intubated. The proximal esophagus was grossly normal in its appearance. Within the distal esophagus there was extensive erosive esophagitis. The stomach was intubated and inspected was grossly normal no ulcers or gastritis. Pylorus was entered and the duodenum was inspected to the 3rd portion. The duodenal wall in the 2/3 portion was slightly prominent but was otherwise normal. Scope was returned to the stomach and retroflexed there was no hiatal hernia. Scope was then drawn back into the esophagus the GE junction was observed at 36 cm from the incisors. Esophagitis extended superiorly from the GE junction for about 8 cm. The wall was particularly thick and there were deep linear erosions and sloughing of the mucosa. Multiple biopsies of the distal esophagus were taken with the forceps. Patient emerged from anesthesia was transferred to recovery in stable condition. Specimen(s): other (Distal esophagus) Impression: Severe esophagitis, probable esophageal cancer Post-procedure Plan for aftercare: Await pathology from biopsy Disposition: Acute Care
--- NOTE | 2022-09-03 16:50 | PM.PREOP ---
Pre-operative Note Interval Note History & Physical reviewed/Exam performed by Physician: Yes Changes to H&P: No ASA Class (for procedural sedation): IV
--- NOTE | 2022-09-03 17:25 | SUR.PHASEI ---
Report to Hillary NEAL.
--- NOTE | 2022-09-03 17:57 | SUR.PHASEI ---
1735: This RN to assume care of patient. 1745: Pt A&Ox4, VSS, taking PO with out any issues, denies any distress and ready to transfer to room. Report given to receiving RN using SBAR with time allowed for questions. Transported pt to room and left in stable condition with PTCA at bedside.
[2022-09-03] MEDS: FLUTICASONE 120 SPRAY/16 GM SPRAY.SUSP NASAL (20:33)
[2022-09-03] MEDS: HYDROCODONE/ACET 5/325 TABLET 1 TAB PO (20:33)
[2022-09-03] MEDS: PREGABALIN 50 MG CAPSULE PO (20:33)
[2022-09-03] MEDS: hydrOXYzine pamoate 25 MG CAPSULE PO (20:33)
[2022-09-03] MEDS: NORTRIPTYLINE HCL 25 MG CAPSULE 75 MG PO (20:33)
[2022-09-03] MEDS: MIRTAZAPINE 15 MG TABLET 45 MG PO (20:34)
[2022-09-03] MEDS: QUETIAPINE 100 MG TABLET 300 MG PO (20:34)
[2022-09-04] VITALS: BP 91/52; PULSE 95; RESP 16; TEMP 35.7; O2SAT 98
[2022-09-04 04:00] VITALS: BP 97/50; PULSE 82; RESP 16; TEMP 36.4; O2SAT 97
[2022-09-04] MEDS: cefTRIAXone 1,000 MG in SODIUM CHLORIDE 0.9% 100 ML 200 MG IV (04:48)
[2022-09-04] MEDS: MORPHINE ER 15 MG TABLET PO ×3 (04:58→21:12)
[2022-09-04 05:27] LABS: Alanine Aminotransferase 33 IU/L (<35); Albumin 3.2 g/dL (3.5-5.0); Albumin Globulin Ratio 1.2 (1.0-2.8); Alkaline Phosphatase 56 U/L (38-126); Aspartate Aminotransferase 39 IU/L (14-36); BUN Creatinine Ratio 15.3 (6-22); Bilirubin Total 0.2 mg/dL (0.2-1.3); Blood Urea Nitrogen 11 mg/dL (7-17); Calcium 9.1 mg/dL (8.4-10.2); Carbon Dioxide 24 mmol/L (22-32); Chloride 108 mmol/L (98-107); Estimated Glomerular Filt Rate > 60 mL/min (>60); Globulin 2.7 g/dL (1.7-4.1); Glucose 88 mg/dL (80-110); HEMOLYSIS < 15 (0-50); Potassium 3.3 mmol/L (3.4-5.1); Sodium 138 mmol/L (137-145); Total Protein 5.9 g/dL (6.3-8.2)
[2022-09-04 05:28] LABS: Magnesium 2.2 mg/dL (1.6-2.3)
[2022-09-04 05:31] LABS: Add Manual Diff / Slide Review NO; Basophils Absolute Auto 0 /uL (0-100); Basophils Percent Auto 0.3 % (0-2); Eosinophils Absolute Auto 200 /uL (0-450); Eosinophils Percent Auto 1.8 % (2-4); Hematocrit 31.6 % (36-46); Hemoglobin 9.9 g/dL (12.0-16.0); Lymphocytes Absolute Auto 1800 /uL (1100-4500); Lymphocytes Percent Auto 13.8 % (25-40); Mean Corpuscular HGB Conc 31.3 % (30-36); Mean Corpuscular Hemoglobin 23.2 PG (26-34); Mean Corpuscular Volume 74.1 fL (80-100); Monocytes Absolute Auto 1100 /uL (0-900); Monocytes Percent Auto 8.5 % (3-14); Neutrophils Absolute Auto 9800 /uL (1500-7000); Neutrophils Percent Auto 75.6 % (50-75); Platelet Count 218 X10^3/uL (150-400); Red Blood Cell Count 4.27 X10^6/uL (4.0-5.2); Red Cell Distribution Width 23.5 % (11.6-14.8); White Blood Cell Count 12.9 X10^3/uL (4.5-11.0)
[2022-09-04 06:13] LABS: Anisocytosis 2+
[2022-09-04 06:14] LABS: Microcytosis 1+
[2022-09-04 06:15] LABS: Hypochromasia 2+; Poikilocytosis 1+
[2022-09-04] MEDS: PANTOPRAZOLE DR 40 MG TABLET PO (06:43)
[2022-09-04 08:17] VITALS: BP 116/71; PULSE 93; RESP 18; TEMP 36.6; O2SAT 99
[2022-09-04 08:22] LABS: Parathyroid Hormone Int 16 pg/mL (15-65)
[2022-09-04] MEDS: ENOXAPARIN 40 MG/0.4 ML SYRINGE SUBCUT (09:27)
[2022-09-04] MEDS: PREGABALIN 50 MG CAPSULE PO ×2 (09:27→20:10)
[2022-09-04] MEDS: CELECOXIB 200 MG CAPSULE PO (09:27)
[2022-09-04] MEDS: ATORVASTATIN 20 MG TABLET 10 MG PO (09:27)
[2022-09-04] MEDS: VIT C/E/ZN/COPPR/LUTEIN/ZEAXAN CAPSULE 2 CAP PO (09:28)
[2022-09-04] MEDS: MULTIVITAMIN 1 TABLET 1 TAB PO (09:28)
[2022-09-04] MEDS: FLUTICASONE 120 SPRAY/16 GM SPRAY.SUSP NASAL ×2 (09:28→20:20)
--- NOTE | 2022-09-04 09:28 | PM.PN.1 ---
Subjective Subjective Date Patient Seen: 09/04/22 Interval history: Patient continues to have diffuse pain of neck, shoulders, chest and abdomen. is at bedside and their questions were answered. Exam Vital Signs (past 8 hours): - 09/04/22 04:00 09/04/22 08:17 Temperature 97.5 F L 97.8 F Pulse Rate 82 93 H Respiratory Rate 16 18 Blood Pressure 97/50 L 116/71 Pulse Oximetry 97 99 Oxygen Flow Rate 0 Oxygen Delivery Method Room Air Oxygen Flow Rate 0 Narrative Exam Narrative: General: Patient appears moderately uncomfortable, pain to palpation of chest wall Lungs: Clear Heart: Regular rhythm Abdomen: Tender in epigastric area Extremities: No pretibial edema Neurological: Diminished affect Objective Labs 09/04/22 05:04 09/04/22 05:04 Labs: Laboratory Results - last 24 hr 09/03/22 09/03/22 09/04/22 00:40 12:32 05:04 WBC 12.9 H RBC 4.27 Hgb 9.9 L Hct 31.6 L MCV 74.1 L MCH 23.2 L MCHC 31.3 RDW 23.5 H Plt Count 218 Neut % (Auto) 75.6 H Lymph % (Auto) 13.8 L [place] % (Auto) 8.5 Eos % (Auto) 1.8 L Baso % (Auto) 0.3 Neut # (Auto) 9800 H Lymph # (Auto) 1800 [place] # (Auto) 1100 H Eos # (Auto) 200 Baso # (Auto) 0 RBC Morphology See below Hypochromasia 2+ H Poikilocytosis 1+ H Anisocytosis 2+ H Microcytosis 1+ H Sodium Potassium Chloride Carbon Dioxide BUN Creatinine Estimated GFR BUN/Creatinine Ratio Glucose Calcium Magnesium Total Bilirubin AST ALT Alkaline Phosphatase Total Creatine Kinase 92 CK-MB (CK-2) TNP CK-MB (CK-2) Rel Index TNP Troponin I 1.100 H* Total Protein Albumin Globulin Albumin/Globulin Ratio PTH Intact 16 09/04/22 09/04/22 05:04 05:04 WBC RBC Hgb Hct MCV MCH MCHC RDW Plt Count Neut % (Auto) Lymph % (Auto) [place] % (Auto) Eos % (Auto) Baso % (Auto) Neut # (Auto) Lymph # (Auto) [place] # (Auto) Eos # (Auto) Baso # (Auto) RBC Morphology Hypochromasia Poikilocytosis Anisocytosis Microcytosis Sodium 138 Potassium 3.3 L Chloride 108 H Carbon Dioxide 24 BUN 11 Creatinine 0.72 Estimated GFR > 60 BUN/Creatinine Ratio 15.3 Glucose 88 Calcium 9.1 Magnesium 2.2 Total Bilirubin 0.2 AST 39 H ALT 33 Alkaline Phosphatase 56 Total Creatine Kinase CK-MB (CK-2) CK-MB (CK-2) Rel Index Troponin I Total Protein 5.9 L Albumin 3.2 L Globulin 2.7 Albumin/Globulin Ratio 1.2 PTH Intact PFSH Medical History Avascular necrosis of bone of hip Cervical facet joint syndrome Cervical neck pain with evidence of disc disease Cervical spondylosis Chronic low back pain Degenerative joint disease of right hip Depression Fibromyalgia HLD (hyperlipidemia) Seasonal allergies Spinal stenosis in cervical region Thoracic kyphosis Surgical History H/O shoulder surgery History of appendectomy History of hysterectomy History of right knee surgery History of tonsillectomy History of total left hip arthroplasty (09/22/19) Family History Mother Stroke Sister Cancer Diabetes mellitus Gout Social History marital status: household members: spouse Smoking Status: Never smoker alcohol intake: former Assessment & Plan Assessment & Plan narrative: # NSTEMI and new-onset systolic heart failure not in exacerbation -troponin elevated to 3.210, downtrended to 1.100 -echo returned with EF 20-25%, basal to distal and apical segments akinetic most consistent with stress cardiomyopathy -spoke with Dr. Smith, cardiology who recommended cardiac meds and outpatient stress test unless patient still having CP and needing transfer to [facility] for heart cath -patient's CP has resolved with downtrending trop will plan for outpatient cardiology f/u -started metoprolol, lisinopril, baby aspirin and spironolactone daily # possible esophageal mass, ruled out with EGD -patient reports history of bleeding ulcers, has been on PPI at home, also takes Celebrex -CT scan with GE junction thickening/mass and duodenal thickening -EGD negative for mass, showed erosions -continue IV PPI # Acute hypercalcemia, resolved -likely was dehydrated, also possibly from excessive antacids -improving with IV hydration -PTH 16 # Urinary tract infection -urine culture growing GNR -continue Rocephin x3 days # Acute leukocytosis, improving -unclear infection or stress related -continue to trend # Chronic joint and back pain, fibromyalgia -patient continued on her Celebrex, morphine, nortriptyline, pregabalin, tizanidine # Depression -mood is dysthymic -continued on her mirtazapine, nortriptyline, pregabalin # Hypokalemia -replace as needed Dispo: Home on 09/05. Time Spent With Patient Critical Care time: I spent a total of [] minutes of critical care time on this patient's care today; this time is exclusive of procedural time.
[2022-09-04] MEDS: SODIUM CHLORIDE 0.9% 1,000 ML 150 ML IV (09:32)
[2022-09-04] MEDS: TIZANIDINE 4 MG TABLET 1 MG PO (09:34)
[2022-09-04] MEDS: guaiFENesin ER 600 MG TAB PO (09:34)
[2022-09-04] MEDS: OXYCODONE IR 10 MG TABLET PO (09:35)
[2022-09-04] MEDS: METOPROLOL IR 25 MG TABLET 12.5 MG PO ×2 (10:14→20:10)
[2022-09-04] MEDS: lisinopriL 5 MG TABLET 2.5 MG PO (10:14)
[2022-09-04] MEDS: SPIRONOLACTONE 25 MG TABLET PO (10:14)
[2022-09-04] MEDS: FUROSEMIDE 20 MG/2 ML VIAL IV (10:15)
[2022-09-04] MEDS: MAG HYDROX/ALUMINUM/SIMETH SUS 20 ML, LIDOCAINE VISCOUS 2% 15 ML PO (10:15)
--- NOTE | 2022-09-04 10:28 | SLP.IPNOTE ---
Per Dr. Barrett, discharge from speech therapy at this time. Will re-order at later date if necessary.
[2022-09-04] MEDS: HEPARIN DRIP 25,000 UNIT/500 ML IV.SOLN 13.2 UNIT IV (10:33)
[2022-09-04 10:51] LABS: PTT Partial Thromboplastin Tim 25 SECONDS (26-36); Prothrombin Time 11.9 SECONDS (10.1-12.7)
--- NOTE | 2022-09-04 11:22 | CM.DPC ---
DCP Cont: Discussed patient during team rounds. Hospitalist indicated, her troponins have gone up, starting to trend down, but possible NSTEMI. He mentioned that this may have contributed to nausea and vomiting. Patient has not yet worked with speech. It is unclear if patient may need to be transferred out at this time. She is not medically stable for any P.T. at this time. P: DCP to continue to follow closely, to see if this can be resolved here versus transferring out, and if she is here and stable, may need to order P.T, to see if plan will be home versus skilled. 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
[2022-09-04] MEDS: POTASSIUM CHLORIDE 20 MEQ/15 ML UDC 40 MEQ PO (11:37)
[2022-09-04] MEDS: ASPIRIN 325 MG TABLET PO (11:37)
[2022-09-04] MEDS: HEPARIN 5,000 UNIT/ML VIAL 4000 UNIT SUBCUT (12:12)
[2022-09-04 13:04] VITALS: BP 79/47; PULSE 72; RESP 18; TEMP 36.3; O2SAT 100
[2022-09-04] MEDS: BENZONATATE 100 MG CAPSULE 200 MG PO (16:22)
[2022-09-04 17:26] LABS: PTT Partial Thromboplastin Tim 66 SECONDS (26-36)
[2022-09-04 19:45] VITALS: BP 107/71; PULSE 86; RESP 12; TEMP 36.7; O2SAT 100
[2022-09-04] MEDS: HYDROMORPHONE 0.5 MG INJ IV (20:09)
[2022-09-04] MEDS: MIRTAZAPINE 15 MG TABLET 45 MG PO (20:09)
[2022-09-04] MEDS: hydrOXYzine pamoate 25 MG CAPSULE PO (20:10)
[2022-09-04] MEDS: NORTRIPTYLINE HCL 25 MG CAPSULE 75 MG PO (20:10)
[2022-09-04] MEDS: QUETIAPINE 100 MG TABLET 300 MG PO (20:10)
[2022-09-04 23:30] VITALS: BP 117/72; PULSE 78; RESP 12; TEMP 36; O2SAT 96
[2022-09-04 23:46] LABS: PTT Partial Thromboplastin Tim 26 SECONDS (26-36)
[2022-09-05 03:20] VITALS: BP 115/71; PULSE 76; RESP 14; TEMP 36.1; O2SAT 100
[2022-09-05] MEDS: cefTRIAXone 1,000 MG in SODIUM CHLORIDE 0.9% 100 ML 200 MG IV (04:13)
[2022-09-05] MEDS: PANTOPRAZOLE DR 40 MG TABLET PO (06:02)
[2022-09-05] MEDS: MORPHINE ER 15 MG TABLET PO ×2 (06:02→15:27)
[2022-09-05 06:37] LABS: Basophils Absolute Auto 100 /uL (0-100); Basophils Percent Auto 0.7 % (0-2); Eosinophils Absolute Auto 300 /uL (0-450); Eosinophils Percent Auto 2.9 % (2-4); Hematocrit 30.3 % (36-46); Hemoglobin 9.6 g/dL (12.0-16.0); Lymphocytes Absolute Auto 1800 /uL (1100-4500); Lymphocytes Percent Auto 20.2 % (25-40); Mean Corpuscular HGB Conc 31.6 % (30-36); Mean Corpuscular Hemoglobin 23.5 PG (26-34); Mean Corpuscular Volume 74.3 fL (80-100); Monocytes Absolute Auto 800 /uL (0-900); Monocytes Percent Auto 8.6 % (3-14); Neutrophils Absolute Auto 6100 /uL (1500-7000); Neutrophils Percent Auto 67.6 % (50-75); Red Blood Cell Count 4.07 X10^6/uL (4.0-5.2)
[2022-09-05 06:39] LABS: Alanine Aminotransferase 31 IU/L (<35); Albumin 3.3 g/dL (3.5-5.0); Albumin Globulin Ratio 1.2 (1.0-2.8); Alkaline Phosphatase 46 U/L (38-126); Aspartate Aminotransferase 39 IU/L (14-36); BUN Creatinine Ratio 17.6 (6-22); Bilirubin Total 0.2 mg/dL (0.2-1.3); Blood Urea Nitrogen 12 mg/dL (7-17); Calcium 8.2 mg/dL (8.4-10.2); Carbon Dioxide 25 mmol/L (22-32); Chloride 103 mmol/L (98-107); Estimated Glomerular Filt Rate > 60 mL/min (>60); Globulin 2.7 g/dL (1.7-4.1); Glucose 85 mg/dL (80-110); HEMOLYSIS 47 (0-50); Potassium 3.8 mmol/L (3.4-5.1); Sodium 135 mmol/L (137-145)
[2022-09-05 06:40] LABS: Magnesium 2.1 mg/dL (1.6-2.3)
[2022-09-05 06:48] LABS: Add Manual Diff / Slide Review SLIDE REVIEW
[2022-09-05 07:00] VITALS: BP 121/62; PULSE 81; RESP 18; TEMP 35.5; O2SAT 100
[2022-09-05 07:25] LABS: Anisocytosis 3+; Hypochromasia 2+; Microcytosis 2+
[2022-09-05 07:26] LABS: Platelet Count 189 X10^3/uL (150-400)
[2022-09-05] MEDS: ASPIRIN EC 81 MG TABLET PO (10:37)
[2022-09-05 10:38] VITALS: BP 121/62; PULSE 80
[2022-09-05] MEDS: FLUTICASONE 120 SPRAY/16 GM SPRAY.SUSP NASAL (10:38)
[2022-09-05] MEDS: VIT C/E/ZN/COPPR/LUTEIN/ZEAXAN CAPSULE 2 CAP PO (10:38)
[2022-09-05] MEDS: CELECOXIB 200 MG CAPSULE PO (10:38)
[2022-09-05] MEDS: PREGABALIN 50 MG CAPSULE PO (10:38)
[2022-09-05] MEDS: MULTIVITAMIN 1 TABLET 1 TAB PO (10:38)
[2022-09-05] MEDS: METOPROLOL IR 25 MG TABLET 12.5 MG PO (10:38)
[2022-09-05] MEDS: lisinopriL 5 MG TABLET 2.5 MG PO (10:38)
[2022-09-05] MEDS: SPIRONOLACTONE 25 MG TABLET PO (10:39)
[2022-09-05] MEDS: ENOXAPARIN 40 MG/0.4 ML SYRINGE SUBCUT (10:40)
[2022-09-05] MEDS: ATORVASTATIN 20 MG TABLET 10 MG PO (10:40)
[2022-09-05 11:00] VITALS: BP 120/69; PULSE 83; RESP 17; TEMP 36.1; O2SAT 99
--- NOTE | 2022-09-05 13:34 | PT.IIE ---
Current Diagnoses Abnormal findings on diagnostic imaging of other parts of digestive tract (09/02/22) Surgery Performed Operation Date: 09/03/22 15:45 Actual Procedures p Esophagogastroduodenoscopy with biopsy(Not Applicable) - Douglas Salvador MD Surgical History (Last Reviewed 07/17/22 @ 08:53 by Osman Hernández DO) H/O shoulder surgery History of appendectomy History of hysterectomy History of right knee surgery History of tonsillectomy History of total left hip arthroplasty (09/22/19) Medical History (Last Reviewed 09/02/22 @ 05:12 by Ori Watts DO) Avascular necrosis of bone of hip Cervical facet joint syndrome Cervical neck pain with evidence of disc disease Cervical spondylosis Chronic low back pain Degenerative joint disease of right hip Depression Fibromyalgia HLD (hyperlipidemia) Seasonal allergies Spinal stenosis in cervical region Thoracic kyphosis Physical Therapy Inpatient Evaluation/Re-Eval M1 PT/OT-IP Prior Functional Status Start: 09/05/22 12:33 Freq: NEEDED Status: Active Protocol: Document 09/05/22 13:34 AW (Rec: 09/05/22 14:08 AW [id number]) Medical Review Prior Functional Status Medical History Reviewed Yes Communication Pt is able to make her needs known but with some confusion. Mobility and Gait Pt states she uses a FWW for household mobility but tends to forget it which leads to falls. She does have a long- standing history of multiple pain complaints. Chart review suggests fibromyalgia. She has an extensive falls history resulting in right patella, rib, and foot fractures. Activities of Daily Living and IADL's Pt states she is able to dress herself. She tends to take sponge baths and no longer uses her shower. She wears disposable briefs to deal with incontinence. She does not drive. 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 It is unclear how her medications are managed. Social History Household Members spouse Living Arrangements House Number of Floors (Floors) Two Floors Number of Stairs To Enter/Railing? 2 [place]AC[address] with no rail at the front entrance. Pt typically enters the house through the garage where there are two steps and something sturdy to hold on to. Home Environment Standard Height Toilet,Walk in Shower Home Equipment Front Wheel Walker,Four Wheel Walker,Hand Held Shower Additional Social History Comment Pt lives with her spouse, Beto . She states he still works as a marine diesel mechanic but she also notes he is 12 years older than she. Unclear whether pt is home alone from time to time. M2 PT-IP Current Condition Start: 09/05/22 12:33 Freq: NEEDED Status: Active Protocol: Document 09/05/22 13:34 AW (Rec: 09/05/22 14:08 AW [id number]) Physical Therapy Current Condition Current Condition Evaluation Date 09/05/22 Treatment Diagnosis NSTEMI, abdominal pain s/p EGD , impaired mobility and gait Onset Date 09/02/22 M3 PT-IP Subjective Start: 09/05/22 12:33 Freq: NEEDED Status: Active Protocol: Document 09/05/22 13:34 AW (Rec: 09/05/22 14:08 AW [id number]) Subjective Physical Therapy Visit Type Type Initial Evaluation Visit Start Time 13:03 Visit Stop Time 13:34 Total Visit Minutes 31 Notes Pt's troponin spiked at 3.2 and trended down to 1.1 yesterday. New EKG shows 20-25 % EF. Physical Therapy Visit Comments Patient Comments Pt is willing to participate with PT. She states she is having a burning sensation in her upper GI tract. Therapy Pain Assessment Pain When Pain Assessed During Mobility Pain Present Pain Present Pain Reported Location abdominal Scale Used not quantified Description Burning Pain Management Techniques Distraction M4 PT-IP Mobility and Gait Start: 09/05/22 12:33 Freq: NEEDED Status: Active Protocol: Document 09/05/22 13:34 AW (Rec: 09/05/22 14:08 AW [id number]) PT-Bed Mobility Assessment Supine to Sit Supine to Sit Minimal Assistance Scooting Scooting to Edge of Bed Standby Assistance PT-Transfer Assessment Sit to and From Stand Sit to and from Stand Standby Assistance,Contact Guard Assistance Equipment Transfer Assistive Device Gait Belt,Front Wheeled Walker Orthotic/Prosthetic Devices or Brace: No Transfers Transfer Destination Chair Transfer Ability Level of Assist Standby Assistance,Contact Guard Assistance Comments Mobility Comments Pt was lying in bed as PT arrived. Supine BP was 123/57 HR 83 SpO2 100% on room air. She sat up on the left side of the bed min A. She was able to sit EOB with and without UE support. She stood SBA and reported mild lightheadedness. BP after standing two minutes was 123/62 HR 89. She agreed to ambulate and used FWW to walk 15 feet in the room CGA. Gait was notable for minimal LE elevation, pt complaint of right knee pain, bradykinesia, and decreased step length. Pt transferred to the chair SBA. After brief rest break, she stood again CGA and walked another 30 feet in room with FWW CGA. She returned to the chair. BP after activity was 115/60 HR 89 SpO2 95%. Pt was left in the chair with alarm on and call light in reach. Gait Assessment Gait Gait Assistance Required: Standby Assistance,Contact Guard Assist Distance (Feet) 30 Assistive Devices Assistive Device Gait Belt,Front Wheeled Walker Orthotic/Prosthetic Devices or Brace: No Gait Deviations General Gait Pattern Antalgic,Decreased Stride Length,Decreased Feet Clearance,Flexed Trunk,Step-to Gait Comments Gait Comments See mobility comments for details. Stair Climbing Assessment Comments Stair Climbing Comments Not assessed at eval due to fatigue PT-Balance Assessment Sitting Balance and Reactions Static Sitting Balance Ability Good Dynamic Sitting Balance Ability Good Standing Balance and Reactions Static Standing Balance Ability Fair Dynamic Standing Balance Ability Fair Device Used FWW Balance Tests Single Limb Standing unable Tandem Standing needs assist to attain semi- tandem stance M5 PT-IP Objective Assessments Start: 09/05/22 12:33 Freq: NEEDED Status: Active Protocol: Document 09/05/22 13:34 AW (Rec: 09/05/22 14:08 [id number]) Orientation Orientation/Cognition Level of Alertness Confusional State Orientation Name,Place,Situation Safety Awareness Decreased Safety Awareness Memory Description Short Term Impaired Comments Pt not oriented to time. Pt repetitive in conversation, apparently forgetting conversation from a few minutes ago. Gross Range of Motion Lower Extremity ROM Assessment Within Functional Limits Strength Lower Extremity Strength Assessment Bilaterally Impaired Hip 4/5 Knee 4+/5 Ankle 4+/5 DF; pt unable to complete DL heel lift with FWW more than 3 times Sensation Assessment Sensation Gross Sensation WNL M6 PT-IP Treatment Start: 09/05/22 12:33 Freq: NEEDED Status: Active Protocol: Document 09/05/22 13:34 AW (Rec: 09/05/22 14:08 [id number]) Physical Therapy Treatment Education Education Provided Safety M7 PT-IP Assessment and Plan Start: 09/05/22 12:33 Freq: NEEDED Status: Active Protocol: Document 09/05/22 13:34 AW (Rec: 09/05/22 14:08 AW [id number]) PT Summary Assessment and Plan Potential Rehabilitation Potential Good Status of Condition at Evaluation Evolving Summary Impairments Pain,Strength,Balance, Cognition,Bed Mobility, Transfers,Gait,Activity Tolerance Assessment Summary Laurie is a 72 yo woman admitted with abdominal pain. Cardiac chemistries point to likely acute NSTEMI. On EKG, pt has reduced ejection fraction 20-25%. She underwent EGD yesterday and complains of burning sensation in her upper GI tract today. PLOF: Pt states she is modified independent for household mobility using FWW. She states her spouse helps with some mobility and ADL's. Pt does have a significant falls history. CLOF: Pt is confused and not oriented to time. Short term memory loss appears to impair her safety awareness. She required min assist for bed mobility and SBA/CGA for gait and transfers with FWW. She is likely near her functional baseline but would benefit from one or two more acute PT visits to assess capacity for stair navigation . Depending on spouse's availability and ability to provide appropriate level of assist, pt will likely be safe to discharge home once medically stable. Will continue to assess. Goals Bed Mobility Goal Standby Assistance Transfer Goal Standby Assistance,Front Wheeled Walker Gait Goal Standby Assistance,Front Wheel Walker Gait Distance 100 Other Goals - up/down 2 steps with unilateral rail Days to Meet Goals 5 Frequency of Treatment Frequency Of Treatment Once a Day Treatment Plan Physical Therapy Treatment Plan Bed Mobility Training,Transfer Training,Gait Training, Therapeutic Exercise,Balance Retraining,Post Op Education, Discharge Planning,Hot or Cold Pack,Neuromuscular Re-ed Other Recommendations and Next Treatment progress gait with FWW; stairs Focus Precautions Other Precautions falls Recommendations To Nursing Amount of Assist Needed 1 Person Assist Discharge Recommendations PT Discharge Recommendations Home with 03/03 Assist Available Transportation Needs at Discharge Private Vehicle
[2022-09-05 15:00] VITALS: BP 108/64; PULSE 84; RESP 17; TEMP 36.2; O2SAT 98
--- NOTE | 2022-09-05 15:58 | P.DS_ITS ---
History of Present Illness History of Present Illness Date Patient Seen: 09/05/22 Chief complaint: no eating, feeling weak, ill Narrative: Patient is a 72-year-old female who arrived the emergency department yesterday with her for evaluation of approximately 3 days not feeling well.? She was complaining of some abdominal pain.? She did vomit upon arrival here to the ER.? She had been feeling weak and not eating.? She denied chest pain.? She did endorse a headache and some sore throat.? No shortness of breath.? No cough.? Patient is somewhat confused.?? She does have a history of chronic neck pain.? reported that she is had no change in medications recently.? ?A CT scan demonstrated distention of the stomach with thickening versus a mass at the GE junction as well as some thickening in the duodenum. General surgery was consulted and a consultation has been completed. Plan is for endoscopy tomorrow to assess GE junction mass and possibly also thickening in the duodenum. Patient not complaining of any fever chills nausea vomiting or diaphoresis. No chest pain palpitations wheezing or no shortness of breath. Some abdominal pain but no constipation or diarrhea. Discharge Providers Provider Date of admission: 09/02/22 06:26 Discharge Date: 09/05/22 Primary care physician: Mila Elizabeth MD Consults: 09/02/22 06:23 Consult to General Surgery Stat Comment: Consulting Provider: John Tovar Reason for consultation: Vomiting potential mass Has provider been notified: Yes 09/02/22 12:41 Consult to Speech Therapy Evaluate & Treat Comment: pt coughing and spitting Physician Instructions: Evaluate and treat 09/02/22 19:47 Consult to Physician Routine Comment: Spoke to Dr. Bhakta Consulting Provider: Carmencita Smith Reason for consultation: Elevated trop, multiple myloma workup Has provider been notified: Yes 09/05/22 10:40 Consult to Physical Therapy Evaluate & Treat Comment: Physician Instructions: Evaluate and Treat Discharge provider: Moi Barrett, DO Summary Hospital Course Discharge Diagnosis: #? NSTEMI and new-onset systolic heart failure not in exacerbation -troponin elevated to 3.210, downtrended to 1.100 -echo returned with EF 20-25%, basal to distal and apical segments akinetic most consistent with stress cardiomyopathy -spoke with Dr. Smith, cardiology who recommended cardiac meds and outpatient stress test unless patient still having CP and needing transfer to [facility] for heart cath -patient's CP has resolved with downtrending trop will plan for outpatient cardiology f/u -started metoprolol, lisinopril, baby aspirin and spironolactone daily # possible esophageal mass, ruled out with EGD, with abdominal pain due to esophagitis -patient reports history of bleeding ulcers, has been on PPI at home, also takes Celebrex -CT scan with GE junction thickening/mass and duodenal thickening -EGD negative for mass, showed erosions -continue IV PPI # Acute hypercalcemia, resolved -likely was dehydrated, also possibly from excessive antacids -improving with IV hydration -PTH 16 # Urinary tract infection -urine culture growing GNR -continue Rocephin x3 days # Acute leukocytosis, improving -unclear infection or stress related -continue to trend # Chronic joint and back pain, fibromyalgia -patient continued on her Celebrex, morphine, nortriptyline, pregabalin, tizanidine # Depression -mood is dysthymic -continued on her mirtazapine, nortriptyline, pregabalin # Hypokalemia -replace as needed Hospital Course: Patient admitted for abdominal pain and CT abd showed possible stomach mass. Underwent EGD and no mass found but erosions of stomach present. Troponin initially only 0.08 then bumped to 3.210. Likely abd pain was related to NSTEMI. Heparin drip not started as it had been 48 hrs since initial CP and troponin elevation. Echo showed new CHF with EF of 20-25% and several focal WMA's. Spoke with cardiology who recommended outpatient cath if patient stable and CP improving. She was started on new cardiac meds as well as BID PPI and discharged to f/u with PCP for cardiology referral for cath. Her CP had resolved prior to discharge. Time Spent with Patient Time spent: Greater than 30 minutes Exam Vital Signs (past 8 hours): - 09/05/22 10:38 09/05/22 11:00 09/05/22 15:00 Temperature 96.9 F L 97.2 F L Pulse Rate 80 83 84 Respiratory Rate 17 17 Blood Pressure 121/62 120/69 108/64 Pulse Oximetry 99 98 Oxygen Flow Rate 0 0 Oxygen Delivery Method Room Air Oxygen Flow Rate 0 Narrative Exam Narrative: General: Patient appears moderately uncomfortable, pain to palpation of chest wall Lungs: Clear Heart: Regular rhythm Abdomen: Tender in epigastric area Extremities: No pretibial edema Neurological: Diminished affect Objective Labs 09/05/22 06:01 09/05/22 06:01 Labs: Laboratory Results - last 24 hr 09/04/22 09/04/22 09/05/22 17:08 23:21 06:01 WBC 9.0 RBC 4.07 Hgb 9.6 L Hct 30.3 L MCV 74.3 L MCH 23.5 L MCHC 31.6 RDW 24.0 H Plt Count 189 Neut % (Auto) 67.6 Lymph % (Auto) 20.2 L Thurston % (Auto) 8.6 Eos % (Auto) 2.9 Baso % (Auto) 0.7 Neut # (Auto) 6100 Lymph # (Auto) 1800 Thurston # (Auto) 800 Eos # (Auto) 300 Baso # (Auto) 100 RBC Morphology See below Hypochromasia 2+ H Anisocytosis 3+ H Microcytosis 2+ H APTT 66 H D 26 D Sodium Potassium Chloride Carbon Dioxide BUN Creatinine Estimated GFR BUN/Creatinine Ratio Glucose Calcium Magnesium Total Bilirubin AST ALT Alkaline Phosphatase Total Protein Albumin Globulin Albumin/Globulin Ratio 09/05/22 09/05/22 06:01 06:01 WBC RBC Hgb Hct MCV MCH MCHC RDW Plt Count Neut % (Auto) Lymph % (Auto) Thurston % (Auto) Eos % (Auto) Baso % (Auto) Neut # (Auto) Lymph # (Auto) Thurston # (Auto) Eos # (Auto) Baso # (Auto) RBC Morphology Hypochromasia Anisocytosis Microcytosis APTT Sodium 135 L Potassium 3.8 Chloride 103 Carbon Dioxide 25 BUN 12 Creatinine 0.68 Estimated GFR > 60 BUN/Creatinine Ratio 17.6 Glucose 85 Calcium 8.2 L Magnesium 2.1 Total Bilirubin 0.2 AST 39 H ALT 31 Alkaline Phosphatase 46 Total Protein 6.0 L Albumin 3.3 L Globulin 2.7 Albumin/Globulin Ratio 1.2 PFSH Medical History Avascular necrosis of bone of hip Cervical facet joint syndrome Cervical neck pain with evidence of disc disease Cervical spondylosis Chronic low back pain Degenerative joint disease of right hip Depression Fibromyalgia HLD (hyperlipidemia) Seasonal allergies Spinal stenosis in cervical region Thoracic kyphosis Surgical History H/O shoulder surgery History of appendectomy History of hysterectomy History of right knee surgery History of tonsillectomy History of total left hip arthroplasty (09/22/19) Family History Mother Stroke Sister Cancer Diabetes mellitus Gout Social History marital status: household members: spouse Smoking Status: Never smoker alcohol intake: former Discharge Plan Discharge Plan Patient Disposition: Home Health Service Provider Discharge Comment: You were admitted for abdominal pain and a scan showed possible mass in your esophagus. He had an an upper endoscopy which showed no mass but erosions in your stomach I will need to be on an antacid pill twice a day for 30 days. Your heart enzyme then jumped up suggesting you may be having a heart attack. Her abdominal pain may actually been related to your heart in hindsight. An echocardiogram of your heart showed that is functioning at 20% so you were with congestive heart failure. I have started you on se veral new cardiac medications and you will need to see your PCP for a referral to see Cardiology for likely a heart catheterization. Your heart function can improve with the medications over time. Discharge orders & Medications Prescriptions: New aspirin 81 mg Tablet,Delayed Release (Dr/Ec) 81 mg PO DAILY Qty: 90 0RF atorvastatin 40 mg tablet 40 mg PO BEDTIME Qty: 90 0RF lisinopril 2.5 mg tablet 2.5 mg PO DAILY Qty: 90 0RF spironolactone 25 mg Tablet 25 mg PO DAILY Qty: 90 0RF pantoprazole 40 mg Tablet,Delayed Release (Dr/Ec) 40 mg PO BID 30 Days Qty: 60 0RF metoprolol tartrate 25 mg Tablet 25 mg PO BID Qty: 180 0RF Continued quetiapine 300 mg Tablet 300 mg PO DAILY diclofenac sodium 1 % gel 4 g topical QID PRN (Reason: pain) Qty: 100 0RF Rx Instructions: apply to painful area as needed cetirizine 10 mg tablet 10 mg PO BEDTIME PRN (Reason: congestion) Qty: 30 0RF fluticasone propionate 50 mcg/actuation spray,suspension 1 spray intranasal BID PRN (Reason: nasal congestion) Qty: 16 0RF Rx Instructions: administer into each nostril benzonatate 200 mg capsule 200 mg PO BID PRN (Reason: cough) Qty: 20 0RF guaifenesin [Mucinex] 600 mg tablet extended release 12hr 600 mg PO BID PRN (Reason: cough) Qty: 14 0RF multivitamin Tablet 1 tab PO DAILY nortriptyline 75 mg Capsule 75 mg PO BEDTIME ergocalciferol (vitamin D2) [Vitamin D2] 50,000 unit Capsule 50,000 unit PO WEEKLY Label Comments: takes on Friday lutein 20 mg Tablet 25 mg PO DAILY Ocuvite Eye Health 50 mg-15 unit- 4.5 mg-2.5 mg Tablet,Chewable 2 tab PO DAILY tizanidine 2 mg Tablet 1 - 2 mg PO BID-TID PRN (Reason: Muscle Relaxer) simvastatin 10 mg Tablet 10 mg PO BEDTIME mirtazapine 45 mg Tablet 45 mg PO BEDTIME pregabalin 50 mg capsule 50 mg PO BID hydroxyzine pamoate 25 mg capsule 25 mg PO BEDTIME Label Comments: TAKE UP TO 2 CAPS A DAY NEEDED morphine 15 mg tablet extended release 15 mg PO Q8H Label Comments: take 1 tablet by mouth every 8 hours 06/19/2022 pantoprazole 40 mg tablet,delayed release (DR/EC) 40 mg PO BEDTIME celecoxib [Celebrex] 200 mg capsule 200 mg PO DAILY Qty: 30 2RF Follow up/Referrals: Mila Elizabeth MD [Primary Care Provider] - 2 Weeks (needs referral to cardiology) Visit Report/Discharge Packet Instructions: DI for Heart Failure Stand Alone Forms: Patient Portal/API, Stroke Signs & Symptoms Discharge Data Primary Care Provider: Mila Elizabeth
--- NOTE | 2022-09-05 19:17 | CM.DPC ---
DCP: N.O. Home with HH. this DCP supported pt with choosing a HH service using the IPAD. Pt independently chose [facility]. This CM called and spoke with Earnest at [facility] and sent over referral via fax. [facility] is accepting of pt who will have Nursing, PT, OT services. Pt's entered pt's room and is in agreement with services. Lora Morales RN Case Manager
== END 2022-09-05 16:43 | disposition home or self-care (01) | DRG 391 ==
LOC: ED 03:44 → AC 06:27
PROVIDERS: Neuromusculoskeletal Medicine, Sports Medicine; Student in an Organized Health Care Education/Training Program; Surgery; Admitting Provider Nurse Practitioner Family; Emergency Provider Emergency Medicine; Family Provider Family Medicine; PCP Family Medicine; Referring Provider Emergency Medicine; Visit Provider Nurse Practitioner Family
PROC: 0DJ08ZZ Inspection of Upper Intestinal Tract, Via Natural or Artificial Opening Endoscopic (ICD-10-PCS; CPT 43235; principal; 2022-09-03 15:45)
DX: K20.90 Esophagitis, unspecified without bleeding (principal); I21.4 Non-ST elevation (NSTEMI) myocardial infarction; I50.21 Acute systolic (congestive) heart failure; N39.0 Urinary tract infection, site not specified; I50.20 Unspecified systolic (congestive) heart failure; I42.8 Other cardiomyopathies; R10.9 Unspecified abdominal pain; E83.52 Hypercalcemia; M50.30 Other cervical disc degeneration, unspecified cervical region; M47.812 Spondylosis without myelopathy or radiculopathy, cervical region; G89.29 Other chronic pain; M54.50 Low back pain, unspecified; F32.A Depression, unspecified; M79.7 Fibromyalgia; E78.5 Hyperlipidemia, unspecified; J30.2 Other seasonal allergic rhinitis; K21.9 Gastro-esophageal reflux disease without esophagitis; E87.6 Hypokalemia; Z20.822 Contact with and (suspected) exposure to COVID-19
CPT/HCPCS: 0241U; 36415; 43239; 71045; 74177; 80053; 80320; 81003; 81015; 82550; 82553; 83605; 83690; 83735; 83970; 84100; 84145; 84443; 84484; 85025; 85610; 85730; 87040; 87077; 87086; 87186; 93005; 93306; 96372; 97162; 99221; 99284; J0696; J1170; J1644; J1650; J1940; J2405; J2704; J3475; J3489; Q9967

== ENCOUNTER → 2022-09-17 08:42 | Outpatient (CLI) | payer MEDICARE, OTHER, SELFPAY ==
[2022-09-03 04:38] VITALS: BMI 19.0
--- NOTE | 2022-09-17 | DI.MRI.S_ITS ---
PROCEDURE: MR CERVICAL SPINE WO CON INDICATIONS: CERVICALGIA TECHNIQUE: Noncontrast sagittal T1 spin echo and T2 fast spin echo, sagittal STIR, foraminal oblique sagittal T2 fast spin echo, and axial gradient echo or T2 fast spin echo through the cervical spine. COMPARISON: [facility], MR, MR CERVICAL SPINE WO CON, 04/23/2019, 6:40. FINDINGS: Image quality: Excellent. Alignment and Curvature: There is straightening the normal cervical lordosis. Bone Marrow: Marrow demonstrates normal overall signal. Spinal Cord: Visualized spinal cord has normal size and signal. No cerebellar tonsillar herniation. Paraspinous Soft Tissues: No paravertebral masses. Prevertebral soft tissues are normal in thickness. C1-2: C2 pannus and ligamentum flavum hypertrophy results in [id number] stenosis, increased from the prior C2-C3: Disc space narrowing, hypertrophic arthropathy and posterior disc osteophyte complex results in mild stable central stenosis. Moderate bilateral foraminal stenosis greater on the left. C3-C4: Disc space narrowing and posterior disc osteophyte complex with hypertrophic uncovertebral joints results in mild central stenosis. Moderate bilateral foraminal stenosis. C4-C5: Disc height is preserved. Hypertrophic facet and uncovertebral joints present. Mild central stenosis. Severe bilateral foraminal stenosis. C5-C6: Disc space narrowing and posterior disc osteophyte complex results in moderate central stenosis. Hypertrophic uncovertebral joints present with severe bilateral foraminal stenosis. C6-C7: Disc height is maintained. Hypertrophic uncovertebral joints. No central stenosis. Severe bilateral foraminal stenosis C7-T1: Disc height is maintained. No central stenosis. Moderate right and no left foraminal stenosis. IMPRESSION: 1. Multilevel degenerative disc disease and arthropathy results in varying degrees of central and foraminal stenosis including severe foraminal stenosis C4-5, C5-6 and C6-7 as well as mild to moderate central stenosis at C1-2 Approved by: Chao Segura M.D. on 09/17/2022 at 13:46
== END ==
PROVIDERS: Family Provider Family Medicine; PCP Family Medicine; Referring Provider Physical Medicine & Rehabilitation Pain Medicine; Visit Provider Physical Medicine & Rehabilitation Pain Medicine
DX: M50.30 Other cervical disc degeneration, unspecified cervical region (principal); M47.812 Spondylosis without myelopathy or radiculopathy, cervical region; M48.02 Spinal stenosis, cervical region
CPT/HCPCS: 72141

== ENCOUNTER → 2023-08-08 16:49 | Outpatient (CLI) | payer MEDICARE, OTHER, SELFPAY ==
[2023-03-21 16:09] VITALS: BMI 19.0
--- NOTE | 2023-08-08 16:51 | DI.RAD.S_ITS ---
PROCEDURE: XR CHEST 2V INDICATIONS: SOB TECHNIQUE: 2 views of the chest were acquired. COMPARISON: [facility], CR, XR CHEST 1V, 09/02/2022, 4:25. FINDINGS: Surgical changes and devices: None. Lungs and pleura: Lungs are clear. No pleural effusions or pneumothorax. Apparent blunting of the right costophrenic angle on PA view is not seen on the lateral view and likely represents overlying soft tissue. Mediastinum: Mediastinal contours are normal. Heart size is normal. Bones and chest wall: No suspicious bony abnormalities. Soft tissues appear unremarkable. IMPRESSION: No acute cardiopulmonary process. Dictated by: Dane Simmons M.D. on 08/09/2023 at 12:11 Approved by: Dane Simmons M.D. on 08/09/2023 at 12:13
== END ==
PROVIDERS: Family Provider Family Medicine; PCP Family Medicine; Referring Provider Family Medicine; Visit Provider Family Medicine
DX: R05.9 Cough, unspecified (principal)
CPT/HCPCS: 71046

== ENCOUNTER 2023-08-17 14:30 | Observation (INO) | payer OTHER, SELFPAY ==
[2023-03-21 16:09] VITALS: BMI 19.0
[2023-08-05 13:56] VITALS: BMI 19.5
[2023-08-15] VITALS (13 sets, daily range): BP systolic 110–161; BP diastolic 60–76; PULSE 66–74; RESP 12–17; TEMP 35.8–37.1; O2SAT 90–100; BMI 19.5
[2023-08-15] MEDS: LACTATED RINGERS 1,000 ML 42 ML IV (07:16)
--- NOTE | 2023-08-15 07:19 | SUR.PREOP ---
Patient is a very poor historian and cannot remembe what medications she takes or when she took her last doses. She is alert to self and and time of year; alert and oriented to situation. Called to see if he knew her medication regimen and he states, I don't know squat.
--- NOTE | 2023-08-15 07:22 | SUR.OPER ---
Supine on padded OR bed, head on pillow, arms secured on padded arm boards at <90 degrees abduction, legs uncrossed, safety belt at thigh, tape over blanket over lower legs. operative leg draped free on feild in boot knee positioner
--- NOTE | 2023-08-15 07:48 | PM.PREOP ---
Pre-operative Note Interval Note History & Physical reviewed/Exam performed by Physician: Yes Changes to H&P: No
[2023-08-15] MEDS: CEFAZOLIN 2 GM/100 ML PREMIX 100 ML IV ×3 (08:00→23:16)
--- NOTE | 2023-08-15 08:00 | DI.RAD.S_ITS ---
PROCEDURE: XR KNEE RT 1TO2V INDICATIONS: RIGHT TOTAL KNEE TECHNIQUE: 2 view(s) of the knee acquired. COMPARISON: [facility], [place], XR KNEE RT 3V, 08/09/2021, 13:39. [facility], , KNEE 3V RIGHT, 02/12/2014, 14:34. FINDINGS: Bones: Patient is status post knee joint arthroplasty. Hardware components are in expected positions. Visualized bony structures are intact. Surgical fixation of the patella. Soft tissues: Overlying postoperative changes are noted. IMPRESSION: Expected post-operative appearance of a knee arthroplasty. Dictated by: David Martin M.D. on 08/15/2023 at 13:48 Approved by: David Martin M.D. on 08/15/2023 at 13:48
[2023-08-15] MEDS: TRANEXAMIC ACID 1,000 MG in SODIUM CHLORIDE 0.9% 100 ML 200 MG IV ×2 (08:10→09:55)
[2023-08-15] MEDS: ROPIVACAINE/EPI/CLONIDINE/KET 50 ML SYRINGE INJ (08:46)
--- NOTE | 2023-08-15 10:37 | P.OP_ITS ---
Operative Date/Time/Diagnoses Date of procedure: 08/15/23 Pre-op diagnosis: Right knee arthritis Post-op diagnosis: same Procedure & Clinicians Procedure: Right total knee arthroplasty Same procedure as scheduled: Yes Surgeon: Chao Moreno Business Information Consultant: Mariama Beck Anesthesia Type: General, Peripheral nerve block and Local Operative Notes Estimated Blood Loss (mL): 150 Tourniquet time (min): 70 Procedure in detail: Implants: Lizzie Persona CPS Total Knee Arthroplasty: * Size 6 posterior stabilized Femoral Component * Size E Tibial Component with 14 mm x 30 mm stem extension * Size 10 CPS Polyethylene Insert * [Unresurfaced] Patella Procedure Summary: This 73-year-old female patient had significant valgus preoperatively as well as laxity in her MCL on preoperative exam. I therefore planned to insert a PCS insert regardless of her balanced during the procedure. I initially performed the distal femoral and proximal tibial cuts and noted significant tightness laterally. This was approximately 5 on the gap balancing device. I performed a posterolateral release as well as pie crusting of the ITB band. This improved the reading to 3 however it did not equalized. When using the gap balancing device in flexion it necessitated significantly more force in order to tighten the medial side relative to the lateral side. I therefore performed a 5 degree measured resection of the femur. The balance improved throughout the case as the lateral side continued to loosen. She had a remote history of patellar fixation with the screws and wire construct. I removed the wires and inspected the posterior surface of the patella for any protrusion of the screws which I did not detect. I therefore left the screws and left the patella unresurfaced Procedure in Detail: This patient was seen preoperatively and evaluated for knee pain which was refractory to numerous nonoperative treatment modalities. Their hip pain correlated with radiographic changes demonstrating significant degeneration in the knee joint. The risks and benefits of continued nonoperative management versus operative management were discussed at length and all of the patient?s questions were answered. Additional educational materials providing further details beyond our discussion in clinic were provided via a publicly available patient education video which included the incidence of medical complications associated with total knee arthroplasty, reasons for revision following total knee arthroplasty, and patient satisfaction rates following total knee arthroplasty. That video can be accessed at [email or web address] . With this understanding of the risks inherent to the procedure, the patient elected to move forward with operative management. Following preoperative optimization, the patient was scheduled for surgery. The patient was met in the preoperative holding area the day of the procedure and all questions were answered. The patient?s nares were swabbed with betadine in order to decolonize them from MRSA. Informed consent was signed and the operative limb was marked with ind elible ink.? The patient was brought back to the operating room where anesthesia was induced. The patient was transferred to the operating table and all bony prominences were padded. The operative site was prepped and draped in the usual sterile fashion. A second prep stick was utilized following drape placement. The incision was marked corresponding to the medial aspect of the tibial tubercle a nd the patella. Ioban was wrapped circumferentially around the knee. Prior to incision, tranexamic acid and cefazolin were administered. Templating images were displayed. A timeout procedure was performed verifying the patient?s identity, medical comorbidities, allergies, relevant medications, anesthesia type and the surgical plan. All present were in agreement. The assistance of a physician assistant teacher primary was required for positioning, room setup, soft tissue retraction and wound closure. Without this assistance, the procedure would have been significantly more challenging and time consuming.?? The tourniquet was inflated prior to incision. I made an anterior incision over the knee, dissected through the subcutaneous tissues and identified the lateral border of the VMO. Medial and lateral soft tissue flaps were developed. I noted the old wire fixation on her anterior patella. I cut the wires they are and excised it. A medial parapatellar arthrotomy was performed ensuring that adequate capsular tissue would remain for closure at the conclusion of the procedure. The hip was brought into extension and the medial soft tissues were released off the joint line of the tibia. Tissue overlying the distal anterior femur was released to allow for later assessment for anterior notching but left in place. A portion of the retropatellar fat pad was excised while protecting the patellar tendon. The patella was everted. I looked for evidence of screw protrusion in the cartilage of the patella and did not see any. The patella was [not resurfaced]. Osteophytes were excised and a lateral facetectomy was performed. The patella was released from its everted position. I flexed the knee to 90 degrees and placed retractors to allow access to the notch. An opening reamer was used to gain access to the femoral canal and an intramedullary pipe was introduced into the canal. Diaphyseal fit was obtained in order to allow a distal femoral resection at 5 degrees relative to the anatomic axis, thereby aiming to achieve mechanical alignment of the eventual implant. A [+2] resection was planned and assessed using an edu wing. I then made the cut using a sagittal saw. This provided additional access to the femoral notch. The ACL and PCL were excised. Retractors were placed on the lateral and medial tibia. I hyperflexed the knee while externally rotating it to sublux the tibia anteriorly. I placed a PCL retractor posteriorly and used this to provide additional anterior subluxation. The remainder of the PCL root was released. A +2 cut off of the posterior lateral tibia was planned at the base of the patient's defect with an extramedullary reference.. I evaluated the cut depth, varus-valgus alignment and slope of the planned tibial resection and deemed them satisfactory. I cut the tibia with a sagittal saw while using retractors to protect the MCL, patellar tendon, and posterolateral structures.? The knee was repositioned in extension and the Fuzion soft tissue balancing gauge was introduced. This demonstrated that significant lateral tightness. I placed a lamina household appliance repairer and performed a posterolateral release of the posterolateral capsule while protecting the popliteus and the peroneal nerve. I performed this sharply. I also pie crusted the ITB band. Following these lateral releases the lateral tightness improved but did not returned to neutral. I moved the knee into 90 degrees of flexion, and the Fuzion device was recalibrated by removing a 9 mm stanton to allow assessment of the flexion gap. The Fuzion was placed perpendicular to the resected surface of the tibia and the resected surface of the distal femur. Forty pounds of traction was applied to match the tension of the extension gap. This externally rotated the femur to 0 degrees due to the lateral tightness which was also detected in extension. I therefore elected to move forward with a measured resection knee. I used a posterior referencing guide and set it to 5? corresponding to the patient's l ateral femoral hypoplasia. Appropriate sizing was determined and a 4-in-1 block was placed. An edu wing was used to ensure there would be no anterior notching. Retractors were placed to protect the soft tissues during resection. Captured cuts were performed with a sagittal saw for the anterior and posterior femur as well as the corresponding chamfers.? Trial components were placed and the construct was assessed. Range of motion was assessed by ensuring the knee could achieve full extension and assessing maximum passive knee flexion by elevating the femur and allowing the heel to passively fall towards the buttock. Gap symmetry was assessed by stressing the medial and lateral compartments in both extension and flexion. Laxity was assessed in both extension and flexion and the polyethylene trial was adjusted with shims as necessary. Patellar tracking was assessed with knee flexion. Once satisfied with the construct, I moved forward with implant insertion. Lug holes were drilled in the femur and the tibia was prepped ensuring appropriate sizing and rotation relative to the tibial tubercle.??I inserted 2 screws into the posterior lateral defect where there was some bone loss to provide support for the base plate. These were 3.5 mm screws The bony ends were irrigated and cement was prepared. Portions of the anterior chamfer cut were utilized as cement restrictors in the femur and tibia where intramedullar rods had been utilized. Cement was placed on the entirety of the undersurface of both the tibial and femoral components. Cement was placed onto the dry tibia and pressurized into the cancellous bone. I impacted the tibial component into place. Cement was removed. The tibia was reduced underneath the femur and placed cement onto the dry surface of the resected femur. I placed the femoral component as well as the intended polyethylene trial. Cement was removed from around the femur. I brought the knee into extension and manually pressurized the construct by pushing on the heel while the cement dried. The knee was bathed in a dilute mixture of betadine and peroxide. A mixture of Ropivacaine, Epinephrine, Clonidine and Toradol was infiltrated throughout the soft tissues into structures including the VMO, patellar tendon, quadriceps tendon, MCL and femoral periosteum. A low adductor canal block was also performed using this mixture unless one had been placed preoperatively by anesthesia. The knee was copiously irrigated with pulse lavage. Once cement had been allowed to dry the knee was again trialed. Range of motion was assessed by ensuring the knee could achieve full extension and assessing maximum passive knee flexion by elevating the femur and allowing the heel to passively fall towards the buttock. Gap symmetry was assessed by stressing the medial and lateral compartments in both extension and flexion. Laxity was assessed in both extension and flexion and the polyethylene trial was adjusted with shims as necessary. Patellar tracking was assessed with knee flexion. The tourniquet was let down and the polyethylene trial was removed. I inspected the knee inspected for excess cement and any residual bleeding. Once hemostasis was achieved I i nserted the final polyethylene and ensured appropriate engagement of the dovetail locking mechanism.?? The arthrotomy was closed with absorbable interrupted suture ensuring that this extended to the top of the arthrotomy. This was backed up with running barbed suture throughout the arthrotomy. The skin was closed with 2-0 and 3-0 sutures. Surgical glue was applied and a soft dressing was placed.?The sponge, instrument and needle counts were reported as being correct at the end of the case.??No obvious complications occurred. The patient was transferred from the operating table back to a stretcher. The patient emerged from anesthesia without difficulty and was taken to the PACU in a stable condition.? Plan for aftercare: * Transfer to floor following recovery in PACU * Transition from hospital gown to regular clothing immediately upon arrival on floor * Weightbearing as tolerated * Mobilization as soon as the patient has recovered from anesthesia. If physical therapists are unavailable at the time the patient is ready to ambulate, then nursing staff should help patient ambulate * [Aspirin 81 twice per day] for DVT prophylaxis * Baseline opioids which are much higher dose than typically utilized for postoperative total joint patients * Anticipate 1-2 night stay * Follow up at [facility] in 2 weeks * Detailed postoperative instructions available at [email or web address]
[2023-08-15] MEDS: HYDROMORPHONE 1 MG INJ IV ×2 (10:39→10:47)
[2023-08-15] MEDS: hydrOXYzine 50 MG/ML INJ 25 MG IM (10:44)
[2023-08-15] MEDS: ONDANSETRON 4 MG/2 ML INJ IV (11:04)
[2023-08-15] MEDS: OXYCODONE IR 5 MG TABLET PO (11:05)
--- NOTE | 2023-08-15 11:33 | PC.NURSE ---
Day shift: In room from PACU at approx 1115. Alert to self. KAY wrapped rt knee is CDI. PPP and can move rt leg. VS WNL. RA 95%. Pt asleep as this note written. Baseline confusion per PATIENT FINANCIAL SERVICES MANAGER report. Has chronic pain also. Call light in reach. Bed alarm is on. Will also leave door open for line of site and safety.
[2023-08-15] MEDS: ACETAMINOPHEN 325 MG TABLET 650 MG PO ×3 (11:45→23:15)
[2023-08-15] MEDS: IBUPROFEN 400 MG TABLET PO ×4 (11:45→23:16)
[2023-08-15] MEDS: LACTATED RINGERS 1,000 ML 100 ML IV ×2 (11:47→21:51)
[2023-08-15] MEDS: MORPHINE ER 15 MG TABLET PO ×2 (12:40→20:13)
--- NOTE | 2023-08-15 14:30 | PT.IIE ---
Current Diagnoses Unilateral primary osteoarthritis, right knee (08/15/23) Surgery Performed Operation Date: 08/15/23 07:45 Actual Procedures p Total Knee Arthroplasty(Right) - Chao Moreno MD Surgical History (Last Updated 07/30/23 @ 09:17 by Elena Mendez RN) H/O shoulder surgery History of appendectomy History of esophagogastroduodenoscopy (EGD) (09/29/20) History of esophagogastroduodenoscopy (EGD) (01/11/21) History of esophagogastroduodenoscopy (EGD) (11/28/22) History of esophagogastroduodenoscopy (EGD) (12/28/20) History of hysterectomy History of right knee surgery History of tonsillectomy History of total left hip arthroplasty (09/22/19) History of total right hip replacement (05/03/20) Hx of colonoscopy Medical History (Last Updated 08/05/23 @ 14:26 by Elena Mendez RN) Avascular necrosis of bone of hip Bipolar 1 disorder Cardiomyopathy Cervical facet joint syndrome Cervical neck pain with evidence of disc disease Cervical spondylosis Chronic low back pain DDD (degenerative disc disease) Degenerative joint disease of right hip Depression Dilation of esophagus (01/25/21) Dilation of esophagus (02/08/21) Fibromyalgia GERD (gastroesophageal reflux disease) Hiatal hernia History of COVID-19 (~05/2023) HLD (hyperlipidemia) Oropharyngeal dysphagia Osteoarthritis Osteopenia Seasonal allergies Spinal stenosis in cervical region Thoracic kyphosis Physical Therapy Inpatient Evaluation/Re-Eval M1 PT/OT-IP Prior Functional Status Start: 08/15/23 15:31 Freq: NEEDED Status: Active Protocol: Document 08/15/23 14:30 AB (Rec: 08/15/23 16:01 AB [id number]) Medical Review Prior Functional Status Medical History Reviewed Yes Communication able to make needs known Mobility and Gait pt has memory issues and wants spouse to provide all the info regarding home set up and her PLOF. pt stated that she was modified independent with all mobilities and ambulation without AD but occasionally uses a FWW; stated that she only goes out of the house with her spouse and she holds on to her spouse for support. Social History Household Members spouse Living Arrangements House Number of Floors (Floors) One Floor Number of Stairs To Enter/Railing? pt has 2 steps R rail ascending to enter the house Home Environment Standard Height Toilet,Walk in Shower,Tub/Shower,Built-In Shower Seat Home Equipment Front Wheel Walker,Four Wheel Walker,Quad Cane,Bedside Commode,Raised Toilet Seat Without Armrests Additional Social History Comment spouse stated that pt does not take a shower but only does sponge/spit baths M2 PT-IP Current Condition Start: 08/15/23 15:31 Freq: NEEDED Status: Active Protocol: Document 08/15/23 14:30 AB (Rec: 08/15/23 16:01 AB [email or web address]) Physical Therapy Current Condition Current Condition Evaluation Date 08/15/23 Treatment Diagnosis s/p R TKA; difficulty in walking Onset Date 08/15/23 M3 PT-IP Subjective Start: 08/15/23 15:31 Freq: NEEDED Status: Active Protocol: Document 08/15/23 14:30 AB (Rec: 08/15/23 16:01 AB [email or web address]) Subjective Physical Therapy Visit Type Type Initial Evaluation Visit Start Time 14:30 Visit Stop Time 15:13 Total Visit Minutes 43 Number of FLESHING MACHINE OPERATOR Visits 0 Physical Therapy Visit Comments Patient Comments pt is agreeable to do PT Therapy Pain Assessment Pain When Pain Assessed At Rest Pain Present Pain Present Pain Reported Location Right Knee Intensity 12 Scale Used Numeric (0 - 10) Pain Management Techniques Apply Cold,Distraction, Elevation,Modification of Treatment,Re-positioning, Timing of Activity with Medications M4 PT-IP Mobility and Gait Start: 08/15/23 15:31 Freq: NEEDED Status: Active Protocol: Document 08/15/23 14:30 AB (Rec: 08/15/23 16:01 AB [email or web address]) PT-Bed Mobility Assessment Supine to Sit Supine to Sit Minimal Assistance,Head of Bed Elevated,Bedrails Sit to Supine Sit to Supine Standby Assistance PT-Transfer Assessment Sit to and From Stand Sit to and from Stand Minimal Assistance,1 Person Assistance,Use of Upper Extremities Equipment Transfer Assistive Device Gait Belt,Front Wheeled Walker Orthotic/Prosthetic Devices or Brace: No Comments Mobility Comments pt supine in bed. attempted to obtain PLOF and home set up but pt with difficulty anwering due to memory issues and wants spouse to provide all the answers. pt agreed to get up and out of bed. c/o 12/10 pain and a headache. pt with chronic BP in supine: 103/64 O2 sat at RA 96% HI: 72. pt completed supine to sit min A and cues. HOB elevated and pt used bed rail to assist. pt with increase thoracic kyphosis. pt requiring min A for sitting balance on EOB. completed sit to stand from the chair min A and cues. min A for standing balance using FWW for support. pt was able to ambulate only ~ 3 ft using FWW forward/backwards to the bed. c/o headache and increase pain limiting mobility at this time. pt requested to go back to bed. completed sit to supine SBA. positioned pt in bed. call light and table placed within reach. talked to pt's spouse and stated that he is planning to be in the hospital at ~ 630 am and will be staying with pt from that time on. informed regarding possibility of caregiver training and spouse agreed. Gait Assessment Gait Gait Assistance Required: Minimum Assistance Distance (Feet) 3 Able to Maintain Weight Bearing Status Yes During Gait Assistive Devices Assistive Device Gait Belt,Front Wheeled Walker Orthotic/Prosthetic Devices or Brace: No Gait Deviations General Gait Pattern Antalgic,Decreased Stride Length,Decreased Feet Clearance,Step-to Gait Factors Limiting Gait Function Factors Limiting Gait Function Decreased Activity Tolerance, Decreased Strength,Difficulty Following Directions,Limited Range of Motion,Pain,Poor Balance,Poor Safety Awareness PT-Balance Assessment Sitting Balance and Reactions Static Sitting Balance Ability Fair Dynamic Sitting Balance Ability Fair Standing Balance and Reactions Static Standing Balance Ability Fair Dynamic Standing Balance Ability Poor Device Used FWW M5 PT-IP Objective Assessments Start: 08/15/23 15:31 Freq: NEEDED Status: Active Protocol: Document 08/15/23 14:30 AB (Rec: 08/15/23 16:01 AB [id number]) Orientation Orientation/Cognition Level of Alertness Confusional State Orientation Name,Place,Situation Language Function Ability No Deficits Noted Safety Awareness Decreased Safety Awareness Memory Description Short Term Impaired,Custodial Impaired Gross Range of Motion Lower Extremity ROM Assessment Within Functional Limits Impairments R knee: 10- 70 deg Strength Lower Extremity Strength Assessment Right Impaired Hip 4/5 Knee 4-/5 Coordination Assessment Gross Coordination Gross Coordination WNL Sensation Assessment Sensation Gross Sensation WNL Muscle Tone Muscle Tone WNL Yes M6 PT-IP Treatment Start: 08/15/23 15:31 Freq: NEEDED Status: Active Protocol: Document 08/15/23 14:30 AB (Rec: 08/15/23 16:01 AB [email or web address]) Physical Therapy Treatment Education Education Provided Precautions,Weight Bearing Status,Post-Op Packet,Safety M7 PT-IP Assessment and Plan Start: 08/15/23 15:31 Freq: NEEDED Status: Active Protocol: Document 08/15/23 14:30 AB (Rec: 08/15/23 16:01 [email or web address]) PT Summary Assessment and Plan Potential Rehabilitation Potential Fair Status of Condition at Evaluation Evolving Summary Impairments Pain,ROM,Strength,Balance, Coordination,Sensation,Tone, Cognition,Bed Mobility, Transfers,Gait,Activity Tolerance Assessment Summary pt is a 73 y/o F s/p R TKA POD 0. pt is WBAT on RLE. pt requiring min A for sit to stand and only able to ambulate ~ 3 ft using FWW min A at this time. pt has chronic pain issues and c/o increase pain on R knee. will continue to assess progress and will conduct caregiver training when appropriate. will also complete stair training prior to d/c as pt has 2 steps R rail ascending to enter the house. spouse stated that pt has outpt PT set up. Goals Bed Mobility Goal Independent Transfer Goal Independent,Front Wheeled Walker Gait Goal Independent,Front Wheel Walker Gait Distance 150 Other Goals up/down 2 steps R rail ascending SBA Days to Meet Goals 5 Frequency of Treatment Frequency Of Treatment Twice a Day Treatment Plan Physical Therapy Treatment Plan Bed Mobility Training,Transfer Training,Gait Training, Therapeutic Exercise,Balance Retraining,Post Op Education, Discharge Planning,Hot or Cold Pack,Neuromuscular Re-ed, Coordination Retraining,Manual Therapy Other Recommendations and Next Treatment caregiver training when Focus appropriate Weight Bearing Status Weight Bearing Status Weight Bear as Tolerated Allowed Weight Bearing Amount (enter % RLE WBAT or #) (%) Recommendations To Nursing Amount of Assist Needed 1 Person Assist Discharge Recommendations PT Discharge Recommendations Home with 03/03 Assist Available,Home Health, Outpatient PT Transportation Needs at Discharge Private Vehicle
--- NOTE | 2023-08-15 16:00 | OT.IPNOTE ---
Pt having a headache and to tired at this time to actively participate in OT eval. Able to go over equipment needs and suggestions for ADl safety. Nursing notified of her headache. No charge
--- NOTE | 2023-08-15 16:18 | PC.NURSE ---
Day shift: Dr Moreno made aware of Pt's headache and neck pain at approx 1610. No new orders at this time.
[2023-08-15] MEDS: OXYCODONE IR 5 MG TABLET 7.5 MG PO ×2 (16:47→22:20)
--- NOTE | 2023-08-15 17:09 | PM.PN.1 ---
Subjective Subjective Interval history: Patient seen postoperatively. Has intact plantar flexion and dorsiflexion of her toes and ankle after correction of her valgus deformity. Intact sensation throughout her entire foot. Mobilized very briefly but had difficulty with pain. Did not make much progress with mobilization. She takes chronic opioids which is managed by [facility]. I worked with her on decreasing her doses prior to her surgery and she made significant progress however she is still on opioids leading into surgery. [facility] had recommended MS Contin 15 mg q.12 hours as well as breakthrough oxycodone 7.5 mg q.6 hours. We will continue with these recommendations from her chronic pain management clinic during her hospitalization here. She is very frail at baseline and I will have her remain inpatient overnight for at least 1 evening Exam Vital Signs (past 8 hours): - 08/15/23 10:30 08/15/23 10:35 08/15/23 10:40 Temperature 98.7 F Pulse Rate 72 71 71 Respiratory Rate 12 12 12 Blood Pressure 138/76 144/76 H 148/73 H Pulse Oximetry 97 93 96 Oxygen Delivery Method Room Air Room Air Room Air 08/15/23 10:55 08/15/23 11:10 Temperature 98.4 F Pulse Rate 72 71 Respiratory Rate 17 12 Blood Pressure 139/63 110/72 Pulse Oximetry 99 95 Oxygen Delivery Method Room Air Room Air Oxygen Delivery Method Room Air [facility] Medical History (Updated 08/08/23 @ 18:09 by Jackeline Ortiz MD) History of COVID-19 (~05/2023) Dilation of esophagus (02/08/21) Dilation of esophagus (01/25/21) Cardiomyopathy Osteoarthritis Osteopenia Hiatal hernia DDD (degenerative disc disease) Bipolar 1 disorder GERD (gastroesophageal reflux disease) Oropharyngeal dysphagia Cervical facet joint syndrome HLD (hyperlipidemia) Thoracic kyphosis Cervical neck pain with evidence of disc disease Degenerative joint disease of right hip Spinal stenosis in cervical region Depression Fibromyalgia Seasonal allergies Chronic low back pain Cervical spondylosis Avascular necrosis of bone of hip Surgical History (Updated 07/30/23 @ 09:17 by Elena Mendez RN) History of esophagogastroduodenoscopy (EGD) (12/28/20) History of esophagogastroduodenoscopy (EGD) (11/28/22) History of esophagogastroduodenoscopy (EGD) (01/11/21) History of esophagogastroduodenoscopy (EGD) (09/29/20) Hx of colonoscopy History of total right hip replacement (05/03/20) History of total left hip arthroplasty (09/22/19) History of tonsillectomy History of appendectomy History of hysterectomy H/O shoulder surgery History of right knee surgery Family History Mother Stroke Sister Cancer Diabetes mellitus Gout Social History marital status: household members: spouse Smoking Status: Never smoker alcohol intake: former Quality VTE Deep Vein Thrombosis/Pulmonary Embolism Present on Admission: No
[2023-08-15] MEDS: DOCUSATE 100 MG CAPSULE PO (20:13)
[2023-08-15] MEDS: ASPIRIN EC 81 MG TABLET PO (20:13)
[2023-08-15] MEDS: ATORVASTATIN 20 MG TABLET 40 MG PO (20:13)
[2023-08-15] MEDS: PANTOPRAZOLE DR 40 MG TABLET PO (20:13)
[2023-08-15] MEDS: hydrOXYzine pamoate 25 MG CAPSULE PO (20:13)
[2023-08-15] MEDS: PREGABALIN 50 MG CAPSULE PO (20:13)
[2023-08-15] MEDS: MIRTAZAPINE 15 MG TABLET 45 MG PO (20:13)
[2023-08-16] VITALS (9 sets, daily range): BP systolic 83–158; BP diastolic 43–84; PULSE 76–89; RESP 16–18; TEMP 36.1–36.5; O2SAT 90–98
[2023-08-16] MEDS: IBUPROFEN 400 MG TABLET PO ×6 (03:20→23:41)
[2023-08-16] MEDS: OXYCODONE IR 5 MG TABLET 7.5 MG PO ×4 (05:01→23:40)
[2023-08-16] MEDS: ACETAMINOPHEN 325 MG TABLET 650 MG PO ×4 (05:02→22:39)
[2023-08-16 06:29] LABS: Hematocrit 31.9 % (36-46); Hemoglobin 10.8 g/dL (12.0-16.0)
[2023-08-16] MEDS: DOCUSATE 100 MG CAPSULE PO ×2 (08:12→20:57)
[2023-08-16] MEDS: lisinopriL 5 MG TABLET 2.5 MG PO (08:12)
[2023-08-16] MEDS: QUETIAPINE 100 MG TABLET 300 MG PO (08:14)
[2023-08-16] MEDS: ASPIRIN EC 81 MG TABLET PO ×2 (08:14→20:57)
[2023-08-16] MEDS: VIT C/E/ZN/COPPR/LUTEIN/ZEAXAN CAPSULE 2 CAP PO (08:14)
[2023-08-16] MEDS: MORPHINE ER 15 MG TABLET PO ×2 (08:14→20:56)
[2023-08-16] MEDS: PREGABALIN 50 MG CAPSULE PO ×2 (08:14→20:58)
[2023-08-16] MEDS: SPIRONOLACTONE 25 MG TABLET PO (08:14)
[2023-08-16] MEDS: SODIUM CHLORIDE 0.9% FLUSH 10 ML IV ×2 (08:15→21:47)
--- NOTE | 2023-08-16 09:45 | P.PN_ITS ---
Subjective Subjective Date Patient Seen: 08/16/23 Time Patient Seen: 09:46 Interval history: Patient is found sitting up in her bed with her by her side. She complains of pain primarily at the tourniquet site and the surgery site. She is having difficulty with pain control. She states she has had pain her whole life and pills do not control her pain well. Denies any fever or chills. Exam Vital Signs (past 8 hours): - 08/16/23 05:55 08/16/23 08:12 Temperature 97.6 F Pulse Rate 82 76 Respiratory Rate 18 Blood Pressure 145/84 H 157/76 H Pulse Oximetry 95 Oxygen Flow Rate 0 Oxygen Delivery Method Room Air Oxygen Flow Rate 0 Narrative Exam Narrative: Tenderness along the proximal anterior thigh tourniquets typically placed. No ecchymosis is noted. Tenderness over the anterior knee. No sign of drainage coming from the wound site. No increased pain to palpation along the posterior thigh or calf skin is cool. Able to dorsiflex and plantar flex the ankle against resistance. Light sensation grossly intact bilaterally. Const General: cooperative Resp Effort & Inspection: normal respiratory effort and able to speak in complete sentences Objective Labs 08/16/23 05:45 Labs: Laboratory Results - last 24 hr 08/16/23 05:45 Hgb 10.8 L Hct 31.9 L PFSH Medical History (Updated 08/08/23 @ 18:09 by Jackeline Ortiz MD) History of COVID-19 (~05/2023) Dilation of esophagus (02/08/21) Dilation of esophagus (01/25/21) Cardiomyopathy Osteoarthritis Osteopenia Hiatal hernia DDD (degenerative disc disease) Bipolar 1 disorder GERD (gastroesophageal reflux disease) Oropharyngeal dysphagia Cervical facet joint syndrome HLD (hyperlipidemia) Thoracic kyphosis Cervical neck pain with evidence of disc disease Degenerative joint disease of right hip Spinal stenosis in cervical region Depression Fibromyalgia Seasonal allergies Chronic low back pain Cervical spondylosis Avascular necrosis of bone of hip Surgical History (Updated 07/30/23 @ 09:17 by Elena Mendez RN) History of esophagogastroduodenoscopy (EGD) (12/28/20) History of esophagogastroduodenoscopy (EGD) (11/28/22) History of esophagogastroduodenoscopy (EGD) (01/11/21) History of esophagogastroduodenoscopy (EGD) (09/29/20) Hx of colonoscopy History of total right hip replacement (05/03/20) History of total left hip arthroplasty (09/22/19) History of tonsillectomy History of appendectomy History of hysterectomy H/O shoulder surgery History of right knee surgery Family History Mother Stroke Sister Cancer Diabetes mellitus Gout Social History marital status: household members: spouse Smoking Status: Never smoker alcohol intake: former Assessment & Plan Post-op Postoperative Procedures: Procedures Operation Date: 08/15/23 07:45 Actual Procedure Side Surgeon p Total Knee Arthroplasty Right Chao Moreno MD Postoperative day: 1 Postoperative status: marginal pain control Postoperative status narrative: Status post right knee arthroplasty. Pain difficult to control with oral medications. Postoperative plan: routine post-op care and ambulate Postoperative plan narrative: Due to patient's frail nature and history of difficulty with pain management we recommend keeping the patient overnight at least 1 more day for pain control and to work with physical therapy. Re- evaluate tomorrow see if she is appropriate for discharge. Continue with multimodal pain medication and physical therapy. Time Spent With Patient Time with patient: less than 15 minutes Quality VTE Deep Vein Thrombosis/Pulmonary Embolism Present on Admission: No
--- NOTE | 2023-08-16 10:20 | PT.IPTN ---
Current Diagnoses Unilateral primary osteoarthritis, right knee (08/15/23) Surgery Performed Operation Date: 08/15/23 07:45 Actual Procedures p Total Knee Arthroplasty(Right) - Chao Moreno MD Physical Therapy Treatment Note M2 PT-IP Current Condition Start: 08/15/23 15:31 Freq: NEEDED Status: Active Protocol: Document 08/15/23 14:30 AB (Rec: 08/15/23 16:01 AB [id number]) Physical Therapy Current Condition Current Condition Evaluation Date 08/15/23 Treatment Diagnosis s/p R TKA; difficulty in walking Onset Date 08/15/23 M3 PT-IP Subjective Start: 08/15/23 15:31 Freq: NEEDED Status: Active Protocol: Document 08/16/23 10:41 TS (Rec: 08/16/23 10:52 TS [id number]) Subjective Physical Therapy Visit Type Type Treatment Note Visit Start Time 10:20 Visit Stop Time 10:40 Total Visit Minutes 20 Notes BP in sitting 84/46, supine after mobility 92/53. Number of FIREBOAT OPERATOR Visits 1 Physical Therapy Visit Comments Patient Comments Pt found resting in bed, reports having headaches but is better today, spouse in room, pt is agreeable to PT. Therapy Pain Assessment Pain When Pain Assessed At Rest Pain Present Pain Present Pain Reported Location Right Knee Intensity 9 Scale Used Numeric (0 - 10) M4 PT-IP Mobility and Gait Start: 08/15/23 15:31 Freq: NEEDED Status: Active Protocol: Document 08/16/23 10:41 TS (Rec: 08/16/23 10:52 TS [id number]) PT-Bed Mobility Assessment Supine to Sit Supine to Sit Minimal Assistance,Head of Bed Elevated,Bedrails Sit to Supine Sit to Supine Minimal Assistance Scooting Scooting to Edge of Bed Contact Guard Assistance PT-Transfer Assessment Comments Mobility Comments Pt performed heel slides, quad sets and ankle pumps prior to mobility. Pt performed supine to sit Adrianne for RLE assistance from spouse and BUE support to upright trunk. She scooted to EOB CGA with support for RLE. Pt sat EOB and rpeorted feeling lightheaded, BP in sitting 84/ 46, could not progress pt OOB. Sit to supine Adrianne for RLE assistance, pt began to complain of increasing discomfort and slightly emotional. Bp in supine 92/53. Pt requesting to use bed jimenez, nursing was called into room to assist. Pt was left with nursing, all needs met, RN notified. Gait Assessment Comments Gait Comments Not at this time PT-Balance Assessment Sitting Balance and Reactions Static Sitting Balance Ability Fair Dynamic Sitting Balance Ability Fair M5 PT-IP Objective Assessments Start: 08/15/23 15:31 Freq: NEEDED Status: Active Protocol: Document 08/15/23 14:30 AB (Rec: 08/15/23 16:01 AB [id number]) Orientation Orientation/Cognition Level of Alertness Confusional State Orientation Name,Place,Situation Language Function Ability No Deficits Noted Safety Awareness Decreased Safety Awareness Memory Description Short Term Impaired,Equipment Installation Professional Impaired Gross Range of Motion Lower Extremity ROM Assessment Within Functional Limits Impairments R knee: 10- 70 deg Strength Lower Extremity Strength Assessment Right Impaired Hip 4/5 Knee 4-/5 Coordination Assessment Gross Coordination Gross Coordination WNL Sensation Assessment Sensation Gross Sensation WNL Muscle Tone Muscle Tone WNL Yes M6 PT-IP Treatment Start: 08/15/23 15:31 Freq: NEEDED Status: Active Protocol: Document 08/16/23 10:41 TS (Rec: 08/16/23 10:52 TS [id number]) Physical Therapy Treatment Education Education Provided Precautions,Weight Bearing Status,Post-Op Packet,Safety M7 PT-IP Assessment and Plan Start: 08/15/23 15:31 Freq: NEEDED Status: Active Protocol: Document 08/16/23 10:41 TS (Rec: 08/16/23 10:52 TS [id number]) PT Summary Assessment and Plan Potential Rehabilitation Potential Fair Summary Progress Towards Goals Slow Progress due to Pain,Slow Progress due to Medical Issues,Slow Progress due to Activity Tolerance Assessment Summary Laurie is making slow progress with her mobility. She is Adrianne for most bed mobility and requires support for RLE. She quickly became lightheaded once sitting EOB, BP 84/46, pt required to lay supine, BP increased to 92/53. Pt could not progress to OOB mobility at this time. Spouse was educated on assisting pt with bed mobility and donning of gait belt. PT continues to recommend Home with 03/03 and HHPT. PT will continue to assess her progress with her stay in hospital, expect she will be able to return home with spouse support. Goals Bed Mobility Goal Independent Transfer Goal Independent,Front Wheeled Walker Gait Goal Independent,Front Wheel Walker Gait Distance 150 Other Goals up/down 2 steps R rail ascending SBA Days to Meet Goals 5 Frequency of Treatment Frequency Of Treatment Twice a Day Treatment Plan Physical Therapy Treatment Plan Bed Mobility Training,Transfer Training,Gait Training, Therapeutic Exercise,Balance Retraining,Post Op Education, Discharge Planning,Hot or Cold Pack,Neuromuscular Re-ed, Coordination Retraining,Manual Therapy Other Recommendations and Next Treatment caregiver training when Focus appropriate Weight Bearing Status Weight Bearing Status Weight Bear as Tolerated Allowed Weight Bearing Amount (enter % RLE WBAT or #) (%) Recommendations To Nursing Amount of Assist Needed 1 Person Assist Discharge Recommendations PT Discharge Recommendations Home with 03/03 Assist Available,Home Health, Outpatient PT Transportation Needs at Discharge Private Vehicle
[2023-08-16] MEDS: SODIUM CHLORIDE 0.9% 500 ML 1000 ML IV (11:35)
--- NOTE | 2023-08-16 12:50 | CM.DANOTE ---
Patient is a 73 yo female who was admitted on 08/15/23 for RTKA. Pt has [employer] and [employer] for insurance and her PCP is Amita Giron. EMR was reviewed. Per [facility], pt with chronic pain at baseline and goes to [facility] and have recommendations from Pain Clinic for her pain management post surg. Pt having some orthostatics and to work more with PT and not yet stable for d/c today. Per PT, recommending home with spouse assist and HH and pt was limited today due to bp issues. Spouse has been bedside. SW met bedside with pt and spouse and explained role and they confirm they live just outside of [place] and both are fairly active although pt confirms she has some short term memory loss and relies on spouse for historical information and for assist as needed. Pt has outpt PT already set up as spouse confirms and SW discussed the HH recommendation and HH services and frequency. Pt and spouse feel HH needed at d/c due to pt's limited mobility and pain and SW provided the HH Choice list and only contracted HH agency that takes [employer] is [facility] and pt and spouse agreeable to [facility] referral. SW faxed [facility] and left msg with new referral and request to review and likely pt d/c tomorrow Sun if stable. F2F and HH orders completed. Plan: SW to follow for plan of likely pt d/c home with spouse assist and new [facility] referral made until pt can tolerate getting to outpt PT appointments here in town. DONNIE Leroy Discharge Planning/Care Management Advanced directive, confirm from FAMILY Start: 08/15/23 11:57 Freq: Q24H Status: Active Protocol: Document 08/15/23 12:22 CLL (Rec: 08/15/23 12:22 CLL [id number]) Advance Directive, confirm on record Time 12:22 Person contacted Patient and Copy received No Document 08/16/23 12:00 BT (Rec: 08/16/23 12:11 BT [id number]) Advance Directive, confirm on record Time 12:22 Person contacted Patient and Copy received No CM Discharge Assessment Start: 08/16/23 12:46 Freq: Status: Active Protocol: Document 08/16/23 12:46 BF (Rec: 08/16/23 12:50 BF [id number]) Discharge Planning Assessment Assigned Picture Copyist DONNIE Freeman DPOA/Assigned Designee Name spouse Beto Contact Information [phone] Advance Directives? Yes Advance Directives on File No History Provided By Patient,Significant Other, Medical Record Has Patient been admitted in last 30 No days? Prior Living Arrangements House Household Members spouse Type of transporation used prior to Relies on Others admit Independent with ADL's Yes: mostly Is patient alert and oriented? Yes: mostly, memory issues Needs Assistance With Meal Prep,Managing Medications Caregiver for Another No Community Services used prior to Physical Therapy admission: DME Already Rented / Owned FWW / Walker Patient/Family Preference Home with Home Health Barriers to Discharge No Comment Has supportive spouse at home. Discharge Plan Home with Home Health Community Services Physical Therapy Transportation Arrangement Family Referrals Initiated Home Health If patient plan is home with home health Yes : Has signed face to face form been completed? Medicare Choice List Provided Yes Medicare choice list reviewed on patient,family electronic tablet with SNF/HH Preference [facility] only one contracted with [employer] Updated in Patient Room with Yes name and ext. # of Picture Copyist Review Status In Process Please Provide Date Initial DC 08/16/23 Assessment Was Performed Next Review Type Continued Stay Review Pre-Anesthesia Assessment Start: 07/30/23 08:46 Freq: Status: Complete Protocol: Document 08/05/23 13:56 CAB (Rec: 07/30/23 09:54 [facility] [id number]) Pre-Anesthesia Assessment Preferred Name Lennie Patient Information Reviewed Via Phone Assessment Assessment Completed With Patient Primary Care Provider Amita Giron Comment Visit 03/20/23 scanned Seen Specialist in Last 12 Months Yes Specialist Seen Radiation Officer,Orthopedist,Other Comment [facility] Primary Language Slovenian Preferred Language Slovenian Utility Specialist Required No Height 170.18 cm Weight 56.699 kg Body Mass Index (BMI) 19.5 Hearing Ability Normal Visual Assist Glasses Dentition Type Teeth, Natural Present,Teeth, Broken Barriers to Learning Memory,Visual Hx Anesthesia Reactions No Hx Family Anesthesia Reaction No Hx Malignant Hyperthermia No Hx Blood Transfusions Yes Hx Blood Transfusion Reaction No Anesthesia Review Requested Yes: Surgeon requested re: CHF history 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 No Does patient have RED/SOB No Hx Sleep Apnea No CPAP/BIPAP use not prescribed Suspected Sleep Apnea No Currently Taking a Beta Tevin Yes: Metoprolol Can You Climb a Flight of Stairs Without Yes SOB Hx Chest Pain No Hx SOB No Hx Syncope or Dizziness No Has a Radiation Officer Yes: Pre-op visit 05/16/[address] Smith Cardiac Testing No Hx Pacemaker/ICD No Pacemaker Rep Required? No Diet Type At Home Regular,Dysphagia Dysphagia Yes: Sometimes with solids Gastrointestinal Symptoms Constipation,Reflux Urinary Catheter Present No Hx Urinary Self Catheterization No Diabetes No Patient No Lactating No Hx Drug Resistant Organism No Presence of External or Internal Medical Yes: Bilat hip prosthesis, Devices right knee screws Received a COVID vaccine? Yes Received all doses? No Marital Status Lives With spouse Current Living Arrangements House Number of Floors (Floors) Two Floors Support System Spouse Does the Patient Have Assistance After Yes Surgery Patient Discharge Plan Description Return Home Comment Pt advised overnight length of stay per surgeon Feels Safe in Current Environment Yes Been Physically Hurt or Threatened By a No Person in Current Environment Do you have thoughts of harming yourself None or others? Are you currently considering suicide? No Do you have a plan to hurt yourself or No Plan others? Do You Have Any Spiritual Beliefs That No May Affect Your HC Choices? Do You Have Any Cultural Practices That No May Affect Your HC Choices? Comment Pen Who Can We Speak to About Patient's Care Family, friends Identifying Code for Release of Patient Declines to issue Information Health Care Proxy/Next of Kin Van Murray Jr Health Care Proxy Emergency Contact Name Van Murray Jr. Emergency Contact Advance Directives? Yes Advance Directives on File No Power of Senior Operator Yes Power of Senior Operator Name Van Murray Jr. Power of Senior Operator PAC Instructions Do not shave/clip surgical site,Durable medical equipment ,Medications to take/avoid, Nasal antibiotic,No ETOH/ petroleum product on skin DOS, NPO,Post-op transportation,Pre -surgical wash,Sensory aids, Sturdy shoes/comfortable clothes,Do not bring valuables and remove jewelry
--- NOTE | 2023-08-16 13:41 | PT.IPTN ---
Current Diagnoses Unilateral primary osteoarthritis, right knee (08/15/23) Surgery Performed Operation Date: 08/15/23 07:45 Actual Procedures p Total Knee Arthroplasty(Right) - Chao Moreno MD Physical Therapy Treatment Note M2 PT-IP Current Condition Start: 08/15/23 15:31 Freq: NEEDED Status: Active Protocol: Document 08/15/23 14:30 AB (Rec: 08/15/23 16:01 AB [id number]) Physical Therapy Current Condition Current Condition Evaluation Date 08/15/23 Treatment Diagnosis s/p R TKA; difficulty in walking Onset Date 08/15/23 M3 PT-IP Subjective Start: 08/15/23 15:31 Freq: NEEDED Status: Active Protocol: Document 08/16/23 14:18 TS (Rec: 08/16/23 14:38 TS [id number]) Subjective Physical Therapy Visit Type Type Treatment Note Visit Start Time 13:41 Visit Stop Time 14:00 Total Visit Minutes 19 Notes BP: 114/51 supine, 108/52 sitting, 92/44 standing. Number of EQUIPMENT TECHNICIAN Visits 2 Physical Therapy Visit Comments Patient Comments Pt found resting in bed, spouse present in room, pt's spouse reports her BP has been low at times before her surgery, she denies having any dizziness or lightheadedness before surgery. She had little complaint about pain this session. Pt is agreeable to PT . Therapy Pain Assessment Pain When Pain Assessed During Mobility Pain Present Pain Present Pain Reported M4 PT-IP Mobility and Gait Start: 08/15/23 15:31 Freq: NEEDED Status: Active Protocol: Document 08/16/23 14:18 TS (Rec: 08/16/23 14:38 TS [id number]) PT-Bed Mobility Assessment Supine to Sit Supine to Sit Minimal Assistance,Head of Bed Elevated,Bedrails Sit to Supine Sit to Supine Contact Guard Assistance Scooting Scooting to Edge of Bed Contact Guard Assistance Scooting Up and Down in Bed Standby Assistance PT-Transfer Assessment Sit to and From Stand Sit to and from Stand Contact Guard Assistance,1 Person Assistance,Use of Upper Extremities Equipment Transfer Assistive Device Gait Belt,Front Wheeled Walker Orthotic/Prosthetic Devices or Brace: No Comments Mobility Comments BP in supine 114/51. Supine to sit Adrianne for RLE to EOB with HOB elevated 50D. She scooted to EOB CGA with some support for RLE to floor. Pt sat EOB with good balance, BP in sitting 108/52. Sit to stand with FWW CGA with BUE support pushing from bed. Pt began to report feeling weak and dizzy, BP in standing 92/44, pt requested to sit. Sit to supine into bed CGA, pt scooted to [facility] SBA. Pt was left in bed, all needs met. Gait Assessment Comments Gait Comments Not at this time PT-Balance Assessment Sitting Balance and Reactions Static Sitting Balance Ability Good Dynamic Sitting Balance Ability Fair Standing Balance and Reactions Static Standing Balance Ability Fair Dynamic Standing Balance Ability Fair Device Used FWW M5 PT-IP Objective Assessments Start: 08/15/23 15:31 Freq: NEEDED Status: Active Protocol: Document 08/15/23 14:30 AB (Rec: 08/15/23 16:01 AB [id number]) Orientation Orientation/Cognition Level of Alertness Confusional State Orientation Name,Place,Situation Language Function Ability No Deficits Noted Safety Awareness Decreased Safety Awareness Memory Description Short Term Impaired,Emergency Vehicle Operations Instructor Impaired Gross Range of Motion Lower Extremity ROM Assessment Within Functional Limits Impairments R knee: 10- 70 deg Strength Lower Extremity Strength Assessment Right Impaired Hip 4/5 Knee 4-/5 Coordination Assessment Gross Coordination Gross Coordination WNL Sensation Assessment Sensation Gross Sensation WNL Muscle Tone Muscle Tone WNL Yes M6 PT-IP Treatment Start: 08/15/23 15:31 Freq: NEEDED Status: Active Protocol: Document 08/16/23 14:18 TS (Rec: 08/16/23 14:38 TS [id number]) Physical Therapy Treatment Education Education Provided Precautions,Weight Bearing Status,Post-Op Packet,Safety M7 PT-IP Assessment and Plan Start: 08/15/23 15:31 Freq: NEEDED Status: Active Protocol: Document 08/16/23 14:18 TS (Rec: 08/16/23 14:38 TS [id number]) PT Summary Assessment and Plan Potential Rehabilitation Potential Fair Summary Progress Towards Goals Slow Progress due to Medical Issues,Slow Progress due to Activity Tolerance Assessment Summary Laurie is making some progress with her mobility but remains limited by hypotension and poor activity tolerance. She is Adrianne for supine to sit with RLE support . She progressed to standing this session x1 with FWW and CGA. Pt continues to be orthostatic and symptomatic when standing, could not progress gait. Spouse reports pt may have history of low BP but pt denies getting dizzy or feeling weak. PT continues to recommend home with 24/7 assist. If pt's hypotension and symptoms improve suspect she would be progressing well with her mobility. Spouse is very attentive and has been present for all sessions. Goals Bed Mobility Goal Independent Transfer Goal Independent,Front Wheeled Walker Gait Goal Independent,Front Wheel Walker Gait Distance 150 Other Goals up/down 2 steps R rail ascending SBA Days to Meet Goals 5 Frequency of Treatment Frequency Of Treatment Twice a Day Treatment Plan Physical Therapy Treatment Plan Bed Mobility Training,Transfer Training,Gait Training, Therapeutic Exercise,Balance Retraining,Post Op Education, Discharge Planning,Hot or Cold Pack,Neuromuscular Re-ed, Coordination Retraining,Manual Therapy Other Recommendations and Next Treatment caregiver training when Focus appropriate Weight Bearing Status Weight Bearing Status Weight Bear as Tolerated Allowed Weight Bearing Amount (enter % RLE WBAT or #) (%) Recommendations To Nursing Amount of Assist Needed 1 Person Assist Discharge Recommendations PT Discharge Recommendations Home with 24/7 Assist Available,Home Health, Outpatient PT Transportation Needs at Discharge Private Vehicle
[2023-08-16] MEDS: MIRTAZAPINE 15 MG TABLET 45 MG PO (20:57)
[2023-08-16] MEDS: ATORVASTATIN 20 MG TABLET 40 MG PO (20:57)
[2023-08-16] MEDS: PANTOPRAZOLE DR 40 MG TABLET PO (20:58)
[2023-08-16] MEDS: hydrOXYzine pamoate 25 MG CAPSULE PO (20:58)
[2023-08-17] MEDS: ACETAMINOPHEN 325 MG TABLET 650 MG PO ×4 (04:21→23:27)
[2023-08-17] MEDS: IBUPROFEN 400 MG TABLET PO ×5 (04:22→20:25)
[2023-08-17 04:48] VITALS: BP 146/69; PULSE 71; RESP 16; TEMP 36.6; O2SAT 93
[2023-08-17 08:13] VITALS: BP 149/82; PULSE 91; RESP 16; TEMP 36.1; O2SAT 98
[2023-08-17] MEDS: DOCUSATE 100 MG CAPSULE PO ×2 (08:51→20:24)
[2023-08-17] MEDS: ASPIRIN EC 81 MG TABLET PO ×2 (08:51→20:24)
[2023-08-17] MEDS: VIT C/E/ZN/COPPR/LUTEIN/ZEAXAN CAPSULE 2 CAP PO (08:52)
[2023-08-17] MEDS: SODIUM CHLORIDE 0.9% FLUSH 10 ML IV ×2 (08:52→20:26)
[2023-08-17] MEDS: PREGABALIN 50 MG CAPSULE PO ×2 (08:52→20:25)
[2023-08-17] MEDS: QUETIAPINE 100 MG TABLET 300 MG PO (08:52)
[2023-08-17] MEDS: SPIRONOLACTONE 25 MG TABLET PO (08:56)
[2023-08-17 08:57] VITALS: BP 149/82; PULSE 91
[2023-08-17] MEDS: MORPHINE ER 15 MG TABLET PO ×2 (08:57→20:25)
[2023-08-17] MEDS: lisinopriL 5 MG TABLET 2.5 MG PO (08:57)
[2023-08-17] MEDS: OXYCODONE IR 5 MG TABLET 7.5 MG PO ×2 (10:11→23:26)
--- NOTE | 2023-08-17 12:34 | P.PN_ITS ---
Subjective Subjective Interval history: Patient seen this morning. Status post right total knee arthroplasty. Mobilization has been slow secondary to pain. Patient is maintained on chronic opioids at baseline. We did work on decreasing these prior to surgery however she did not get off completely and she is having the anticipated difficulties with pain control postoperatively because of this. She has been mobilizing somewhat with physical therapy but needs to make additional progress before she is safe for discharge home. She is medically stable otherwise. Hemoglobin is stable. She had a valgus deformity of the preoperatively and has intact plantar flexion and dorsiflexion of her hallux and ankle. Her dressing is clean dry and intact Exam Vital Signs (past 8 hours): - 08/17/23 04:48 08/17/23 08:13 08/17/23 08:57 Temperature 97.8 F 96.9 F L Pulse Rate 71 91 H 91 H Respiratory Rate 16 16 Blood Pressure 146/69 H 149/82 H 149/82 H Pulse Oximetry 93 98 Oxygen Flow Rate 0 Oxygen Delivery Method Room Air Oxygen Flow Rate 0 Objective Labs 08/16/23 05:45 [facility] Medical History (Updated 08/08/23 @ 18:09 by Jackeline Ortiz MD) History of COVID-19 (~05/2023) Dilation of esophagus (02/08/21) Dilation of esophagus (01/25/21) Cardiomyopathy Osteoarthritis Osteopenia Hiatal hernia DDD (degenerative disc disease) Bipolar 1 disorder GERD (gastroesophageal reflux disease) Oropharyngeal dysphagia Cervical facet joint syndrome HLD (hyperlipidemia) Thoracic kyphosis Cervical neck pain with evidence of disc disease Degenerative joint disease of right hip Spinal stenosis in cervical region Depression Fibromyalgia Seasonal allergies Chronic low back pain Cervical spondylosis Avascular necrosis of bone of hip Surgical History (Updated 07/30/23 @ 09:17 by Elena Mendez RN) History of esophagogastroduodenoscopy (EGD) (12/28/20) History of esophagogastroduodenoscopy (EGD) (11/28/22) History of esophagogastroduodenoscopy (EGD) (01/11/21) History of esophagogastroduodenoscopy (EGD) (09/29/20) Hx of colonoscopy History of total right hip replacement (05/03/20) History of total left hip arthroplasty (09/22/19) History of tonsillectomy History of appendectomy History of hysterectomy H/O shoulder surgery History of right knee surgery Family History Mother Stroke Sister Cancer Diabetes mellitus Gout Social History marital status: household members: spouse Smoking Status: Never smoker alcohol intake: former Quality VTE Deep Vein Thrombosis/Pulmonary Embolism Present on Admission: No
--- NOTE | 2023-08-17 13:42 | PT.IPTN ---
Current Diagnoses Unilateral primary osteoarthritis, right knee (08/15/23) Surgery Performed Operation Date: 08/15/23 07:45 Actual Procedures p Total Knee Arthroplasty(Right) - Chao Moreno MD Physical Therapy Treatment Note M2 PT-IP Current Condition Start: 08/15/23 15:31 Freq: NEEDED Status: Active Protocol: Document 08/15/23 14:30 AB (Rec: 08/15/23 16:01 AB [email or web address]) Physical Therapy Current Condition Current Condition Evaluation Date 08/15/23 Treatment Diagnosis s/p R TKA; difficulty in walking Onset Date 08/15/23 M3 PT-IP Subjective Start: 08/15/23 15:31 Freq: NEEDED Status: Active Protocol: Document 08/17/23 13:22 MB (Rec: 08/17/23 13:42 MB [id number]) Subjective Physical Therapy Visit Type Type Treatment Note Visit Start Time 13:22 Visit Stop Time 13:37 Total Visit Minutes 15 Notes BP reclined in recliner is 78/ 38, 102 in LUE Physical Therapy Visit Comments Patient Comments Pt reclined in recliner and she is pale and BP is very low . She is agreeable to LE ROM exercises in current position. Therapy Pain Assessment Pain When Pain Assessed During Mobility Pain Present Pain Present Pain Reported Location Right Knee Intensity 5 Scale Used Harris-Sloan (Faces) Description Sharp Pain Management Techniques Apply Cold,Distraction M4 PT-IP Mobility and Gait Start: 08/15/23 15:31 Freq: NEEDED Status: Active Protocol: Document 08/16/23 14:18 TS (Rec: 08/16/23 14:38 TS [id number]) PT-Bed Mobility Assessment Supine to Sit Supine to Sit Minimal Assistance,Head of Bed Elevated,Bedrails Sit to Supine Sit to Supine Contact Guard Assistance Scooting Scooting to Edge of Bed Contact Guard Assistance Scooting Up and Down in Bed Standby Assistance PT-Transfer Assessment Sit to and From Stand Sit to and from Stand Contact Guard Assistance,1 Person Assistance,Use of Upper Extremities Equipment Transfer Assistive Device Gait Belt,Front Wheeled Walker Orthotic/Prosthetic Devices or Brace: No Comments Mobility Comments BP in supine 114/51. Supine to sit Adrianne for RLE to EOB with HOB elevated 50D. She scooted to EOB CGA with some support for RLE to floor. Pt sat EOB with good balance, BP in sitting 108/52. Sit to stand with FWW CGA with BUE support pushing from bed. Pt began to report feeling weak and dizzy, BP in standing 92/44, pt requested to sit. Sit to supine into bed CGA, pt scooted to [facility] SBA. Pt was left in bed, all needs met. Gait Assessment Comments Gait Comments Not at this time PT-Balance Assessment Sitting Balance and Reactions Static Sitting Balance Ability Good Dynamic Sitting Balance Ability Fair Standing Balance and Reactions Static Standing Balance Ability Fair Dynamic Standing Balance Ability Fair Device Used FWW M5 PT-IP Objective Assessments Start: 08/15/23 15:31 Freq: NEEDED Status: Active Protocol: Document 08/17/23 13:22 MB (Rec: 08/17/23 13:42 MB [id number]) Gross Range of Motion Lower Extremity ROM Impairments Functional range in recliner is 20-45 deg with leg straight and with HS M6 PT-IP Treatment Start: 08/15/23 15:31 Freq: NEEDED Status: Active Protocol: Document 08/17/23 13:22 MB (Rec: 08/17/23 13:42 MB [id number]) Physical Therapy Treatment Education Education Provided Post-Op Packet,Safety Other Treatments Other Treatment Performed RLE exercises x10 reps with cues: HS; B APs x20; 10 reps B QS and GS. Incentive spirometer use x5 reps. M7 PT-IP Assessment and Plan Start: 08/15/23 15:31 Freq: NEEDED Status: Active Protocol: Document 08/17/23 13:22 MB (Rec: 08/17/23 13:42 MB [id number]) PT Summary Assessment and Plan Potential Rehabilitation Potential Fair Status of Condition at Evaluation Unstable Summary Impairments Pain,ROM,Strength,Balance, Cognition,Bed Mobility, Transfers,Gait,Activity Tolerance Progress Towards Goals Slow Progress due to Pain,Slow Progress due to Medical Issues,Slow Progress due to Activity Tolerance Assessment Summary Laurie is very hypotensive today and not safe for mobility. Jorge and are aware . Worked through some post-op exercises from booklet and use of incentive spirometer. One treatment today d/t medical instability. Goals Bed Mobility Goal Independent Transfer Goal Independent,Front Wheeled Walker Gait Goal Independent,Front Wheel Walker Gait Distance 150 Other Goals up/down 2 steps R rail ascending SBA Days to Meet Goals 5 Frequency of Treatment Frequency Of Treatment Twice a Day Treatment Plan Physical Therapy Treatment Plan Bed Mobility Training,Transfer Training,Gait Training, Therapeutic Exercise,Balance Retraining,Post Op Education, Discharge Planning,Hot or Cold Pack,Neuromuscular Re-ed, Coordination Retraining,Manual Therapy Other Recommendations and Next Treatment caregiver training when Focus appropriate Weight Bearing Status Weight Bearing Status Weight Bear as Tolerated Allowed Weight Bearing Amount (enter % RLE WBAT or #) (%) Recommendations To Nursing Amount of Assist Needed 1 Person Assist Discharge Recommendations PT Discharge Recommendations Home with Assistance,Home with 24/ Assist Available,SNF Rehab,Home vs SNF Transportation Needs at Discharge Private Vehicle,Wheelchair/ Cabulance
[2023-08-17 14:59] VITALS: BP 107/48; PULSE 98; RESP 16; TEMP 36.7; O2SAT 98
--- NOTE | 2023-08-17 18:38 | PC.NURSE ---
Day shift note: Patient became hypotensive for PT therapy eval. Patient up OOB to chair and BSC, stand and pivot with nursing, remain normotensive and asymtomatic. Voided 1100ml this shift, excellent PO intake. Performing IS exercises at bedside (1500) and SCDs in place. Pain adequately controlled with PO medications (Mahogany & PRN) High fall risk precautions in place, call light within reach. Spouse at bedside providing supportive care.
[2023-08-17 20:00] VITALS: BP 102/64; PULSE 96; RESP 17; TEMP 35.8; O2SAT 99
[2023-08-17] MEDS: MIRTAZAPINE 15 MG TABLET 45 MG PO (20:24)
[2023-08-17] MEDS: ATORVASTATIN 20 MG TABLET 40 MG PO (20:24)
[2023-08-17] MEDS: hydrOXYzine pamoate 25 MG CAPSULE PO (20:24)
[2023-08-17] MEDS: PANTOPRAZOLE DR 40 MG TABLET PO (20:25)
[2023-08-18 02:00] VITALS: BP 135/64; PULSE 87; RESP 16; TEMP 36.3; O2SAT 97
[2023-08-18] MEDS: IBUPROFEN 400 MG TABLET PO ×4 (04:05→20:13)
[2023-08-18] MEDS: ACETAMINOPHEN 325 MG TABLET 650 MG PO ×2 (05:58→12:58)
--- NOTE | 2023-08-18 07:30 | P.PN_ITS ---
Subjective Subjective Date Patient Seen: 08/18/23 Time Patient Seen: 07:30 Interval history: Patient is found sitting comfortably in bed with her bedside. She says she woke up without pain but as the morning progressed she is noticed increased pain down her leg to her toes. She has having a difficult time finding a comfortable position for her right knee. She says she is having more headaches than normal. Also states that she has not been able to work with physical therapy. She has no she is having 2 with increased urination. Denies any loss of appetite fever or chills. Exam Vital Signs (past 8 hours): - 08/18/23 02:00 Temperature 97.3 F L Pulse Rate 87 Respiratory Rate 16 Blood Pressure 135/64 Pulse Oximetry 97 Oxygen Flow Rate 0 Oxygen Delivery Method Room Air Oxygen Flow Rate 0 Narrative Exam Narrative: Dressing appears to be well-maintained no drainage noted. Able to flex knee to 30? with pain. No increased pain to posterior compression of the thigh or calf. Able to dorsiflex and plantar flex against resistance on the left and right ankle. Const General: cooperative and healthy appearing Resp Effort & Inspection: normal respiratory effort and able to speak in complete sentences Objective Labs 08/16/23 05:45 [facility] Medical History (Updated 08/08/23 @ 18:09 by Jackeline Ortiz MD) History of COVID-19 (~05/2023) Dilation of esophagus (02/08/21) Dilation of esophagus (01/25/21) Cardiomyopathy Osteoarthritis Osteopenia Hiatal hernia DDD (degenerative disc disease) Bipolar 1 disorder GERD (gastroesophageal reflux disease) Oropharyngeal dysphagia Cervical facet joint syndrome HLD (hyperlipidemia) Thoracic kyphosis Cervical neck pain with evidence of disc disease Degenerative joint disease of right hip Spinal stenosis in cervical region Depression Fibromyalgia Seasonal allergies Chronic low back pain Cervical spondylosis Avascular necrosis of bone of hip Surgical History (Updated 07/30/23 @ 09:17 by Elena Mendez RN) History of esophagogastroduodenoscopy (EGD) (12/28/20) History of esophagogastroduodenoscopy (EGD) (11/28/22) History of esophagogastroduodenoscopy (EGD) (01/11/21) History of esophagogastroduodenoscopy (EGD) (09/29/20) Hx of colonoscopy History of total right hip replacement (05/03/20) History of total left hip arthroplasty (09/22/19) History of tonsillectomy History of appendectomy History of hysterectomy H/O shoulder surgery History of right knee surgery Family History Mother Stroke Sister Cancer Diabetes mellitus Gout Social History marital status: household members: spouse Smoking Status: Never smoker alcohol intake: former Assessment & Plan Post-op Postoperative Procedures: Procedures Operation Date: 08/15/23 07:45 Actual Procedure Side Surgeon p Total Knee Arthroplasty Right Chao Moreno MD Postoperative day: 3 Postoperative status: doing well Postoperative plan: routine post-op care Postoperative plan narrative: Hold spironolactone and lisinopril today. Order 500 mL of normal saline. Continue to work with physical therapy. Multimodal pain control. Patient is able to improve with physical therapy and orthostatic blood pressure may be available to discharge tomorrow. Time Spent With Patient Time with patient: less than 15 minutes Quality VTE Deep Vein Thrombosis/Pulmonary Embolism Present on Admission: No
[2023-08-18 07:44] VITALS: BP 159/77; PULSE 88; RESP 18; TEMP 36.1; O2SAT 97
[2023-08-18] MEDS: SODIUM CHLORIDE 0.9% 500 ML 1000 ML IV (08:30)
--- NOTE | 2023-08-18 09:13 | PC.NURSE ---
Patient given ibuprofen and a 500cc bolus of NS. She states that she was starting to have a headache. Dressing to r.lower extremity is aquacel and shanae wrap. just left to go to work and he will be back later.. Patient is napping now and will work with pt soon.
[2023-08-18] MEDS: ASPIRIN EC 81 MG TABLET PO ×2 (10:07→20:14)
[2023-08-18] MEDS: VIT C/E/ZN/COPPR/LUTEIN/ZEAXAN CAPSULE 2 CAP PO (10:07)
[2023-08-18] MEDS: MORPHINE ER 15 MG TABLET PO ×2 (10:07→20:17)
[2023-08-18] MEDS: QUETIAPINE 100 MG TABLET 300 MG PO (10:07)
[2023-08-18] MEDS: DOCUSATE 100 MG CAPSULE PO ×2 (10:07→20:13)
[2023-08-18] MEDS: PREGABALIN 50 MG CAPSULE PO ×2 (10:07→20:15)
--- NOTE | 2023-08-18 10:50 | PT.IPTN ---
Current Diagnoses Unilateral primary osteoarthritis, right knee (08/17/23) Surgery Performed Operation Date: 08/15/23 07:45 Actual Procedures p Total Knee Arthroplasty(Right) - Chao Moreno MD Physical Therapy Treatment Note M2 PT-IP Current Condition Start: 08/15/23 15:31 Freq: NEEDED Status: Active Protocol: Document 08/15/23 14:30 AB (Rec: 08/15/23 16:01 AB [id number]) Physical Therapy Current Condition Current Condition Evaluation Date 08/15/23 Treatment Diagnosis s/p R TKA; difficulty in walking Onset Date 08/15/23 M3 PT-IP Subjective Start: 08/15/23 15:31 Freq: NEEDED Status: Active Protocol: Document 08/18/23 10:50 AW (Rec: 08/18/23 12:27 AW [id number]) Subjective Physical Therapy Visit Type Type Treatment Note Visit Start Time 10:18 Visit Stop Time 11:15 Total Visit Minutes 42 Notes Split visit [id number] and 1105 -1115 Number of PHP SOFTWARE ENGINEER Visits 0 Physical Therapy Visit Comments Patient Comments Pt is anxious about her BP but otherwise quite willing to work with PT Therapy Pain Assessment Pain When Pain Assessed During Mobility Pain Present Pain Present Denied Pain Location Right Knee Intensity 8 Scale Used Numeric (0 - 10) Description With Movement Pain Management Techniques Apply Cold,Distraction, Modification of Treatment, Timing of Activity with Medications M4 PT-IP Mobility and Gait Start: 08/15/23 15:31 Freq: NEEDED Status: Active Protocol: Document 08/18/23 10:50 AW (Rec: 08/18/23 12:27 AW [id number]) PT-Bed Mobility Assessment Supine to Sit Supine to Sit Contact Guard Assistance,Head of Bed Elevated Scooting Scooting to Edge of Bed Standby Assistance PT-Transfer Assessment Sit to and From Stand Sit to and from Stand Contact Guard Assistance,Use of Upper Extremities Equipment Transfer Assistive Device Gait Belt,Front Wheeled Walker Orthotic/Prosthetic Devices or Brace: No Transfers Transfer Destination Chair,Toilet Transfer Technique Stand Step Pivot Transfer Ability Level of Assist Contact Guard Assistance Comments Mobility Comments BP in supine 137/69 HR 95. Pt transitions to sitting EOB with CGA. She uses her arms to help move her R LE. Sitting EOB, BP is 140/76 HR 111. All transfers and gait are completed with CGA. Toilet transfer is the most challenging due to toilet height but no more than CGA required. Pt stands from the toilet with use of grab bar and SBA. She ambulates to the sink with emerging step through pattern and increasing step lengths as she gains confidence. She transfers to the chair with CGA. BP 120/70 HR 119. Pt denies symptoms. BP 132/75 HR 108 after 4 minutes in sitting. Gait Assessment Gait Gait Assistance Required: Contact Guard Assist Distance (Feet) 25 Able to Maintain Weight Bearing Status Yes During Gait Assistive Devices Assistive Device Gait Belt,Front Wheeled Walker Orthotic/Prosthetic Devices or Brace: No Gait Deviations General Gait Pattern Antalgic,Decreased Stride Length,Decreased Feet Clearance,Step-to Gait Factors Limiting Gait Function Factors Limiting Gait Function Decreased Strength,Limited Range of Motion,Pain,Poor Balance,Poor Safety Awareness Stair Climbing Assessment Comments Stair Climbing Comments Plan to assess at next session . PT-Balance Assessment Sitting Balance and Reactions Static Sitting Balance Ability Good Dynamic Sitting Balance Ability Good Standing Balance and Reactions Static Standing Balance Ability Fair Dynamic Standing Balance Ability Fair Device Used FWW M5 PT-IP Objective Assessments Start: 08/15/23 15:31 Freq: NEEDED Status: Active Protocol: Document 08/17/23 13:22 MB (Rec: 08/17/23 13:42 MB [id number]) Gross Range of Motion Lower Extremity ROM Impairments Functional range in recliner is 20-45 deg with leg straight and with HS M6 PT-IP Treatment Start: 08/15/23 15:31 Freq: NEEDED Status: Active Protocol: Document 08/18/23 10:50 AW (Rec: 08/18/23 12:27 AW [id number]) Physical Therapy Treatment Education Education Provided Weight Bearing Status,Safety Other Treatments Other Treatment Performed Discussed discharge scenarios with pt and her spouse (who arrived late in the session). M7 PT-IP Assessment and Plan Start: 08/15/23 15:31 Freq: NEEDED Status: Active Protocol: Document 08/18/23 10:50 AW (Rec: 08/18/23 12:27 AW [id number]) PT Summary Assessment and Plan Summary Impairments Pain,ROM,Strength,Balance, Cognition,Bed Mobility, Transfers,Gait,Activity Tolerance Progress Towards Goals Progressing Toward Goals,Slow Progress due to Pain Assessment Summary Laurie's blood pressure is improved today and pt was able to progress to functional gait and transfers. She is requiring CGA for both using FWW. Pt's spouse states he plans to be home with pt as much as possible over the next few weeks. He has a friend who is an RN who will be able to fill in gaps if he needs to leave for work. Pt's mobility supports safe discharge home with 24/7 assist. Discussed use of BSC for night time toileting and using commode over toilet during the day to improve toilet transfers. Pt and her spouse are comfortable with home dishcarge. Pt has outpatient PT set up to begin next week. Will follow for stair training. Pt on track to discharge pending completion of stair training. Goals Bed Mobility Goal Independent Transfer Goal Independent,Front Wheeled Walker Gait Goal Independent,Front Wheel Walker Gait Distance 150 Other Goals up/down 2 steps R rail ascending SBA Days to Meet Goals 5 Frequency of Treatment Frequency Of Treatment Twice a Day Treatment Plan Physical Therapy Treatment Plan Bed Mobility Training,Transfer Training,Gait Training, Therapeutic Exercise,Balance Retraining,Post Op Education, Discharge Planning,Hot or Cold Pack,Neuromuscular Re-ed, Coordination Retraining,Manual Therapy Other Recommendations and Next Treatment caregiver training when Focus appropriate Weight Bearing Status Weight Bearing Status Weight Bear as Tolerated Allowed Weight Bearing Amount (enter % RLE WBAT or #) (%) Recommendations To Nursing Amount of Assist Needed 3 or More Person Assist Discharge Recommendations PT Discharge Recommendations Home with 24/7 Assist Available,Outpatient PT Transportation Needs at Discharge Private Vehicle
[2023-08-18 13:01] VITALS: BP 103/53; PULSE 117; O2SAT 95
--- NOTE | 2023-08-18 13:18 | OT.IP.EVAL ---
Current Diagnoses Unilateral primary osteoarthritis, right knee (08/17/23) Surgery Performed Operation Date: 08/15/23 07:45 Actual Procedures p Total Knee Arthroplasty(Right) - Chao Moreno MD Past Medical History (Last Updated 08/05/23 @ 14:26 by Elena Mendez, RN) Avascular necrosis of bone of hip Bipolar 1 disorder Cardiomyopathy Cervical facet joint syndrome Cervical neck pain with evidence of disc disease Cervical spondylosis Chronic low back pain DDD (degenerative disc disease) Degenerative joint disease of right hip Depression Dilation of esophagus (01/25/21) Dilation of esophagus (02/08/21) Fibromyalgia GERD (gastroesophageal reflux disease) Hiatal hernia History of COVID-19 (~05/2023) HLD (hyperlipidemia) Oropharyngeal dysphagia Osteoarthritis Osteopenia Seasonal allergies Spinal stenosis in cervical region Thoracic kyphosis Surgical History (Last Updated 07/30/23 @ 09:17 by Elena Mendez, RN) H/O shoulder surgery History of appendectomy History of esophagogastroduodenoscopy (EGD) (09/29/20) History of esophagogastroduodenoscopy (EGD) (01/11/21) History of esophagogastroduodenoscopy (EGD) (11/28/22) History of esophagogastroduodenoscopy (EGD) (12/28/20) History of hysterectomy History of right knee surgery History of tonsillectomy History of total left hip arthroplasty (09/22/19) History of total right hip replacement (05/03/20) Hx of colonoscopy Occupational Therapy Inpatient Evaluation/Re-Eval M1 PT/OT-IP Prior Functional Status Start: 08/15/23 15:31 Freq: NEEDED Status: Active Protocol: Document 08/18/23 12:15 JENNIFER (Rec: 08/18/23 13:18 JESSICAWAMIREYA [id number]) Medical Review Prior Functional Status Medical History Reviewed Yes Diet/Fluid Consistency Regular Communication able to make needs known Mobility and Gait pt stated that she was modified independent with all mobilities and ambulation without AD but occasionally uses a FWW; stated that she only goes out of the house with her spouse and she holds on to her spouse for support. Activities of Daily Living and IADL's pt reports that she performed a sponge bath sitting on the side of the tub and would dress herself there as well. pt performed grooming and oral care sink side. pt washed the dishes, but her performs the cooking and most of the cleaning. pt would sit up in chair for meals and to watch shows, but report that she has had chronic pain since she was a teenager, and often spends the day in bed. Social History Household Members spouse Living Arrangements House Number of Floors (Floors) Two Floors Number of Stairs To Enter/Railing? 2 Home Environment Standard Height Toilet,Walk in Shower,Tub/Shower Home Equipment Front Wheel Walker,Four Wheel Walker,Bedside Commode,Raised Toilet Seat Without Armrests, Hand Held Shower,Venture Capitalist Additional Social History Comment pt lives in two fisher with a daylight basement. pt reports they usually enter from the garage where she has two steps to enter and a railing. all of her day to day needs are on the main living level. M2 OT-IP Current Condition Start: 08/18/23 08:25 Freq: Status: Active Protocol: Document 08/18/23 12:15 JENNIFER (Rec: 08/18/23 13:18 JESSICAWAMIREYA [id number]) Occupational Therapy Current Condition Current Condition Evaluation Date 08/18/23 Treatment Diagnosis s/p R TKA Diagnosis Onset Date 08/15/23 Weight Bearing Status Weight Bearing Status Weight Bear as Tolerated M3 OT- IP Subjective and Pain Start: 08/18/23 08:25 Freq: Status: Active Protocol: Document 08/18/23 12:15 JENNIFER (Rec: 08/18/23 13:18 JESSICAWAMIREYA [id number]) OT- Subjective Occupational Therapy Visit Type Type Initial Evaluation Visit Start Time 11:40 Visit Stop Time 12:11 Total Visit Minutes 31 Notes Pt up in chair on entrance of OT with spouse present. Pt is pleasant and cooperative and agreeable to participate in OT eval. Pt Occupational Therapy Visit Comments Patient Comments Pt reports that she thinks she and her will need help with housework when she returns home. She is eager to return home. Pt's spouse reports that she has out pt PT scheduled to begin soon. OT Pain Assessment Pain When Pain Assessed At Rest Pain Present Pain Present Pain Reported Location Right Knee Intensity 8 Scale Used Numeric (0 - 10) Description With Movement Pain Behaviors Calling Out,Facial Grimacing, Guarding,Holding Area Management Techniques Apply Cold,Re-positioning Right Hip Intensity 8 Scale Used Numeric (0 - 10) Description With Movement Pain Behaviors Calling Out,Facial Grimacing, Guarding,Holding Area Management Techniques Apply Cold,Re-positioning M4 OT- IP ADL's Start: 08/18/23 08:25 Freq: Status: Active Protocol: Document 08/18/23 12:15 JENNIFER (Rec: 08/18/23 13:18 [facility] [id number][facility] OT GHS-Oidt-Bhvvshj General Evaluation Self-Feeding Ability Independent Comments OT Self-Feeding Comments pt performs self-feeding while up in chair without assistance. OT ADL-Grooming General Evaluation Grooming Ability Standby Assistance Areas Needing Assistance Retrieving/Set-up of Grooming Items Comments OT Grooming Comments pt performs sink side OT ADL-Oral Care Comments Oral Care Comments not observed OT ADL-Dressing Comments OT Dressing Comments not performed during evaluation. OT mentioned use of LB AE to aid in LB dressing . Pt reports being interested to learn more about how this may help. Pt reports that she performs dressing while sitting on the side of the tub at home. OT suggests she relocate to BSC or chair for improved safety and decreased fall risk when performing her dressing. OT ADL-Toileting General Evaluation Toileting Ability Contact Guard Assistance Devices Toileting Assistive Devices Grab Bars Comments OT Toileting Comments pt is able to manage her pull- up style brief and performs toileting with CGA for balance when standing to complete wiping. Due to LE pain, pt unable to complete toileting hygiene in seated position. OT ADL-Bathing Comments OT Bathing Comments not performed during evaluation. Pt reports that she performs a sponge-bath at home while sitting on the side of the tub. OT discussed other options for place to sit while performing this for improved safety and decreased fall risk. Primary suggestion is using the BSC over top of her home toilet and performing her sponge bath there. Pt says she will consider this on d/c. M5 OT- IP IADL's Start: 08/18/23 08:25 Freq: Status: Active Protocol: Document 08/18/23 12:15 JENNIFER (Rec: 08/18/23 13:18 JESSICAWAMIREYA [id number]) OT-Instrumental Activities of Daily Living Deficits IADL Deficits Identified Deficits Home Safety Awareness Awareness of Need for Assistance at Home Good Awareness Ability to Problem Solve Emergency Able to Problem Solve Situations Home Safety Comments OT suggested that pt stop sitting on the side of the tub for bathing and dressing. Pt agreed that it would be safer to perform these tasks from another surface, such as BSC, commode, chair, or EOB. Meal Preparation Meal Preparation Caregiver Provides Assist Finance Executive Finance Executive Caregiver Provides Assist Driving Driving Caregiver Provides Assist M6 OT- IP Functional Cognition Start: 08/18/23 08:25 Freq: Status: Active Protocol: Document 08/18/23 12:15 JENNIFER (Rec: 08/18/23 13:18 [facility] [id number]) Cognitive Factors Limiting Selfcare Function Cognitive Ability Level of Alertness Alert Patient Orientation Name,Place,Situation Attention Span Ability Capable of Focused Attention Ability to Follow Commands Able to Follow One Step Commands Memory Description No Deficits Noted Safety Awareness No Deficits Noted Problem Solving Ability Needs Assist to Identify Solutions Executive Function Ability No Deficits Noted Abstract Thinking Ability No Deficits Noted OT- Vision and Hearing OT- Hearing Assessment OT- Hearing Assessment WFL OT- Vision Assessment Visual Acuity WFL,Glasses For Reading M7 OT- IP Mobility and Balance Start: 08/18/23 08:25 Freq: Status: Active Protocol: Document 08/18/23 12:15 JENNIFER (Rec: 08/18/23 13:18 JESSICAWAMIREYA [id number]) OT-Transfer Assessment Sit to and From Stand Sit to and from Stand Contact Guard Assistance Transfers Transfer Ability Contact Guard Assistance Technique Transfer Destination Chair,Toilet Devices Transfer Assistive Devices Gait Belt,Front Wheeled Walker Comments Mobility Comments Pt performs functional t/fs slowly due to increased c/o pain in R LE. Pt requires vcs for hand placement with sit<> stand and problem solving for placement of operative LE. OT- Gait Assessment Gait Gait Assistance Required: Contact Guard Assist Distance (Feet) 40 Assistive Devices Assistive Device Gait Belt,Front Wheeled Walker Comments Gait Ability Comments Pt performs slowly, with vcs to remain within the walker, especially when backing up to sit on commode or chair. OT- Balance Assessment Sitting Balance and Reactions Static Sitting Balance Ability Good Dynamic Sitting Balance Ability Good Standing Balance and Reactions Static Standing Balance Ability Good Dynamic Standing Balance Ability Fair M8 OT- IP Objective Assessments Start: 08/18/23 08:25 Freq: Status: Active Protocol: Document 08/18/23 12:15 JENNIFER (Rec: 08/18/23 13:18 [facility] [id number]) OT Gross Range of Motion Upper Extremity Range of Motion Assessment Within Functional Limits OT Strength Upper Extremity Strength Assessment Within Functional Limits Hand Horticultural Farmworker Strength Hand Dominance Right OT-Muscle Tone Assessment Muscle Tone WNL Yes M9 OT- IP Assessment and Plan Start: 08/18/23 08:25 Freq: Status: Active Protocol: Document 08/18/23 12:15 JENNIFER (Rec: 08/18/23 13:18 [facility] [id number]) OT Summary Assessment and Plan Potential Rehabilitation Potential Excellent Analytic Complexity at Evaluation Low Summary OT Impairments Pain,Balance,Functional Mobility,Grooming,Dressing, Toileting,Bathing,Toilet Transfers,Shower Transfers, Activity Tolerance Progress Towards Goals Progressing Toward Goals Assessment Summary Pt is 73 yo F s/p R TKA. Pt and spouse are pleasant and cooperative and eager to participate. Pt c/o pain at rest and with activity. She requires help to problem solve ways to reduce pain during activity. Pt would benefit from education on AE for LB dressing needs. Pt demonstrates decreased activity tolerance, decreased functional t/fs, decreased ADLs, and decreased balance. Skilled OT services are appropriate to address pt deficits and promote return to PLOF. Pt left up in chair with lunch before her, call light in reach, and spouse present. Cont per POC. Goals Self-Feeding Goal Independent Grooming Goal Independent Dressing Goal Minimal Assistance Toileting Goal Independent Bathing Goal Minimal Assistance Toilet Transfer Goal Independent Shower Transfer Goal Independent Days to Meet Goals 14 Frequency of Treatment Frequency Of Treatment Once a Day Treatment Plan OT Treatment Plan ADL Training,Functional Mobility,Therapeutic Exercises ,Patient/Family Education, Discharge Planning Discharge Recommendations OT Discharge Recommendations Home with Assistance, Outpatient PT Home Equipment Needs sock aid
--- NOTE | 2023-08-18 14:28 | CM.DPC ---
DCP Discharge Home with HH Per Ortho PA, pt to work more with PT today to confirm she is stable for d/c to home and her mobility as she has been limited with her bp. Per PT, pt's bp was stable and she was able to ambulate and do stairs with supportive spouse bedside and feels pt is stable for d/c home with spouse and HH today. SW updated Ortho PA and [facility] already set up with F2F done and HH orders placed and just awaiting discharge orders and summary. SW called [facility] and updated on likely d/c home today and they confirm they have her referral and can accept and requested F2F, HH orders, and updated prog note today so they can get pt on the schedule. CARLOS Robles kindly faxed requested documents. Discharge summary will just need to be faxed at discharge. Plan: Patient to d/c home via spouse POV and new [facility] referral made and just need to fax d/c summary when available. DONNIE Leroy
--- NOTE | 2023-08-18 15:17 | PT.IPTN ---
Current Diagnoses Unilateral primary osteoarthritis, right knee (08/17/23) Surgery Performed Operation Date: 08/15/23 07:45 Actual Procedures p Total Knee Arthroplasty(Right) - Chao Moreno MD Physical Therapy Treatment Note M2 PT-IP Current Condition Start: 08/15/23 15:31 Freq: NEEDED Status: Active Protocol: Document 08/15/23 14:30 AB (Rec: 08/15/23 16:01 AB [id number]) Physical Therapy Current Condition Current Condition Evaluation Date 08/15/23 Treatment Diagnosis s/p R TKA; difficulty in walking Onset Date 08/15/23 M3 PT-IP Subjective Start: 08/15/23 15:31 Freq: NEEDED Status: Active Protocol: Document 08/18/23 15:17 AW (Rec: 08/18/23 16:55 AW [id number]) Subjective Physical Therapy Visit Type Type Treatment Note Visit Start Time 14:52 Visit Stop Time 15:17 Total Visit Minutes 25 Notes Pt's spouse present throughout Number of PAINT LINE SUPERVISOR Visits 0 Physical Therapy Visit Comments Patient Comments Has been sitting up in the chair since morning PT. Wants to use the toilet. Therapy Pain Assessment Pain When Pain Assessed At Rest Pain Present Pain Present Pain Reported Location Right Knee Intensity 8 Description With Movement Pain Management Techniques Apply Cold,Distraction, Modification of Treatment, Timing of Activity with Medications M4 PT-IP Mobility and Gait Start: 08/15/23 15:31 Freq: NEEDED Status: Active Protocol: Document 08/18/23 15:17 AW (Rec: 08/18/23 16:55 AW [id number]) PT-Bed Mobility Assessment Sit to Supine Sit to Supine Contact Guard Assistance PT-Transfer Assessment Sit to and From Stand Sit to and from Stand Contact Guard Assistance,Use of Upper Extremities Equipment Transfer Assistive Device Gait Belt,Front Wheeled Walker Transfers Transfer Destination Bed,Toilet Transfer Ability Level of Assist Contact Guard Assistance Comments Mobility Comments BP in sitting 106/61 HR 113. Pt stands and walks to the toilet. Transfers still requiring CGA for safety. Pt then ambulates into the room and stands at sink for handwashing. After gait activities, pt returns to bed where she is left with call light handy. Gait Assessment Gait Gait Assistance Required: Contact Guard Assist Distance (Feet) 75 Able to Maintain Weight Bearing Status Yes During Gait Assistive Devices Assistive Device Gait Belt,Front Wheeled Walker Gait Deviations General Gait Pattern Antalgic,Decreased Stride Length,Decreased Feet Clearance,Step-to Gait Factors Limiting Gait Function Factors Limiting Gait Function Decreased Strength,Limited Range of Motion,Pain,Poor Balance,Poor Safety Awareness Comments Gait Comments Improved weightbearing compared with morning session. Stair Climbing Assessment Evaluation Level of Assist On Stairs Contact Guard Assistance, Minimal Assistance Devices Stair Climbing Assistive Devices Right Railing Technique/Endurance Stair Climbing Direction Ascend and Descend Stair Climbing Technique Step to Step Number of Steps Climbed 1 Stair Climbing Set # Repetitions (reps) 2 Comments Stair Climbing Comments PT provides LABORER AMMUNITION ASSEMBLY/min A opposite side from railing. Spouse able to assist on second rep. PT-Balance Assessment Sitting Balance and Reactions Static Sitting Balance Ability Good Dynamic Sitting Balance Ability Good Standing Balance and Reactions Static Standing Balance Ability Good Dynamic Standing Balance Ability Fair Device Used FWW M5 PT-IP Objective Assessments Start: 08/15/23 15:31 Freq: NEEDED Status: Active Protocol: Document 08/17/23 13:22 MB (Rec: 08/17/23 13:42 MB [id number]) Gross Range of Motion Lower Extremity ROM Impairments Functional range in recliner is 20-45 deg with leg straight and with HS M6 PT-IP Treatment Start: 08/15/23 15:31 Freq: NEEDED Status: Active Protocol: Document 08/18/23 15:17 AW (Rec: 08/18/23 16:55 AW [id number]) Physical Therapy Treatment Exercises Exercises Quad Sets,Heel Slides,Seated Knee Flexion/Extension Education Education Provided Weight Bearing Status,Safety M7 PT-IP Assessment and Plan Start: 08/15/23 15:31 Freq: NEEDED Status: Active Protocol: Document 08/18/23 15:17 AW (Rec: 08/18/23 16:55 AW [id number]) PT Summary Assessment and Plan Summary Impairments Pain,ROM,Strength,Balance, Cognition,Bed Mobility, Transfers,Gait,Activity Tolerance Progress Towards Goals Progressing Toward Goals Assessment Summary [place] BP is lower this afternoon but stable. She is asymptomatic throughout treatment. She was able to progress past household distances with her gait and weightbearing is improving each session. Pt's spouse is present and able to provide safe assist on stairs. He participated in caregiver training including education on guarding techniques and gait belt use. Pt is progressing toward a safe home discharge with outpatient PT pending medical stability. Goals Bed Mobility Goal Independent Transfer Goal Independent,Front Wheeled Walker Gait Goal Independent,Front Wheel Walker Gait Distance 150 Other Goals up/down 2 steps R rail ascending SBA Days to Meet Goals 5 Frequency of Treatment Frequency Of Treatment Twice a Day Treatment Plan Physical Therapy Treatment Plan Bed Mobility Training,Transfer Training,Gait Training, Therapeutic Exercise,Balance Retraining,Post Op Education, Discharge Planning,Hot or Cold Pack,Neuromuscular Re-ed, Coordination Retraining,Manual Therapy Other Recommendations and Next Treatment continue CGT as needed Focus Weight Bearing Status Weight Bearing Status Weight Bear as Tolerated Allowed Weight Bearing Amount (enter % RLE WBAT or #) (%) Recommendations To Nursing Amount of Assist Needed 1 Person Assist Discharge Recommendations PT Discharge Recommendations Home with 03/03 Assist Available,Outpatient PT Transportation Needs at Discharge Private Vehicle
[2023-08-18 18:00] VITALS: BP 97/56; PULSE 104; RESP 18; TEMP 36.1; O2SAT 100
[2023-08-18 19:00] VITALS: BP 134/63; PULSE 103; RESP 16; TEMP 36.6; O2SAT 96
[2023-08-18] MEDS: SODIUM CHLORIDE 0.9% FLUSH 10 ML IV (20:12)
[2023-08-18] MEDS: PANTOPRAZOLE DR 40 MG TABLET PO (20:13)
[2023-08-18] MEDS: MIRTAZAPINE 15 MG TABLET 45 MG PO (20:13)
[2023-08-18] MEDS: ATORVASTATIN 20 MG TABLET 40 MG PO (20:14)
[2023-08-18] MEDS: hydrOXYzine pamoate 25 MG CAPSULE PO (20:15)
[2023-08-19] MEDS: OXYCODONE IR 5 MG TABLET 7.5 MG PO (03:08)
[2023-08-19] MEDS: ACETAMINOPHEN 325 MG TABLET 650 MG PO (05:17)
[2023-08-19] MEDS: IBUPROFEN 400 MG TABLET PO ×3 (05:18→12:48)
--- NOTE | 2023-08-19 06:32 | PM.DS.1 ---
History of Present Illness History of Present Illness Date Patient Seen: 08/19/23 Time Patient Seen: 06:34 Chief complaint: Right TKA Narrative: This patient was seen preoperatively and evaluated for knee pain which was refractory to numerous nonoperative treatment modalities. Their hip pain correlated with radiographic changes demonstrating significant degeneration in the knee joint. The risks and benefits of continued nonoperative management versus operative management were discussed at length and all of the patient?s questions were answered. Additional educational materials providing further details beyond our discussion in clinic were provided via a publicly available patient education video which included the incidence of medical complications associated with total knee arthroplasty, reasons for revision following total knee arthroplasty, and patient satisfaction rates following total knee arthroplasty. With this understanding of the risks inherent to the procedure, the patient elected to move forward with operative management. Following preoperative optimization, the patient was scheduled for surgery. The patient was met in the preoperative holding area the day of the procedure and all questions were answered. Pat states that she has having a flare-up of her lower extremities today. She says this is a chronic condition. She has not asked for any pain medication yet. She has been working with physical therapy and believes she is shown dramatic improvement with each visit. He has been educated as to lifestyle changes at home. Is explained to her and her that the we will try to set up home health care to assist. Patient is ready to be discharged home. Discharge Providers Provider Date of admission: 08/17/23 14:30 Discharge Date: 08/19/23 Primary care physician: Amita Giron DO Consults: 08/05/23 15:17 Consult to Anesthesiology Routine Comment: Consulting Provider: Anesthesiologist Reason for consultation: Surgeon requested re: Questionable CHF 08/15/23 11:22 Consult to Discharge Planning Routine Comment: Consult to Occupational Therapy Evaluate & Treat Comment: Physician Instructions: Evaluate and treat Consult to Physical Therapy Evaluate & Treat Comment: Physician Instructions: postop TKA protocol 08/18/23 14:32 Consult to Home Health Routine Comment: TKA, hypotensive Reason For Exam: Set up RN/PT/CARBON CUTTER for discharge to home Discharge provider: Vinnie Demarco PA-C Summary Hospital Course Discharge Diagnosis: Status right knee arthroplasty Hospital Course: Multimodal pain management. Physical therapy. Treatment for orthostatic hypotension. Status at Discharge Cognitive/behavioral status at discharge: oriented Functional status at discharge: uses cane/walker Overall status at discharge: patient is back to baseline Time Spent with Patient Time spent: Less than 30 minutes Exam Vital Signs (past 8 hours): Oxygen Delivery Method Room Air Oxygen Flow Rate 0 Narrative Exam Narrative: Patient is fine found lying comfortably in her bed. Dressing is clean with no signs of drainage. Able to flex knee to 30? extend to 10?. No pain to compression and posterior thigh or calf bilaterally. Able to dorsiflex and plantar flex against resistance bilaterally. Sensation of lower extremities grossly intact bilaterally. Const General: cooperative and comfortable Orientation: alert and oriented x3 Resp Effort & Inspection: normal respiratory effort and able to speak in complete sentences Objective Labs 08/16/23 05:45 [facility], [facility] Medical History (Updated 08/08/23 @ 18:09 by Jackeline Ortiz MD) History of COVID-19 (~05/2023) Dilation of esophagus (02/08/21) Dilation of esophagus (01/25/21) Cardiomyopathy Osteoarthritis Osteopenia Hiatal hernia DDD (degenerative disc disease) Bipolar 1 disorder GERD (gastroesophageal reflux disease) Oropharyngeal dysphagia Cervical facet joint syndrome HLD (hyperlipidemia) Thoracic kyphosis Cervical neck pain with evidence of disc disease Degenerative joint disease of right hip Spinal stenosis in cervical region Depression Fibromyalgia Seasonal allergies Chronic low back pain Cervical spondylosis Avascular necrosis of bone of hip Surgical History (Updated 07/30/23 @ 09:17 by Elena Mendez RN) History of esophagogastroduodenoscopy (EGD) (12/28/20) History of esophagogastroduodenoscopy (EGD) (11/28/22) History of esophagogastroduodenoscopy (EGD) (01/11/21) History of esophagogastroduodenoscopy (EGD) (09/29/20) Hx of colonoscopy History of total right hip replacement (05/03/20) History of total left hip arthroplasty (09/22/19) History of tonsillectomy History of appendectomy History of hysterectomy H/O shoulder surgery History of right knee surgery Family History Mother Stroke Sister Cancer Diabetes mellitus Gout Social History marital status: household members: spouse Smoking Status: Never smoker alcohol intake: former Discharge Assessment & Plan Assessment and Plan Assessment: Status right knee total arthroplasty Plan of Treatment: Weightbearing as tolerated with assistive device Aspirin 81 twice per day for DVT prophylaxis May continue with baseline opioids which are much higher dose than typically utilized for postoperative total joint patients for pain relief. Start outpatient physical therapy in 7-10 days. Discharge home with home health. Follow up at [facility] in 2 weeks Discharge Plan Discharge Plan Patient Disposition: Home Discharge orders & Medications Prescriptions: Continued ferrous sulfate [FeroSul] 325 mg (65 mg iron) tablet 325 mg PO DAILY Qty: 90 3RF quetiapine 300 mg Tablet 300 mg PO DAILY diclofenac sodium 1 % gel 4 g topical QID PRN (Reason: pain) Qty: 100 0RF Rx Instructions: apply to painful area as needed cetirizine 10 mg tablet 10 mg PO BEDTIME PRN (Reason: congestion) Qty: 30 0RF aspirin 81 mg Tablet,Delayed Release (Dr/Ec) 81 mg PO DAILY Qty: 90 0RF atorvastatin 40 mg tablet 40 mg PO BEDTIME Qty: 90 0RF lisinopril 2.5 mg tablet 2.5 mg PO DAILY Qty: 90 0RF spironolactone 25 mg Tablet 25 mg PO DAILY Qty: 90 0RF Excedrin Extra Strength 250-250-65 mg Tablet 1 tab PO Q4-6H PRN (Reason: Pain) metoprolol succinate 100 mg tablet extended release 24 hr 50 mg PO BID multivitamin Tablet 1 tab PO DAILY nortriptyline 75 mg Capsule 75 mg PO BEDTIME ergocalciferol (vitamin D2) [Vitamin D2] 50,000 unit Capsule 50,000 unit PO WEEKLY Patient Comments: takes on Friday lutein 20 mg Tablet 25 mg PO DAILY Ocuvite Eye Health 50 mg-15 unit- 4.5 mg-2.5 mg Tablet,Chewable 2 tab PO DAILY tizanidine 2 mg Tablet 1 - 2 mg PO BID-TID PRN (Reason: Muscle Relaxer) mirtazapine 45 mg Tablet 45 mg PO BEDTIME pregabalin 50 mg capsule 50 mg PO BID hydroxyzine pamoate 25 mg capsule 25 mg PO BEDTIME Patient Comments: TAKE UP TO 2 CAPS A DAY NEEDED morphine 15 mg tablet extended release 15 mg PO QD-BID PRN (Reason: Pain) Patient Comments: take 1 tablet by mouth every 8 hours 06/19/2022 pantoprazole 40 mg tablet,delayed release (DR/EC) 40 mg PO BEDTIME Follow up/Referrals: Amita Giron, [Primary Care Provider] - Diet/Activity/Treatments Diet: Diet as Tolerated Activity: Weightbearing as tolerated. Total knee replacement precautions Cold/Heat Therapy: Ice to knee as needed for pain. Skin/Wound/Dressing Care Report to your healthcare provider any signs of infection, such as:: chills, fever, night sweats, unusual drainage and unusual redness Dressing: May remove KAY wrap the third day after surgery. Leave dressing in place until follow up in office. No bathing or otherwise soaking incision. Call the office if the dressing becomes saturated inside. Visit Report/Discharge Packet Instructions: DI for Knee Replacement Stand Alone Forms: Patient Portal/API, Stroke Signs & Symptoms, Surgery Discharge Discharge Data Primary Care Provider: Amita Giron Attending Provider: Chao Moreno Admit Date/Time: 08/17/23 14:30 Quality VTE Deep Vein Thrombosis/Pulmonary Embolism Present on Admission: No
[2023-08-19 08:00] VITALS: BP 141/71; PULSE 83; RESP 16; TEMP 36.4; O2SAT 95
--- NOTE | 2023-08-19 09:00 | PT.IPTN ---
Current Diagnoses Unilateral primary osteoarthritis, right knee (08/17/23) Surgery Performed Operation Date: 08/15/23 07:45 Actual Procedures p Total Knee Arthroplasty(Right) - Chao Moreno MD Physical Therapy Treatment Note M2 PT-IP Current Condition Start: 08/15/23 15:31 Freq: NEEDED Status: Active Protocol: Document 08/15/23 14:30 AB (Rec: 08/15/23 16:01 AB [id number]) Physical Therapy Current Condition Current Condition Evaluation Date 08/15/23 Treatment Diagnosis s/p R TKA; difficulty in walking Onset Date 08/15/23 M3 PT-IP Subjective Start: 08/15/23 15:31 Freq: NEEDED Status: Active Protocol: Document 08/19/23 10:17 TS (Rec: 08/19/23 10:25 TS [id number]) Subjective Physical Therapy Visit Type Type Treatment Note Visit Start Time 09:00 Visit Stop Time 09:30 Total Visit Minutes 30 Number of SENIOR SUPPORT ANALYST Visits 1 Physical Therapy Visit Comments Patient Comments Pt found resting in bed, reports having B pain in LE's this morning, is agreeable to PT. Therapy Pain Assessment Pain When Pain Assessed At Rest Pain Present Pain Present Pain Reported M4 PT-IP Mobility and Gait Start: 08/15/23 15:31 Freq: NEEDED Status: Active Protocol: Document 08/19/23 10:17 TS (Rec: 08/19/23 10:25 TS [id number]) PT-Bed Mobility Assessment Supine to Sit Supine to Sit Standby Assistance,Head of Bed Elevated Sit to Supine Sit to Supine Standby Assistance Scooting Scooting to Edge of Bed Standby Assistance Scooting Up and Down in Bed Standby Assistance PT-Transfer Assessment Sit to and From Stand Sit to and from Stand Standby Assistance,Use of Upper Extremities Equipment Transfer Assistive Device Gait Belt,Front Wheeled Walker Orthotic/Prosthetic Devices or Brace: No Comments Mobility Comments Bp in supine 161/64 prior to mobility. She performed supine to sit SBA with HOB elevated and BUE support supproting RLE to EOB. Sit to stand with FWW SBA with BUE support on FWW. Pt amblated ~20' in room, requested to use toilet, pt began to feel dizzy, sat on commode next to bed. Bp in sitting 153/75, pt denied anymore dizziness. Bp in standing next to commode 161/ 72. She performed steps x3 with single rail and HH assist Adrianne, pt provided cues for step sequencing. Pt back in bed, all needs met, nursing notified. Gait Assessment Gait Gait Assistance Required: Standby Assistance,Contact Guard Assist Distance (Feet) 20 Able to Maintain Weight Bearing Status Yes During Gait Assistive Devices Assistive Device Gait Belt,Front Wheeled Walker Orthotic/Prosthetic Devices or Brace: No Gait Deviations General Gait Pattern Antalgic,Decreased Stride Length,Decreased Feet Clearance,Step-to Gait Factors Limiting Gait Function Factors Limiting Gait Function Decreased Strength,Limited Range of Motion,Pain,Poor Balance,Poor Safety Awareness Comments Gait Comments See mobility comments Stair Climbing Assessment Evaluation Level of Assist On Stairs Contact Guard Assistance, Minimal Assistance Devices Stair Climbing Assistive Devices Right Railing Technique/Endurance Stair Climbing Direction Ascend and Descend Stair Climbing Technique Step to Step Number of Steps Climbed 3 Comments Stair Climbing Comments See mobility comments PT-Balance Assessment Sitting Balance and Reactions Static Sitting Balance Ability Good Dynamic Sitting Balance Ability Good Standing Balance and Reactions Static Standing Balance Ability Good Dynamic Standing Balance Ability Fair Device Used FWW M5 PT-IP Objective Assessments Start: 08/15/23 15:31 Freq: NEEDED Status: Active Protocol: Document 08/17/23 13:22 MB (Rec: 08/17/23 13:42 MB [id number]) Gross Range of Motion Lower Extremity ROM Impairments Functional range in recliner is 20-45 deg with leg straight and with HS M6 PT-IP Treatment Start: 08/15/23 15:31 Freq: NEEDED Status: Active Protocol: Document 08/19/23 10:17 TS (Rec: 08/19/23 10:25 TS [id number]) Physical Therapy Treatment Education Education Provided Weight Bearing Status,Safety M7 PT-IP Assessment and Plan Start: 08/15/23 15:31 Freq: NEEDED Status: Active Protocol: Document 08/19/23 10:17 TS (Rec: 08/19/23 10:25 TS [id number]) PT Summary Assessment and Plan Summary Impairments Pain,ROM,Strength,Balance, Cognition,Bed Mobility, Transfers,Gait,Activity Tolerance Progress Towards Goals Progressing Toward Goals Assessment Summary Laurie is making some progress with her mobility this session. She is SBA for all bed mobility, assists RLE with BUE support getting in/ out of bed. She performed sit to stand with FWW SBA. Pt ambulated short distance in room, reported feeling dizzy and required a seated rest break, see vitals above. She performed stairs x3 with CGA/ Adrianne with single rail and HH support. PT is recommending pt return home with 24/7 support and HHPT. Goals Bed Mobility Goal Independent Transfer Goal Independent,Front Wheeled Walker Gait Goal Independent,Front Wheel Walker Gait Distance 150 Other Goals up/down 2 steps R rail ascending SBA Days to Meet Goals 5 Frequency of Treatment Frequency Of Treatment Twice a Day Treatment Plan Physical Therapy Treatment Plan Bed Mobility Training,Transfer Training,Gait Training, Therapeutic Exercise,Balance Retraining,Post Op Education, Discharge Planning,Hot or Cold Pack,Neuromuscular Re-ed, Coordination Retraining,Manual Therapy Other Recommendations and Next Treatment continue CGT as needed Focus Weight Bearing Status Weight Bearing Status Weight Bear as Tolerated Allowed Weight Bearing Amount (enter % RLE WBAT or #) (%) Recommendations To Nursing Amount of Assist Needed 1 Person Assist Discharge Recommendations PT Discharge Recommendations Home with 03/03 Assist Available,Home Health, Outpatient PT Transportation Needs at Discharge Private Vehicle
[2023-08-19] MEDS: ASPIRIN EC 81 MG TABLET PO (09:48)
[2023-08-19] MEDS: VIT C/E/ZN/COPPR/LUTEIN/ZEAXAN CAPSULE 2 CAP PO (09:48)
[2023-08-19] MEDS: MORPHINE ER 15 MG TABLET PO (09:48)
[2023-08-19] MEDS: PREGABALIN 50 MG CAPSULE PO (09:48)
[2023-08-19] MEDS: QUETIAPINE 100 MG TABLET 300 MG PO (09:48)
[2023-08-19] MEDS: lisinopriL 5 MG TABLET 2.5 MG PO (09:49)
[2023-08-19] MEDS: DOCUSATE 100 MG CAPSULE PO (09:49)
[2023-08-19] MEDS: SPIRONOLACTONE 25 MG TABLET PO (09:49)
--- NOTE | 2023-08-19 11:26 | PC.NURSE ---
Pt has worked with physical therapy and is doing well. She will be discharging to home around 1300 today.
--- NOTE | 2023-08-19 11:53 | OT.IP.TRT ---
Current Diagnoses Unilateral primary osteoarthritis, right knee (08/17/23) Surgery Performed Operation Date: 08/15/23 07:45 Actual Procedures p Total Knee Arthroplasty(Right) - Chao Moreno MD Occupational Therapy Treatment Note M2 OT-IP Current Condition Start: 08/18/23 08:25 Freq: Status: Active Protocol: Document 08/18/23 12:15 TJOHMIREYA (Rec: 08/18/23 13:18 TJOHNSTON [id number]) Occupational Therapy Current Condition Current Condition Evaluation Date 08/18/23 Treatment Diagnosis s/p R TKA Diagnosis Onset Date 08/15/23 Weight Bearing Status Weight Bearing Status Weight Bear as Tolerated M3 OT- IP Subjective and Pain Start: 08/18/23 08:25 Freq: Status: Active Protocol: Document 08/19/23 11:55 CCC (Rec: 08/19/23 12:09 CCC [id number]) OT- Subjective Occupational Therapy Visit Type Type Treatment Note Visit Start Time 11:30 Visit Stop Time 11:53 Total Visit Minutes 23 Occupational Therapy Visit Comments Patient Comments Pt not wanting to shower but agreed to get dressed. Pt's in the room. Patient/Caregiver Goals TO go home. OT Pain Assessment Pain When Pain Assessed During Mobility Pain Present Pain Present Pain Reported M4 OT- IP ADL's Start: 08/18/23 08:25 Freq: Status: Active Protocol: Document 08/19/23 11:55 CCC (Rec: 08/19/23 12:09 CCC [id number]) OT ADL-Dressing General Eval Upper Body Dressing Ability Independent Lower Body Dressing Ability Moderate Assistance Comments OT Dressing Comments Pt not wanting to try use of LB dressing equipment as insists her to help. Pt needing assist to help thread her RLE into her long jernigan. Educated her to dress the RLE first and take out last. Also educated to be sure to stand up all the way with her legs underneath her before trying to pull up her clothing. Pt's has good awareness of how to assist his . OT ADL-Bathing Comments OT Bathing Comments Pt states to sponge off at home. Re-emphasized to get a shower chair or use of BSC over the toilet while sponging off. M5 OT- IP IADL's Start: 08/18/23 08:25 Freq: Status: Active Protocol: Document 08/18/23 12:15 TJOHNSTON (Rec: 08/18/23 13:18 JENNIFER [id number]) OT-Instrumental Activities of Daily Living Deficits IADL Deficits Identified Deficits Home Safety Awareness Awareness of Need for Assistance at Home Good Awareness Ability to Problem Solve Emergency Able to Problem Solve Situations Home Safety Comments OT suggested that pt stop sitting on the side of the tub for bathing and dressing. Pt agreed that it would be safer to perform these tasks from another surface, such as BSC, commode, chair, or EOB. Meal Preparation Meal Preparation Caregiver Provides Assist Plastic Parts Fabricator Plastic Parts Fabricator Caregiver Provides Assist Driving Driving Caregiver Provides Assist M6 OT- IP Functional Cognition Start: 08/18/23 08:25 Freq: Status: Active Protocol: Document 08/19/23 11:55 [facility] (Rec: 08/19/23 12:09 [facility] [id number]) Cognitive Factors Limiting Selfcare Function Cognitive Comments Cognitive Assessment Comments Pt needing reassurance and cues for safety for ADl's and FWW safety. M7 OT- IP Mobility and Balance Start: 08/18/23 08:25 Freq: Status: Active Protocol: Document 08/19/23 11:55 [facility] (Rec: 08/19/23 12:09 [facility] [id number]) OT- Bed Mobility Assessment Supine to Sit Supine to Sit Assist Standby Assistance Sit to Supine Sit to Supine Assist Standby Assistance OT-Transfer Assessment Sit to and From Stand Sit to and from Stand Contact Guard Assistance Comments Mobility Comments CGA to stand to the FWW so able to get dressed. OT- Balance Assessment Sitting Balance and Reactions Static Sitting Balance Ability Good Dynamic Sitting Balance Ability Good Standing Balance and Reactions Static Standing Balance Ability Good Dynamic Standing Balance Ability Fair M8 OT- IP Objective Assessments Start: 08/18/23 08:25 Freq: Status: Active Protocol: Document 08/18/23 12:15 JENNIFER (Rec: 08/18/23 13:18 JENNIFER [id number]) OT Gross Range of Motion Upper Extremity Range of Motion Assessment Within Functional Limits OT Strength Upper Extremity Strength Assessment Within Functional Limits Hand Asset Analyst Strength Hand Dominance Right OT-Muscle Tone Assessment Muscle Tone WNL Yes M9 OT- IP Assessment and Plan Start: 08/18/23 08:25 Freq: Status: Active Protocol: Document 08/19/23 11:55 [facility] (Rec: 01/09/24 12:09 CCC [id number]) OT Summary Assessment and Plan Potential Rehabilitation Potential Excellent Analytic Complexity at Evaluation Low Summary OT Impairments Pain,Balance,Functional Mobility,Grooming,Dressing, Toileting,Bathing,Toilet Transfers,Shower Transfers, Activity Tolerance Progress Towards Goals Progressing Toward Goals Assessment Summary Pt doing well but moving slowly and wanting to do home health initially. Pt has a very supportive to be able to assist her at home. In addition pt will benefit from home health to look at bathroom set-up as prior pt states sponges off while seated on the edge of the tub- which is a fall risk. Pt to go home with assist and home health. Goals Self-Feeding Goal Independent Grooming Goal Independent Dressing Goal Minimal Assistance Toileting Goal Independent Bathing Goal Minimal Assistance Toilet Transfer Goal Independent Shower Transfer Goal Independent Days to Meet Goals 13 Frequency of Treatment Frequency Of Treatment Once a Day Treatment Plan OT Treatment Plan ADL Training,Functional Mobility,Therapeutic Exercises ,Patient/Family Education, Discharge Planning Discharge Recommendations OT Discharge Recommendations Home with Assistance,Home Health Home Equipment Needs sock aid
[2023-08-19 12:00] VITALS: BP 138/63; PULSE 91; RESP 16; TEMP 36.4; O2SAT 95
--- NOTE | 2023-08-19 12:49 | CM.DPNOTE ---
DC Note Discharge home today with spouse to assist as needed, [facility] following for HH services. [facility] updated with discharge. No further needs identified from this CM team. NEVILLE
== END 2023-08-19 14:00 | disposition home or self-care (01) ==
LOC: OR 08-18 06:30 → AC 08-18 06:30
PROVIDERS: Admitting Provider Orthopaedic Surgery Adult Reconstructive Orthopaedic Surgery; Family Provider Family Medicine; PCP Student in an Organized Health Care Education/Training Program; Referring Provider Orthopaedic Surgery Foot and Ankle Surgery; Visit Provider Orthopaedic Surgery Adult Reconstructive Orthopaedic Surgery
PROC: 0SRC0JZ Replacement of Right Knee Joint with Synthetic Substitute, Open Approach (ICD-10-PCS; CPT 27447; principal; 2023-08-15 07:45)
DX: M17.11 Unilateral primary osteoarthritis, right knee (principal); M21.061 Valgus deformity, not elsewhere classified, right knee; R54 Age-related physical debility; F11.90 Opioid use, unspecified, uncomplicated; I42.9 Cardiomyopathy, unspecified; M25.761 Osteophyte, right knee
CPT/HCPCS: 27447; 36415; 73560; 85014; 85018; 97110; 97116; 97162; 97165; 97530; 97535; C1776; G0378; J0690; J1170; J2405; J3010; J3410

== ENCOUNTER 2023-08-28 07:44 | Emergency (ER) | payer OTHER, SELFPAY ==
[2023-08-15 11:50] VITALS: BMI 19.5
[2023-08-28 07:49] VITALS: BP 125/60; PULSE 98; O2SAT 99
--- NOTE | 2023-08-28 07:53 | ED.URI ---
HPI - URI/Sore Throat General Chief Complaint: Extremity Problem,Nontraumatic Stated Complaint: Weakness Left Wrist Time Seen by Provider: 08/28/23 07:47 History of Present Illness HPI Narrative: 73-year-old female presents by EMS from home for left wrist weakness. Patient woke up and told her that she was having difficulty grabbing the walker and she was concerned that she had had a stroke and called 911. On arrival patient had weakness in extension of her left wrist, however equal grades 9 12 tutor strength, 5/5 strength in biceps and triceps bilaterally. Patient doesn't remember how she slept at night, only stating that it was on her back. Related Data Home Medications Medication Instructions Recorded Confirmed ergocalciferol (vitamin D2) 1,250 50,000 unit PO WEEKLY 08/27/19 08/15/23 mcg (50,000 unit) capsule (Vitamin D2) lutein 20 mg tablet 25 mg PO DAILY 08/27/19 08/15/23 mirtazapine 45 mg tablet 45 mg PO BEDTIME 08/27/19 08/15/23 multivitamin 1 tab PO DAILY 08/27/19 08/15/23 nortriptyline 75 mg capsule 75 mg PO BEDTIME 08/27/19 08/15/23 tizanidine 2 mg tablet 1 - 2 mg PO BID-TID PRN Muscle 08/27/19 08/15/23 Relaxer vit C 50 mg-E 15 unit-zinc cit 4.5 2 tab PO DAILY 08/27/19 08/15/23 mg-lutein 2.5 mg-zeaxan [facility]w [facility] quetiapine 300 mg tablet 300 mg PO DAILY Depression 04/19/20 08/15/23 hydroxyzine pamoate 25 mg capsule 25 mg PO BEDTIME 03/28/22 08/15/23 pregabalin 50 mg capsule 50 mg PO BID 03/28/22 08/15/23 morphine 15 mg tablet,extended 15 mg PO QD-BID PRN Pain 07/17/22 08/15/23 release pantoprazole 40 mg tablet,delayed 40 mg PO BEDTIME 07/17/22 08/15/23 release fauvzuc-dzxhqdzzcfopz-cembvlvb 250 1 tab PO Q4-6H PRN Pain 08/05/23 08/15/23 mg-250 mg-65 mg tablet (Excedrin Extra Strength) metoprolol succinate 100 mg 50 mg PO BID 08/15/23 08/15/23 tablet,extended release 24 hr Previous Rx's Medication Instructions Recorded diclofenac sodium 1 % topical gel 4 g topical QID PRN pain #100 grams 06/19/22 cetirizine 10 mg tablet 10 mg PO BEDTIME PRN congestion 06/21/22 #30 tabs aspirin 81 mg tablet,delayed 81 mg PO DAILY #90 tabs 09/05/22 release atorvastatin 40 mg tablet 40 mg PO BEDTIME #90 tabs 09/05/22 lisinopril 2.5 mg tablet 2.5 mg PO DAILY #90 tabs 09/05/22 spironolactone 25 mg tablet 25 mg PO DAILY #90 tabs 09/05/22 ferrous sulfate 325 mg (65 mg 325 mg PO DAILY #90 tabs 08/08/23 iron) tablet (FeroSul) Allergies Allergy/AdvReac Type Severity Reaction Status Date / Time gabapentin AdvReac Severe Lethargy Verified 08/28/23 08:01 chlorzoxazone AdvReac Confusion Verified 08/28/23 08:01 salsalate AdvReac Gastrointestinal Verified 08/28/23 08:01 Upset topiramate AdvReac Lethargy Verified 08/28/23 08:01 Review of Systems Review of Systems Narrative: Negative except as noted above Patient History Medical History History of COVID-19 (~05/2023) Dilation of esophagus (02/08/21) Dilation of esophagus (01/25/21) Cardiomyopathy Osteoarthritis Osteopenia Hiatal hernia DDD (degenerative disc disease) Bipolar 1 disorder GERD (gastroesophageal reflux disease) Oropharyngeal dysphagia Cervical facet joint syndrome HLD (hyperlipidemia) Thoracic kyphosis Cervical neck pain with evidence of disc disease Degenerative joint disease of right hip Spinal stenosis in cervical region Depression Fibromyalgia Seasonal allergies Chronic low back pain Cervical spondylosis Avascular necrosis of bone of hip Surgical History History of esophagogastroduodenoscopy (EGD) (12/28/20) History of esophagogastroduodenoscopy (EGD) (11/28/22) History of esophagogastroduodenoscopy (EGD) (01/11/21) History of esophagogastroduodenoscopy (EGD) (09/29/20) Hx of colonoscopy History of total right hip replacement (05/03/20) History of total left hip arthroplasty (09/22/19) History of tonsillectomy History of appendectomy History of hysterectomy H/O shoulder surgery History of right knee surgery Family History Mother Stroke Sister Cancer Diabetes mellitus Gout Social History marital status: household members: spouse Smoking Status: Never smoker alcohol intake: former Smoking Status: Never smoker alcohol intake frequency: other Substance Use Type: does not use Exam Initial Vital Signs Initial Vital Signs: Vital Signs Pulse Rate 98 H 08/28/23 07:49 Blood Pressure 125/60 08/28/23 07:49 Pulse Oximetry 99 08/28/23 07:49 Const: Awake, alert, frail Eyes: PERRL, EOMI, conjunctiva normal Cardiac: regular rate, regular rhythm RESP: unlabored, clear bilaterally, no wheezing GI: Atraumatic, soft, nontender Skin: Warm, Dry, intact, R knee bandage clean, dry, intact Neuro: AO x3, CN II-XII grossly intact, weakness of extension L wrist, full and equal flexion, bicep/tricep strength equal, 5/5 Course Orders Ordered: ED Orders 08/28/23 08:21 CT head/brain wo con Stat Vital Signs Vital signs: Vital Signs - 8 hr 08/28/23 07:49 08/28/23 07:49 08/28/23 07:54 Temperature 98 F Pulse Rate 98 H 98 H Respiratory Rate 17 Blood Pressure 125/60 125/60 Pulse Oximetry 99 96 Oxygen Delivery Method Room Air 08/28/23 08:00 08/28/23 08:00 08/28/23 10:05 Temperature Pulse Rate 99 H 101 H Respiratory Rate Blood Pressure 104/51 L 139/61 Pulse Oximetry 98 94 Oxygen Delivery Method Room Air MDM - URI/Sore Throat MDM Narrative Medical decision making narrative: Isolated weakness with wrist extension on the left-hand side. Proximal muscle strength is intact and equal bilaterally, grades 9 12 tutor strength equal bilaterally. This is strongly suspicious for peripheral process such as radial nerve palsy. CT brain negative for acute process. While patient was in the emergency department she did regain some extension strength and was able to grades 9 12 tutor the walker to ambulate to the bathroom. Patient has PCP appointment set up at 1030am later this morning and will go with her to the appointment. ED return precautions discussed at bedside. Patient expressed understanding of the plan and is in agreement at this time. All questions answered at the time of discharge. Discharge Plan Departure Patient Disposition: Home Clinical Impression: Acute radial nerve palsy Qualifiers: Laterality: left Qualified Code(s): G56.32 - Lesion of radial nerve, left upper limb Instructions: Radial Tunnel Syndrome Prescriptions: No Action ferrous sulfate [FeroSul] 325 mg (65 mg iron) tablet 325 mg PO DAILY Qty: 90 3RF quetiapine 300 mg Tablet 300 mg PO DAILY diclofenac sodium 1 % gel 4 g topical QID PRN (Reason: pain) Qty: 100 0RF Rx Instructions: apply to painful area as needed cetirizine 10 mg tablet 10 mg PO BEDTIME PRN (Reason: congestion) Qty: 30 0RF aspirin 81 mg Tablet,Delayed Release (Dr/Ec) 81 mg PO DAILY Qty: 90 0RF atorvastatin 40 mg tablet 40 mg PO BEDTIME Qty: 90 0RF lisinopril 2.5 mg tablet 2.5 mg PO DAILY Qty: 90 0RF spironolactone 25 mg Tablet 25 mg PO DAILY Qty: 90 0RF Excedrin Extra Strength 250-250-65 mg Tablet 1 tab PO Q4-6H PRN (Reason: Pain) metoprolol succinate 100 mg tablet extended release 24 hr 50 mg PO BID multivitamin Tablet 1 tab PO DAILY nortriptyline 75 mg Capsule 75 mg PO BEDTIME ergocalciferol (vitamin D2) [Vitamin D2] 50,000 unit Capsule 50,000 unit PO WEEKLY Patient Comments: takes on Friday lutein 20 mg Tablet 25 mg PO DAILY Ocuvite Eye Health 50 mg-15 unit- 4.5 mg-2.5 mg Tablet,Chewable 2 tab PO DAILY tizanidine 2 mg Tablet 1 - 2 mg PO BID-TID PRN (Reason: Muscle Relaxer) mirtazapine 45 mg Tablet 45 mg PO BEDTIME pregabalin 50 mg capsule 50 mg PO BID hydroxyzine pamoate 25 mg capsule 25 mg PO BEDTIME Patient Comments: TAKE UP TO 2 CAPS A DAY NEEDED morphine 15 mg tablet extended release 15 mg PO QD-BID PRN (Reason: Pain) Patient Comments: take 1 tablet by mouth every 8 hours 06/19/2022 pantoprazole 40 mg tablet,delayed release (DR/EC) 40 mg PO BEDTIME Referrals: Amita Giron DO [Primary Care Provider] - Stand Alone Forms: Patient Portal/API
[2023-08-28 07:54] VITALS: BP 125/60; PULSE 98; RESP 17; TEMP 36.6; O2SAT 96
[2023-08-28 08:00] VITALS: BP 104/51; PULSE 99; O2SAT 98
--- NOTE | 2023-08-28 08:21 | DI.CT.S_ITS ---
PROCEDURE: CT HEAD/BRAIN WO CON INDICATIONS: wakeup L wrist weakness TECHNIQUE: Noncontrast 4.5 mm thick angled axial sections acquired from the foramen magnum to the vertex, with coronal and sagittal reformats. For radiation dose reduction, the following was used: automated exposure control, adjustment of mA and/or kV according to patient size. COMPARISON: [facility], MR, MR BRAIN WITHOUT CONTRAST, 07/28/2023, 9:25. FINDINGS: Image quality: Diagnostic. CSF spaces: Basal cisterns are patent. No extra-axial fluid collections. The ventricles are symmetric in size and shape. Brain: No intracranial bleeds or masses. There is cerebral volume loss for age, with resultant ventricular and sulcal prominence. There are periventricular and deep white matter chronic small vessel ischemic changes. There is intracranial internal carotid artery atherosclerosis. Skull and face: Calvarium and visualized facial bones appear intact, without suspicious lesions. Sinuses: Visualized sinuses and mastoids are clear. Bilateral lens replacements. IMPRESSION: 1. No acute intracranial pathology. If there is high clinical suspicion for an acute ischemic insult, consider MRI for further evaluation. 2. Mild cerebral volume loss and moderate chronic small vessel ischemic changes. Dictated by: Dane Simmons M.D. on 08/28/2023 at 8:53 Approved by: Dane Simmons M.D. on 08/28/2023 at 8:57
[2023-08-28 10:05] VITALS: BP 139/61; PULSE 101; O2SAT 94
== END 2023-08-28 10:18 | disposition home or self-care (01) ==
PROVIDERS: Emergency Provider Emergency Medicine; Family Provider Family Medicine; PCP Student in an Organized Health Care Education/Training Program; Referring Provider Emergency Medicine
DX: G56.32 Lesion of radial nerve, left upper limb (principal)
CPT/HCPCS: 70450; 99284

== ENCOUNTER 2023-12-09 01:59 | Emergency (ER) | payer OTHER, SELFPAY ==
[2023-08-15 11:50] VITALS: BMI 19.5
[2023-12-09] VITALS (8 sets, daily range): BP systolic 92–119; BP diastolic 51–58; PULSE 71–78; RESP 14–18; TEMP 36.3; O2SAT 89–97; BMI 21.4
--- NOTE | 2023-12-09 01:59 | DI.RAD.S_ITS ---
PROCEDURE: XR WRIST RT MIN 3V INDICATIONS: wrist pain after fall TECHNIQUE: 3 views of the wrist were acquired. COMPARISON: None. FINDINGS: The lateral view is suboptimal. Bones: No fractures. There is widening of scapholunate interval. No suspicious bony lesions. Osteoarthritic changes, most pronounced at the radiocarpal joint, triscaphe joint and the 1st carpometacarpal joint. Soft tissues: No suspicious soft tissue calcifications. Soft tissue swelling. IMPRESSION: 1. Widening of scapholunate interval suggesting scapholunate disassociation. New line 2. No definitive acute fracture. If clinical symptoms persist or clinical suspicion for pathology is high, consider MRI for further evaluation. No significant discrepancy with the table games shift manager radiology preliminary report. Dictated by: Nancy Logan M.D. on 12/09/2023 at 8:34 Approved by: Nancy Logan M.D. on 12/09/2023 at 8:40
--- NOTE | 2023-12-09 02:23 | ED.FALL ---
HPI - Fall General Chief Complaint: Fall Stated Complaint: Fall Time Seen by Provider: 12/09/23 01:59 Source: patient, family and EMS Mode of arrival: EMS Limitations: no limitations History of Present Illness HPI Narrative: Patient is a 73-year-old female who was brought in by EMS for evaluation of a fall and right wrist discomfort and potential right-sided facial droop. Initial report by EMS who stated that they were called by the patient's . Apparently the patient had fallen while trying to get out of her chair. She potentially hurt her right wrist however did seem to be moving it without issue during their initial evaluation and while they were getting her onto the EMS gurney. The shale planer operator helper reported that she potentially had a right-sided facial droop but then they were told by the patient's that this may not be new. Patient stated that she slid out of her chair. Does not think that she hit her head. Has chronic neck and back pain. Reports since no specific injury from the fall out of her chair accept potentially the right wrist discomfort. Here in the emergency department patient states that she was having pain in her right wrist. Her right hand was unremarkable. Right elbow was unremarkable. She is having neck pain but this is not new. She does state that she is unsure if she hit her head. She denies chest pain, shortness of breath, cough, fevers. She states that she is difficulty extending her wrist. Patient's who eventually arrived in the emergency department stated that throughout the day today she seemed to be less coordinated with her right hand. She does use a walker sometimes at baseline and he thought that she was getting around the house today without problems. He did not think that she was confused. She denied headache or vision changes. Related Data Home Medications Medication Instructions Recorded Confirmed ergocalciferol (vitamin D2) 1,250 50,000 unit PO WEEKLY 08/27/19 12/08/23 mcg (50,000 unit) capsule (Vitamin D2) lutein 20 mg tablet 25 mg PO DAILY 08/27/19 12/08/23 mirtazapine 45 mg tablet 45 mg PO BEDTIME 08/27/19 12/08/23 multivitamin 1 tab PO DAILY 08/27/19 12/08/23 nortriptyline 75 mg capsule 75 mg PO BEDTIME 08/27/19 12/08/23 tizanidine 2 mg tablet 1 - 2 mg PO BID-TID PRN Muscle 08/27/19 12/08/23 Relaxer vit C 50 mg-E 15 unit-zinc cit 4.5 2 tab PO DAILY 08/27/19 12/08/23 mg-lutein 2.5 mg-zeaxan chew tablet ([facility]) quetiapine 300 mg tablet 300 mg PO DAILY Depression 04/19/20 12/08/23 hydroxyzine pamoate 25 mg capsule 25 mg PO BEDTIME 03/28/22 12/08/23 pregabalin 50 mg capsule 50 mg PO BID 03/28/22 12/08/23 morphine 15 mg tablet,extended 15 mg PO QD-BID PRN Pain 07/17/22 12/08/23 release pantoprazole 40 mg tablet,delayed 40 mg PO BEDTIME 07/17/22 12/08/23 release cdducnm-dqhzoaxmwadqs-bzeukkgx 250 1 tab PO Q4-6H PRN Pain 08/05/23 12/08/23 mg-250 mg-65 mg tablet (Excedrin Extra Strength) metoprolol succinate 100 mg 50 mg PO BID 08/15/23 12/08/23 tablet,extended release 24 hr Previous Rx's Medication Instructions Recorded diclofenac sodium 1 % topical gel 4 g topical QID PRN pain #100 grams 06/19/22 cetirizine 10 mg tablet 10 mg PO BEDTIME PRN congestion 06/21/22 #30 tabs aspirin 81 mg tablet,delayed 81 mg PO DAILY #90 tabs 09/05/22 release atorvastatin 40 mg tablet 40 mg PO BEDTIME #90 tabs 09/05/22 lisinopril 2.5 mg tablet 2.5 mg PO DAILY #90 tabs 09/05/22 spironolactone 25 mg tablet 25 mg PO DAILY #90 tabs 09/05/22 ferrous sulfate 325 mg (65 mg 325 mg PO DAILY #90 tabs 08/08/23 iron) tablet (FeroSul) Allergies Allergy/AdvReac Type Severity Reaction Status Date / Time gabapentin AdvReac Severe Lethargy Verified 12/08/23 18:41 chlorzoxazone AdvReac Confusion Verified 12/08/23 18:41 salsalate AdvReac Gastrointestinal Verified 12/08/23 18:41 Upset topiramate AdvReac Lethargy Verified 04/29/24 18:41 Review of Systems Review of Systems Narrative: See HPI Patient History Medical History History of COVID-19 (~05/2023) Dilation of esophagus (02/08/21) Dilation of esophagus (01/25/21) Cardiomyopathy Osteoarthritis Osteopenia Hiatal hernia DDD (degenerative disc disease) Bipolar 1 disorder GERD (gastroesophageal reflux disease) Oropharyngeal dysphagia Cervical facet joint syndrome HLD (hyperlipidemia) Thoracic kyphosis Cervical neck pain with evidence of disc disease Degenerative joint disease of right hip Spinal stenosis in cervical region Depression Fibromyalgia Seasonal allergies Chronic low back pain Cervical spondylosis Avascular necrosis of bone of hip Surgical History History of esophagogastroduodenoscopy (EGD) (12/28/20) History of esophagogastroduodenoscopy (EGD) (11/28/22) History of esophagogastroduodenoscopy (EGD) (01/11/21) History of esophagogastroduodenoscopy (EGD) (09/29/20) Hx of colonoscopy History of total right hip replacement (05/03/20) History of total left hip arthroplasty (09/22/19) History of tonsillectomy History of appendectomy History of hysterectomy H/O shoulder surgery History of right knee surgery Family History Mother Stroke Sister Cancer Diabetes mellitus Gout Social History marital status: household members: spouse Smoking Status: Never smoker alcohol intake: former Smoking Status: Never smoker alcohol intake frequency: other Substance Use Type: does not use Exam Initial Vital Signs Initial Vital Signs: Vital Signs Pulse Rate 78 12/09/23 02:03 Pulse Oximetry 97 12/09/23 02:03 Const General: cooperative, comfortable and No ill appearing HENMT Head: normal to inspection and normocephalic Eyes Pupils: PERRL EOM: EOM intact bilaterally Resp Effort & Inspection: normal respiratory effort Auscultation: clear to auscultation bilaterally Cardio Rate: regular rate Rhythm: regular rhythm GI Inspection: normal to inspection Skin General: no rashes or lesions noted Neuro General: patient alert, patient awake, patient oriented x3 and moves all extremities Cranial Nerves: CN's II-XI intact bilaterally Cognition: normal cognition Speech: speech normal Sensory Exam: no sensory deficits noted Other: 5/5 strength bilateral upper extremities. Patient describes discomfort/inability to extend the right wrist and also extend the fingers in the right hand. She has a 5/5 modeling director strength on the right and is equal to the left. This is somewhat complicated because there are also periods of time where she was able to lift her right arm straight up in the bed and her wrist is extended at this point. Her right elbows unremarkable. Right shoulders unremarkable. Extrem Other: No gross deformities Course Orders Ordered: ED Orders 12/09/23 01:59 XR wrist RT min 3V Stat 12/09/23 02:34 CT cervical spine wo con Stat CT head/brain wo con Stat 12/09/23 03:25 Complete Blood Count AUTO DIFF Stat Comprehensive Metabolic Panel Stat Lipase Stat Sodium Chloride (Sodium Chloride 0.9% Flush) 10 ml IV BID YAHIR Sodium Chloride (Sodium Chloride 0.9% Flush) 10 ml IV PRN PRN PRN Reason: Flush Vital Signs Vital signs: Vital Signs - 8 hr 12/09/23 02:03 12/09/23 02:04 12/09/23 02:30 Temperature 97.4 F L Pulse Rate 78 78 Respiratory Rate 18 Blood Pressure 119/58 L 108/53 L Pulse Oximetry 97 94 Oxygen Delivery Method Room Air Oxygen Flow Rate 12/09/23 02:30 12/09/23 03:00 12/09/23 03:32 Temperature Pulse Rate 77 77 74 Respiratory Rate Blood Pressure Pulse Oximetry 93 93 90 L Oxygen Delivery Method Nasal Cannula Oxygen Flow Rate 2 12/09/23 03:32 Temperature Pulse Rate Respiratory Rate Blood Pressure 106/51 L Pulse Oximetry Oxygen Delivery Method Oxygen Flow Rate MDM - Fall Medical Records Attestation: I reviewed the patient's medical records. Lab Data Attestation: I reviewed the patient's lab results. 12/09/23 03:25 12/09/23 03:25 Labs: Lab Results 12/09/23 Range/Units 03:25 WBC 13.5 H (4.5-11.0) X10^3/uL RBC 3.50 L (4.0-5.2) X10^6/uL Hgb 10.7 L (12.0-16.0) g/dL Hct 32.1 L (36-46) % MCV 91.5 (80-100) fL MCH 30.6 (26-34) PG MCHC 33.4 (30-36) % RDW 14.0 (11.6-14.8) % Plt Count 198 (150-400) X10^3/uL Neut % (Auto) 81.0 H (50-75) % Lymph % (Auto) 5.8 L (25-40) % [place] % (Auto) 7.8 (3-14) % Eos % (Auto) 4.8 H (2-4) % Baso % (Auto) 0.6 (0-2) % Neut # (Auto) 33776 H (4384-3225) /uL Lymph # (Auto) 800 L (5602-6851) /uL [place] # (Auto) 1100 H (0-900) /uL Eos # (Auto) 600 H (0-450) /uL Baso # (Auto) 100 (0-100) /uL Sodium 136 L (137-145) mmol/L Potassium 4.0 (3.4-5.1) mmol/L Chloride 102 (98-107) mmol/L Carbon Dioxide 29 (22-32) mmol/L BUN 25 H (7-17) mg/dL Creatinine 1.26 H (0.52-1.04) mg/dL Estimated GFR 45 L (>60) mL/min BUN/Creatinine Ratio 19.8 (6-22) Glucose 121 H (80-110) mg/dL Calcium 9.8 (8.4-10.2) mg/dL Total Bilirubin 0.3 (0.2-1.3) mg/dL AST 42 H (14-36) IU/L ALT 24 (<35) IU/L Alkaline Phosphatase 92 (38-126) U/L Total Protein 6.4 (6.3-8.2) g/dL Albumin 3.9 (3.5-5.0) g/dL Globulin 2.5 (1.7-4.1) g/dL Albumin/Globulin Ratio 1.6 (1.0-2.8) Lipase 12 L (23-300) U/L Imaging Data Extremity x-ray #1: Radiologist's Impression: Widened scapholunate interval measuring 3.8 mm was severe radioscaphoid and capitolunate joint space narrowing 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 Mild focal increase reticulations in the left upper lung. Further evaluation with chest x-ray or chest CT recommended especially to rule out infectious right upper lung process 11 mm left thyroid lobe nodule. Further evaluation with nonemergent ultrasound recommended MDM Narrative Medical decision making narrative: Somewhat of a complicated presentation. Patient's states she is at her baseline mental status. He does not notice any sort of facial droop. Her only potential focal neurologic issue is difficulty with extending her right wrist and extending the fingers in her right hand. She was able to modeling director with the right hand. When I have her extend her arms straight out she is able to extend her wrist that point. X-ray showed no signs of fracture. She does have chronic neck discomfort in the seems to be baseline for her. Her head CT and cervical spine CT show no acute fractures. There was some question of pneumonia on her CT scan of the neck however clinically she does not have pneumonia. She was not tachypneic. No fevers. She does have leukocytosis but this is fairly nonspecific in the situation. She has no other focal neurologic deficits. Did consider CVA/TIA however I feel this is unlikely given her only neurologic symptoms since extending the right wrist. I would have more concerned that this is related to her cervical spine issues. Plan will be to place her in a removable splint for her right wrist. Discuss this with the patient's advised that he contact her primary doctor for a follow-up so negative further evaluation the wrist drop. He was advised to talk with her primary doctor about the other findings of the CT scan as well. Discharge Plan Departure Patient Disposition: Home Clinical Impression: Wrist drop, right wrist Activity Restrictions/Additional Instructions: Laurie can continue to take all of her medications as directed. The wrist splint his for comfort. It can be removed to shower into wash her hands. I recommend that you contact her primary doctor for follow-up she may need further evaluation of her presenting symptoms this evening. Return to the emergency department for new symptoms. Prescriptions: No Action ferrous sulfate [FeroSul] 325 mg (65 mg iron) tablet 325 mg PO DAILY Qty: 90 3RF quetiapine 300 mg Tablet 300 mg PO DAILY diclofenac sodium 1 % gel 4 g topical QID PRN (Reason: pain) Qty: 100 0RF Rx Instructions: apply to painful area as needed cetirizine 10 mg tablet 10 mg PO BEDTIME PRN (Reason: congestion) Qty: 30 0RF aspirin 81 mg Tablet,Delayed Release (Dr/Ec) 81 mg PO DAILY Qty: 90 0RF atorvastatin 40 mg tablet 40 mg PO BEDTIME Qty: 90 0RF lisinopril 2.5 mg tablet 2.5 mg PO DAILY Qty: 90 0RF spironolactone 25 mg Tablet 25 mg PO DAILY Qty: 90 0RF Excedrin Extra Strength 250-250-65 mg Tablet 1 tab PO Q4-6H PRN (Reason: Pain) metoprolol succinate 100 mg tablet extended release 24 hr 50 mg PO BID multivitamin Tablet 1 tab PO DAILY nortriptyline 75 mg Capsule 75 mg PO BEDTIME ergocalciferol (vitamin D2) [Vitamin D2] 50,000 unit Capsule 50,000 unit PO WEEKLY Patient Comments: takes on Friday lutein 20 mg Tablet 25 mg PO DAILY Ocuvite Eye Health 50 mg-15 unit- 4.5 mg-2.5 mg Tablet,Chewable 2 tab PO DAILY tizanidine 2 mg Tablet 1 - 2 mg PO BID-TID PRN (Reason: Muscle Relaxer) mirtazapine 45 mg Tablet 45 mg PO BEDTIME pregabalin 50 mg capsule 50 mg PO BID hydroxyzine pamoate 25 mg capsule 25 mg PO BEDTIME Patient Comments: TAKE UP TO 2 CAPS A DAY NEEDED morphine 15 mg tablet extended release 15 mg PO QD-BID PRN (Reason: Pain) Patient Comments: take 1 tablet by mouth every 8 hours 06/19/2022 pantoprazole 40 mg tablet,delayed release (DR/EC) 40 mg PO BEDTIME Referrals: Amita Giron DO [Primary Care Provider] - Stand Alone Forms: Patient Portal/API
--- NOTE | 2023-12-09 02:34 | DI.CT.S_ITS ---
PROCEDURE: CT CERVICAL SPINE WO CON INDICATIONS: Right-sided wrist drop after fall TECHNIQUE: Noncontrast 3 mm thick sections acquired from the skull base to the T4 level. Sagittal and coronal reformats were then constructed. For radiation dose reduction, the following was used: automated exposure control, adjustment of mA and/or kV according to patient size. COMPARISON: [facility], CT, CT ANGIO CHEST ABDOMEN PELVIS, 12/10/2022, 11:51. [facility], CT, CT CHEST WITHOUT CONTRAST, 03/14/2023, 7:08. FINDINGS: Image quality: Excellent. Bones: No fractures or dislocations. Multilevel degenerative disc disease, most severe and moderate at C5-C6. Bilateral facet arthropathy, severe at C4-C5 and C5-C6 bilaterally and C7-T1 on the left. 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 Visualized superior ribs are intact. Soft tissues: Prevertebral soft tissues are normal in thickness. No paravertebral hematomas. No apical pneumothoraces. Subpleural ground-glass opacity in the right upper lobe. There is a 1.1 cm left thyroid nodule. IMPRESSION: 1. No displaced fracture or traumatic subluxation. 2. Severe spondylitic changes. 3. Subpleural ground-glass opacity in the right upper lobe suggesting mild pneumonia. 4. A 1.1 cm left thyroid nodule. ACR recommends imaging follow-up for nodules greater than 1.5 cm in this patient's age group. 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 Dictated by: Nancy Logan M.D. on 12/09/2023 at 7:48 Approved by: Nancy Logan M.D. on 12/09/2023 at 7:57
--- NOTE | 2023-12-09 02:34 | DI.CT.S_ITS ---
PROCEDURE: CT HEAD/BRAIN WO CON INDICATIONS: Right-sided wrist drop after fall TECHNIQUE: Noncontrast 4.5 mm thick angled axial sections acquired from the foramen magnum to the vertex, with coronal and sagittal reformats. For radiation dose reduction, the following was used: automated exposure control, adjustment of mA and/or kV according to patient size. COMPARISON: [facility], CT, CT HEAD/BRAIN WO CON, 08/28/2023, 8:32. FINDINGS: Image quality: Diagnostic. CSF spaces: Basal cisterns are patent. No extra-axial fluid collections. The ventricles are symmetric in size and shape. Brain: No intracranial bleeds or masses. There is cerebral volume loss for age, with resultant ventricular and sulcal prominence. There are periventricular and deep white matter chronic small vessel ischemic changes. There is intracranial internal carotid artery atherosclerosis. Skull and face: Calvarium and visualized facial bones appear intact, without suspicious lesions. Sinuses: Visualized sinuses and mastoids are clear. IMPRESSION: 1. No acute intracranial abnormalities. 2. Cerebral volume loss and chronic microvascular ischemic changes. 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 Dictated by: Nancy Logan M.D. on 12/09/2023 at 7:42 Approved by: Nancy Logan M.D. on 12/09/2023 at 7:43
[2023-12-09 03:34] LABS: Add Manual Diff / Slide Review NO; Basophils Absolute Auto 100 /uL (0-100); Basophils Percent Auto 0.6 % (0-2); Eosinophils Absolute Auto 600 /uL (0-450); Eosinophils Percent Auto 4.8 % (2-4); Hematocrit 32.1 % (36-46); Hemoglobin 10.7 g/dL (12.0-16.0); Lymphocytes Absolute Auto 800 /uL (1100-4500); Lymphocytes Percent Auto 5.8 % (25-40); Mean Corpuscular HGB Conc 33.4 % (30-36); Mean Corpuscular Hemoglobin 30.6 PG (26-34); Mean Corpuscular Volume 91.5 fL (80-100); Monocytes Absolute Auto 1100 /uL (0-900); Monocytes Percent Auto 7.8 % (3-14); Neutrophils Absolute Auto 10900 /uL (1500-7000); Platelet Count 198 X10^3/uL (150-400); White Blood Cell Count 13.5 X10^3/uL (4.5-11.0)
[2023-12-09 03:45] LABS: Alanine Aminotransferase 24 IU/L (<35); Albumin 3.9 g/dL (3.5-5.0); Albumin Globulin Ratio 1.6 (1.0-2.8); Alkaline Phosphatase 92 U/L (38-126); Aspartate Aminotransferase 42 IU/L (14-36); BUN Creatinine Ratio 19.8 (6-22); Bilirubin Total 0.3 mg/dL (0.2-1.3); Blood Urea Nitrogen 25 mg/dL (7-17); Calcium 9.8 mg/dL (8.4-10.2); Carbon Dioxide 29 mmol/L (22-32); Chloride 102 mmol/L (98-107); Estimated Glomerular Filt Rate 45 mL/min (>60); Globulin 2.5 g/dL (1.7-4.1); Glucose 121 mg/dL (80-110); HEMOLYSIS < 15 (0-50); Lipase 12 U/L (23-300); Sodium 136 mmol/L (137-145); Total Protein 6.4 g/dL (6.3-8.2)
== END 2023-12-09 04:29 | disposition home or self-care (01) ==
PROVIDERS: Emergency Provider Emergency Medicine; Family Provider Family Medicine; PCP Student in an Organized Health Care Education/Training Program
DX: M21.331 Wrist drop, right wrist (principal); Z79.899 Other long term (current) drug therapy
CPT/HCPCS: 70450; 72125; 73110; 80053; 83690; 85025; 99284

== ENCOUNTER 2023-12-28 09:17 | Emergency (ER) | payer OTHER, SELFPAY ==
[2023-08-15 11:50] VITALS: BMI 19.5
[2023-12-28] VITALS (12 sets, daily range): BP systolic 153–188; BP diastolic 84–91; PULSE 95–114; RESP 15–20; TEMP 36.5–36.7; O2SAT 95–98
--- NOTE | 2023-12-28 09:37 | ED_ITS ---
HPI - GI Bleed General Chief complaint: Abdominal Pain Stated complaint: STOMACH SHOULDER ARM PAIN FROM FALL T-7 Time Seen by Provider: 12/28/23 09:25 Source: patient and family Mode of arrival: Wheelchair History of Present Illness HPI Narrative: Patient is a 73-year-old female history of chronic ongoing pain, she has known right wrist drop presents today with abdominal pain and she has had black stool when she wipes. She also is taking iron denies any nausea or vomiting. Has been reports that her twin sister last week. She denies any chest pain shortness of breath. She has ongoing like right shoulder pain. Related Data Home Medications Medication Instructions Recorded Confirmed ergocalciferol (vitamin D2) 1,250 50,000 unit PO WEEKLY 08/27/19 12/08/23 mcg (50,000 unit) capsule (Vitamin D2) lutein 20 mg tablet 25 mg PO DAILY 08/27/19 12/08/23 mirtazapine 45 mg tablet 45 mg PO BEDTIME 08/27/19 12/08/23 multivitamin 1 tab PO DAILY 08/27/19 12/08/23 nortriptyline 75 mg capsule 75 mg PO BEDTIME 08/27/19 12/08/23 tizanidine 2 mg tablet 1 - 2 mg PO BID-TID PRN Muscle 08/27/19 12/08/23 Relaxer vit C 50 mg-E 15 unit-zinc cit 4.5 2 tab PO DAILY 08/27/19 12/08/23 mg-lutein 2.5 mg-zeaxan chew tablet [email or web address] quetiapine 300 mg tablet 300 mg PO DAILY Depression 04/19/20 12/08/23 hydroxyzine pamoate 25 mg capsule 25 mg PO BEDTIME 03/28/22 12/08/23 pregabalin 50 mg capsule 50 mg PO BID 03/28/22 12/08/23 morphine 15 mg tablet,extended 15 mg PO QD-BID PRN Pain 07/17/22 12/08/23 release pantoprazole 40 mg tablet,delayed 40 mg PO BEDTIME 07/17/22 12/08/23 release evipmjm-rdmaaeckyvrie-eqnvngoa 250 1 tab PO Q4-6H PRN Pain 08/05/23 12/08/23 mg-250 mg-65 mg tablet (Excedrin Extra Strength) metoprolol succinate 100 mg 50 mg PO BID 08/15/23 12/08/23 tablet,extended release 24 hr Previous Rx's Medication Instructions Recorded diclofenac sodium 1 % topical gel 4 g topical QID PRN pain #100 grams 06/19/22 cetirizine 10 mg tablet 10 mg PO BEDTIME PRN congestion 06/21/22 #30 tabs aspirin 81 mg tablet,delayed 81 mg PO DAILY #90 tabs 09/05/22 release atorvastatin 40 mg tablet 40 mg PO BEDTIME #90 tabs 09/05/22 lisinopril 2.5 mg tablet 2.5 mg PO DAILY #90 tabs 09/05/22 spironolactone 25 mg tablet 25 mg PO DAILY #90 tabs 09/05/22 ferrous sulfate 325 mg (65 mg 325 mg PO DAILY #90 tabs 08/08/23 iron) tablet (FeroSul) Allergies Allergy/AdvReac Type Severity Reaction Status Date / Time gabapentin AdvReac Severe Lethargy Verified 12/08/23 18:41 chlorzoxazone AdvReac Confusion Verified 12/08/23 18:41 salsalate AdvReac Gastrointestinal Verified 12/08/23 18:41 Upset topiramate AdvReac Lethargy Verified 12/08/23 18:41 Patient History Medical History History of COVID-19 (~05/2023) Dilation of esophagus (02/08/21) Dilation of esophagus (01/25/21) Cardiomyopathy Osteoarthritis Osteopenia Hiatal hernia DDD (degenerative disc disease) Bipolar 1 disorder GERD (gastroesophageal reflux disease) Oropharyngeal dysphagia Cervical facet joint syndrome HLD (hyperlipidemia) Thoracic kyphosis Cervical neck pain with evidence of disc disease Degenerative joint disease of right hip Spinal stenosis in cervical region Depression Fibromyalgia Seasonal allergies Chronic low back pain Cervical spondylosis Avascular necrosis of bone of hip Surgical History History of esophagogastroduodenoscopy (EGD) (12/28/20) History of esophagogastroduodenoscopy (EGD) (11/28/22) History of esophagogastroduodenoscopy (EGD) (01/11/21) History of esophagogastroduodenoscopy (EGD) (09/29/20) Hx of colonoscopy History of total right hip replacement (05/03/20) History of total left hip arthroplasty (09/22/19) History of tonsillectomy History of appendectomy History of hysterectomy H/O shoulder surgery History of right knee surgery Family History Mother Stroke Sister Cancer Diabetes mellitus Gout Social History marital status: household members: spouse Smoking Status: Never smoker alcohol intake: former Smoking Status: Never smoker alcohol intake frequency: other Substance Use Type: does not use Exam Initial Vital Signs Initial Vital Signs: Vital Signs Pulse Rate 103 H 12/28/23 09:26 Respiratory Rate 18 12/28/23 09:26 Blood Pressure 165/91 H 12/28/23 09:26 Pulse Oximetry 97 12/28/23 09:26 Oxygen Delivery Method Room Air 12/28/23 09:26 GENERAL: Alert slightly anxious 73-year-old female HEENT: Head atraumatic,EOMI, pupils reactive, face symmetric, moist mucous membranes CARDIOVASCULAR: Regular rate and rhythm without murmurs, rubs or gallops. RESPIRATORY: Breath sounds equal bilaterally, no wheezes rales or rhonchi. ABDOMEN: Soft, nontender. Normoactive bowel sounds all 4 quadrants. No guarding or rebound. RECTAL: Guaiac negative : No CVA tenderness EXTREMITIES: Normal range of motion, no clubbing or edema. Neurovascularly intact NEUROLOGICAL: Alert and oriented x4.Normal gait and speech. He is noted to have some right wrist drop is noted on exam SKIN: Warm, dry, no laceration, no petechiae, no rashes or lesions. Course Orders Ordered: Discontinued Medications Morphine Sulfate (Morphine 2 Mg/Ml Inj) 2 mg IV NOW ONE Stop: 12/28/23 10:16 Last Admin: 12/28/23 10:20 Dose: 2 mg Documented By: Ondansetron HCl (Ondansetron 4 Mg/2 Ml Inj) 4 mg IV NOW ONE Stop: 12/28/23 09:34 Last Admin: 12/28/23 09:56 Dose: 4 mg Documented By: Pantoprazole Sodium (Pantoprazole 40 Mg Vial) 80 mg IV NOW ONE Stop: 12/28/23 09:37 Last Admin: 12/28/23 09:56 Dose: 80 mg Documented By: Vital Signs Vital signs: Vital Signs - 8 hr 12/28/23 12:00 12/28/23 12:00 Temperature 98.1 F Pulse Rate 96 H Blood Pressure 188/87 H Pulse Oximetry 96 MDM - GI Bleed Lab Data 12/28/23 09:37 12/28/23 09:37 Labs: Lab Results 12/28/23 Range/Units 09:37 WBC 7.6 (4.5-11.0) X10^3/uL RBC 4.58 (4.0-5.2) X10^6/uL Hgb 14.2 (12.0-16.0) g/dL Hct 42.1 (36-46) % MCV 91.9 (80-100) fL MCH 31.0 (26-34) PG MCHC 33.7 (30-36) % RDW 14.9 H (11.6-14.8) % Plt Count 251 (150-400) X10^3/uL Neut % (Auto) 84.5 H (50-75) % Lymph % (Auto) 9.1 L (25-40) % Sierra % (Auto) 5.6 (3-14) % Eos % (Auto) 0.2 L (2-4) % Baso % (Auto) 0.6 (0-2) % Neut # (Auto) 6400 (0868-4013) /uL Lymph # (Auto) 700 L (2474-8217) /uL Sierra # (Auto) 400 (0-900) /uL Eos # (Auto) 0 (0-450) /uL Baso # (Auto) 0 (0-100) /uL PT 12.0 (9.4-12.5) SECONDS INR 1.0 (0.9-1.3) APTT 33 (25.1-36.5) SECONDS Sodium 138 (137-145) mmol/L Potassium 3.5 (3.4-5.1) mmol/L Chloride 102 (98-107) mmol/L Carbon Dioxide 25 (22-32) mmol/L BUN 11 (7-17) mg/dL Creatinine 0.80 (0.52-1.04) mg/dL Estimated GFR > 60 (>60) mL/min BUN/Creatinine Ratio 13.8 (6-22) Glucose 132 H (80-110) mg/dL Lactate 0.8 (0.7-2.1) mmol/L Calcium 9.9 (8.4-10.2) mg/dL Total Bilirubin 0.7 (0.2-1.3) mg/dL AST 39 H (14-36) IU/L ALT 20 (<35) IU/L Alkaline Phosphatase 94 (38-126) U/L Total Creatine Kinase 155 H (30-135) U/L Troponin I 0.015 (0.01-0.034) ng/mL Total Protein 7.5 (6.3-8.2) g/dL Albumin 4.6 (3.5-5.0) g/dL Globulin 2.9 (1.7-4.1) g/dL Albumin/Globulin Ratio 1.6 (1.0-2.8) Lipase 94 (23-300) U/L Blood Type O Positive Antibody Screen Negative Point of Care Testing Stool Occult Blood Negative Imaging Data CT scan - abdomen/pelvis: Radiologist's Impression: PROCEDURE: CT ABDOMEN PELVIS W CON INDICATIONS: pain TECHNIQUE: After the administration of intravenous contrast, axial sections acquired from the lung bases to the pubic symphysis. Coronal and sagittal reformats were performed. For radiation dose reduction, the following was used: automated exposure control, adjustment of mA and/or kV according to patient size. COMPARISON: [facility], CT, CT ABDOMEN PELVIS W CON, 09/02/2022, 5:17. FINDINGS: Image quality: Diagnostic. Significant metallic artifact from bilateral hip prosthesis which obscures the pelvis. Lower Chest: No significant findings. ABDOMEN: Liver: No solid mass. Gallbladder: No radiopaque gallstones or wall thickening. Hydropic gallbladder Biliary ducts: Common biliary duct dilation measuring 1.6 centimeters diameter. Moderate intrahepatic biliary ductal dilation. Pancreas: No ductal dilation. Spleen: Size is within normal limits. Adrenal Glands: No adrenal nodules. Kidneys and Ureters: No hydronephrosis. No solid mass. No complex renal cystic lesion which requires follow up. Stomach and Bowel: Normal colonic caliber, without significant wall thickening. Small hiatal hernia. Redundant fold with thickening of the proximal gastric vazquez. Peritoneum: No abnormal intraperitoneal fluid. No free air. Ventral Wall: No significant ventral hernia. Abdominal Nodes: No retroperitoneal or mesenteric adenopathy by size criteria. Vessels: Aorta and inferior vena cava are normal in size. PELVIS: Pelvic Organs: Unremarkable. Bladder: No bladder wall thickening, accounting for underdistention. Pelvic Nodes: No enlarged lymph nodes. Miscellaneous: No inguinal hernias are seen. Bones: No aggressive osseous abnormality. Bilateral hip prosthesis IMPRESSION: 1. Diffuse thickening of the proximal stomach, consider direct visualization. 2. Hydropic gallbladder with common biliary ductal dilation intrahepatic biliary dilation, slightly increased from comparison. Consider ultrasound evaluation and correlation with laboratory values for evidence of obstruction. Dictated by: Javier Soto M.D. on 12/28/2023 at 10:13 ECG Data Attestation: I personally reviewed and interpreted this ECG as follows: Prior ECG tracings: available for review Interpretation: Sinus rhythm rate 95 TX interval 152 QRS [address] changes no acute ischemia MDM Narrative Medical decision making narrative: Patient is 73-year-old female presents today with abdominal pain and black stool wiping. She is also complaining of chronic pain all over and right wrist drop. Right wrist drops appears to be chronic. He is minimally tender on her abdomen and exam she is guaiac negative. Blood work has been reviewed WBC 7.6, hemoglobin 14.2, hematocrit 42.1, sodium 138, potassium 3.5, chloride 102, carbon dioxide 25, BUN 11, creatinine 0.8, glucose 132, lactate 0.8, bilirubin 0.7, AST 39, ALT 20, CPK 155 troponin 0[address] imaging has been reviewed no obvious cause of pain or bleeding but she is noted to have a hydropic gallbladder EKG does not show any ischemic changes At this time unclear what is causing her abdominal pain unlikely GI bleeding with a negative guaiac and normal hemoglobin. She has no sign of infection. She is feeling little bit better after morphine. Her twin sister recently is probably also affecting some of her pain and presentation today. Discharge Plan Departure Patient Disposition: Home Clinical Impression: Abdominal pain Instructions: DI for Abdominal Pain-Adult Activity Restrictions/Additional Instructions: *You have been diagnosed with abdominal pain *What to do: At this time blood work is overall reassuring you are not having bleeding I think the black stool is likely from iron. *Continue to take medications as directed *Follow up with your primary care provider in 2-3 days or call [phone] *Return to ER if you should have increasing abdominal pain weakness or any new, worsening or concerning symptoms Prescriptions: No Action ferrous sulfate [FeroSul] 325 mg (65 mg iron) tablet 325 mg PO DAILY Qty: 90 3RF quetiapine 300 mg Tablet 300 mg PO DAILY diclofenac sodium 1 % gel 4 g topical QID PRN (Reason: pain) Qty: 100 0RF Rx Instructions: apply to painful area as needed cetirizine 10 mg tablet 10 mg PO BEDTIME PRN (Reason: congestion) Qty: 30 0RF aspirin 81 mg Tablet,Delayed Release (Dr/Ec) 81 mg PO DAILY Qty: 90 0RF atorvastatin 40 mg tablet 40 mg PO BEDTIME Qty: 90 0RF lisinopril 2.5 mg tablet 2.5 mg PO DAILY Qty: 90 0RF spironolactone 25 mg Tablet 25 mg PO DAILY Qty: 90 0RF Excedrin Extra Strength 250-250-65 mg Tablet 1 tab PO Q4-6H PRN (Reason: Pain) metoprolol succinate 100 mg tablet extended release 24 hr 50 mg PO BID multivitamin Tablet 1 tab PO DAILY nortriptyline 75 mg Capsule 75 mg PO BEDTIME ergocalciferol (vitamin D2) [Vitamin D2] 50,000 unit Capsule 50,000 unit PO WEEKLY Patient Comments: takes on Friday lutein 20 mg Tablet 25 mg PO DAILY Ocuvite [facility] 50 mg-15 unit- 4.5 mg-2.5 mg Tablet,Chewable 2 tab PO DAILY tizanidine 2 mg Tablet 1 - 2 mg PO BID-TID PRN (Reason: Muscle Relaxer) mirtazapine 45 mg Tablet 45 mg PO BEDTIME pregabalin 50 mg capsule 50 mg PO BID hydroxyzine pamoate 25 mg capsule 25 mg PO BEDTIME Patient Comments: TAKE UP TO 2 CAPS A DAY NEEDED morphine 15 mg tablet extended release 15 mg PO QD-BID PRN (Reason: Pain) Patient Comments: take 1 tablet by mouth every 8 hours 06/19/2022 pantoprazole 40 mg tablet,delayed release (DR/EC) 40 mg PO BEDTIME Referrals: Amita Giron DO [Primary Care Provider] - Stand Alone Forms: Patient Portal/API
[2023-12-28 09:46] LABS: Add Manual Diff / Slide Review NO; Basophils Absolute Auto 0 /uL (0-100); Basophils Percent Auto 0.6 % (0-2); Eosinophils Absolute Auto 0 /uL (0-450); Eosinophils Percent Auto 0.2 % (2-4); Hematocrit 42.1 % (36-46); Hemoglobin 14.2 g/dL (12.0-16.0); Lymphocytes Absolute Auto 700 /uL (1100-4500); Lymphocytes Percent Auto 9.1 % (25-40); Mean Corpuscular HGB Conc 33.7 % (30-36); Mean Corpuscular Volume 91.9 fL (80-100); Monocytes Absolute Auto 400 /uL (0-900); Monocytes Percent Auto 5.6 % (3-14); Neutrophils Absolute Auto 6400 /uL (1500-7000); Neutrophils Percent Auto 84.5 % (50-75); Platelet Count 251 X10^3/uL (150-400); Red Blood Cell Count 4.58 X10^6/uL (4.0-5.2); Red Cell Distribution Width 14.9 % (11.6-14.8); White Blood Cell Count 7.6 X10^3/uL (4.5-11.0)
[2023-12-28] MEDS: PANTOPRAZOLE 40 MG VIAL 80 MG IV (09:56)
[2023-12-28] MEDS: ONDANSETRON 4 MG/2 ML INJ IV (09:56)
[2023-12-28 09:57] LABS: PTT Partial Thromboplastin Tim 33 SECONDS (25.1-36.5)
[2023-12-28 10:13] LABS: Lactate (Lactic Acid) 0.8 mmol/L (0.7-2.1)
[2023-12-28 10:14] LABS: Alanine Aminotransferase 20 IU/L (<35); Albumin 4.6 g/dL (3.5-5.0); Albumin Globulin Ratio 1.6 (1.0-2.8); Alkaline Phosphatase 94 U/L (38-126); Aspartate Aminotransferase 39 IU/L (14-36); BUN Creatinine Ratio 13.8 (6-22); Bilirubin Total 0.7 mg/dL (0.2-1.3); Blood Urea Nitrogen 11 mg/dL (7-17); Calcium 9.9 mg/dL (8.4-10.2); Carbon Dioxide 25 mmol/L (22-32); Chloride 102 mmol/L (98-107); Creatine Kinase 155 U/L (30-135); Estimated Glomerular Filt Rate > 60 mL/min (>60); Globulin 2.9 g/dL (1.7-4.1); Glucose 132 mg/dL (80-110); HEMOLYSIS 37 (0-50); Lipase 94 U/L (23-300); Potassium 3.5 mmol/L (3.4-5.1); Sodium 138 mmol/L (137-145); Total Protein 7.5 g/dL (6.3-8.2)
--- NOTE | 2023-12-28 10:15 | DI.CT.S_ITS ---
PROCEDURE: CT ABDOMEN PELVIS W CON INDICATIONS: pain TECHNIQUE: After the administration of intravenous contrast, axial sections acquired from the lung bases to the pubic symphysis. Coronal and sagittal reformats were performed. For radiation dose reduction, the following was used: automated exposure control, adjustment of mA and/or kV according to patient size. COMPARISON: [facility], CT, CT ABDOMEN PELVIS W CON, 09/02/2022, 5:17. FINDINGS: Image quality: Diagnostic. Significant metallic artifact from bilateral hip prosthesis which obscures the pelvis. Lower Chest: No significant findings. ABDOMEN: Liver: No solid mass. Gallbladder: No radiopaque gallstones or wall thickening. Hydropic gallbladder Biliary ducts: Common biliary duct dilation measuring 1.6 centimeters diameter. Moderate intrahepatic biliary ductal dilation. Pancreas: No ductal dilation. Spleen: Size is within normal limits. Adrenal Glands: No adrenal nodules. Kidneys and Ureters: No hydronephrosis. No solid mass. No complex renal cystic lesion which requires follow up. Stomach and Bowel: Normal colonic caliber, without significant wall thickening. Small hiatal hernia. Redundant fold with thickening of the proximal gastric vazquez. Peritoneum: No abnormal intraperitoneal fluid. No free air. Ventral Wall: No significant ventral hernia. Abdominal Nodes: No retroperitoneal or mesenteric adenopathy by size criteria. Vessels: Aorta and inferior vena cava are normal in size. PELVIS: Pelvic Organs: Unremarkable. Bladder: No bladder wall thickening, accounting for underdistention. Pelvic Nodes: No enlarged lymph nodes. Miscellaneous: No inguinal hernias are seen. Bones: No aggressive osseous abnormality. Bilateral hip prosthesis IMPRESSION: 1. Diffuse thickening of the proximal stomach, consider direct visualization. 2. Hydropic gallbladder with common biliary ductal dilation intrahepatic biliary dilation, slightly increased from comparison. Consider ultrasound evaluation and correlation with laboratory values for evidence of obstruction. Dictated by: Javier Soto M.D. on 12/28/2023 at 10:13 Approved by: Javier Soto M.D. on 12/28/2023 at 10:26
[2023-12-28] MEDS: MORPHINE 2 MG/ML INJ IV (10:20)
[2023-12-28 10:26] LABS: Troponin I 0.015 ng/mL (0.01-0.034)
== END 2023-12-28 12:24 | disposition home or self-care (01) ==
PROVIDERS: Emergency Provider Emergency Medicine; Family Provider Family Medicine; PCP Student in an Organized Health Care Education/Training Program
DX: R10.9 Unspecified abdominal pain (principal); R19.5 Other fecal abnormalities
CPT/HCPCS: 36415; 74177; 80053; 82272; 82550; 83605; 83690; 84484; 85025; 85610; 85730; 86850; 86900; 86901; 93005; 96374; 96375; 99284; C9113; J2270; J2405; Q9967

== ENCOUNTER 2024-01-29 15:02 | Inpatient (IN) | payer OTHER, SELFPAY ==
[2023-08-15 11:50] VITALS: BMI 19.5
[2024-01-29] VITALS (62 sets, daily range): BP systolic 108–180; BP diastolic 55–109; PULSE 62–73; RESP 11–52; TEMP 36.1–37.2; O2SAT 85–100; BMI 21.2
--- NOTE | 2024-01-29 15:09 | ED.FALL ---
HPI - Fall General Chief Complaint: Fall Stated Complaint: GLF Time Seen by Provider: 01/29/24 15:08 History of Present Illness HPI Narrative: Patient is a 73-year-old female with mild memory impairment, chronic pain on home morphine presents today after ground level fall. Her was actually being evaluated in the ED he was unable to get in touch with his in a neighbor or friend went into their house and found her lying on the ground. She has an unknown downtime. She says that she was bending down to clean above butter on the floor. She has not sure that she hit her head there is no evidence of trauma. Not on any anticoagulation or antiplatelet medication. But is having significant right hip pain. She does have a history of bilateral hip replacements. No chest pain or weakness. Related Data Home Medications Medication Instructions Recorded Confirmed ergocalciferol (vitamin D2) 1,250 50,000 unit PO WEEKLY 08/27/19 12/08/23 mcg (50,000 unit) capsule (Vitamin D2) lutein 20 mg tablet 25 mg PO DAILY 08/27/19 12/08/23 mirtazapine 45 mg tablet 45 mg PO BEDTIME 08/27/19 12/08/23 multivitamin 1 tab PO DAILY 08/27/19 12/08/23 nortriptyline 75 mg capsule 75 mg PO BEDTIME 08/27/19 12/08/23 tizanidine 2 mg tablet 1 - 2 mg PO BID-TID PRN Muscle 08/27/19 12/08/23 Relaxer vit C 50 mg-E 15 unit-zinc cit 4.5 2 tab PO DAILY 08/27/19 12/08/23 mg-lutein 2.5 mg[facility] quetiapine 300 mg tablet 300 mg PO DAILY Depression 04/19/20 12/08/23 hydroxyzine pamoate 25 mg capsule 25 mg PO BEDTIME 03/28/22 12/08/23 pregabalin 50 mg capsule 50 mg PO BID 03/28/22 12/08/23 morphine 15 mg tablet,extended 15 mg PO QD-BID PRN Pain 07/17/22 12/08/23 release pantoprazole 40 mg tablet,delayed 40 mg PO BEDTIME 07/17/22 12/08/23 release ddcdoxs-pnejwnotdueok-ttrnwelt 250 1 tab PO Q4-6H PRN Pain 08/05/23 12/08/23 mg-250 mg-65 mg tablet (Excedrin Extra Strength) metoprolol succinate 100 mg 50 mg PO BID 08/15/23 12/08/23 tablet,extended release 24 hr Previous Rx's Medication Instructions Recorded diclofenac sodium 1 % topical gel 4 g topical QID PRN pain #100 grams 06/19/22 cetirizine 10 mg tablet 10 mg PO BEDTIME PRN congestion 06/21/22 #30 tabs aspirin 81 mg tablet,delayed 81 mg PO DAILY #90 tabs 09/05/22 release atorvastatin 40 mg tablet 40 mg PO BEDTIME #90 tabs 09/05/22 lisinopril 2.5 mg tablet 2.5 mg PO DAILY #90 tabs 09/05/22 spironolactone 25 mg tablet 25 mg PO DAILY #90 tabs 09/05/22 ferrous sulfate 325 mg (65 mg 325 mg PO DAILY #90 tabs 08/08/23 iron) tablet (FeroSul) Allergies Allergy/AdvReac Type Severity Reaction Status Date / Time gabapentin AdvReac Severe Lethargy Verified 01/29/24 15:11 chlorzoxazone AdvReac Confusion Verified 01/29/24 15:11 salsalate AdvReac Gastrointestinal Verified 01/29/24 15:11 Upset topiramate AdvReac Lethargy Verified 01/29/24 15:11 Patient History Medical History History of COVID-19 (~05/2023) Dilation of esophagus (02/08/21) Dilation of esophagus (01/25/21) Cardiomyopathy Osteoarthritis Osteopenia Hiatal hernia DDD (degenerative disc disease) Bipolar 1 disorder GERD (gastroesophageal reflux disease) Oropharyngeal dysphagia Cervical facet joint syndrome HLD (hyperlipidemia) Thoracic kyphosis Cervical neck pain with evidence of disc disease Degenerative joint disease of right hip Spinal stenosis in cervical region Depression Fibromyalgia Seasonal allergies Chronic low back pain Cervical spondylosis Avascular necrosis of bone of hip Surgical History History of esophagogastroduodenoscopy (EGD) (12/28/20) History of esophagogastroduodenoscopy (EGD) (11/28/22) History of esophagogastroduodenoscopy (EGD) (01/11/21) History of esophagogastroduodenoscopy (EGD) (09/29/20) Hx of colonoscopy History of total right hip replacement (05/03/20) History of total left hip arthroplasty (09/22/19) History of tonsillectomy History of appendectomy History of hysterectomy H/O shoulder surgery History of right knee surgery Family History Mother Stroke Sister Cancer Diabetes mellitus Gout Social History marital status: household members: spouse Smoking Status: Never smoker alcohol intake: current Smoking Status: Never smoker alcohol intake frequency: other Substance Use Type: does not use Exam Initial Vital Signs Initial Vital Signs: Vital Signs Pulse Rate 71 01/29/24 15:07 Pulse Oximetry 88 L 01/29/24 15:07 GENERAL: Alert week 73-year-old female HEENT: Head atraumatic,EOMI, pupils reactive, face symmetric, moist mucous membranes CARDIOVASCULAR: Regular rate and rhythm without murmurs, rubs or gallops. RESPIRATORY: Breath sounds equal bilaterally, no wheezes rales or rhonchi. ABDOMEN: Soft, nontender. Normoactive bowel sounds all 4 quadrants. No guarding or rebound. EXTREMITIES: Normal range of motion, no clubbing or edema. Neurovascularly intact NEUROLOGICAL: Alert and oriented xx, coil maker strength equal bilaterally SKIN: Warm, dry, no laceration, no petechiae, no rashes or lesions. Procedures Orthopedic Joint Reduction Joint #1: Side: right Joint Reduction Location: hip Analgesia: procedural sedation Technique used: traction/counter-traction and direct manipulation Post-reduction neuro exam: intact and no change Post Reduction X-Ray Obtained: Yes Post Reduction X-Ray Results: not reduced Joint #2: Side: right Joint Reduction Location: hip Analgesia: procedural sedation Technique used: traction/counter-traction and direct manipulation Post-reduction neuro exam: intact and no change Post-reduction vascular: intact Post Reduction X-Ray Obtained: Yes Post Reduction X-Ray Results: not reduced Procedural Sedation Consent signed: Yes ASA Class: II Mallampati Airway Classification: Class II IV Propofol dose (mg): 60 Intraservice time/total sedation time (min): 13 ED Sedation Level: Moderate (Concious) Patient Tolerated Procedure: Well and No complications Complications: none Additional Comments: Attempt 2. Procedure: Procedure sedation Indication(s): Right hip dislocation Past History: Allergies: [] ASA Classification: E E. Emergent conditions P1:Normal healthy patient P2: Mild systemic disease P3: Severe systemic disease P4: Severe systemic disease that is a constant threat to life P5: Moribund patient who is not expected to survive w/o operation Mallampati Classification:2 1. Soft Palate, anterior/posterior tonsillar pillars and uvula visible 2. Tonsillar pillars and uvula hidden by base of tongue 3. Only soft palate visible 4. Soft palate not visible Preparation: Plan was explained to the patient, including risks and benefits. Patient is competent to make decisions regarding this elective procedure. Consent signed. gambling monitor in place during procedure Oximetry in place during procedure. Capnometry in place during procedure. IV access present and patent. Suction available at bedside if needed. Sedation medication used: 60 mg of propofol Complications: None Reversal: Non 13 minutes time sedation Moderate procedure sedation Course Orders Ordered: ED Orders 01/29/24 15:07 Complete Blood Count AUTO DIFF Stat Comprehensive Metabolic Panel Stat Lactate (Lactic Acid) Stat Lipase Stat Troponin & CK Cardiac Panel Stat 01/29/24 15:10 CT cervical spine wo con Stat CT head/brain wo con Stat XR pelvis 1-2V Stat 01/29/24 15:12 XR chest 1V Stat EKG-12 Lead Stat 01/29/24 16:18 Lactate (Lactic Acid) Stat 01/29/24 18:11 XR pelvis 1-2V Stat 01/29/24 18:28 XR pelvis 1-2V Stat Sodium Chloride (Normal Saline 0.9%) 1,000 mls @ 150 mls/hr IV CONT YAHIR Last Admin: 01/29/24 15:57 Dose: 150 mls/hr Documented By: CED Discontinued Medications Hydromorphone HCl (Hydromorphone 1 Mg Inj) 1 mg IV NOW ONE Stop: 01/29/24 16:19 Last Admin: 01/29/24 16:26 Dose: 1 mg Documented By: CED Hydromorphone HCl (Hydromorphone 1 Mg Inj) 1 mg IV NOW ONE Stop: 01/29/24 18:27 Last Admin: 01/29/24 18:28 Dose: 1 mg Documented By: CED Acetaminophen (Ofirmev) 1,000 mg in 100 mls @ 400 mls/hr IV NOW ONE Stop: 01/29/24 16:32 Last Infusion: 01/29/24 16:50 Dose: Infused Documented By: Admin: 01/29/24 16:26 Dose: 400 mls/hr Documented By: CED Morphine Sulfate (Morphine 4 Mg/Ml Inj) 4 mg IV NOW ONE Stop: 01/29/24 15:54 Last Admin: 01/29/24 15:57 Dose: 4 mg Documented By: CED Propofol (Propofol 200 Mg/20 Ml Vial) 60 mg 1 mg/kg (60 mg) IV NOW ONE Stop: 01/29/24 17:11 Last Admin: 01/29/24 18:05 Dose: 60 mg Documented By: CED Propofol (Propofol 200 Mg/20 Ml Vial) 60 mg 1 mg/kg (60 mg) IV NOW ONE Stop: 01/29/24 18:20 Last Admin: 01/29/24 18:19 Dose: 60 mg Documented By: CED Vital Signs Vital signs: Vital Signs - 8 hr 01/29/24 15:07 01/29/24 15:08 01/29/24 15:08 Temperature 98.2 F Pulse Rate 71 72 71 Respiratory Rate 15 Blood Pressure 159/85 H Pulse Oximetry 88 L 100 99 Oxygen Delivery Method Room Air 01/29/24 15:08 01/29/24 15:10 01/29/24 15:15 Temperature Pulse Rate 71 70 Respiratory Rate 24 Blood Pressure 159/85 H Pulse Oximetry 100 99 Oxygen Delivery Method 01/29/24 15:20 01/29/24 15:37 01/29/24 15:38 Temperature Pulse Rate 69 68 Respiratory Rate 15 Blood Pressure 167/83 H Pulse Oximetry 98 99 Oxygen Delivery Method 01/29/24 15:38 01/29/24 15:40 01/29/24 15:45 Temperature Pulse Rate 70 70 68 Respiratory Rate 52 H 23 21 Blood Pressure Pulse Oximetry 98 99 Oxygen Delivery Method 01/29/24 15:50 01/29/24 15:55 01/29/24 16:00 Temperature Pulse Rate 68 68 Respiratory Rate 18 20 Blood Pressure 174/78 H Pulse Oximetry 96 95 Oxygen Delivery Method 01/29/24 16:00 01/29/24 16:05 01/29/24 16:10 Temperature Pulse Rate 68 68 69 Respiratory Rate 18 11 L 21 Blood Pressure Pulse Oximetry 96 96 96 Oxygen Delivery Method 01/29/24 16:15 01/29/24 16:20 01/29/24 16:25 Temperature Pulse Rate 69 69 71 Respiratory Rate 18 24 23 Blood Pressure Pulse Oximetry 96 96 95 Oxygen Delivery Method 01/29/24 16:30 01/29/24 16:32 01/29/24 16:32 Temperature Pulse Rate 69 70 Respiratory Rate 15 22 Blood Pressure 178/79 H Pulse Oximetry 96 96 Oxygen Delivery Method 01/29/24 16:35 01/29/24 16:40 01/29/24 16:45 Temperature Pulse Rate 70 70 72 Respiratory Rate 19 22 26 H Blood Pressure Pulse Oximetry 98 98 94 Oxygen Delivery Method 01/29/24 16:50 01/29/24 16:55 01/29/24 17:00 Temperature Pulse Rate 73 68 Respiratory Rate 24 14 Blood Pressure 180/76 H Pulse Oximetry 99 98 Oxygen Delivery Method 01/29/24 17:00 01/29/24 17:05 01/29/24 17:10 Temperature Pulse Rate 68 69 67 Respiratory Rate 11 L 34 H 18 Blood Pressure Pulse Oximetry 98 97 97 Oxygen Delivery Method 01/29/24 17:15 01/29/24 17:20 01/29/24 17:25 Temperature Pulse Rate 67 67 67 Respiratory Rate 11 L 18 22 Blood Pressure Pulse Oximetry 97 98 98 Oxygen Delivery Method 01/29/24 17:30 01/29/24 17:31 01/29/24 17:31 Temperature Pulse Rate 66 67 Respiratory Rate 17 18 Blood Pressure 128/95 H Pulse Oximetry 96 96 Oxygen Delivery Method Room Air 01/29/24 17:35 01/29/24 17:40 01/29/24 17:45 Temperature Pulse Rate 67 66 66 Respiratory Rate 18 13 19 Blood Pressure Pulse Oximetry 96 96 95 Oxygen Delivery Method 01/29/24 17:50 01/29/24 17:55 01/29/24 18:00 Temperature Pulse Rate 67 66 Respiratory Rate 25 H 17 Blood Pressure 137/65 Pulse Oximetry 97 96 Oxygen Delivery Method 01/29/24 18:00 01/29/24 18:05 01/29/24 18:06 Temperature 98.4 F Pulse Rate 67 66 66 Respiratory Rate 24 23 14 Blood Pressure 137/65 Pulse Oximetry 97 96 99 Oxygen Delivery Method 01/29/24 18:10 01/29/24 18:15 01/29/24 18:16 Temperature Pulse Rate 68 68 Respiratory Rate 15 27 H Blood Pressure 169/70 H Pulse Oximetry 98 99 Oxygen Delivery Method 01/29/24 18:16 01/29/24 18:17 01/29/24 18:24 Temperature 99.0 F Pulse Rate 68 67 66 Respiratory Rate 23 17 26 H Blood Pressure 169/70 H Pulse Oximetry 99 100 97 Oxygen Delivery Method 01/29/24 18:24 01/29/24 18:26 01/29/24 18:26 Temperature Pulse Rate 66 Respiratory Rate Blood Pressure 160/73 H 161/109 H Pulse Oximetry 97 Oxygen Delivery Method 01/29/24 18:30 01/29/24 18:31 01/29/24 18:31 Temperature Pulse Rate 66 66 Respiratory Rate Blood Pressure 146/74 H Pulse Oximetry 98 98 Oxygen Delivery Method 01/29/24 18:35 01/29/24 18:35 01/29/24 18:40 Temperature Pulse Rate 66 Respiratory Rate Blood Pressure 148/69 H 149/75 H Pulse Oximetry 98 Oxygen Delivery Method 01/29/24 18:40 Temperature Pulse Rate 66 Respiratory Rate 12 Blood Pressure Pulse Oximetry 98 Oxygen Delivery Method MDM - Fall Lab Data 01/29/24 15:07 01/29/24 15:07 Labs: Lab Results 01/29/24 Range/Units 15:07 WBC 13.7 H (4.5-11.0) X10^3/uL RBC 3.55 L (4.0-5.2) X10^6/uL Hgb 11.3 L (12.0-16.0) g/dL Hct 34.0 L (36-46) % MCV 95.6 (80-100) fL MCH 31.8 (26-34) PG MCHC 33.3 (30-36) % RDW 15.3 H (11.6-14.8) % Plt Count 187 (150-400) X10^3/uL Neut % (Auto) 88.9 H (50-75) % Lymph % (Auto) 4.8 L (25-40) % [place] % (Auto) 5.5 (3-14) % Eos % (Auto) 0.4 L (2-4) % Baso % (Auto) 0.4 (0-2) % Neut # (Auto) 87379 H (0253-0166) /uL Lymph # (Auto) 700 L (6292-7380) /uL [place] # (Auto) 800 (0-900) /uL Eos # (Auto) 100 (0-450) /uL Baso # (Auto) 100 (0-100) /uL Sodium 138 (137-145) mmol/L Potassium 4.5 (3.4-5.1) mmol/L Chloride 106 (98-107) mmol/L Carbon Dioxide 28 (22-32) mmol/L BUN 14 (7-17) mg/dL Creatinine 0.75 (0.52-1.04) mg/dL Estimated GFR > 60 (>60) mL/min BUN/Creatinine Ratio 18.7 (6-22) Glucose 119 H (80-110) mg/dL Lactate 1.3 (0.7-2.1) mmol/L Calcium 8.6 (8.4-10.2) mg/dL Total Bilirubin 0.5 (0.2-1.3) mg/dL AST 42 H (14-36) IU/L ALT 25 (<35) IU/L Alkaline Phosphatase 80 (38-126) U/L Total Creatine Kinase 416 H (30-135) U/L Troponin I < 0.012 (0.01-0.034) ng/mL Total Protein 6.3 (6.3-8.2) g/dL Albumin 3.7 (3.5-5.0) g/dL Globulin 2.6 (1.7-4.1) g/dL Albumin/Globulin Ratio 1.4 (1.0-2.8) Lipase 13 L (23-300) U/L Point of Care Testing Test Results Not applicable Urine Dip Bedside Urine Glucose Negative Bedside Urine Bilirubin - Negative Bedside Urine Ketone - Negative Urine Specific [place] 1.015 Bedside Urine Occult Blood - Negative Bedside Urine pH 7.0 Bedside Urine Protein - Negative Bedside Urine Urobilinogen - Negative Bedside Urine Nitrite - Negative Bedside Urine Leukocytes - Negative Esterase Imaging Data Extremity x-ray #1: Radiologist's Impression: PROCEDURE: XR PELVIS 1-2V INDICATIONS: pain TECHNIQUE: Single view(s) of the pelvis acquired. COMPARISON: None. FINDINGS: Bones: There is superior dislocation of the right femoral prosthesis. No fracture. Left hip arthroplasty is intact. Soft tissues: Visualized bowel gas pattern is normal. No suspicious soft tissue calcifications. IMPRESSION: Dislocated right hip arthroplasty. Dictated by: Coral Nicholson M.D. on 01/29/2024 at 15:49 Extremity x-ray #2: Radiologist's Impression: PROCEDURE: XR PELVIS 1-2V INDICATIONS: pain TECHNIQUE: Single view(s) of the pelvis acquired. COMPARISON: None. FINDINGS: Bones: There is superior dislocation of the right femoral prosthesis. No fracture. Left hip arthroplasty is intact. Soft tissues: Visualized bowel gas pattern is normal. No suspicious soft tissue calcifications. IMPRESSION: Dislocated right hip arthroplasty. Dictated by: Coral Nicholson M.D. on 01/29/2024 at 15:49 Chest x-ray: Radiologist's Impression: PROCEDURE: XR CHEST 1V INDICATIONS: fall TECHNIQUE: One view of the chest was acquired. COMPARISON: [facility], CR, XR CHEST 2V, 08/08/2023, 16:58. FINDINGS: Surgical changes and devices: None. Lungs and pleura: There is diffuse interstitial prominence bilaterally. No focal consolidation or pleural effusion. No pneumothorax. Mediastinum: Heart is normal size. There is pulmonary vascular engorgement bilaterally. Bones and chest wall: No suspicious bony lesions. Overlying soft tissues appear unremarkable. IMPRESSION: Pulmonary vascular engorgement and interstitial prominence suggesting fluid overload. Dictated by: Coral Nicholson M.D. on 01/29/2024 at 15:49 CT scan - head: Radiologist's Impression: PROCEDURE: CT HEAD/BRAIN WO CON INDICATIONS: fall TECHNIQUE: Noncontrast 4.5 mm thick angled axial sections acquired from the foramen magnum to the vertex, with coronal and sagittal reformats. For radiation dose reduction, the following was used: automated exposure control, adjustment of mA and/or kV according to patient size. COMPARISON: [facility], CT, CT HEAD/BRAIN WO CON, 12/09/2023, 2:40. FINDINGS: Image quality: Diagnostic. CSF spaces: Basal cisterns are patent. No extra-axial fluid collections. The ventricles are symmetric in size and shape. Brain: No intracranial bleeds or masses. There is cerebral volume loss for age, with resultant ventricular and sulcal prominence. There are periventricular and deep white matter chronic small vessel ischemic changes. There is intracranial internal carotid artery atherosclerosis. Skull and face: Calvarium and visualized facial bones appear intact, without suspicious lesions. Sinuses: Visualized sinuses and mastoids are clear. IMPRESSION: 1. No acute intracranial pathology. 2. Mild findings likely associated with chronic microvascular ischemic changes. Dictated by: Coral Nicholson M.D. on 01/29/2024 at 16:06 CT - cervical spine: Radiologist's Impression: a D.Maxwell PROCEDURE: CT CERVICAL SPINE WO CON INDICATIONS: fall TECHNIQUE: Noncontrast 3 mm thick sections acquired from the skull base to the T4 level. Sagittal and coronal reformats were then constructed. For radiation dose reduction, the following was used: automated exposure control, adjustment of mA and/or kV according to patient size. COMPARISON: [facility], CT, CT ANGIO CHEST ABDOMEN PELVIS, 12/10/2022, 11:51. [facility], CT, CT CERVICAL SPINE WO CON, 12/09/2023, 2:40. FINDINGS: Image quality: Excellent. Bones: Severe degenerative changes are present C1-2 and are similar to the study dated December 09, 2023. Moderate degenerative changes are present throughout the more inferior cervical spine including intervertebral disc space narrowing, endplate sclerosis, and facet sclerosis. A superior endplate compression deformity is present at T5 which is likely unchanged from the comparison study dated March 14, 2023. Soft tissues: Patchy airspace opacities are present within the visualized portions of the right upper lung. No pneumothorax or pleural effusion. A hypodense 1.2 cm soft tissue nodule is present within the left thyroid lobe. IMPRESSION: 1. Moderate to severe degenerative change of the cervical spine. No acute fracture visualized. 2. Patchy airspace opacities within the right upper lung. Short interval follow-up to resolution recommended. 3. Hypodense left thyroid soft tissue nodule. Nonemergent thyroid ultrasound could be used to further characterize this finding. Dictated by: Coral Nicholson M.D. on 01/29/2024 at 15:53 Approved by: Coral Nicholson M.D. on 01/29/2024 at 16:0 [facility] Narrative Medical decision making narrative: Patient is 73-year-old female with bilateral total hip arthroplasties presenting today with right hip pain. Started after she bent over to clean something up and fell down. She was unable to get up off floor. She has no other evidence of injury She is found to have a right hip dislocation. Blood work has been reviewed she has a mild leukocytosis of 13.7 hemoglobin 11.3 hematocrit 34.0 platelets 187, electrolytes do not show any abnormality creatinine 0.75 glucose 119, CPK 416 troponin negative, urinalysis no evidence of infection Imaging reviewed including head CT cervical spine which were atraumatic chest x-ray no acute process and pelvis x-ray shows persistent right hip dislocated Patient has mild leukocytosis without evidence of infection. She is given multiple doses of pain medication she has quite high pain tolerance and takes morphine daily Patient had mechanical fall and right hip dislocation. 2 attempts by myself unable to get hip in does feel like it is slipping some. 1900 Dr. Arreola on-call orthopedics updated patient's symptoms test results has looked at x-ray and will take patient to the OR for closed reduction Discharge Plan Departure Patient Disposition: Admitted to Surgery Clinical Impression: Closed dislocation of right hip Admit Date/Time: 01/29/24 18:58 Admit Provider: Chao Moreno
--- NOTE | 2024-01-29 15:12 | DI.RAD.S_ITS ---
PROCEDURE: XR CHEST 1V INDICATIONS: fall TECHNIQUE: One view of the chest was acquired. COMPARISON: [facility], CR, XR CHEST 2V, 08/08/2023, 16:58. FINDINGS: Surgical changes and devices: None. Lungs and pleura: There is diffuse interstitial prominence bilaterally. No focal consolidation or pleural effusion. No pneumothorax. Mediastinum: Heart is normal size. There is pulmonary vascular engorgement bilaterally. Bones and chest wall: No suspicious bony lesions. Overlying soft tissues appear unremarkable. IMPRESSION: Pulmonary vascular engorgement and interstitial prominence suggesting fluid overload. Dictated by: Coral Nicholson M.D. on 01/29/2024 at 15:49 Approved by: Coral Nicholson M.D. on 01/29/2024 at 15:50
[2024-01-29 15:29] LABS: Add Manual Diff / Slide Review NO; Basophils Absolute Auto 100 /uL (0-100); Basophils Percent Auto 0.4 % (0-2); Eosinophils Absolute Auto 100 /uL (0-450); Eosinophils Percent Auto 0.4 % (2-4); Hemoglobin 11.3 g/dL (12.0-16.0); Lymphocytes Absolute Auto 700 /uL (1100-4500); Lymphocytes Percent Auto 4.8 % (25-40); Mean Corpuscular HGB Conc 33.3 % (30-36); Mean Corpuscular Hemoglobin 31.8 PG (26-34); Mean Corpuscular Volume 95.6 fL (80-100); Monocytes Absolute Auto 800 /uL (0-900); Monocytes Percent Auto 5.5 % (3-14); Neutrophils Absolute Auto 12200 /uL (1500-7000); Neutrophils Percent Auto 88.9 % (50-75); Platelet Count 187 X10^3/uL (150-400); Red Blood Cell Count 3.55 X10^6/uL (4.0-5.2); Red Cell Distribution Width 15.3 % (11.6-14.8); White Blood Cell Count 13.7 X10^3/uL (4.5-11.0)
[2024-01-29 15:48] LABS: Lactate (Lactic Acid) 1.3 mmol/L (0.7-2.1)
[2024-01-29 15:49] LABS: Alanine Aminotransferase 25 IU/L (<35); Albumin 3.7 g/dL (3.5-5.0); Albumin Globulin Ratio 1.4 (1.0-2.8); Alkaline Phosphatase 80 U/L (38-126); Aspartate Aminotransferase 42 IU/L (14-36); BUN Creatinine Ratio 18.7 (6-22); Bilirubin Total 0.5 mg/dL (0.2-1.3); Blood Urea Nitrogen 14 mg/dL (7-17); Calcium 8.6 mg/dL (8.4-10.2); Carbon Dioxide 28 mmol/L (22-32); Chloride 106 mmol/L (98-107); Creatine Kinase 416 U/L (30-135); Estimated Glomerular Filt Rate > 60 mL/min (>60); Globulin 2.6 g/dL (1.7-4.1); Glucose 119 mg/dL (80-110); HEMOLYSIS 29 (0-50); Lipase 13 U/L (23-300); Potassium 4.5 mmol/L (3.4-5.1); Sodium 138 mmol/L (137-145); Total Protein 6.3 g/dL (6.3-8.2)
[2024-01-29] MEDS: MORPHINE 4 MG/ML INJ IV (15:57)
[2024-01-29] MEDS: SODIUM CHLORIDE 0.9% 1,000 ML 150 ML IV (15:57)
[2024-01-29 16:00] LABS: Troponin I < 0.012 ng/mL (0.01-0.034)
[2024-01-29] MEDS: ACETAMINOPHEN IV 1,000 MG/100 ML VIAL 400 MG IV (16:26)
[2024-01-29] MEDS: HYDROMORPHONE 1 MG INJ IV ×2 (16:26→18:28)
[2024-01-29] MEDS: propofoL 200 MG/20 ML VIAL 60 MG IV ×2 (18:05→18:19)
--- NOTE | 2024-01-29 18:11 | DI.RAD.S_ITS ---
PROCEDURE: XR PELVIS 1-2V INDICATIONS: reduction TECHNIQUE: 1 view(s) of the pelvis acquired. COMPARISON: [facility], CR, XR PELVIS 1-2V, 01/29/2024, 15:19[facility], CR, XR PELVIS 1-2V, 05/03/2020, 9:22. FINDINGS: Bones: Bilateral hip arthroplasties in place. Superior dislocation of the right hip arthroplasty. No suspicious bony lesions. Soft tissues: Visualized bowel gas pattern is normal. No suspicious soft tissue calcifications. IMPRESSION: Superior dislocation of the right hip arthroplasty. Dictated by: Jarad Coyle M.D. on 01/29/2024 at 18:41 Approved by: Jarad Coyle M.D. on 01/29/2024 at 18:41
--- NOTE | 2024-01-29 18:28 | DI.RAD.S_ITS ---
PROCEDURE: XR PELVIS 1-2V INDICATIONS: post reduction TECHNIQUE: 2 view(s) of the pelvis acquired. COMPARISON: [facility], CR, XR PELVIS 1-2V, 01/29/2024, 15:19. [facility], CR, XR PELVIS 1-2V, 01/29/2024, 18:28. FINDINGS: 2 intraoperative fluoroscopic images of the right hip demonstrate interval reduction of dislocated femoral component of right hip arthroplasty hardware back into anatomic alignment. IMPRESSION: Intraoperative fluoroscopic support for closed reduction of dislocated right hip arthroplasty. Please see separate procedure note for further details. Dictated by: Connor Almeida M.D. on 01/30/2024 at 1:38 Approved by: Connor Almeida M.D. on 01/30/2024 at 1:40
--- NOTE | 2024-01-29 19:28 | P.HP_ITS ---
History of Present Illness History of Present Illness Date Patient Seen: 01/29/24 Time Patient Seen: 19:28 Chief complaint: GLF Narrative: 73-year-old female seen in the preoperative holding area this evening. She reports that she was bending over to pick something up off the floor which felt a pop in her hip. Multiple attempts at closed reduction in the emergency department thus far have been unsuccessful. I am familiar with her from having performed a total knee arthroplasty on her. This total hip arthroplasty was reportedly performed by my predecessor Dr. Kurtz. Patient reports she has never had a dislocation prior to this. She has pain in the hip. It is worsened by any movement and partially alleviated by rest. It has been present since the time of injury. It does not radiate. [facility] Medical History History of COVID-19 (~05/2023) Dilation of esophagus (02/08/21) Dilation of esophagus (01/25/21) Cardiomyopathy Osteoarthritis Osteopenia Hiatal hernia DDD (degenerative disc disease) Bipolar 1 disorder GERD (gastroesophageal reflux disease) Oropharyngeal dysphagia Cervical facet joint syndrome HLD (hyperlipidemia) Thoracic kyphosis Cervical neck pain with evidence of disc disease Degenerative joint disease of right hip Spinal stenosis in cervical region Depression Fibromyalgia Seasonal allergies Chronic low back pain Cervical spondylosis Avascular necrosis of bone of hip Surgical History History of esophagogastroduodenoscopy (EGD) (12/28/20) History of esophagogastroduodenoscopy (EGD) (11/28/22) History of esophagogastroduodenoscopy (EGD) (01/11/21) History of esophagogastroduodenoscopy (EGD) (09/29/20) Hx of colonoscopy History of total right hip replacement (05/03/20) History of total left hip arthroplasty (09/22/19) History of tonsillectomy History of appendectomy History of hysterectomy H/O shoulder surgery History of right knee surgery Family History Mother Stroke Sister Cancer Diabetes mellitus Gout Social History marital status: household members: spouse Smoking Status: Never smoker alcohol intake: former Meds Home Medications and Allergies Home Medications Medication Instructions Recorded Confirmed Type ergocalciferol (vitamin D2) 1,250 50,000 unit PO WEEKLY 08/27/19 12/08/23 History mcg (50,000 unit) capsule (Vitamin D2) lutein 20 mg tablet 25 mg PO DAILY 08/27/19 12/08/23 History mirtazapine 45 mg tablet 45 mg PO BEDTIME 08/27/19 12/08/23 History multivitamin 1 tab PO DAILY 08/27/19 12/08/23 History nortriptyline 75 mg capsule 75 mg PO BEDTIME 08/27/19 12/08/23 History tizanidine 2 mg tablet 1 - 2 mg PO BID-TID PRN Muscle 08/27/19 12/08/23 History Relaxer vit C 50 mg-E 15 unit-zinc cit 4.5 2 tab PO DAILY 08/27/19 12/08/23 History mg-lutein 2.5 mg-zeaxan chew tablet ([facility] [facility]) quetiapine 300 mg tablet 300 mg PO DAILY Depression 04/19/20 12/08/23 History hydroxyzine pamoate 25 mg capsule 25 mg PO BEDTIME 03/28/22 12/08/23 History pregabalin 50 mg capsule 50 mg PO BID 03/28/22 12/08/23 History diclofenac sodium 1 % topical gel 4 g topical QID PRN pain #100 grams 06/19/22 12/08/23 Rx cetirizine 10 mg tablet 10 mg PO BEDTIME PRN congestion 06/21/22 12/08/23 Rx #30 tabs morphine 15 mg tablet,extended 15 mg PO QD-BID PRN Pain 07/17/22 12/08/23 History release pantoprazole 40 mg tablet,delayed 40 mg PO BEDTIME 07/17/22 12/08/23 History release aspirin 81 mg tablet,delayed 81 mg PO DAILY #90 tabs 09/05/22 12/08/23 Rx release atorvastatin 40 mg tablet 40 mg PO BEDTIME #90 tabs 09/05/22 12/08/23 Rx lisinopril 2.5 mg tablet 2.5 mg PO DAILY #90 tabs 09/05/22 12/08/23 Rx spironolactone 25 mg tablet 25 mg PO DAILY #90 tabs 09/05/22 12/08/23 Rx [place]-liazkgdgmtlwp-xvfelcsb 250 1 tab PO Q4-6H PRN Pain 08/05/23 12/08/23 History mg-250 mg-65 mg tablet (Excedrin Extra Strength) ferrous sulfate 325 mg (65 mg 325 mg PO DAILY #90 tabs 08/08/23 12/08/23 Rx iron) tablet (FeroSul) metoprolol succinate 100 mg 50 mg PO BID 08/15/23 12/08/23 History tablet,extended release 24 hr Allergies Allergy/AdvReac Type Severity Reaction Status Date / Time gabapentin AdvReac Severe Lethargy Verified 01/29/24 15:11 chlorzoxazone AdvReac Confusion Verified 01/29/24 15:11 salsalate AdvReac Gastrointestinal Verified 01/29/24 15:11 Upset topiramate AdvReac Lethargy Verified 01/29/24 15:11 Review of Systems Review of Systems ROS: Yes All systems reviewed with the patient and are negative except as otherwise documented Exam Vital Signs (past 8 hours): - 01/29/24 15:07 01/29/24 15:08 01/29/24 15:08 Temperature 98.2 F Pulse Rate 71 72 71 Respiratory Rate 15 Blood Pressure 159/85 H Pulse Oximetry 88 L 100 99 Oxygen Delivery Method Room Air 01/29/24 15:08 01/29/24 15:10 01/29/24 15:15 Temperature Pulse Rate 71 70 Respiratory Rate 24 Blood Pressure 159/85 H Pulse Oximetry 100 99 Oxygen Delivery Method 01/29/24 15:20 01/29/24 15:37 01/29/24 15:38 Temperature Pulse Rate 69 68 Respiratory Rate 15 Blood Pressure 167/83 H Pulse Oximetry 98 99 Oxygen Delivery Method 01/29/24 15:38 01/29/24 15:40 01/29/24 15:45 Temperature Pulse Rate 70 70 68 Respiratory Rate 52 H 23 21 Blood Pressure Pulse Oximetry 98 99 Oxygen Delivery Method 01/29/24 15:50 01/29/24 15:55 01/29/24 16:00 Temperature Pulse Rate 68 68 Respiratory Rate 18 20 Blood Pressure 174/78 H Pulse Oximetry 96 95 Oxygen Delivery Method 01/29/24 16:00 01/29/24 16:05 01/29/24 16:10 Temperature Pulse Rate 68 68 69 Respiratory Rate 18 11 L 21 Blood Pressure Pulse Oximetry 96 96 96 Oxygen Delivery Method 01/29/24 16:15 01/29/24 16:20 01/29/24 16:25 Temperature Pulse Rate 69 69 71 Respiratory Rate 18 24 23 Blood Pressure Pulse Oximetry 96 96 95 Oxygen Delivery Method 01/29/24 16:30 01/29/24 16:32 01/29/24 16:32 Temperature Pulse Rate 69 70 Respiratory Rate 15 22 Blood Pressure 178/79 H Pulse Oximetry 96 96 Oxygen Delivery Method 01/29/24 16:35 01/29/24 16:40 01/29/24 16:45 Temperature Pulse Rate 70 70 72 Respiratory Rate 19 22 26 H Blood Pressure Pulse Oximetry 98 98 94 Oxygen Delivery Method 01/29/24 16:50 01/29/24 16:55 01/29/24 17:00 Temperature Pulse Rate 73 68 Respiratory Rate 24 14 Blood Pressure 180/76 H Pulse Oximetry 99 98 Oxygen Delivery Method 01/29/24 17:00 01/29/24 17:05 01/29/24 17:10 Temperature Pulse Rate 68 69 67 Respiratory Rate 11 L 34 H 18 Blood Pressure Pulse Oximetry 98 97 97 Oxygen Delivery Method 01/29/24 17:15 01/29/24 17:20 01/29/24 17:25 Temperature Pulse Rate 67 67 67 Respiratory Rate 11 L 18 22 Blood Pressure Pulse Oximetry 97 98 98 Oxygen Delivery Method 01/29/24 17:30 01/29/24 17:31 01/29/24 17:31 Temperature Pulse Rate 66 67 Respiratory Rate 17 18 Blood Pressure 128/95 H Pulse Oximetry 96 96 Oxygen Delivery Method Room Air 01/29/24 17:35 01/29/24 17:40 01/29/24 17:45 Temperature Pulse Rate 67 66 66 Respiratory Rate 18 13 19 Blood Pressure Pulse Oximetry 96 96 95 Oxygen Delivery Method 01/29/24 17:50 01/29/24 17:55 01/29/24 18:00 Temperature Pulse Rate 67 66 Respiratory Rate 25 H 17 Blood Pressure 137/65 Pulse Oximetry 97 96 Oxygen Delivery Method 01/29/24 18:00 01/29/24 18:05 01/29/24 18:06 Temperature 98.4 F Pulse Rate 67 66 66 Respiratory Rate 24 23 14 Blood Pressure 137/65 Pulse Oximetry 97 96 99 Oxygen Delivery Method 01/29/24 18:10 01/29/24 18:15 01/29/24 18:16 Temperature Pulse Rate 68 68 Respiratory Rate 15 27 H Blood Pressure 169/70 H Pulse Oximetry 98 99 Oxygen Delivery Method 01/29/24 18:16 01/29/24 18:17 01/29/24 18:24 Temperature 99.0 F Pulse Rate 68 67 66 Respiratory Rate 23 17 26 H Blood Pressure 169/70 H Pulse Oximetry 99 100 97 Oxygen Delivery Method 01/29/24 18:24 01/29/24 18:26 01/29/24 18:26 Temperature Pulse Rate 66 Respiratory Rate Blood Pressure 160/73 H 161/109 H Pulse Oximetry 97 Oxygen Delivery Method 01/29/24 18:30 01/29/24 18:31 01/29/24 18:31 Temperature Pulse Rate 66 66 Respiratory Rate Blood Pressure 146/74 H Pulse Oximetry 98 98 Oxygen Delivery Method 01/29/24 18:35 01/29/24 18:35 01/29/24 18:40 Temperature Pulse Rate 66 Respiratory Rate Blood Pressure 148/69 H 149/75 H Pulse Oximetry 98 Oxygen Delivery Method 01/29/24 18:40 Temperature Pulse Rate 66 Respiratory Rate 12 Blood Pressure Pulse Oximetry 98 Oxygen Delivery Method Oxygen Delivery Method Room Air Narrative Exam Narrative: Right lower extremity: Well-healed posterior incision. Extremity is adducted and shortened. Sensation intact to light touch in the foot. Palpable DP pulse. Flexes and extends hallux and ankle. Const General: cooperative Orientation: alert and awake [facility] Head: normal to inspection Ears: hearing grossly normal bilaterally Eyes General: appearance normal, both eyes and all related structures Neck Neck: normal visual inspection Resp Effort & Inspection: normal respiratory effort and able to speak in complete sentences Cardio Pulses: other (peripheral pulses present) Skin Lesions: no lesions Rashes: no rashes Neuro General: patient alert, patient awake and moves all extremities Psych Appearance: grossly normal Objective Imaging Pelvis x-ray: My impression: Right prosthetic hip dislocation Labs 01/29/24 15:07 01/29/24 15:07 Labs: Laboratory Results - last 24 hr 01/29/24 15:07 WBC 13.7 H RBC 3.55 L Hgb 11.3 L Hct 34.0 L MCV 95.6 MCH 31.8 MCHC 33.3 RDW 15.3 H Plt Count 187 Neut % (Auto) 88.9 H Lymph % (Auto) 4.8 L [place] % (Auto) 5.5 Eos % (Auto) 0.4 L Baso % (Auto) 0.4 Neut # (Auto) 52057 H Lymph # (Auto) 700 L [place] # (Auto) 800 Eos # (Auto) 100 Baso # (Auto) 100 Sodium 138 Potassium 4.5 Chloride 106 Carbon Dioxide 28 BUN 14 Creatinine 0.75 Estimated GFR > 60 BUN/Creatinine Ratio 18.7 Glucose 119 H Lactate 1.3 Calcium 8.6 Total Bilirubin 0.5 AST 42 H ALT 25 Alkaline Phosphatase 80 Total Creatine Kinase 416 H Troponin I < 0.012 Total Protein 6.3 Albumin 3.7 Globulin 2.6 Albumin/Globulin Ratio 1.4 Lipase 13 L Assessment & Plan Assessment and plan (1) Hip dislocation, right: Status: Acute Plan Plan for closed reduction under anesthesia this evening. We will utilize the fracture table for assistance with reduction. We will use fluoroscopic to confirm. Presuming reduction is successful, Plan to have her in an abduction pillow after reduction with transition to an abduction brace tomorrow. She will remain in the hospital overnight.
--- NOTE | 2024-01-29 20:38 | P.OP_ITS ---
Operative Date/Time/Diagnoses Date of procedure: 01/29/24 Pre-op diagnosis: Prosthetic right hip dislocation Post-op diagnosis: same Procedure & Clinicians Procedure: Closed reduction under anesthesia of right hip Same procedure as scheduled: Yes Surgeon: Chao Moreno Anesthesia Type: Sedation Operative Notes Procedure in detail: This 73-year-old female patient had a history of right hip arthroplasty. She has no prior history of dislocations. I was on-call this evening and was contacted by the emergency department who had had 2 unsuccessful attempts at closed reduction of her hip. I counseled her regarding the risks and benefits of closed reduction. I discussed the possibility of unsuccessful closed reduction as well as possibility of damage to surrounding structures such as nerves. Informed consent was signed the operative site was marked. She was brought back to the operating room. She was placed supine on the [place] table. A time-out procedure was performed. Her description of her dislocation mechanism was most consistent with a posterior dislocation as she reported she was bending over when it occurred however fluoroscopic evaluation indicated that the head was sitting anteriorly. Reduction involved a combination of internal rotation, adduction, and hip flexion. This was followed by returning the hip to neutral rotation, abducting the hip, and releasing traction. This was confirmed to have been reduced fluoroscopically. Fluoroscopic images both AP and lateral were saved. I manipulated the hip with internal and external rotation on multiple views demonstrating a concentric reduction. Post-operative Plan for aftercare: 1. Patient to be admitted overnight 2. Transitioned from hip abduction pillow to hip abduction brace in the morning 3. CT scan of pelvis for evaluation of component positioning 4. Follow up with me next week
--- NOTE | 2024-01-29 20:48 | SUR.OPER ---
Supine on padded [place] table with bilateral legs secured in padded positioning boots and suspended in positioning spars. Head on pillow. RIGHT ARM ON PADDED ARMBOARD @ <90 DEGREES, LEFT ARM SECURED W/TAPE & BLANKET ACROSS CHEST. PADDED perineal post in place. CONFIRMED BY DR. CLEMENTS.
--- NOTE | 2024-01-29 20:49 | DI.CT.S_ITS ---
PROCEDURE: CT PEL WO CON INDICATIONS: Post hip reduction TECHNIQUE: Noncontrast 3 mm axial sections acquired through the bony pelvis, with coronal and sagittal reformatting. COMPARISON: [facility], CR, XR PELVIS 1-2V, 01/29/2024, 18:28. [facility], CT, CT ABDOMEN PELVIS W CON, 12/28/2023, 10:42. FINDINGS: Image quality: Diagnostic. Moderate beam hardening/streak artifact from surgical hardware obscures visualization of the adjacent structures of the lower pelvis. Bones: Status post bilateral total hip arthroplasty. Normal alignment of the bilateral arthroplasty hardware components. There is a small acute fracture fragment involving the superior, lateral aspect of the right greater trochanter. This is minimally displaced. This does not extend towards the femoral component of arthroplasty hardware. No other fracture seen. Sacroiliac joints are symmetric. Lower lumbar spondylosis. Visualized pelvic ring appear intact. Soft tissues: No suspicious pelvic mass lesions or adenopathy. Partially imaged cystic structure in the anterior right upper pelvis likely represent a distended gallbladder. No acute inflammatory changes seen. IMPRESSION: Normal alignment of right total hip arthroplasty status post closed reduction. Small avulsion fracture fragment involving the periphery of the superior aspect of the right greater trochanter. Status post left total hip arthroplasty without hardware complication. Dictated by: Connor Almeida M.D. on 01/30/2024 at 1:40 Approved by: Connor Almeida M.D. on 01/30/2024 at 1:48
[2024-01-29] MEDS: PREGABALIN 25 MG CAPSULE 50 MG PO (23:11)
[2024-01-29] MEDS: LACTATED RINGERS 1,000 ML 100 ML IV (23:11)
[2024-01-29] MEDS: MORPHINE ER 15 MG TABLET PO (23:12)
[2024-01-29] MEDS: NORTRIPTYLINE HCL 25 MG CAPSULE 75 MG PO (23:12)
[2024-01-29] MEDS: MIRTAZAPINE 15 MG TABLET 45 MG PO (23:12)
[2024-01-29] MEDS: PANTOPRAZOLE DR 40 MG TABLET PO (23:12)
[2024-01-29] MEDS: hydrOXYzine HCL 25 MG TABLET PO (23:12)
[2024-01-29] MEDS: ATORVASTATIN 20 MG TABLET 40 MG PO (23:14)
[2024-01-29] MEDS: DOCUSATE 100 MG CAPSULE PO (23:14)
[2024-01-29] MEDS: METOPROLOL ER 50 MG TABLET PO (23:14)
[2024-01-29] MEDS: ASPIRIN EC 81 MG TABLET PO (23:15)
[2024-01-29] MEDS: ACETAMINOPHEN 325 MG TABLET 650 MG PO (23:16)
[2024-01-30] VITALS (10 sets, daily range): BP systolic 104–152; BP diastolic 45–74; PULSE 75–83; RESP 16–18; TEMP 36.4–37; O2SAT 93–96
--- NOTE | 2024-01-30 05:22 | PC.NURSE ---
Patient admitted to AC unit from PACU at 21:10 for closed reduction on right hip. Spouse present at admit. Alert and oriented, forgetful. LR @ 100. Oriented to room and call light. Neither patient, nor spouse, could recall medications in order to complete med reconciliation. Slept intermittently through the night.
[2024-01-30] MEDS: ACETAMINOPHEN 325 MG TABLET 650 MG PO ×2 (07:23→17:32)
[2024-01-30] MEDS: ASPIRIN EC 81 MG TABLET PO ×2 (07:23→20:13)
--- NOTE | 2024-01-30 07:41 | P.DS_ITS ---
History of Present Illness History of Present Illness Date Patient Seen: 01/30/24 Time Patient Seen: 07:00 Chief complaint: GLF Narrative: Operative Date/Time/Diagnoses Date of procedure: 01/29/24 Pre-op diagnosis: Prosthetic right hip dislocation Post-op diagnosis: same Procedure & Clinicians Procedure: Closed reduction under anesthesia of right hip Same procedure as scheduled: Yes Surgeon: Chao Moreno Anesthesia Type: Sedation Operative Notes Procedure in detail: This 73-year-old female patient had a history of right hip arthroplasty. She has no prior history of dislocations. I was on-call this evening and was contacted by the emergency department who had had 2 unsuccessful attempts at closed reduction of her hip. I counseled her regarding the risks and benefits of closed reduction. I discussed the possibility of unsuccessful closed reduction as well as possibility of damage to surrounding structures such as nerves. Informed consent was signed the operative site was marked. She was brought back to the operating room. She was placed supine on the [place] table. A time-out procedure was performed. Her description of her dislocation mechanism was most consistent with a posterior dislocation as she reported she was bending over when it occurred however fluoroscopic evaluation indicated that the head was sitting anteriorly. Reduction involved a combination of internal rotation, adduction, and hip flexion. This was followed by returning the hip to neutral rotation, abducting the hip, and releasing traction. This was confirmed to have been reduced fluoroscopically. Fluoroscopic images both AP and lateral were saved. I manipulated the hip with internal and external rotation on multiple views demonstrating a concentric reduction. Discharge Providers Provider Date of admission: 01/29/24 18:58 Discharge Date: 01/30/24 Primary care physician: Amita Giron DO Consults: 01/29/24 22:05 Consult to Discharge Planning Routine Comment: Consult to Occupational Therapy Evaluate & Treat Comment: Physician Instructions: Evaluate and treat Consult to Physical Therapy Evaluate & Treat Comment: Physician Instructions: post op DEVORAH protocol 01/30/24 07:06 Consult to Physical Therapy Evaluate & Treat Comment: transition out of abduction block to brace Physician Instructions: Fit and dispense hip abduction brace Discharge provider: Vinnie Demarco PA-C Summary Hospital Course Discharge Diagnosis: Status post closed reduction of the right hip Hospital Course: Utilize abduction pillow throughout the evening. Transitioned to abduction brace in the morning. Multimodal pain control. Physical therapy. Status at Discharge Cognitive/behavioral status at discharge: oriented Time Spent with Patient Time spent: Less than 30 minutes Exam Vital Signs (past 8 hours): - 01/30/24 00:10 01/30/24 00:37 01/30/24 05:17 Temperature 98 F 98.6 F Pulse Rate 75 75 81 Respiratory Rate 17 16 Blood Pressure 152/71 H 152/71 H 142/63 H Pulse Oximetry 95 95 Oxygen Flow Rate 0 0 Oxygen Delivery Method Nasal Cannula Oxygen Flow Rate 0 Narrative Exam Narrative: Patient is found awake and oriented this morning says she has little pain over her right hip. She had a comfortable sleep last night. Denies any numbness or tingling in the right hip. Denies any fever chills nausea or vomiting. Patient is found in abduction pillow. Patient is able to dorsiflex and plantar flex against resistance bilaterally at the ankles. Sensation is intact to light touch throughout the lower extremities. No increased pain to compression of the posterior calf or thigh. Tenderness to palpation over the right hip. Objective Labs 01/30/24 05:30 01/29/24 15:07 Labs: Laboratory Results - last 24 hr 01/29/24 01/30/24 15:07 05:30 WBC 13.7 H RBC 3.55 L Hgb 11.3 L 11.0 L Hct 34.0 L 33.0 L MCV 95.6 MCH 31.8 MCHC 33.3 RDW 15.3 H Plt Count 187 Neut % (Auto) 88.9 H Lymph % (Auto) 4.8 L [place] % (Auto) 5.5 Eos % (Auto) 0.4 L Baso % (Auto) 0.4 Neut # (Auto) 75743 H Lymph # (Auto) 700 L [place] # (Auto) 800 Eos # (Auto) 100 Baso # (Auto) 100 Sodium 138 Potassium 4.5 Chloride 106 Carbon Dioxide 28 BUN 14 Creatinine 0.75 Estimated GFR > 60 BUN/Creatinine Ratio 18.7 Glucose 119 H Lactate 1.3 Calcium 8.6 Total Bilirubin 0.5 AST 42 H ALT 25 Alkaline Phosphatase 80 Total Creatine Kinase 416 H Troponin I < 0.012 Total Protein 6.3 Albumin 3.7 Globulin 2.6 Albumin/Globulin Ratio 1.4 Lipase 13 L [facility] Medical History History of COVID-19 (~05/2023) Dilation of esophagus (02/08/21) Dilation of esophagus (01/25/21) Cardiomyopathy Osteoarthritis Osteopenia Hiatal hernia DDD (degenerative disc disease) Bipolar 1 disorder GERD (gastroesophageal reflux disease) Oropharyngeal dysphagia Cervical facet joint syndrome HLD (hyperlipidemia) Thoracic kyphosis Cervical neck pain with evidence of disc disease Degenerative joint disease of right hip Spinal stenosis in cervical region Depression Fibromyalgia Seasonal allergies Chronic low back pain Cervical spondylosis Avascular necrosis of bone of hip Surgical History History of esophagogastroduodenoscopy (EGD) (12/28/20) History of esophagogastroduodenoscopy (EGD) (11/28/22) History of esophagogastroduodenoscopy (EGD) (01/11/21) History of esophagogastroduodenoscopy (EGD) (09/29/20) Hx of colonoscopy History of total right hip replacement (05/03/20) History of total left hip arthroplasty (09/22/19) History of tonsillectomy History of appendectomy History of hysterectomy H/O shoulder surgery History of right knee surgery Family History Mother Stroke Sister Cancer Diabetes mellitus Gout Social History marital status: household members: spouse Smoking Status: Never smoker alcohol intake: current Discharge Assessment & Plan Assessment and Plan Assessment: Status post closed reduction of a prosthetic right hip. Plan of Treatment: Transition from abduction pillow to abduction brace this morning. Work with physical therapy. Able to discharge home pending PT approval. Patient has baseline pain management with morphine may continue to utilize as directed. Follow up with Dr. Micky Nixon the next week. Discharge Plan Discharge Plan Patient Disposition: Home Provider Discharge Comment: DC pending PT clearance Discharge orders & Medications Prescriptions: New aspirin 81 mg Tablet,Delayed Release (Dr/Ec) 81 mg PO BID Qty: 90 0RF Continued ferrous sulfate [FeroSul] 325 mg (65 mg iron) tablet 325 mg PO DAILY Qty: 90 3RF quetiapine 300 mg Tablet 300 mg PO DAILY diclofenac sodium 1 % gel 4 g topical QID PRN (Reason: pain) Qty: 100 0RF Rx Instructions: apply to painful area as needed cetirizine 10 mg tablet 10 mg PO BEDTIME PRN (Reason: congestion) Qty: 30 0RF atorvastatin 40 mg tablet 40 mg PO BEDTIME Qty: 90 0RF lisinopril 2.5 mg tablet 2.5 mg PO DAILY Qty: 90 0RF spironolactone 25 mg Tablet 25 mg PO DAILY Qty: 90 0RF Excedrin Extra Strength 250-250-65 mg Tablet 1 tab PO Q4-6H PRN (Reason: Pain) metoprolol succinate 100 mg tablet extended release 24 hr 50 mg PO BID multivitamin Tablet 1 tab PO DAILY nortriptyline 75 mg Capsule 75 mg PO BEDTIME ergocalciferol (vitamin D2) [Vitamin D2] 50,000 unit Capsule 50,000 unit PO WEEKLY Patient Comments: takes on Friday lutein 20 mg Tablet 25 mg PO DAILY Ocuvite Eye Health 50 mg-15 unit- 4.5 mg-2.5 mg Tablet,Chewable 2 tab PO DAILY tizanidine 2 mg Tablet 1 - 2 mg PO BID-TID PRN (Reason: Muscle Relaxer) mirtazapine 45 mg Tablet 45 mg PO BEDTIME pregabalin 50 mg capsule 50 mg PO BID hydroxyzine pamoate 25 mg capsule 25 mg PO BEDTIME Patient Comments: TAKE UP TO 2 CAPS A DAY NEEDED morphine 15 mg tablet extended release 15 mg PO QD-BID PRN (Reason: Pain) Patient Comments: take 1 tablet by mouth every 8 hours 06/19/2022 pantoprazole 40 mg tablet,delayed release (DR/EC) 40 mg PO BEDTIME Discontinued aspirin 81 mg Tablet,Delayed Release (Dr/Ec) 81 mg PO DAILY Qty: 90 0RF Follow up/Referrals: Amita Giron DO [Primary Care Provider] - Diet/Activity/Treatments Diet: Diet as Tolerated Activity: Wear abduction brace until follow up with Dr. Moreno. Ambulate with assistive device. Cold/Heat Therapy: Ice over right hip as needed. 15 minutes at a time with a 1 hour break as needed Visit Report/Discharge Packet Stand Alone Forms: Patient Portal/API, Stroke Signs & Symptoms Discharge Data Primary Care Provider: Amita Giron Attending Provider: Chao Moreno Admit Date/Time: 01/29/24 18:58 Quality VTE Deep Vein Thrombosis/Pulmonary Embolism Present on Admission: No
[2024-01-30] MEDS: VIT C/E/ZN/COPPR/LUTEIN/ZEAXAN CAPSULE 2 CAP PO (08:25)
[2024-01-30] MEDS: QUETIAPINE 100 MG TABLET 300 MG PO (08:25)
[2024-01-30] MEDS: MORPHINE ER 15 MG TABLET PO ×2 (08:25→20:12)
[2024-01-30] MEDS: FERROUS SULFATE 325 MG TABLET PO (08:26)
[2024-01-30] MEDS: DOCUSATE 100 MG CAPSULE PO ×2 (08:26→20:12)
[2024-01-30] MEDS: PREGABALIN 25 MG CAPSULE 50 MG PO ×2 (08:26→20:12)
[2024-01-30] MEDS: lisinopriL 5 MG TABLET 2.5 MG PO (08:26)
[2024-01-30] MEDS: METOPROLOL ER 50 MG TABLET PO ×2 (08:26→20:13)
[2024-01-30] MEDS: SPIRONOLACTONE 25 MG TABLET PO (08:26)
[2024-01-30] MEDS: LACTATED RINGERS 1,000 ML 100 ML IV (08:36)
--- NOTE | 2024-01-30 12:25 | PT.IIE ---
Current Diagnoses Unspecified dislocation of right hip, initial encounter (01/29/24) Surgery Performed Operation Date: 01/29/24 19:45 Actual Procedures p Closed Reduction Dislocated RIGHT Hip(Right) - Chao Moreno MD Surgical History (Last Reviewed 12/28/23 @ 10:01 by Caroline Jaramillo DO) H/O shoulder surgery History of appendectomy History of esophagogastroduodenoscopy (EGD) (09/29/20) History of esophagogastroduodenoscopy (EGD) (01/11/21) History of esophagogastroduodenoscopy (EGD) (11/28/22) History of esophagogastroduodenoscopy (EGD) (12/28/20) History of hysterectomy History of right knee surgery History of tonsillectomy History of total left hip arthroplasty (09/22/19) History of total right hip replacement (05/03/20) Hx of colonoscopy Medical History (Last Reviewed 12/28/23 @ 10:01 by Caroline Jaramillo DO) Avascular necrosis of bone of hip Bipolar 1 disorder Cardiomyopathy Cervical facet joint syndrome Cervical neck pain with evidence of disc disease Cervical spondylosis Chronic low back pain DDD (degenerative disc disease) Degenerative joint disease of right hip Depression Dilation of esophagus (01/25/21) Dilation of esophagus (02/08/21) Fibromyalgia GERD (gastroesophageal reflux disease) Hiatal hernia History of COVID-19 (~05/2023) HLD (hyperlipidemia) Oropharyngeal dysphagia Osteoarthritis Osteopenia Seasonal allergies Spinal stenosis in cervical region Thoracic kyphosis Physical Therapy Inpatient Evaluation/Re-Eval M1 PT/OT-IP Prior Functional Status Start: 01/30/24 08:25 Freq: NEEDED Status: Active Protocol: Document 01/30/24 12:25 AB (Rec: 01/30/24 15:35 AB [id number]) Medical Review Prior Functional Status Medical History Reviewed Yes Communication pt is sleepy and needs cues to keep eyes open Mobility and Gait per spouse: pt was modified independent with all mobilities and ambulation without AD but occasionally uses a FWW Social History Household Members spouse Living Arrangements House Number of Floors (Floors) One Floor Number of Stairs To Enter/Railing? 2 steps R rail to enter Home Environment Standard Height Toilet,Walk in Shower,Tub/Shower,Built-In Shower Seat Home Equipment Front Wheel Walker,Four Wheel Walker,Bedside Commode,Raised Toilet Seat Without Armrests Additional Social History Comment pt does not take showers but only sponge/spit bathes M2 PT-IP Current Condition Start: 01/30/24 08:25 Freq: NEEDED Status: Active Protocol: Document 01/30/24 12:25 AB (Rec: 01/30/24 15:35 AB [id number]) Physical Therapy Current Condition Current Condition Evaluation Date 01/30/24 Treatment Diagnosis R hip dislocation s/p closed reduction; difficulty in walking Onset Date 01/29/24 M3 PT-IP Subjective Start: 01/30/24 08:25 Freq: NEEDED Status: Active Protocol: Document 01/30/24 12:25 AB (Rec: 01/30/24 15:35 AB [id number]) Subjective Physical Therapy Visit Type Type Initial Evaluation Visit Start Time 12:25 Visit Stop Time 14:30 Notes reviewed EMR and Received orders for hip abductor brace. no parameter orders seen. called KAYE Demarco to clarify parameters for hip abductor brace and stated that he has to ask dr. Morneo. Asked PA to put in order for parameters . checked on order update and received parameters for hip abductor brace. proceeded to fit pt with abductor hip brace . Number of SHADE CUTTER Visits 0 Physical Therapy Visit Comments Patient Comments agreeable to do PT Therapy Pain Assessment Pain When Pain Assessed At Rest Pain Present Pain Present Pain Reported Location Right Hip Scale Used pain scale not stated; increases with mobility Pain Behaviors Facial Grimacing,Guarding Pain Management Techniques Distraction,Modification of Treatment,Re-positioning, Timing of Activity with Medications M4 PT-IP Mobility and Gait Start: 01/30/24 08:25 Freq: NEEDED Status: Active Protocol: Document 01/30/24 12:25 AB (Rec: 01/30/24 15:35 AB [id number]) PT-Bed Mobility Assessment Rolling Level of Assist Maximal Assistance,2 Person Assistance Supine to Sit Supine to Sit Maximum Assistance,Total Assistance,2 Person Assistance ,Bedrails Sit to Supine Sit to Supine Maximum Assistance,Total Assistance,2 Person Assistance ,Bedrails Scooting Scooting to Edge of Bed Dependent PT-Transfer Assessment Sit to and From Stand Sit to and from Stand Maximum Assistance,2 Person Assistance,Use of Upper Extremities Equipment Transfer Assistive Device Front Wheeled Walker Orthotic/Prosthetic Devices or Brace: No Comments Mobility Comments Received order for hip abductor brace. pt in supine and spouse in room. obtained PLOF and home set up. pt fitted with hip abductor brace : 0 deg ext, 70 deg flexion and 15 deg abduction. pt required max A x 2 for rolling L<>R during brace fitting. required several adjustments for proper fit. educated pt and spouse for pt's anterior and posterior hip precautions. pt unable to recall. stated that she has difficulty remembering even before. BP in supine: 90/48. pt completed supine to sit max A x 2 to total Ax 2 and max cues and required max A x 1-2 for sitting balance on EOB with increase posterior trunk lean. BP: 103/52. no c/o dizziness . required several attempts for supine<>sit for brace adjustments. pt completed sit to stand using FWW max A x 2 and max cues. cued for hip precautions. pt required max A x 1-2 for standing balance using fWW. pt was able to stand for ~ 5 min while brace is being repositioned. instructed pt to take side steps towards HOB using FWW max A x 2 and max cues. c/o increase r hip pain. pt sat on EOB max A x 2 and needed assist for hip precautions. assisted pt back to bed sit to supine max A x 2 to total A x 2 and max cues. positioned pt in bed max x 1-2 and max cues . spouse signed papers for hip abductor brace. informed pt and spouse regarding SNF recommendation and both agreed. Gait Assessment Gait Distance (Feet) 2 Able to Maintain Weight Bearing Status Yes During Gait Assistive Devices Assistive Device Gait Belt,Front Wheeled Walker Orthotic/Prosthetic Devices or Brace: Yes Factors Limiting Gait Function Factors Limiting Gait Function Decreased Activity Tolerance, Decreased Strength,Difficulty Following Directions,Limited Range of Motion,Pain,Poor Balance,Poor Safety Awareness Comments Gait Comments only side stepping towards HOB PT-Balance Assessment Sitting Balance and Reactions Static Sitting Balance Ability Poor Dynamic Sitting Balance Ability Poor Standing Balance and Reactions Static Standing Balance Ability Poor Dynamic Standing Balance Ability Poor Device Used FWW M5 PT-IP Objective Assessments Start: 01/30/24 08:25 Freq: NEEDED Status: Active Protocol: Document 01/30/24 12:25 AB (Rec: 01/30/24 15:35 AB [id number]) Orientation Orientation/Cognition Level of Alertness Alert Orientation Name Safety Awareness Decreased Safety Awareness Memory Description Short Term Impaired,Half-Way Impaired Strength Lower Extremity Strength Assessment Right Impaired Hip 3-/5 Knee 3+/5 Muscle Tone Muscle Tone WNL Yes M6 PT-IP Treatment Start: 01/30/24 08:25 Freq: NEEDED Status: Active Protocol: Document 01/30/24 12:25 AB (Rec: 01/30/24 15:35 AB [id number]) Physical Therapy Treatment Education Education Provided Precautions,Weight Bearing Status,Post-Op Packet,Safety M7 PT-IP Assessment and Plan Start: 01/30/24 08:25 Freq: NEEDED Status: Active Protocol: Document 01/30/24 12:25 AB (Rec: 01/30/24 15:35 AB [id number]) PT Summary Assessment and Plan Potential Rehabilitation Potential Fair Status of Condition at Evaluation Evolving Summary Impairments Pain,ROM,Strength,Balance, Coordination,Sensation,Tone, Cognition,Bed Mobility, Transfers,Gait,Activity Tolerance Assessment Summary pt is a 73 y/o F who had a fall and sustained a R hip dislocation with h/o R posterior DEVORAH in 2019. pt underwent closed hip reduction and is WBAT on RLE but has both anterior and posterior hip precautions. also received order for hip abductor brace and pt fitted with one. pt requiring max A x 2 to total A x 2 and max cues with all tasks and was only able to take side steps to reposition towards HOB before getting back to bed. pt will require SNF rehab to improve overall strength and mobility. Goals Bed Mobility Goal Minimal Assistance Transfer Goal Minimal Assistance,Front Wheeled Walker Gait Goal Minimal Assistance,Front Wheel Walker Gait Distance 50 Other Goals improve bed mobility, transfers, ambulation using FWW ~ 100 ft SBA up/down 2 steps R rail min A Days to Meet Goals 10 Frequency of Treatment Frequency Of Treatment Once a Day Treatment Plan Physical Therapy Treatment Plan Bed Mobility Training,Transfer Training,Gait Training, Therapeutic Exercise,Balance Retraining,Post Op Education, Discharge Planning,Hot or Cold Pack,Neuromuscular Re-ed, Coordination Retraining,Manual Therapy Precautions Posterior Hip Precautions No Hip Flexion > 90 degrees,No Hip Internal Rotation,No Hip Adduction Anterior Hip Precautions No Hip Extension,No Hip External Rotation Brace R hip abductor brace: 70 deg flexion; 0 deg ext; 15 deg abduction Weight Bearing Status Weight Bearing Status Weight Bear as Tolerated Allowed Weight Bearing Amount (enter % RLE WBAT or #) (%) Recommendations To Nursing Amount of Assist Needed Mechanical Lift Discharge Recommendations PT Discharge Recommendations SNF Rehab Transportation Needs at Discharge Wheelchair/Cabulance,Stretcher /Ambulance
--- NOTE | 2024-01-30 12:59 | CM.DANOTE ---
Addendum entered by DONNIE Burnette 01/30/24 15:33: Per OT Ines, pt is now being recommended for SNF, pt is currently a 2 person-assist. Also, hip abduction brace will need to be adjusted by orthopedist, might not be available until Friday. Pt has [employer] insurance, SNF will need to obtain an authorization. Referral has been sent to [facility] for review. Plan: Anticipating discharge to SNF, pending acceptance and insurance authorization. PARVIZ Chilel Original Note: DCP Assessment Note: Pt is a 73yo female, resident [facility], is presented to the ED for a GLF and a dislocated hip. Pt has a previous medical history of memory impairment, chronic pain. Pt lives in a house with her , Ashlee Pérez who is her main caregiver. Pt's Primary Care Provider is Dr. Amita Giron DO and and insurance is [employer] and [employer]. Reviewed chart and team rounds for pt's medical status and initial discharge needs. DCP met w/patient at bedside; introduced self and role. Present in the room is pt's . Pt was found in bed, alert and oriented, cooperative with assessment. Pt confirmed living situation and good support in . Pt expressed preference in returning home as soon as medically cleared, to transport pt home. DCP offered referral to home health if necessary, pt and refused at this time. Pt was endorsing shoulder pain that is way over 05/20, DCP notified ÁNGEL Loving. Plan: Discharge order is in, .21. Awaiting PT/OT evaluations and recommendation for fitting and teaching of hip abduction brace. CM team will plan to following for any discharge needs that may arise. PARVIZ Chilel Discharge Planning/Care Management CM Discharge Assessment Start: 01/30/24 12:55 Freq: Status: Active Protocol: Document 01/30/24 12:56 MW (Rec: 01/30/24 12:59 MW [id number]) Discharge Planning Assessment Assigned Morning Babysitter DONNIE Flanagan DPOA/Assigned Designee Name Ashlee Pérez, Spouse Contact Information [phone] Advance Directives? Yes Advance Directives on File No History Provided By Patient,Family Member,Medical Record Has Patient been admitted in last 30 No days? Prior Living Arrangements House Household Members spouse Independent with ADL's Yes Is patient alert and oriented? No Caregiver for Another No DME Already Rented / Owned Bath Bench,Elevated Toilet Seat,FWW / Walker Discharge Plan Home Whiteboard Updated in Patient Room with Yes name and ext. # of Morning Babysitter Comment [phone] Please Provide Date Initial DC 01/30/24 Assessment Was Performed Next Review Type Continued Stay Review
[2024-01-30] MEDS: ACETAMINOPHEN 325 MG TABLET PO (14:31)
[2024-01-30] MEDS: ASPIRIN EC 325 MG TABLET PO (14:31)
--- NOTE | 2024-01-30 15:23 | OT.IP.EVAL ---
Current Diagnoses Unspecified dislocation of right hip, initial encounter (01/29/24) Surgery Performed Operation Date: 01/29/24 19:45 Actual Procedures p Closed Reduction Dislocated RIGHT Hip(Right) - Chao Moreno MD Past Medical History (Last Reviewed 12/28/23 @ 10:01 by Caroline Jaramillo DO) Avascular necrosis of bone of hip Bipolar 1 disorder Cardiomyopathy Cervical facet joint syndrome Cervical neck pain with evidence of disc disease Cervical spondylosis Chronic low back pain DDD (degenerative disc disease) Degenerative joint disease of right hip Depression Dilation of esophagus (01/25/21) Dilation of esophagus (02/08/21) Fibromyalgia GERD (gastroesophageal reflux disease) Hiatal hernia History of COVID-19 (~05/2023) HLD (hyperlipidemia) Oropharyngeal dysphagia Osteoarthritis Osteopenia Seasonal allergies Spinal stenosis in cervical region Thoracic kyphosis Surgical History (Last Reviewed 12/28/23 @ 10:01 by Caroline Jaramillo DO) H/O shoulder surgery History of appendectomy History of esophagogastroduodenoscopy (EGD) (09/29/20) History of esophagogastroduodenoscopy (EGD) (01/11/21) History of esophagogastroduodenoscopy (EGD) (11/28/22) History of esophagogastroduodenoscopy (EGD) (12/28/20) History of hysterectomy History of right knee surgery History of tonsillectomy History of total left hip arthroplasty (09/22/19) History of total right hip replacement (05/03/20) Hx of colonoscopy Occupational Therapy Inpatient Evaluation/Re-Eval M1 PT/OT-IP Prior Functional Status Start: 01/30/24 08:25 Freq: NEEDED Status: Active Protocol: Document 01/30/24 14:25 [facility] (Rec: 01/30/24 16:58 [facility] [id number]) Medical Review Prior Functional Status Medical History Reviewed Yes Communication pt is sleepy and needs cues to keep eyes open Mobility and Gait per spouse: pt was modified independent with all mobilities and ambulation without AD but occasionally uses a FWW Activities of Daily Living and IADL's Pt sponges off while seated on the edge of the tub and prior able to do all her ADL needs. Pt's assists with IADL needs. Social History Household Members spouse Living Arrangements House Number of Floors (Floors) One Floor Number of Stairs To Enter/Railing? 2 steps R rail to enter Home Environment Standard Height Toilet,Walk in Shower,Tub/Shower,Built-In Shower Seat Home Equipment Front Wheel Walker,Four Wheel Walker,Bedside Commode,Raised Toilet Seat Without Armrests Additional Social History Comment pt does not take showers but only sponge/spit bathes M2 OT-IP Current Condition Start: 01/30/24 16:36 Freq: Status: Active Protocol: Document 01/30/24 14:25 [facility] (Rec: 01/30/24 16:58 [facility] [id number]) Occupational Therapy Current Condition Current Condition Evaluation Date 01/30/24 Treatment Diagnosis Right hip dislocation s/p closed reduction Right hip Diagnosis Onset Date 01/29/24 Post Operative Precautions Posterior Hip Precautions No Hip Flexion > 90 degrees,No Hip Internal Rotation,No Hip Adduction Anterior Hip Precautions No Hip Extension,No Hip External Rotation Other Precautions Pt to have abductor brace and remove fro hygiene and sleeping. Brace set at 70 degrees flexion, 15 degrees abduction, 0 extension. Weight Bearing Status Weight Bearing Status Weight Bear as Tolerated M3 OT- IP Subjective and Pain Start: 01/30/24 16:36 Freq: Status: Active Protocol: Document 01/30/24 14:25 [facility] (Rec: 01/30/24 16:58 [facility] [id number]) OT- Subjective Occupational Therapy Visit Type Type Initial Evaluation Visit Start Time 13:00 Visit Stop Time 14:25 Occupational Therapy Visit Comments Patient Comments Pt very sleepy and pt's in the room. OT Pain Assessment Pain When Pain Assessed During Mobility Pain Present Pain Present Pain Reported Location neck Pain Behaviors Facial Grimacing,Holding Area, Wincing M4 OT- IP ADL's Start: 01/30/24 16:36 Freq: Status: Active Protocol: Document 01/30/24 14:25 [facility] (Rec: 01/30/24 16:58 [facility] [id number]) OT [id number] Comments OT Self-Feeding Comments Not at meal time. OT ADL-Grooming Comments OT Grooming Comments Not performed. OT ADL-Oral Care Comments Oral Care Comments NOt performed. OT ADL-Dressing General Eval Lower Body Dressing Ability Total Assistance Areas Needing Assistance Underpants/Brief,Socks, Orthosis/Prosthesis Comments OT Dressing Comments Total assist for LB dressing and abductor brace management needs at this time. Spoke at length with pt's nurse to be mindful of her skin integrity and probabaly best to take off the brace while sleeping and replace with the abductor wedge. [facility] to come in Friday at 9AM earliest time available to readjust the abductor brace on the pt. OT ADL-Toileting General Evaluation Toileting Ability Total Assistance Areas Needing Assistance Empty Catheter or Colostomy Comments OT Toileting Comments [place] in place. OT ADL-Bathing Comments OT Bathing Comments Sponge bath more appropriate at this time. M5 OT- IP IADL's Start: 01/30/24 16:36 Freq: Status: Active Protocol: Document 01/30/24 14:25 [facility] (Rec: 01/30/24 16:58 [facility] [id number]) OT-Instrumental Activities of Daily Living Home Safety Awareness Awareness of Need for Assistance at Home Decreased Awareness Ability to Problem Solve Emergency Unable to Problem Solve Situations Medication Management Medication Management Caregiver Administers Money Management Money Management Caregiver Provides Assistance Meal Preparation Meal Preparation Caregiver Provides Assist Pipe And Tank Fabricator Pipe And Tank Fabricator Caregiver Provides Assist M6 OT- IP Functional Cognition Start: 01/30/24 16:36 Freq: Status: Active Protocol: Document 01/30/24 14:25 [facility] (Rec: 01/30/24 16:58 [facility] [id number]) Cognitive Factors Limiting Selfcare Function Cognitive Ability Level of Alertness Confusional State,Drowsy Patient Orientation Name,Place,Situation Attention Span Ability Unable to Focus,Unable to Sustain Attention Ability to Follow Commands Able to Follow One Step Commands with Increased Time, Able to Follow One Step Commands with Repetition Memory Description Short Term Impaired,Working Impaired Safety Awareness Decreased Recall of Precautions,Decreased Ability to Apply Precautions Cognitive Comments Cognitive Assessment Comments Pt is very groggy and sleepy and having difficulty to stay awake. Pt not able to retain remembering her hip precautions at this time. Pt will benefit from continued education and practice to be able to incorporate her hip precautions for all ADL and mobility needs. Pt just having surgery late last night. M7 OT- IP Mobility and Balance Start: 01/30/24 16:36 Freq: Status: Active Protocol: Document 01/30/24 14:25 [facility] (Rec: 01/30/24 16:58 [facility] [id number]) OT- Bed Mobility Assessment Rolling Level of Assistance Maximum Assistance,2 Person Assistance Supine to Sit Supine to Sit Assist Maximum Assistance,Total Assistance,2 Person Assistance Sit to Supine Sit to Supine Assist Maximum Assistance,Total Assistance,2 Person Assistance OT-Transfer Assessment Sit to and From Stand Sit to and from Stand Maximum Assistance,2 Person Assistance Comments Mobility Comments MAX A x2 to assist to roll and also to help pt to follow her anterior and posterior precautions . MAX/TOTAL assist to get up to the edge of the bed with heavy use of the green pad for all positioning needs. MAX AX 2 to stand to the FWW and able to take a couple small step to the head of the bed. OT- Balance Assessment Sitting Balance and Reactions Static Sitting Balance Ability Poor Dynamic Sitting Balance Ability Poor Standing Balance and Reactions Static Standing Balance Ability Poor Dynamic Standing Balance Ability Poor Comments Other Balance Tests/Deviations/Treatment Pt needing MOD/MAXA for her : sitting balance while on the edge of the bed. M8 OT- IP Objective Assessments Start: 01/30/24 16:36 Freq: Status: Active Protocol: Document 01/30/24 14:25 [facility] (Rec: 01/30/24 16:58 [facility] [id number]) OT Gross Range of Motion Upper Extremity Range of Motion ROM Impairments grossly WFL OT Strength Comments Strength Comments WFL for age and lifestyle M9 OT- IP Assessment and Plan Start: 01/30/24 16:36 Freq: Status: Active Protocol: Document 01/30/24 14:25 [facility] (Rec: 01/30/24 16:58 [facility] [id number]) OT Summary Assessment and Plan Potential Rehabilitation Potential Fair Analytic Complexity at Evaluation High Summary OT Impairments Pain,Strength,Balance, Functional Cognition, Functional Mobility,Grooming, Dressing,Toileting,Bathing, Toilet Transfers,Shower Transfers,Activity Tolerance Progress Towards Goals Slow Progress due to Pain,Slow Progress due to Medical Issues,Slow Progress due to Activity Tolerance,Slow Progress due to Cognition Assessment Summary Pt High complexity and main barriers are pain, pt still groggy from surgery and needing extensive two person assist MAX Ax2 to MAX/Total assist for all mobility needs at this time. Pt not able to recall her anterior and posterior precautions at this time as still very groggy and sleepy. Pt will benefit from skilled rehab as prior pt was walking without a device most of the time and did her basic ADL's. Pt to go to skilled rehab when medically stable. Goals Self-Feeding Goal Independent Grooming Goal Independent Dressing Goal Moderate Assistance Toileting Goal Moderate Assistance Bathing Goal Moderate Assistance Toilet Transfer Goal Minimal Assistance Shower Transfer Goal Moderate Assistance Days to Meet Goals 25 Frequency of Treatment Frequency Of Treatment Once a Day Treatment Plan OT Treatment Plan ADL Training,Functional Cognition Training,Functional Mobility,Patient/Family Education,Discharge Planning Other Treatment Recommendations and Next To educate pt on incorporating Treatment Focus all her anterior and posterior hip precautions for ADL needs and use of equipment to increase her independence and safety. Discharge Recommendations OT Discharge Recommendations SNF Rehab Transportation Needs at Discharge Stretcher/Ambulance
--- NOTE | 2024-01-30 18:14 | PC.NURSE ---
This nurse spoke with KAYE Demarco to clarify when patient needed to wear the brace. While still in the hospital, pt can use the wedge pillow while in bed and the brace when up out of bed. Once pt leaves the hospital, she should wear the brace during the day even while in bed but take it off for hygiene and when sleeping at night.
--- NOTE | 2024-01-30 18:59 | PM.PN.1 ---
Subjective Subjective Interval history: While the patient is admitted, she should remain in the abduction pillow while in bed. She should transfer to the abduction brace when working with PT or during mobilization. Once she DC home, discontinue to the pillow and transition to the abduction brace which can be taken off for hygiene and rest. Exam Vital Signs (past 8 hours): - 01/30/24 12:18 01/30/24 16:00 Temperature 98.0 F Pulse Rate 76 77 Respiratory Rate 16 18 Blood Pressure 104/50 L 110/45 L Pulse Oximetry 95 93 Oxygen Delivery Method Room Air Oxygen Flow Rate 0 Objective Labs 01/30/24 05:30 01/29/24 15:07 Labs: Laboratory Results - last 24 hr 01/30/24 05:30 Hgb 11.0 L Hct 33.0 L PFSH Medical History History of COVID-19 (~05/2023) Dilation of esophagus (02/08/21) Dilation of esophagus (01/25/21) Cardiomyopathy Osteoarthritis Osteopenia Hiatal hernia DDD (degenerative disc disease) Bipolar 1 disorder GERD (gastroesophageal reflux disease) Oropharyngeal dysphagia Cervical facet joint syndrome HLD (hyperlipidemia) Thoracic kyphosis Cervical neck pain with evidence of disc disease Degenerative joint disease of right hip Spinal stenosis in cervical region Depression Fibromyalgia Seasonal allergies Chronic low back pain Cervical spondylosis Avascular necrosis of bone of hip Surgical History History of esophagogastroduodenoscopy (EGD) (12/28/20) History of esophagogastroduodenoscopy (EGD) (11/28/22) History of esophagogastroduodenoscopy (EGD) (01/11/21) History of esophagogastroduodenoscopy (EGD) (09/29/20) Hx of colonoscopy History of total right hip replacement (05/03/20) History of total left hip arthroplasty (09/22/19) History of tonsillectomy History of appendectomy History of hysterectomy H/O shoulder surgery History of right knee surgery Family History Mother Stroke Sister Cancer Diabetes mellitus Gout Social History marital status: household members: spouse Smoking Status: Never smoker alcohol intake: current Quality VTE Deep Vein Thrombosis/Pulmonary Embolism Present on Admission: No
[2024-01-30] MEDS: MIRTAZAPINE 15 MG TABLET 45 MG PO (20:11)
[2024-01-30] MEDS: NORTRIPTYLINE HCL 25 MG CAPSULE 75 MG PO (20:12)
[2024-01-30] MEDS: ATORVASTATIN 20 MG TABLET 40 MG PO (20:12)
[2024-01-30] MEDS: PANTOPRAZOLE DR 40 MG TABLET PO (20:13)
[2024-01-30] MEDS: hydrOXYzine HCL 25 MG TABLET PO (20:13)
[2024-01-31] VITALS (8 sets, daily range): BP systolic 104–164; BP diastolic 58–81; PULSE 67–86; RESP 16–18; TEMP 36.6–37.4; O2SAT 93–96
[2024-01-31] MEDS: ACETAMINOPHEN 325 MG TABLET 650 MG PO ×5 (00:50→23:58)
[2024-01-31] MEDS: FERROUS SULFATE 325 MG TABLET PO (07:54)
[2024-01-31] MEDS: PREGABALIN 25 MG CAPSULE 50 MG PO ×2 (07:55→19:55)
[2024-01-31] MEDS: DOCUSATE 100 MG CAPSULE PO ×2 (07:55→19:54)
[2024-01-31] MEDS: lisinopriL 5 MG TABLET 2.5 MG PO (07:56)
[2024-01-31] MEDS: METOPROLOL ER 50 MG TABLET PO ×2 (07:56→19:52)
[2024-01-31] MEDS: SPIRONOLACTONE 25 MG TABLET PO (07:57)
[2024-01-31] MEDS: QUETIAPINE 100 MG TABLET 300 MG PO (07:58)
[2024-01-31] MEDS: MORPHINE ER 15 MG TABLET PO ×2 (08:00→19:54)
[2024-01-31] MEDS: ASPIRIN EC 81 MG TABLET PO ×2 (08:01→19:53)
--- NOTE | 2024-01-31 08:21 | PM.PNPO.1 ---
Subjective Subjective Date Patient Seen: 01/31/24 Time Patient Seen: 08:21 Interval history: Pain is mild. She lives with her however states he is limited in his ability to assist her. Otherwise without complaints this morning. Exam Vital Signs (past 8 hours): - 01/31/24 00:37 01/31/24 04:28 01/31/24 07:56 Temperature 98.0 F 97.8 F Pulse Rate 75 67 67 Respiratory Rate 17 18 Blood Pressure 112/61 112/61 123/61 Pulse Oximetry 93 93 01/31/24 07:56 Temperature Pulse Rate 67 Respiratory Rate Blood Pressure 123/61 Pulse Oximetry Oxygen Delivery Method Room Air Oxygen Flow Rate 0 Narrative Exam Narrative: 73-year-old female resting comfortably in bed in no apparent distress. Motor functions intact bilateral lower extremities. Sensation grossly intact to light touch bilateral lower extremities. Const General: cooperative Nutritional Appearance: average body habitus Orientation: alert Resp Effort & Inspection: normal respiratory effort and able to speak in complete sentences Objective Imaging CT scan - pelvis: Radiologist's impression: Normal alignment of right total hip arthroplasty status post closed reduction. Small avulsion fracture fragment involving the periphery of the superior aspect of the right greater trochanter. Labs 01/30/24 05:30 01/29/24 15:07 [facility] Medical History History of COVID-19 (~05/2023) Dilation of esophagus (02/08/21) Dilation of esophagus (01/25/21) Cardiomyopathy Osteoarthritis Osteopenia Hiatal hernia DDD (degenerative disc disease) Bipolar 1 disorder GERD (gastroesophageal reflux disease) Oropharyngeal dysphagia Cervical facet joint syndrome HLD (hyperlipidemia) Thoracic kyphosis Cervical neck pain with evidence of disc disease Degenerative joint disease of right hip Spinal stenosis in cervical region Depression Fibromyalgia Seasonal allergies Chronic low back pain Cervical spondylosis Avascular necrosis of bone of hip Surgical History History of esophagogastroduodenoscopy (EGD) (12/28/20) History of esophagogastroduodenoscopy (EGD) (11/28/22) History of esophagogastroduodenoscopy (EGD) (01/11/21) History of esophagogastroduodenoscopy (EGD) (09/29/20) Hx of colonoscopy History of total right hip replacement (05/03/20) History of total left hip arthroplasty (09/22/19) History of tonsillectomy History of appendectomy History of hysterectomy H/O shoulder surgery History of right knee surgery Family History Mother Stroke Sister Cancer Diabetes mellitus Gout Social History marital status: household members: spouse Smoking Status: Never smoker alcohol intake: current Assessment & Plan Post-op Postoperative Procedures: Procedures Operation Date: 01/29/24 19:45 Actual Procedure Side Surgeon p Closed Reduction Dislocated RIGHT Hip Right Chao Moreno MD Postoperative day: 2 Postoperative status narrative: Stable status post closed reduction under anesthesia of right hip Postoperative plan narrative: Abduction pillow while in bed. Abduction brace when working with physical therapy. At discharge the abduction pillow can be discontinued and patient will use the abduction brace. Patient may remove abduction brace for hygiene and at rest. Follow up with Dr. Moreno one week [facility]. Patient currently mechanical lift per Physical therapy. Physical therapy is currently recommending detention facility placement. Disposition likely will be discharged to detention facility tomorrow Quality VTE Deep Vein Thrombosis/Pulmonary Embolism Present on Admission: No
[2024-01-31] MEDS: VIT C/E/ZN/COPPR/LUTEIN/ZEAXAN CAPSULE 2 CAP PO (10:00)
--- NOTE | 2024-01-31 11:30 | PT.IPTN ---
Current Diagnoses Unspecified dislocation of right hip, initial encounter (01/29/24) Surgery Performed Operation Date: 01/29/24 19:45 Actual Procedures p Closed Reduction Dislocated RIGHT Hip(Right) - Chao Moreno MD Physical Therapy Treatment Note M2 PT-IP Current Condition Start: 01/30/24 08:25 Freq: NEEDED Status: Active Protocol: Document 01/30/24 12:25 AB (Rec: 01/30/24 15:35 AB [id number]) Physical Therapy Current Condition Current Condition Evaluation Date 01/30/24 Treatment Diagnosis R hip dislocation s/p closed reduction; difficulty in walking Onset Date 01/29/24 M3 PT-IP Subjective Start: 01/30/24 08:25 Freq: NEEDED Status: Active Protocol: Document 01/31/24 11:30 AB (Rec: 01/31/24 13:34 AB [id number]) Subjective Physical Therapy Visit Type Type Treatment Note Visit Start Time 11:30 Visit Stop Time 12:50 Number of BRANCH BANKER Visits 0 Physical Therapy Visit Comments Patient Comments agreeable to do PT Therapy Pain Assessment Pain When Pain Assessed At Rest Pain Present Pain Present Pain Reported Location neck Scale Used pain scale not stated Pain Management Techniques Distraction,Modification of Treatment,Re-positioning, Timing of Activity with Medications Right Hip Intensity 3 Scale Used Numeric (0 - 10) Pain Management Techniques Apply Cold,Modification of Treatment,Re-positioning, Timing of Activity with Medications M4 PT-IP Mobility and Gait Start: 01/30/24 08:25 Freq: NEEDED Status: Active Protocol: Document 01/31/24 11:30 AB (Rec: 01/31/24 13:34 AB [id number]) PT-Bed Mobility Assessment Rolling Level of Assist Maximal Assistance,1 Person Assistance Supine to Sit Supine to Sit Maximum Assistance,Head of Bed Elevated,Bedrails PT-Transfer Assessment Sit to and From Stand Sit to and from Stand Maximum Assistance,2 Person Assistance,Use of Upper Extremities Equipment Transfer Assistive Device Gait Belt,Front Wheeled Walker Orthotic/Prosthetic Devices or Brace: Yes Transfers Transfer Destination Chair Transfer Technique Stand Step Pivot Transfer Ability Level of Assist Maximum Assistance,1 Person Assistance,2 Person Assistance ,Use of Upper Extremities Comments Mobility Comments pt supine in bed. Assisted with hip abductor brace donning and readjustments. pt completed supine to sit max A and max cues with HOB elevated and use of bed rail. pt requiring mod A for sitting balance and cues to correct posterior trunk leaning. total A for scooting to EOB. pt completed sit to stand from EOB max A x 2 and cues for hip precautions. pt completed step transfer to chair using FWW max A x 1-2 and max cues. max A x 2 for controlled descent to the chair. positioned pt on the chair. set up for lunch. call light within reach. M5 PT-IP Objective Assessments Start: 01/30/24 08:25 Freq: NEEDED Status: Active Protocol: Document 01/30/24 12:25 AB (Rec: 01/30/24 15:35 AB [id number]) Orientation Orientation/Cognition Level of Alertness Alert Orientation Name Safety Awareness Decreased Safety Awareness Memory Description Short Term Impaired,Air Pumper Impaired Strength Lower Extremity Strength Assessment Right Impaired Hip 3-/5 Knee 3+/5 Muscle Tone Muscle Tone WNL Yes M6 PT-IP Treatment Start: 01/30/24 08:25 Freq: NEEDED Status: Active Protocol: Document 01/31/24 11:30 AB (Rec: 01/31/24 13:34 AB [id number]) Physical Therapy Treatment Education Education Provided Precautions,Weight Bearing Status,Safety Equipment Issued Equipment Type and Company Hip abductor brace dispensed 01/30/24 M7 PT-IP Assessment and Plan Start: 01/30/24 08:25 Freq: NEEDED Status: Active Protocol: Document 01/31/24 11:30 AB (Rec: 01/31/24 13:34 AB [id number]) PT Summary Assessment and Plan Potential Rehabilitation Potential Fair Summary Impairments Pain,ROM,Strength,Balance, Coordination,Sensation,Tone, Cognition,Bed Mobility, Transfers,Gait,Activity Tolerance Progress Towards Goals Slow Progress due to Pain,Slow Progress - Other Assessment Summary pt improving slowly but still requires max A x 1-2 using FWW for transfers and max cues with all tasks. pt unable to recall her precautions. pt will require SNF rehab to improve overall mobility independence. hip abdutor brace dispensed and fitting on pt yesterday and pt so far was able to tolerate hip brace this session. [facility] plans to come in on friday at ~ 9 am to checked on hip abductor brace and make other necessary adjustments. Goals Bed Mobility Goal Minimal Assistance Transfer Goal Minimal Assistance,Front Wheeled Walker Gait Goal Minimal Assistance,Front Wheel Walker Gait Distance 50 Other Goals improve bed mobility, transfers, ambulation using FWW ~ 100 ft SBA up/down 2 steps R rail min A Days to Meet Goals 10 Frequency of Treatment Frequency Of Treatment Once a Day Treatment Plan Physical Therapy Treatment Plan Bed Mobility Training,Transfer Training,Gait Training, Therapeutic Exercise,Balance Retraining,Post Op Education, Discharge Planning,Hot or Cold Pack,Neuromuscular Re-ed, Coordination Retraining,Manual Therapy Precautions Posterior Hip Precautions No Hip Flexion > 90 degrees,No Hip Internal Rotation,No Hip Adduction Anterior Hip Precautions No Hip Extension,No Hip External Rotation Brace R hip abductor brace: 70 deg flexion; 0 deg ext; 15 deg abduction Weight Bearing Status Weight Bearing Status Weight Bear as Tolerated Allowed Weight Bearing Amount (enter % RLE WBAT or #) (%) Recommendations To Nursing Amount of Assist Needed 2 Person Assist Discharge Recommendations PT Discharge Recommendations SNF Rehab Transportation Needs at Discharge Wheelchair/Cabulance
--- NOTE | 2024-01-31 14:47 | CM.DPC ---
DCP SNF Planning COnt: Per Ortho, pt to be fitted to her hip brace and per WIRE MACHINE CUTTER, [facility] not available to officially fit to pt until Friday as this is the weekend. PT/OT still recommending SNF at d/c. SW called [facility] admissions and they confirm referral was received but no PT/OT had been available yet and they will review those to confirm if they can accept and would then submit for [employer] auth. COLE secure emailed [facility] PT and OT eval and updated PT note from today to review. PASRR completed and signed by for hospital exempted discharge due to dx of depression and bipolar and faxed to PASRR coordinator Viki erazo for review. Plan: SW to follow closely for confirmation that [facility] will accept and have submitted auth. DONNIE Leroy
[2024-01-31] MEDS: hydrOXYzine HCL 25 MG TABLET PO (19:55)
[2024-01-31] MEDS: PANTOPRAZOLE DR 40 MG TABLET PO (19:55)
[2024-01-31] MEDS: ATORVASTATIN 20 MG TABLET 40 MG PO (19:56)
[2024-01-31] MEDS: NORTRIPTYLINE HCL 25 MG CAPSULE 75 MG PO (19:56)
[2024-01-31] MEDS: MIRTAZAPINE 15 MG TABLET 45 MG PO (19:57)
[2024-02-01] VITALS (10 sets, daily range): BP systolic 90–143; BP diastolic 55–74; PULSE 70–79; RESP 16–18; TEMP 36.2–37; O2SAT 94–96
[2024-02-01] MEDS: DICLOFENAC 1% GEL 100 GM 1 APPLIC TOP ×2 (02:50→05:52)
[2024-02-01] MEDS: ONDANSETRON 4 MG/2 ML INJ IV (02:50)
[2024-02-01] MEDS: ACETAMINOPHEN 325 MG TABLET 650 MG PO ×2 (04:35→17:58)
[2024-02-01] MEDS: lisinopriL 5 MG TABLET 2.5 MG PO (08:06)
[2024-02-01] MEDS: FERROUS SULFATE 325 MG TABLET PO (08:06)
[2024-02-01] MEDS: ASPIRIN EC 81 MG TABLET PO ×2 (08:06→20:31)
[2024-02-01] MEDS: DOCUSATE 100 MG CAPSULE PO ×2 (08:06→20:31)
[2024-02-01] MEDS: METOPROLOL ER 50 MG TABLET PO (08:07)
[2024-02-01] MEDS: MORPHINE ER 15 MG TABLET PO ×2 (08:07→20:29)
[2024-02-01] MEDS: SPIRONOLACTONE 25 MG TABLET PO (08:08)
[2024-02-01] MEDS: VIT C/E/ZN/COPPR/LUTEIN/ZEAXAN CAPSULE 2 CAP PO (08:08)
[2024-02-01] MEDS: QUETIAPINE 100 MG TABLET 300 MG PO (08:08)
[2024-02-01] MEDS: PREGABALIN 25 MG CAPSULE 50 MG PO ×2 (08:08→20:31)
--- NOTE | 2024-02-01 11:06 | P.PN_ITS ---
Subjective Subjective Interval history: Patient seen this morning. Somnolent but arousable. Reports discomfort in her hip. No other new issues Exam Vital Signs (past 8 hours): - 02/01/24 04:37 02/01/24 08:00 02/01/24 08:06 Temperature 98.6 F 97.7 F Pulse Rate 74 72 Respiratory Rate 18 16 Blood Pressure 143/70 H 134/70 134/70 Pulse Oximetry 94 94 Oxygen Flow Rate 0 0 02/01/24 08:07 02/01/24 08:37 Temperature Pulse Rate 73 Respiratory Rate Blood Pressure 134/70 Pulse Oximetry Oxygen Flow Rate Oxygen Delivery Method Room Air Oxygen Flow Rate 0 Narrative Exam Narrative: Right lower extremity maintained in a hip abduction brace as well as a hip abduction pillow. Sensation intact to light touch in L2 through S1 nerve distributions. Flexes extends hallux and ankle. Foot warm and well perfused Objective Labs 01/30/24 05:30 01/29/24 15:07 [facility] Medical History History of COVID-19 (~05/2023) Dilation of esophagus (02/08/21) Dilation of esophagus (01/25/21) Cardiomyopathy Osteoarthritis Osteopenia Hiatal hernia DDD (degenerative disc disease) Bipolar 1 disorder GERD (gastroesophageal reflux disease) Oropharyngeal dysphagia Cervical facet joint syndrome HLD (hyperlipidemia) Thoracic kyphosis Cervical neck pain with evidence of disc disease Degenerative joint disease of right hip Spinal stenosis in cervical region Depression Fibromyalgia Seasonal allergies Chronic low back pain Cervical spondylosis Avascular necrosis of bone of hip Surgical History History of esophagogastroduodenoscopy (EGD) (12/28/20) History of esophagogastroduodenoscopy (EGD) (11/28/22) History of esophagogastroduodenoscopy (EGD) (01/11/21) History of esophagogastroduodenoscopy (EGD) (09/29/20) Hx of colonoscopy History of total right hip replacement (05/03/20) History of total left hip arthroplasty (09/22/19) History of tonsillectomy History of appendectomy History of hysterectomy H/O shoulder surgery History of right knee surgery Family History Mother Stroke Sister Cancer Diabetes mellitus Gout Social History marital status: household members: spouse Smoking Status: Never smoker alcohol intake: current Assessment & Plan Assessment and plan (1) Closed dislocation of right hip: Status: Acute Plan Patient is a frail 73-year-old who had a dislocation of her right hip. Radiographic review indicates that she has a retroverted femoral stem and an excessively anteverted acetabular component. Revision of her components would be a highly morbid procedure and I am going to try to avoid this if at all possible. I want her to be in a hip abduction brace anytime she is up moving around. It should be set to block her from 70? of flexion, neutral extension, and 15? of abduction. Given difficulties with mobility associated with her abduction brace and her hip pain she may need to spend some time in a nursing facility. She is overall frail at baseline. Will have her follow up with me in clinic after she discharges from the hospital. Given her somnolence today I would like us to minimize opioids if at all possible in her case to keep her as alert as we can although she does take high doses at baseline Quality VTE Deep Vein Thrombosis/Pulmonary Embolism Present on Admission: No
--- NOTE | 2024-02-01 11:07 | PT.IPTN ---
Current Diagnoses Unspecified dislocation of right hip, initial encounter (01/29/24) Surgery Performed Operation Date: 01/29/24 19:45 Actual Procedures p Closed Reduction Dislocated RIGHT Hip(Right) - Chao Moreno MD Physical Therapy Treatment Note M2 PT-IP Current Condition Start: 01/30/24 08:25 Freq: NEEDED Status: Active Protocol: Document 01/30/24 12:25 AB (Rec: 01/30/24 15:35 AB [id number]) Physical Therapy Current Condition Current Condition Evaluation Date 01/30/24 Treatment Diagnosis R hip dislocation s/p closed reduction; difficulty in walking Onset Date 01/29/24 M3 PT-IP Subjective Start: 01/30/24 08:25 Freq: NEEDED Status: Active Protocol: Document 02/01/24 11:39 KS (Rec: 02/01/24 11:44 KS [id number]) Subjective Physical Therapy Visit Type Type Treatment Note Visit Start Time 10:56 Visit Stop Time 11:07 Number of CHEMISTRY ACCOUNT MANAGER Visits 1 Physical Therapy Visit Comments Patient Comments agreeable to do PT Therapy Pain Assessment Pain When Pain Assessed At Rest Pain Present Pain Present Pain Reported Location neck Scale Used pain scale not stated Pain Management Techniques Distraction,Modification of Treatment,Re-positioning Right Hip Scale Used not quantified Pain Management Techniques Modification of Treatment,Re- positioning M4 PT-IP Mobility and Gait Start: 01/30/24 08:25 Freq: NEEDED Status: Active Protocol: Document 02/01/24 11:39 KS (Rec: 02/01/24 11:44 KS [id number]) PT-Transfer Assessment Comments Mobility Comments Pt only able to complete LE exericses today including ankle pumps, quad sets, SLR, heel sldies, and glute sets. M5 PT-IP Objective Assessments Start: 01/30/24 08:25 Freq: NEEDED Status: Active Protocol: Document 01/30/24 12:25 AB (Rec: 01/30/24 15:35 AB [id number]) Orientation Orientation/Cognition Level of Alertness Alert Orientation Name Safety Awareness Decreased Safety Awareness Memory Description Short Term Impaired,Compliance Intern Impaired Strength Lower Extremity Strength Assessment Right Impaired Hip 3-/5 Knee 3+/5 Muscle Tone Muscle Tone WNL Yes M6 PT-IP Treatment Start: 01/30/24 08:25 Freq: NEEDED Status: Active Protocol: Document 02/01/24 11:39 KS (Rec: 02/01/24 11:44 DE [id number]) Physical Therapy Treatment Exercises Exercises Ankle Pumps,Gluteal Sets,Quad Sets,Heel Slides,Straight Leg Raises Education Education Provided Precautions,Weight Bearing Status,Safety Equipment Issued Equipment Type and Company Hip abductor brace dispensed 01/30/24 M7 PT-IP Assessment and Plan Start: 01/30/24 08:25 Freq: NEEDED Status: Active Protocol: Document 02/01/24 11:39 KS (Rec: 02/01/24 11:44 DE [id number]) PT Summary Assessment and Plan Potential Rehabilitation Potential Fair Summary Impairments Pain,ROM,Strength,Balance, Coordination,Sensation,Tone, Cognition,Bed Mobility, Transfers,Gait,Activity Tolerance Progress Towards Goals Slow Progress due to Pain,Slow Progress - Other Assessment Summary Pt able to complete most Le exercises today, needs some assistance and verbal and tactile cues. Unable to recall precautions. [facility] coming tomorrow to make any necessary adjustments to her abduction brace. Pt will require SNF at d/c. Goals Bed Mobility Goal Minimal Assistance Transfer Goal Minimal Assistance,Front Wheeled Walker Gait Goal Minimal Assistance,Front Wheel Walker Gait Distance 50 Other Goals improve bed mobility, transfers, ambulation using FWW ~ 100 ft SBA up/down 2 steps R rail min A Days to Meet Goals 10 Frequency of Treatment Frequency Of Treatment Once a Day Treatment Plan Physical Therapy Treatment Plan Bed Mobility Training,Transfer Training,Gait Training, Therapeutic Exercise,Balance Retraining,Post Op Education, Discharge Planning,Hot or Cold Pack,Neuromuscular Re-ed, Coordination Retraining,Manual Therapy Precautions Posterior Hip Precautions No Hip Flexion > 90 degrees,No Hip Internal Rotation,No Hip Adduction Anterior Hip Precautions No Hip Extension,No Hip External Rotation Brace R hip abductor brace: 70 deg flexion; 0 deg ext; 15 deg abduction Weight Bearing Status Weight Bearing Status Weight Bear as Tolerated Allowed Weight Bearing Amount (enter % RLE WBAT or #) (%) Recommendations To Nursing Amount of Assist Needed 2 Person Assist Discharge Recommendations PT Discharge Recommendations SNF Rehab Transportation Needs at Discharge Wheelchair/Cabulance
--- NOTE | 2024-02-01 12:36 | CM.DPC ---
DCP Note Continued COTTAGE SUPERVISOR assists DCP Malissa with follow up regarding patient. COTTAGE SUPERVISOR calls Stephanie at [facility] and leaves VM regarding status of patient's acceptance and insurance auth. COTTAGE SUPERVISOR faxes updated PT notes to [facility] as well. Plan: awaiting confirmation of acceptance at [facility], follow up with [facility] tomorrow (Friday). SYD ParsonSW
[2024-02-01] MEDS: PANTOPRAZOLE DR 40 MG TABLET PO (20:30)
[2024-02-01] MEDS: NORTRIPTYLINE HCL 25 MG CAPSULE 75 MG PO (20:30)
[2024-02-01] MEDS: MIRTAZAPINE 15 MG TABLET 45 MG PO (20:31)
[2024-02-01] MEDS: ATORVASTATIN 20 MG TABLET 40 MG PO (20:31)
[2024-02-02] VITALS (11 sets, daily range): BP systolic 94–124; BP diastolic 52–72; PULSE 74–85; RESP 14–20; TEMP 36.1–36.8; O2SAT 80–97
[2024-02-02] MEDS: ACETAMINOPHEN 325 MG TABLET 650 MG PO ×4 (04:25→22:22)
--- NOTE | 2024-02-02 07:31 | P.PN_ITS ---
Subjective Subjective Date Patient Seen: 02/02/24 Time Patient Seen: 07:31 Interval history: Patient has no complaints Exam Vital Signs (past 8 hours): - 02/02/24 00:10 02/02/24 03:00 Temperature 97 F L 97.5 F L Pulse Rate 77 80 Respiratory Rate 20 20 Blood Pressure 106/52 L 104/53 L Pulse Oximetry 93 80 L Oxygen Flow Rate 0 0 Oxygen Delivery Method Room Air Oxygen Flow Rate 0 Narrative Exam Narrative: 73-year-old female resting comfortably in bed in no apparent distress. Wedge pillows in place. Motor functions intact bilateral lower extremities. Sensation grossly intact to light touch bilateral lower extremities. Const General: comfortable Orientation: alert Objective Labs 01/30/24 05:30 01/29/24 15:07 [facility] Medical History History of COVID-19 (~05/2023) Dilation of esophagus (02/08/21) Dilation of esophagus (01/25/21) Cardiomyopathy Osteoarthritis Osteopenia Hiatal hernia DDD (degenerative disc disease) Bipolar 1 disorder GERD (gastroesophageal reflux disease) Oropharyngeal dysphagia Cervical facet joint syndrome HLD (hyperlipidemia) Thoracic kyphosis Cervical neck pain with evidence of disc disease Degenerative joint disease of right hip Spinal stenosis in cervical region Depression Fibromyalgia Seasonal allergies Chronic low back pain Cervical spondylosis Avascular necrosis of bone of hip Surgical History History of esophagogastroduodenoscopy (EGD) (12/28/20) History of esophagogastroduodenoscopy (EGD) (11/28/22) History of esophagogastroduodenoscopy (EGD) (01/11/21) History of esophagogastroduodenoscopy (EGD) (09/29/20) Hx of colonoscopy History of total right hip replacement (05/03/20) History of total left hip arthroplasty (09/22/19) History of tonsillectomy History of appendectomy History of hysterectomy H/O shoulder surgery History of right knee surgery Family History Mother Stroke Sister Cancer Diabetes mellitus Gout Social History marital status: household members: spouse Smoking Status: Never smoker alcohol intake: current Assessment & Plan Post-op Postoperative Procedures: Procedures Operation Date: 01/29/24 19:45 Actual Procedure Side Surgeon p Closed Reduction Dislocated RIGHT Hip Right Chao Moreno MD Postoperative status narrative: Stable Postoperative plan narrative: Hip abduction brace anytime she is up moving around. Abduction brace should be set to block her from 70? of flexion, neutral extension, 15? of abduction. Abduction pillow while in bed Mobilize with physical therapy Follow up with Dr. Moreno after discharge from hospital. Discharge to group home facility once authorized. Quality VTE Deep Vein Thrombosis/Pulmonary Embolism Present on Admission: No
[2024-02-02] MEDS: MORPHINE ER 15 MG TABLET PO ×2 (09:43→20:32)
[2024-02-02] MEDS: FERROUS SULFATE 325 MG TABLET PO (09:43)
[2024-02-02] MEDS: DOCUSATE 100 MG CAPSULE PO ×2 (09:44→20:30)
[2024-02-02] MEDS: PREGABALIN 25 MG CAPSULE 50 MG PO ×2 (09:44→20:30)
[2024-02-02] MEDS: SPIRONOLACTONE 25 MG TABLET PO (09:44)
[2024-02-02] MEDS: METOPROLOL ER 50 MG TABLET PO ×2 (09:44→20:31)
[2024-02-02] MEDS: ASPIRIN EC 81 MG TABLET PO ×2 (09:44→20:32)
[2024-02-02] MEDS: lisinopriL 5 MG TABLET 2.5 MG PO (09:45)
[2024-02-02] MEDS: QUETIAPINE 100 MG TABLET 300 MG PO (09:45)
[2024-02-02] MEDS: DICLOFENAC 1% GEL 100 GM 1 APPLIC TOP (09:50)
[2024-02-02] MEDS: VIT C/E/ZN/COPPR/LUTEIN/ZEAXAN CAPSULE 2 CAP PO (09:52)
--- NOTE | 2024-02-02 12:07 | CM.DPNOTE ---
Addendum entered by DONNIE Humphreys 02/02/24 16:30: From [facility], got the insurance auth, transport arranged for 12:30pm tomorrow. Asked to leave niesha goodson in w/c for them to transport pt out of w/c once at their facility. P: dc to [facility] tomorrow 1230pm. CM team will follow closely. SL Original Note: DCP ntoe [facility] reviewed EMR. Per Stephanie at [facility], no bed availability [facility] met with pt and spouse Beto in room. Pt and spouse report preference for SNF is closest to [place] as possible. Preference is [facility]. [facility] provided information on LTC planning for in home caregivers vs [facility]- spouse is interested in getting either increased help at home or placement for pt. Pt open to [facility] because she doesn't wish to be a burden on spouse (just celebrated being 49 years). CC Preeti kindly agreed to send referral to [facility]. From [facility], able to accept. Auth pending, likely to get auth this afternoon for dc to them tomorrow. Transport time pending. [facility] edited PASRR to include Seroquel. Previously surgeon signed level 1 exempt PASRR. [facility] updated RN/ortho PA. P: Anticipate dc to [facility] pending auth and transport. CM team will continue to follow clsoely. DONNIE Humphreys
--- NOTE | 2024-02-02 16:52 | PT.IPTN ---
Addendum entered and electronically signed by Micehlle Garcia PT 02/02/24 16:54: PT provides direct superv during SPT treatment Original Note: Current Diagnoses Unspecified dislocation of right hip, initial encounter (01/29/24) Surgery Performed Operation Date: 01/29/24 19:45 Actual Procedures p Closed Reduction Dislocated RIGHT Hip(Right) - Chao Moreno MD Physical Therapy Treatment Note M2 PT-IP Current Condition Start: 01/30/24 08:25 Freq: NEEDED Status: Active Protocol: Document 01/30/24 12:25 AB (Rec: 01/30/24 15:35 AB [id number]) Physical Therapy Current Condition Current Condition Evaluation Date 01/30/24 Treatment Diagnosis R hip dislocation s/p closed reduction; difficulty in walking Onset Date 01/29/24 M3 PT-IP Subjective Start: 01/30/24 08:25 Freq: NEEDED Status: Active Protocol: Document 02/02/24 15:30 JG (Rec: 02/02/24 16:43 JG [id number]) Subjective Physical Therapy Visit Type Type Treatment Note Visit Start Time 15:30 Visit Stop Time 16:00 Number of PRACTICING UROLOGIST Visits 0 Physical Therapy Visit Comments Patient Comments Agreeable to PT Therapy Pain Assessment Pain When Pain Assessed During Exercise Pain Present Pain Present Pain Reported Location Left foot Intensity 7 Scale Used Numeric (0 - 10) Pain Behaviors Calling Out,Moaning Pain Management Techniques Distraction,Re-positioning Right foot Intensity 7 Scale Used Numeric (0 - 10) Pain Behaviors Calling Out,Moaning Pain Management Techniques Distraction,Re-positioning M4 PT-IP Mobility and Gait Start: 01/30/24 08:25 Freq: NEEDED Status: Active Protocol: Document 02/02/24 15:30 JG (Rec: 02/02/24 16:43 JG [id number]) PT-Bed Mobility Assessment Rolling Type of Rolling Roll to Left Level of Assist Standby Assistance Supine to Sit Supine to Sit Standby Assistance,Head of Bed Elevated Scooting Scooting to Edge of Bed Standby Assistance PT-Transfer Assessment Sit to and From Stand Sit to and from Stand Contact Guard Assistance,Use of Upper Extremities Equipment Transfer Assistive Device Gait Belt,Front Wheeled Walker Orthotic/Prosthetic Devices or Brace: Yes Transfers Transfer Destination Chair Transfer Technique Ambulation Transfer Ability Level of Assist Contact Guard Assistance,Use of Upper Extremities Comments Mobility Comments Pt is improving on mobility overall. Pt ambulated around bed while keeping in mind hip precautions precautions for which brace is very helpful in limiting. Pt performed B ankle pumps with feet. Pt reports 7/10 pain B but mentioned that she is used to it. Gait Assessment Gait Gait Assistance Required: Contact Guard Assist Distance (Feet) 15 Able to Maintain Weight Bearing Status Yes During Gait Assistive Devices Assistive Device Gait Belt,Front Wheeled Walker Orthotic/Prosthetic Devices or Brace: Yes Gait Deviations General Gait Pattern Decreased Stride Length, Decreased Feet Clearance, Flexed Trunk,Narrow Based Gait ,Step-to Gait Factors Limiting Gait Function Factors Limiting Gait Function Decreased Activity Tolerance, Decreased Strength, Incoordination,Limited Range of Motion,Pain,Poor Balance Comments Gait Comments Pt participated in gait training for 15'x4 around bed. Pt is able to perform short lateral steps to the right while maintaining ant/post hip precautions. PT-Balance Assessment Sitting Balance and Reactions Static Sitting Balance Ability Good Dynamic Sitting Balance Ability Good Standing Balance and Reactions Static Standing Balance Ability Good Dynamic Standing Balance Ability Fair Device Used FWW M5 PT-IP Objective Assessments Start: 01/30/24 08:25 Freq: NEEDED Status: Active Protocol: Document 01/30/24 12:25 AB (Rec: 01/30/24 15:35 AB [id number]) Orientation Orientation/Cognition Level of Alertness Alert Orientation Name Safety Awareness Decreased Safety Awareness Memory Description Short Term Impaired,Correction Impaired Strength Lower Extremity Strength Assessment Right Impaired Hip 3-/5 Knee 3+/5 Muscle Tone Muscle Tone WNL Yes M6 PT-IP Treatment Start: 01/30/24 08:25 Freq: NEEDED Status: Active Protocol: Document 02/02/24 15:30 JG (Rec: 02/02/24 16:43 [id number]) Physical Therapy Treatment Exercises Exercises Ankle Pumps Education Education Provided Precautions,Safety Equipment Issued Equipment Type and Company Hip abductor brace dispensed 01/30/24 and adjusted by rep Other Treatments Other Treatment Performed Standing heel and toe raises with CGA M7 PT-IP Assessment and Plan Start: 01/30/24 08:25 Freq: NEEDED Status: Active Protocol: Document 02/02/24 15:30 JG (Rec: 02/02/24 16:43 [id number]) PT Summary Assessment and Plan Potential Rehabilitation Potential Good Status of Condition at Evaluation Evolving Summary Impairments Pain,ROM,Strength,Balance, Coordination,Sensation,Tone, Cognition,Bed Mobility, Transfers,Gait,Activity Tolerance Progress Towards Goals Slow Progress due to Pain Assessment Summary Pt improving on gait training and bed mobility. Pt following PT instructions and able to perform bed mobility, transfers and gait training with SBA to CGA. Pt is improving on standing balance and is able to perform side stepping leading with R LE while maintaining precautions, mostly d/t brace limitations. Pt brought to the PT's attention that she is feeling discomfort from the abdominal brace that is currently skin contact. Pt was educated on wearing a light t-shirt upon discharging from hospital. Pt was left in chair with all needs met upon completion of treatment. Pt will require SNF at d/c. Of note, pt does repeat herself often, reports chronic pain and appears to have memory challenges. Goals Bed Mobility Goal Independent Transfer Goal Independent,Front Wheeled Walker Gait Goal Standby Assistance,Front Wheel Walker Gait Distance 50 Other Goals improve bed mobility, transfers, ambulation using FWW ~ 100 ft SBA up/down 2 steps R rail min A Days to Meet Goals 10 Frequency of Treatment Frequency Of Treatment Once a Day Treatment Plan Physical Therapy Treatment Plan Bed Mobility Training,Transfer Training,Gait Training, Therapeutic Exercise,Balance Retraining,Post Op Education, Discharge Planning,Hot or Cold Pack,Coordination Retraining Other Recommendations and Next Treatment Focus on pt tolerance to Focus standing and gait training, dynamic standing balance exercises. Precautions Posterior Hip Precautions No Hip Flexion > 90 degrees,No Hip Internal Rotation,No Hip Adduction Anterior Hip Precautions No Hip Extension,No Hip External Rotation Brace R hip abductor brace: 70 deg flexion; 0 deg ext; 15 deg abduction Weight Bearing Status Weight Bearing Status Weight Bear as Tolerated Allowed Weight Bearing Amount (enter % RLE WBAT or #) (%) Recommendations To Nursing Amount of Assist Needed 1 Person Assist Discharge Recommendations PT Discharge Recommendations SNF Rehab Transportation Needs at Discharge Wheelchair/Cabulance
[2024-02-02] MEDS: ATORVASTATIN 20 MG TABLET 40 MG PO (20:30)
[2024-02-02] MEDS: hydrOXYzine HCL 25 MG TABLET PO (20:31)
[2024-02-02] MEDS: MIRTAZAPINE 15 MG TABLET 45 MG PO (20:31)
[2024-02-02] MEDS: PANTOPRAZOLE DR 40 MG TABLET PO (20:31)
[2024-02-03 03:34] VITALS: BP 95/52; PULSE 74; RESP 14; TEMP 36.7; O2SAT 95
[2024-02-03] MEDS: ACETAMINOPHEN 325 MG TABLET 650 MG PO ×2 (06:05→10:34)
[2024-02-03] MEDS: ASPIRIN EC 81 MG TABLET PO (06:06)
--- NOTE | 2024-02-03 07:36 | PM.DS.1 ---
History of Present Illness History of Present Illness Date Patient Seen: 02/03/24 Time Patient Seen: 07:36 Chief complaint: Hip pain Narrative: Hip pain is mild. Discharge Providers Provider Date of admission: 01/29/24 18:58 Discharge Date: 02/03/24 Primary care physician: Amita Giron DO Consults: 01/29/24 22:05 Consult to Discharge Planning Routine Comment: Consult to Occupational Therapy Evaluate & Treat Comment: Physician Instructions: Evaluate and treat Consult to Physical Therapy Evaluate & Treat Comment: Physician Instructions: post op DEVORAH protocol 01/30/24 07:06 Consult to Physical Therapy Evaluate & Treat Comment: transition out of abduction block to brace Physician Instructions: Fit and dispense hip abduction brace 01/30/24 11:58 Consult to Physical Therapy Evaluate & Treat Comment: Flex 70, Exten 0, Abduct 15 Physician Instructions: Abudction Brace Discharge provider: Piyush Sanchez PA-C Summary Hospital Course Discharge Diagnosis: Prosthetic right hip dislocation Hospital Course: Closed reduction under anesthesia of right hip Same procedure as scheduled: Yes Surgeon: Chao Moreno Anesthesia Type: Sedation Operative Notes Procedure in detail: This 73-year-old female patient had a history of right hip arthroplasty. She has no prior history of dislocations. I was on-call this evening and was contacted by the emergency department who had had 2 unsuccessful attempts at closed reduction of her hip. I counseled her regarding the risks and benefits of closed reduction. I discussed the possibility of unsuccessful closed reduction as well as possibility of damage to surrounding structures such as nerves. Informed consent was signed the operative site was marked. She was brought back to the operating room. She was placed supine on the [place] table. A time-out procedure was performed. Her description of her dislocation mechanism was most consistent with a posterior dislocation as she reported she was bending over when it occurred however fluoroscopic evaluation indicated that the head was sitting anteriorly. Reduction involved a combination of internal rotation, adduction, and hip flexion. This was followed by returning the hip to neutral rotation, abducting the hip, and releasing traction. This was confirmed to have been reduced fluoroscopically. Fluoroscopic images both AP and lateral were saved. I manipulated the hip with internal and external rotation on multiple views demonstrating a concentric reduction. Postoperative plan narrative: Hip abduction brace anytime she is up moving around. Abduction brace should be set to block her from 70? of flexion, neutral extension, 15? of abduction. Abduction pillow while in bed Mobilize with physical therapy Follow up with Dr. Moreno after discharge from hospital. [facility]charge to [facility] facility today Status at Discharge Cognitive/behavioral status at discharge: at baseline, confused Functional status at discharge: uses cane/walker Overall status at discharge: patient is progressing back to baseline Exam Vital Signs (past 8 hours): - 02/03/24 03:34 Temperature 98.1 F Pulse Rate 74 Respiratory Rate 14 Blood Pressure 95/52 L Pulse Oximetry 95 Oxygen Delivery Method Room Air Oxygen Flow Rate 0 Narrative Exam Narrative: 73-year-old female resting comfortably in bed in no apparent distress. Wedge pillows in place. Motor functions intact bilateral lower extremities. Sensation grossly intact to light touch bilateral lower extremities. Const General: comfortable Orientation: alert Objective Labs 01/30/24 05:30 01/29/24 15:07 [facility] Medical History History of COVID-19 (~05/2023) Dilation of esophagus (02/08/21) Dilation of esophagus (01/25/21) Cardiomyopathy Osteoarthritis Osteopenia Hiatal hernia DDD (degenerative disc disease) Bipolar 1 disorder GERD (gastroesophageal reflux disease) Oropharyngeal dysphagia Cervical facet joint syndrome HLD (hyperlipidemia) Thoracic kyphosis Cervical neck pain with evidence of disc disease Degenerative joint disease of right hip Spinal stenosis in cervical region Depression Fibromyalgia Seasonal allergies Chronic low back pain Cervical spondylosis Avascular necrosis of bone of hip Surgical History History of esophagogastroduodenoscopy (EGD) (12/28/20) History of esophagogastroduodenoscopy (EGD) (11/28/22) History of esophagogastroduodenoscopy (EGD) (01/11/21) History of esophagogastroduodenoscopy (EGD) (09/29/20) Hx of colonoscopy History of total right hip replacement (05/03/20) History of total left hip arthroplasty (09/22/19) History of tonsillectomy History of appendectomy History of hysterectomy H/O shoulder surgery History of right knee surgery Family History Mother Stroke Sister Cancer Diabetes mellitus Gout Social History marital status: household members: spouse Smoking Status: Never smoker alcohol intake: current Discharge Assessment & Plan Assessment and Plan Assessment: Status post closed reduction of a prosthetic right hip. Plan of Treatment: Hip abduction brace anytime she is up moving around. Abduction brace should be set to block her from 70? of flexion, neutral extension, 15? of abduction. Abduction pillow while in bed Mobilize with physical therapy Follow up with Dr. Moreno after discharge from hospital. Discharge Plan Discharge Plan Patient Disposition: SNF Transfer to: [facility] Discharge orders & Medications Prescriptions: New aspirin 81 mg Tablet,Delayed Release (Dr/Ec) 81 mg PO BID Qty: 90 0RF Continued ferrous sulfate [FeroSul] 325 mg (65 mg iron) tablet 325 mg PO DAILY Qty: 90 3RF quetiapine 300 mg Tablet 300 mg PO DAILY diclofenac sodium 1 % gel 4 g topical QID PRN (Reason: pain) Qty: 100 0RF Rx Instructions: apply to painful area as needed atorvastatin 40 mg tablet 40 mg PO BEDTIME Qty: 90 0RF lisinopril 2.5 mg tablet 2.5 mg PO DAILY Qty: 90 0RF spironolactone 25 mg Tablet 25 mg PO DAILY Qty: 90 0RF Excedrin Extra Strength 250-250-65 mg Tablet 1 tab PO Q4-6H PRN (Reason: Pain) metoprolol succinate 100 mg tablet extended release 24 hr 50 mg PO BID multivitamin Tablet 1 tab PO DAILY nortriptyline 75 mg Capsule 75 mg PO BEDTIME ergocalciferol (vitamin D2) [Vitamin D2] 50,000 unit Capsule 50,000 unit PO WEEKLY Patient Comments: takes on Friday Ocuvite Eye Health 50 mg-15 unit- 4.5 mg-2.5 mg Tablet,Chewable 2 tab PO DAILY tizanidine 2 mg Tablet 1 - 2 mg PO BID-TID PRN (Reason: Muscle Relaxer) mirtazapine 45 mg Tablet 45 mg PO BEDTIME pregabalin 50 mg capsule 50 mg PO BID hydroxyzine pamoate 25 mg capsule 25 mg PO BEDTIME Patient Comments: TAKE UP TO 2 CAPS A DAY NEEDED morphine 15 mg tablet extended release 15 mg PO QD-BID PRN (Reason: Pain) Patient Comments: take 1 tablet by mouth every 8 hours 06/19/2022 pantoprazole 40 mg tablet,delayed release (DR/EC) 40 mg PO BEDTIME Discontinued aspirin 81 mg Tablet,Delayed Release (Dr/Ec) 81 mg PO DAILY Qty: 90 0RF Follow up/Referrals: Amita Giron DO [Primary Care Provider] - Chao Moreno MD [Physician] - (1 week) Diet/Activity/Treatments Diet: Diet as Tolerated Activity: Wear abduction brace until follow up with Dr. Moreno. Ambulate with assistive device. Hip abduction brace anytime she is up moving around. Abduction brace should be set to block her from 70? of flexion, neutral extension, 15? of abduction. Cold/Heat Therapy: Ice over right hip as needed. 15 minutes at a time with a 1 hour break as needed Other treatments: Abduction pillow while in bed [facility] Reason for rehabilitation: Post-operative therapy Rehab type: Physical therapy and Occupational therapy Visit Report/Discharge Packet Instructions: DI for Prescription Opioid Use Stand Alone Forms: Patient Portal/API, Stroke Signs & Symptoms, Surgery Discharge Discharge Data Primary Care Provider: Amita Giron Quality VTE Deep Vein Thrombosis/Pulmonary Embolism Present on Admission: No
[2024-02-03 08:00] VITALS: BP 144/66; PULSE 78; RESP 16; O2SAT 98
--- NOTE | 2024-02-03 09:10 | PT.IPTN ---
Current Diagnoses Unspecified dislocation of right hip, initial encounter (01/29/24) Surgery Performed Operation Date: 01/29/24 19:45 Actual Procedures p Closed Reduction Dislocated RIGHT Hip(Right) - Chao Moreno MD Physical Therapy Treatment Note M2 PT-IP Current Condition Start: 01/30/24 08:25 Freq: NEEDED Status: Active Protocol: Document 01/30/24 12:25 AB (Rec: 01/30/24 15:35 AB [id number]) Physical Therapy Current Condition Current Condition Evaluation Date 01/30/24 Treatment Diagnosis R hip dislocation s/p closed reduction; difficulty in walking Onset Date 01/29/24 M3 PT-IP Subjective Start: 01/30/24 08:25 Freq: NEEDED Status: Active Protocol: Document 02/03/24 09:10 AB (Rec: 02/03/24 10:58 AB [id number]) Subjective Physical Therapy Visit Type Type Treatment Note Visit Start Time 09:10 Visit Stop Time 09:25 Number of CONFECTIONERY MAKER Visits 0 Physical Therapy Visit Comments Patient Comments agreeable to do PT Therapy Pain Assessment Pain When Pain Assessed At Rest Pain Present Pain Present Pain Reported Location Right Hip Scale Used pain scale not stated Pain Management Techniques Distraction,Modification of Treatment,Re-positioning, Timing of Activity with Medications M4 PT-IP Mobility and Gait Start: 01/30/24 08:25 Freq: NEEDED Status: Active Protocol: Document 02/03/24 09:10 AB (Rec: 02/03/24 10:58 AB [id number]) PT-Transfer Assessment Sit to and From Stand Sit to and from Stand Minimal Assistance,Maximum Assistance,1 Person Assistance ,Use of Upper Extremities Equipment Transfer Assistive Device Gait Belt,Front Wheeled Walker Orthotic/Prosthetic Devices or Brace: No Transfers Transfer Destination Toilet Transfer Technique ambulated Transfer Ability Level of Assist Minimal Assistance,1 Person Assistance,Use of Upper Extremities Comments Mobility Comments pt sitting on the chair and agreeable to do PT. requested to use the toilet. reviewed hip precautions with pt. pt unable to recall. pt with decrease safety awareness and can be impulsive. completed sit to stand min A and max cues for hip precautions. pt ambulated to the toilet using FWW min A ~ 10 ft. pt required max A to sit on the toilet using grab bar and max cues for hip precautions and safety. pt wanting to use the toilet for awhile. call light placed next to pt and instructed to ask for assistance when ready. pt understood. informed NAC. checked back on pt after a few minutes and pt in bed. refused to get up again and c/ o R hip pain. Gait Assessment Gait Gait Assistance Required: Minimum Assistance Distance (Feet) 10 Able to Maintain Weight Bearing Status Yes During Gait Assistive Devices Assistive Device Gait Belt,Front Wheeled Walker Orthotic/Prosthetic Devices or Brace: No Gait Deviations General Gait Pattern Decreased Stride Length, Decreased Feet Clearance Factors Limiting Gait Function Factors Limiting Gait Function Decreased Activity Tolerance, Decreased Strength,Difficulty Following Directions,Limited Range of Motion,Pain,Poor Balance,Poor Safety Awareness M5 PT-IP Objective Assessments Start: 01/30/24 08:25 Freq: NEEDED Status: Active Protocol: Document 01/30/24 12:25 AB (Rec: 01/30/24 15:35 AB [id number]) Orientation Orientation/Cognition Level of Alertness Alert Orientation Name Safety Awareness Decreased Safety Awareness Memory Description Short Term Impaired,Nursing Home Impaired Strength Lower Extremity Strength Assessment Right Impaired Hip 3-/5 Knee 3+/5 Muscle Tone Muscle Tone WNL Yes M6 PT-IP Treatment Start: 01/30/24 08:25 Freq: NEEDED Status: Active Protocol: Document 02/03/24 09:10 AB (Rec: 02/03/24 10:58 AB [id number]) Physical Therapy Treatment Education Education Provided Precautions,Safety M7 PT-IP Assessment and Plan Start: 01/30/24 08:25 Freq: NEEDED Status: Active Protocol: Document 02/03/24 09:10 AB (Rec: 02/03/24 10:58 AB [id number]) PT Summary Assessment and Plan Potential Rehabilitation Potential Fair Summary Impairments Pain,ROM,Strength,Balance, Coordination,Sensation,Tone, Cognition,Bed Mobility, Transfers,Gait,Activity Tolerance Progress Towards Goals Slow Progress due to Pain,Slow Progress - Other Assessment Summary pt progressing slowly with mobility using FWW and requiring min A to max A and max cues with all tasks for hip precautions and safety. pt will need SNF rehab and plans to d/c to SNF later today. Goals Bed Mobility Goal Independent Transfer Goal Independent,Front Wheeled Walker Gait Goal Standby Assistance,Front Wheel Walker Gait Distance 50 Other Goals improve bed mobility, transfers, ambulation using FWW ~ 100 ft SBA up/down 2 steps R rail min A Days to Meet Goals 10 Frequency of Treatment Frequency Of Treatment Once a Day Treatment Plan Physical Therapy Treatment Plan Bed Mobility Training,Transfer Training,Gait Training, Therapeutic Exercise,Balance Retraining,Post Op Education, Discharge Planning,Hot or Cold Pack,Coordination Retraining Precautions Posterior Hip Precautions No Hip Flexion > 90 degrees,No Hip Internal Rotation,No Hip Adduction Anterior Hip Precautions No Hip Extension,No Hip External Rotation Brace R hip abductor brace: 70 deg flexion; 0 deg ext; 15 deg abduction Weight Bearing Status Weight Bearing Status Weight Bear as Tolerated Allowed Weight Bearing Amount (enter % RLE WBAT or #) (%) Recommendations To Nursing Amount of Assist Needed 1 Person Assist Discharge Recommendations PT Discharge Recommendations SNF Rehab Transportation Needs at Discharge Wheelchair/Cabulance
[2024-02-03] MEDS: QUETIAPINE 100 MG TABLET 300 MG PO (09:12)
[2024-02-03] MEDS: MORPHINE ER 15 MG TABLET PO (09:12)
[2024-02-03] MEDS: SPIRONOLACTONE 25 MG TABLET PO (09:12)
[2024-02-03] MEDS: lisinopriL 5 MG TABLET 2.5 MG PO (09:12)
[2024-02-03] MEDS: VIT C/E/ZN/COPPR/LUTEIN/ZEAXAN CAPSULE 2 CAP PO (09:12)
[2024-02-03] MEDS: DOCUSATE 100 MG CAPSULE PO (09:12)
[2024-02-03 09:13] VITALS: BP 144/66
[2024-02-03] MEDS: PREGABALIN 25 MG CAPSULE 50 MG PO (09:13)
[2024-02-03] MEDS: FERROUS SULFATE 325 MG TABLET PO (09:13)
[2024-02-03] MEDS: METOPROLOL ER 50 MG TABLET PO (09:13)
--- NOTE | 2024-02-03 09:35 | CM.DPNOTE ---
Addendum entered by DONNIE Humphreys 02/03/24 13:46: KAYE Sanchez dropped off hard script for lyrica. CARLOS Álvarez kindly agreed to fax copy to [facility]. CM team will continue to follow as needed SL Addendum entered by DONNIE Humphreys 02/03/24 12:46: Per [facility] at , missing hard script for Lyrica, needed due to it being a pain med. ANIMAL CRUELTY INVESTIGATION SUPERVISOR messaged ortho PA, no response. ANIMAL CRUELTY INVESTIGATION SUPERVISOR called OR rn discharge, report he is in surgery and cannot scrub out for another hour. (after transport already left to deliver pt). He will write script when he is out. ANIMAL CRUELTY INVESTIGATION SUPERVISOR called and lvm with [facility] from [facility] on updated plan that this CM team will fax hard script for Lyrica as soon as available. SL Addendum entered by DONNIE Humphreys 02/03/24 11:52: ANIMAL CRUELTY INVESTIGATION SUPERVISOR printed med list for ortho PA to signed. After signed, CARLOS Álvarez kindly agreed to send med list to [facility]. CARLOS Álvarez placed signed med list and scripts back in chart. No further needs identified at this time. CM team will follow as needed. SL Original Note: DCP Note ANIMAL CRUELTY INVESTIGATION SUPERVISOR reviewed EMR. Per chart review, cleared to dc to [facility] today. ANIMAL CRUELTY INVESTIGATION SUPERVISOR met with pt in room. Updated her on 12:30pm transport time today. In agreement with plan. Asked this ANIMAL CRUELTY INVESTIGATION SUPERVISOR called her spouse and updated him. No further questions. ANIMAL CRUELTY INVESTIGATION SUPERVISOR gave RN report number/updated her on time. ANIMAL CRUELTY INVESTIGATION SUPERVISOR updated PLASTICS NURSE. ANIMAL CRUELTY INVESTIGATION SUPERVISOR gave PASRR to CARLOS Álvarez, kindly agreed to send to [facility] along with rest of the dc information. No signed med list available at this time. ANIMAL CRUELTY INVESTIGATION SUPERVISOR messaged ortho PA, in surgery. Per charge DATA CENTER SOLUTIONS ARCHITECT, scheduled to be done around 1015 and will be able to complete med list prior to pt's discharge. ANIMAL CRUELTY INVESTIGATION SUPERVISOR lvm with liyah ([phone]) updating him on plan. P: pt to dc today to [facility] at 1230pm. Signed med list needed. CM team will continue to follow closely DONNIE Humphreys
== END 2024-02-03 12:51 | DRG 561 ==
LOC: ED 15:33 → AC 19:23
PROVIDERS: Admitting Provider Orthopaedic Surgery Adult Reconstructive Orthopaedic Surgery; Emergency Provider Emergency Medicine; Family Provider Family Medicine; PCP Student in an Organized Health Care Education/Training Program; Referring Provider Emergency Medicine; Visit Provider Orthopaedic Surgery Adult Reconstructive Orthopaedic Surgery
PROC: 0SWRXJZ Revision of Synthetic Substitute in Right Hip Joint, Femoral Surface, External Approach (ICD-10-PCS; principal; 2024-01-29 19:45)
DX: T84.020A Dislocation of internal right hip prosthesis, initial encounter (principal); F32.A Depression, unspecified; E78.5 Hyperlipidemia, unspecified; I10 Essential (primary) hypertension; X50.1XXA Overexertion from prolonged static or awkward postures, initial encounter
CPT/HCPCS: 27265; 36415; 70450; 71045; 72125; 72170; 72192; 80053; 81003; 82550; 83605; 83690; 84484; 85014; 85018; 85025; 94762; 96374; 96375; 96376; 97110; 97116; 97163; 97167; 97530; 97535; 97760; 99152; 99284; A9270; J0136; J1170; J2250; J2270; J2405; J2704